=== PATIENT | male | born 1950 | race Two or more races ===

== ENCOUNTER 2023-08-26 11:03 | Day surgery (SDC) | payer SELFPAY ==
[2023-08-26] VITALS (10 sets, daily range): BP systolic 121–147; BP diastolic 47–67; BMI 24.7
[2023-08-26 11:44] LABS: Glucose - Point of Care 139 mg/dl (70-99)
--- NOTE | 2023-08-26 12:10 | W.PN.CARDCBS ---
Addendum entered and electronically signed by Felipe Starks MD 08/26/23 17:54:
patient seen and examined
agree with ASSISTANT PROFESSOR OF BUSINESS note and assessment
Seen and examined with family
Reviewed records
Acute on chronic renal failure, oliguric and possibly approaching temporary HD
underying [facility] s.p. temp wire since friday.
received 10cc of intravenous dye for venogram and CS venography see separate report of device implant
reviewed post implant CXR no pneumothorax and stable leads. ecg reviewed with biv pacing
weaned dobutamine and removed temp with improved hemodynamics post implant
retained right IJ in case temporary HD needed and used active fix LV lead to mitigate possible dislodgement risk
exam:
heent ncat
jvp 7
cor regular no m
lungs w rhales
abd soft nt nd
no ext edema
aao x 3
HPI: This is a 71 y/o [place] male, PMH sig for CAD w/prior CABG with bioprosthetic AVR (2007), DM, HLD, GERD, anemia, BPH.
Sudden onset headache, LH with worsening LE edema. He also developed chest heaviness and extreme weakness. EMS was called and pt was found to be in CHB w/rates 30s. BP was normal but was trending down to 80s/40s. He was brought to [facility] ER where he
was started on epinephrine and a temporary transvenous pacer wire was placed via RIJ, external pacer set with rate 70 and MA 1.5.
Found to have significant hyperkalemia w/K at 6.5, acute renal failure w/creat 2.67. Creat has continued to climb, peaking at 5.1 today. Renal was consulted and it was unclear why he is in acute renal failure. Pro BNP 4047 and initial HS troponin 56
with eventual peak 758.
He has remained hemodynamically unstable and has been on dobutamine gtt for MAP>70.
He is transferred today for permanent pacemaker implant with temp wire removal. Likely transfer back to [facility] today post procedure or in AM for continued care management.
Echo 08/24- nml LV size, abnormal diastolic function with increased LVEDP, EF 60-65%, CLVH but no obvious regional abn.
normally functioning bioprosthetic AV, PG/MG 32.5/18, ABEL 1.34cm2,
IMPRESSION:
Complete heart block
Temporary pacer via RIJ sheath
Hemodynamically unstable on dobutamine gtt
Elevated troponin, possible Type II NSTEMI v. acute non-ischemic myocardial injury
Hyperkalemia
Acute on likely Chronic renal failure
Acute decompensated diastolic HFpEF, 60-65%
CAD, w/prior CABG x3 w/bioprosthetic AVR (2007)
(GAFFNEY-LAD, VG-dLAD, VG-PLB)
HLD
HTN
DM
Language barrier
PLAN:
CHB-s/p AUTOMATED WEAVER-P and transfer back to [facility] for ongoing renal evaluation. Discussed care with Dr. Barnes who will arrange for 2 doses of antibiotics tonight and in am
follow daily renal function
outpt wound check
standard post PPM abx and cxr reviewed
incision check in 1 week
Elevated troponins- poss type II NSTEMI
prior CABG x3 with AVR (2017)
should consider ischemic evaluation when pt is stable
dobutamine weaned
continue aspirin, atorvastatin
no heparin at this time
Acute on chronic diastolic HFpEF- had been on lasix 40 IV/daily
will continue and monitor creat, lytes
Acute on chronic renal failure- pt had been hospitalized a couple months ago for acute renal failure
creat continues to rise, up to 5.1 today (2.6 on admission)
no recent med changes, antibiotics
possibly related to hypoperfusion with bradycardia/CHB, as well as dehydration
wolf in at transfer- low urine output, around 10-20cc/hr
renal consult at [facility]- will follow with them
DM- stop metformin
ok to continue insulins as ordered
Original Note:
Today's Communication / Plan
-
PPM implant
post CXR
anticipate return to [facility] today/tomorrow for continued care
Impression / Plan
-
This is the H&P summary.
Full H&P scanned into chart.
PCP: Israel Clifton MD
CDY: Orlando Langley MD
HPI: This is a 71 y/o [place] male, PMH sig for CAD w/prior CABG with bioprosthetic AVR (2007), DM, HLD, GERD, anemia, BPH.
Sudden onset headache, LH with worsening LE edema. He also developed chest heaviness and extreme weakness. EMS was called and pt was found to be in CHB w/rates 30s. BP was normal but was trending down to 80s/40s. He was brought to [facility] ER where he
was started on epinephrine and a temporary transvenous pacer wire was placed via RIJ, external pacer set with rate 70 and MA 1.5.
Found to have significant hyperkalemia w/K at 6.5, acute renal failure w/creat 2.67. Creat has continued to climb, peaking at 5.1 today. Renal was consulted and it was unclear why he is in acute renal failure. Pro BNP 4047 and initial HS troponin 56
with eventual peak 758.
He has remained hemodynamically unstable and has been on dobutamine gtt for MAP>70.
He is transferred today for permanent pacemaker implant with temp wire removal. Likely transfer back to [facility] today post procedure or in AM for continued care management.
Echo 08/24- nml LV size, abnormal diastolic function with increased LVEDP, EF 60-65%, CLVH but no obvious regional abn.
normally functioning bioprosthetic AV, PG/MG 32.5/18, ABEL 1.34cm2,
IMPRESSION:
Complete heart block
Temporary pacer via RIJ sheath
Hemodynamically unstable on dobutamine gtt
Elevated troponin, possible Type II NSTEMI v. acute non-ischemic myocardial injury
Hyperkalemia
Acute on likely Chronic renal failure
Acute decompensated diastolic HFpEF, 60-65%
CAD, w/prior CABG x3 w/bioprosthetic AVR (2007)
(GAFFNEY-LAD, VG-dLAD, VG-PLB)
HLD
HTN
DM
Language barrier
PLAN:
CHB- transfer for PPM implant today
standard post PPM abx and cxr
remove temp wire
incision check in 1 week
possible transfer back to [facility] today post implant if stable
Elevated troponins- poss type II NSTEMI
prior CABG x3 with AVR (2017)
should consider ischemic evaluation when pt is stable
continue dobutamine for hemodynamic instability as needed for MAP>70- likely not in cardiogenic shock
continue aspirin, atorvastatin
no heparin at this time
Acute on chronic diastolic HFpEF- had been on lasix 40 IV/daily
will continue and monitor creat, lytes
Acute on chronic renal failure- pt had been hospitalized a couple months ago for acute renal failure
creat continues to rise, up to 5.1 today (2.6 on admission)
no recent med changes, antibiotics
possibly related to hypoperfusion with bradycardia/CHB, as well as dehydration
wolf in at transfer- low urine output, around 10-20cc/hr
renal consult at [facility]- will follow with them
DM- stop metformin
ok to continue insulins as ordered
Progress Note - Patternmaker Bench
Subjective
Date of Service: August 26, 2023
Objective
Vital Signs and I&O:
Vital Signs
Temp Pulse Resp BP Pulse Ox
98.2 F 70 16 132/47 98
08/26/23 11:05 08/26/23 11:05 08/26/23 11:05 08/26/23 11:05 08/26/23 11:05
Vital Signs
Temp Pulse Resp BP Pulse Ox
98.2 F 70 16 132/47 98
08/26/23 11:05 08/26/23 11:05 08/26/23 11:05 08/26/23 11:05 08/26/23 11:05
Physical Exam
Physical Exam
AAOx3, MAEE 5/5
RRR S1 S2 no murmurs
moderate bilateral rales, R>L, non labored
soft abd, +bs
bilat extremities w/+1-2 edema, palpable distal pulses
--- NOTE | 2023-08-26 16:05 | ITS.CL.PACE ---
Major Account Representative - Pacemaker Implant
Pacemaker Implant
Procedure Report:
Date of Procedure: August 26, 2023
Patient : 1950
Procedures: MACHINE ATTENDANT pacer implantation
Indication: 1) Class III CHF, LVEF 45%, 2) paced QRS with temporary wire and underlying complete heart block with symptoms. Patient requiring dobutamine and was transferred urgently from [facility] for device implantation
History: Prior AVR CABG in 2019 at [facility] who presents with acute renal failure and AV block who had a temporary pacemaker placed at [facility] on August 23.
Implants:�
Pulse Generator: Medtronic; Model# W-4 TR 01; Serial#�JUNIOR BRAND [id number]
Atrial Lead: Medtronic: Model# 4574; Serial# [id number]
Right Ventricular Lead: Medtronic; Model# 4074; Serial# [id number]
Left Ventricular Lead: Medtronic; Model# 4798 serial# [id number]
�
The temporary wire was removed at the end of the procedure
�
Technique: The patient was prepped and draped in the usual fashion. Local anesthetic was applied to the left prepectoral subcutaneous tissue. A 4 inch incision was made. The left axillary vein was accessed� without difficulty. A subcutaneous pocket
was CREATED. Hemostasis was excellent. A right heart catheterization was performed. The leads were introduced with hemostatic peel away introducer sheaths. The right ventricular lead was placed at the right ventricular apex. The atrial lead was
placed in the right atrial appendage. The coronary sinus was accessed with the aid of the Attain system. The left ventricular lead was placed in the mid posterolateral position from the base to mid ventricle. 10 volt pacing did not capture the
diaphragm. The leads were secured to the pectoralis muscle and fascia. The leads were appropriately attached to the device. The pocket was irrigated with antibiotic solution. The device and leads were placed in the pocket and the device was secured
to pectoralis muscle and facia. The incision was closed with absorbable sutures. The estimated blood loss was minimal. There were no complications. Device based testing was performed as described below. IV contrast total: 10 cc. Once the MACHINE ATTENDANT device
was placed the temporary wire was removed from the right internal jugular vein under fluoroscopy with a Cordis left in the right IJ. The patient was able to be weaned from his dobutamine immediately after cardiac resynchronization was placed.
Pulse fluoroscopy 11 minutes and dose 304 mGy
System Analysis:
RA lead: P: 1.4 mV; Threshold: 0.6 V @ 0.5 ms; Impedance: 684 ohms.
RV lead: R: 6.3 mV; Threshold: 0.6 V @ 0.5 ms; Impedance: 1140 ohms.
LV lead: R: 7.0 mV; Threshold: 1.0 V @ 0.5 ms at S1-S2 configuration; Impedance: 608 ohms.
�
Final Programming: DDDR 60-130 beats a minute
�
Conclusion: Uncomplicated Biventricular ICD implant and testing. Compensated filling pressures.
�
Recommendation: Routine post BiV ICD care. He will be sent back to [facility] this evening and I communicated with Dr. Barnes personally regarding antibiotic dosing and he has ongoing follow-up and evaluation for potential hemodialysis.
�
cc: Dr. Huma Barnes
�
== END 2023-08-26 16:25 | disposition home or self-care (01) ==
LOC: CATH 11:03
PROVIDERS: ATTENDING PHYSICIAN Internal Medicine Cardiovascular Disease; FAMILY PHYSICIAN Internal Medicine
DX: I44.2 Atrioventricular block, complete (principal); I50.9 Heart failure, unspecified; E87.5 Hyperkalemia; J81.1 Chronic pulmonary edema; I25.10 Atherosclerotic heart disease of native coronary artery without angina pectoris; Z95.1 Presence of aortocoronary bypass graft; Z79.82 Long term (current) use of aspirin; E11.9 Type 2 diabetes mellitus without complications
CPT/HCPCS: 33208; 33225; 71045; 82962; 93005; C1730; C1769; C1887; C1892; C1898; C1900; C2621

== ENCOUNTER 2024-12-20 06:12 | Inpatient (IN) | payer OTHER, SELFPAY ==
[2024-12-20] VITALS (24 sets, daily range): BP systolic 87–127; BP diastolic 56–74; BMI 23.5
--- NOTE | 2024-12-20 04:35 | EDRN ---
SL ntg administered
[2024-12-20] MEDS: NSS 1000 IV (04:37)
--- NOTE | 2024-12-20 04:38 | EDRN ---
Granddaughter speaking with pt - pt says he feels good, no sob cp 1-04/12. Pain was 12/10 at 0330
[2024-12-20 04:44] LABS: Glucose - Point of Care 187 mg/dl (70-99)
[2024-12-20] MEDS: NITRO-BID 0.5 INCH TOPICAL (04:47)
--- NOTE | 2024-12-20 04:48 | EDRN ---
NSS bolus hung per Dr Hoffman's verbal order then stopped shortly after per his vo, remains attached to #20g IV in case pt needs fluid per Dr Hoffman
[2024-12-20 04:57] LABS: ALT (SGPT) 48 U/L (0-50); AST (SGOT) 74 U/L (17-59); Albumin 3.9 g/dl (3.5-5.0); Alkaline Phosphatase 106 U/L (38-126); Blood Urea Nitrogen 29 mg/dl (9-20); Calcium 9.6 mg/dl (8.4-10.2); Carbon Dioxide 19 mmol/L (22-30); Chloride 112 mmol/L (98-107); Estimated Creatinine Clearance 40 ml/min; Glucose 185 mg/dl (70-99); Potassium 5.2 mmol/L (3.5-5.1); Sodium 140 mmol/L (135-145); Total Protein 6.5 g/dl (6.3-8.2); eGFR 48.55
[2024-12-20 04:58] LABS: INR 1.15; PT 15.0 Sec (11.4-14.6)
[2024-12-20 04:59] LABS: APTT 41.8 Sec (23.4-35.0)
[2024-12-20 05:01] LABS: Hematocrit 30.2 % (39.0-52.0); Hemoglobin 9.2 g/dL (13.0-18.0); Mean Corp Hgb Conc. 30.5 g/dL (33.0-37.0); Mean Corpuscular Volume 103.4 fL (80.0-94.0); Nucleated Red Blood Cells % 0 % (-); Red Cell Dist. Width 16.4 % (11.5-14.5)
--- NOTE | 2024-12-20 05:07 | EDRN ---
Family contact info: Primary contact [place] of [place].
Granddaughter- Geno
Grandson- Juan Ramon .
[2024-12-20 05:17] LABS: Troponin I 2.220 ng/ml
[2024-12-20 05:36] LABS: Platelet Count 40 10^3/uL (130-400)
[2024-12-20 05:37] LABS: Anisocytosis 1+; Normal RBC Morphology No
[2024-12-20 05:40] LABS: Acanthocytes 1+; Ovalocytes Occasional
[2024-12-20 05:42] LABS: Schistocytes Occasional; Target Cells Occasional; Tear Drop Red Blood Cells Occasional
--- NOTE | 2024-12-20 06:10 | HPS.HSE ---
Family Physician
-
Family Physician: Israel Clifton
Chief Complaint
-
Chest Pain / SOB
History of Present Illness
Patient is a 74y M with PMH significant for ASCVD, DM-II and CHF who presents to ED complaining of chest pain and SOB. History obtained from patient and family at the bedside with family serving as vacuum tank tender. Patient has had some mild /
intermittent chest discomfort and SOB since Friday. This evening, he had severe symptoms with 10/10 chest pain and marked SOB prompting them to call 911. He was brought to the ED for further evaluation. Patient was treated with NTG (SL and paste)
and is currently pain-free. His SOB is much improved.
Patient was hospitalized several weeks ago at [facility] for chest discomfort / abnormal troponin. No intervention was performed by history.
He was last seen here in August 2023 when he was transferred from [facility] for placement of permanent pacemaker due to heart block / bradycardia.
Patient went on a cruise last month (11/10-11/15) and afterwards family noted that he had some swelling in the feet and seemed more SOB than usual.
He had some cough last week including some blood-streaked sputum. No fevers / chills. No GI or complaints.
No new medications.
He is followed normally by [facility] (Dr. Langley).
Medical History
Past Medical History
Past Medical History: Reports Other
Additional Past Medical History:
ASCVD
Prior CVA
CHF - Unknown Type
Aortic Stenosis
DM-II
CKD - Unclear Stage (Temporary HD at [facility] July of this year)
BPH
Past Surgical History: Reports Other
Additional Past Surgical History:
CABG x 3
Bioprosthetic Aortic Valve Replacement
PTCA with Stent
In-Stent Restenosis with PTCA / Balloon Angioplasty
PPM Placement
Social History
Tobacco: Former Smoker (Significant history of smoking. Quit 5 years ago. > 50 pack years total use.)
Alcohol: Occasional
Drug: None
Personal:
Living: With Family
Family History
Family History: Not pertinent
Allergies / Home Medications
Allergies reflects when Allergies were last updated in [employer].
Home Medications with original date entered in [employer]
Allergy/Medication List:
Allergies
Allergy/AdvReac Type Severity Reaction Status Date / Time
No Known Allergies Allergy Verified 12/20/24 04:33
Home Medications
finasteride 5 mg tablet 5 mg PO DAILY 08/26/23
tamsulosin 0.4 mg capsule 0.4 mg PO DAILY 08/26/23
Insulin Sq 30 units SC DAILY 12/20/24
acetaminophen 650 mg tablet,extended release 650 mg PO .Q4-6H PRN pain 12/20/24
aspirin 81 mg tablet,delayed release 81 mg PO DAILY 12/20/24
atorvastatin 80 mg tablet (Lipitor) 80 mg PO HS 12/20/24
calcium 600 mg (as carbonate)-vitamin D3 10 mcg (400 unit) tablet (Calcium 600 + D(3)) 1 tab PO DAILY 12/20/24
cetirizine 10 mg tablet 10 mg PO DAILY PRN allergies 12/20/24
cholecalciferol (vitamin D3) 125 mcg (5,000 unit) tablet (Vitamin D3) 125 mcg PO DAILY 12/20/24
clopidogrel 75 mg tablet 75 mg PO DAILY 12/20/24
dapagliflozin propanediol 10 mg tablet (Farxiga) 10 mg PO DAILY 12/20/24
famotidine 40 mg tablet 40 mg PO HS 12/20/24
ferrous sulfate 325 mg (65 mg iron) tablet 325 mg PO DAILY 12/20/24
furosemide 40 mg tablet 40 mg PO DAILY 12/20/24
ipratropium bromide 21 mcg (0.03 %) nasal spray 2 spray intranasal .BID-TID 12/20/24
metformin 500 mg tablet 500 mg PO BID 12/20/24
metoprolol tartrate 25 mg tablet 25 mg PO BID 12/20/24
multivitamin 1 tab PO DAILY 12/20/24
nitroglycerin 0.4 mg sublingual tablet 0.4 mg sublingual Q5-15M PRN cp 12/20/24
omeprazole 40 mg capsule,delayed release 40 mg PO DAILY 12/20/24
Review of Systems
-
History Source: Patient and Family
A 12 point ROS was completed and negative except as noted: Yes
Constitutional: Reports Fatigue; Denies Fever or Chills
Respiratory: Reports Cough and Trouble Breathing
Cardiac: Reports Chest Pain and Diaphoresis; Denies Syncope
Abdomen/GI: Denies Abdominal Pain, Nausea, Vomiting or Diarrhea
: Denies Dysuria or Frequency
Musculoskeletal: Reports Edema; Denies Joint Pain
Neurological: Denies Dizzy or Headache
Psych: Denies Depression or Anxiety
Physical Exam
Vital Signs
Vital Signs
Temp Pulse Resp BP Pulse Ox
97.8 F 95 18 103/67 99
12/20/24 04:36 12/20/24 06:00 12/20/24 06:00 12/20/24 06:00 12/20/24 06:00
Physical Exam
General: Other (74y M in no acute distress at present.)
HEENT: Moist mucous membranes and PERRLA
Respiratory: Other (Scattered bilateral rales. No wheezing.)
Cardiac: S1/S2 and Tachycardia; No Murmur
GI: Soft, Non Tender, Non Distended and Normal Bowel Sounds
Musculoskeletal: No Clubbing, No Cyanosis and Other (1+ pitting fariba b/l LEs.)
Neuro: AO x 3
Laboratory Results
-
12/20/24 04:33
12/20/24 04:33
Laboratory Results
PT 15.0 Sec (11.4-14.6) H 12/20/24 04:35
INR 1.15 12/20/24 04:35
APTT 41.8 Sec (23.4-35.0) H 12/20/24 04:35
Total Bilirubin 1.9 mg/dl (0.2-1.3) H 12/20/24 04:33
AST 74 U/L (17-59) H 12/20/24 04:33
ALT 48 U/L (0-50) 12/20/24 04:33
Alkaline Phosphatase 106 U/L (38-126) 12/20/24 04:33
Troponin I 2.220 ng/ml H* 12/20/24 04:33
Impression/Plan
-
A/P: Patient is a 74y M with PMH significant for ASCVD, CHF and DM-II who presents to ED complaining of SOB and chest pain.
NSTEMI / ACS
ASCVD
- Admit to IVU for further evaluation and treatment.
- Patient presented with 12/10 chest pain. EKG is 100% V-paced. Pain relieved with NTG.
- IV heparin infusion. Continue DAPT.
- NTG paste at present - IV infusion if recurrent chest pain.
- Follow troponin to peak (initial troponin = 2..22).
- Cardiology evaluation for additional recommendations and possible ischemic evaluation.
- Follow for any new / recurrent chest pain.
Acute on Chronic HF- Unknown Type
History of Bioprosthetic AVR
- Peripheral edema, orthopnea and SOB. Symptoms present x weeks, but much worse this evening.
- IV Lasix as BP tolerates.
- Follow I/Os, daily weights, etc.
- Echo.
- Cardiology evaluation as noted above.
- GDMT as BP will tolerate.
- May required ionotrope / pressor for adequate perfusion.
CKD - Unclear Stage
Non-Gapped Metabolic Acidosis
Mild Hyperkalemia
- SCr today is 1.5, but prior history of advanced CKD and reportedly required temporary HD earlier this year.
- SCr August 2023 when here for PPM was 5.
- Follow for changes in renal function.
- Monitor labs / lytes. May benefit from bicarbonate supplementation.
- Obtain prior records as noted above.
- Hold metformin.
DM-II
- Continue basal insulin. Start with 12 units daily while NPO.
- Follow glucose and cover with SSI as needed.
- Update A1C.
- Adjust regimen as needed for adequate control.
Anemia of Chronic Disease
Macrocytosis
- No prior values to compare, but I suspect this is chronic.
- Check B12, folate, iron studies, etc.
- Follow H&H for changes.
Complete Heart Block s/p PPM
- 100% paced.
BPH
- Bladder scan protocol.
DVT prophylaxis: On IV Heparin
Code Status: Full
[2024-12-20] MEDS: HEPARIN 4000 UNITS IV (06:32)
[2024-12-20] MEDS: HEPARIN 25000 UNITS/250 ML IV (06:33)
--- NOTE | 2024-12-20 06:36 | ED.GENMED ---
History of Present Illness
General
Chief Complaint: Chest Pain
Source: patient and family
Time Seen by Provider: 12/20/24 04:34
Nursing documentation reviewed up to this point in time: agreed with
History of Present Illness
History of Present Illness:
Note:
CHIEF COMPLAINT(S)
Substernal chest pain and diaphoresis.
HISTORY OF PRESENT ILLNESS
The patient is a 74-year-old male who presented with substernal chest pain and diaphoresis. The onset of his chest pain was at 3:30 AM, described as sharp and rated as 10 out of 10, which awakened him from sleep. Emergency Medical Services (EMS)
were contacted by the family, who noted that the patient has an extensive cardiac history. The patient was administered aspirin and nitroglycerin pre-hospital, resulting in a reduction of his chest pain to 2 out of 10 immediately, and by the time of
hospital arrival, the pain was 0 out of 10. Upon arrival, the patient was still experiencing labored breathing and was diaphoretic. Portable chest X-ray at the bedside showed pulmonary vascular congestion with a possible infiltrate in the right
lower lobe. Subsequent nitroglycerin administration improved his breathing.
PAST MEDICAL AND SURIGICAL HISTORY
The patient has an extensive cardiac history, including coronary artery bypass grafting (CABG) performed at [facility] in 2007. He also has a bioprosthetic aortic valve replacement (AVR), diabetes mellitus, hyperlipidemia, gastroesophageal
reflux disease (GERD), anemia, benign prostatic hyperplasia (BPH), and chronic renal failure.
ADDITIONAL HISTORY OBTAINED FROM SOURCES OTHER THAN THE PATIENT
The patients history and translation were provided by family members accompanying him, as our official language line translation service was not operable.
CHRONIC MEDICAL CONDITIONS SIGNIFICANTLY AFFECTING CARE
Diabetes mellitus, chronic renal failure, hyperlipidemia, GERD, anemia, BPH, cardiac history including prior CABG and bioprosthetic AVR.
REVIEW OF SYSTEMS
- Cardiovascular: Substernal chest pain initially 10 out of 10, now resolved.
- Respiratory: Labored breathing, improved after nitroglycerin administration.
- General: Diaphoretic on presentation.
PHYSICAL EXAM
General: Alert, in no acute distress on arrival at the hospital.
Skin: Warm, dry. Diaphoretic upon initial pre-hospital assessment.
Head: Normocephalic, atraumatic.
Neck: Supple, trachea midline.
Eyes, Ears, Nose, Mouth and Throat: Oral mucosa moist.
Cardiovascular: Normal peripheral perfusion, no edema observed.
Respiratory: Non-labored respirations post-nitroglycerin administration.
Gastrointestinal: Abdomen nondistended.
Back: Normal range of motion and alignment.
Musculoskeletal: Normal range of motion, normal strength.
Neurological: Alert and oriented to person, place, time, and situation, no focal neurological deficits observed.
Psychiatric: Cooperative, appropriate mood and affect.
PROBLEM LIST
Acute:
- Chest pain
- Pulmonary vascular congestion
- Diaphoresis
- Elevated troponin and proBNP levels
- Labored breathing
Chronic:
- Diabetes mellitus
- Chronic renal insufficiency
- GERD
- Benign prostatic hyperplasia
- Anemia
PLAN
The patient will be admitted to the hospitalist service for further management and monitoring of his cardiac status and respiratory function.
DIFFERENTIAL DIAGNOSIS
The Differential Diagnosis includes, in no particular order, and is not limited to:
- Acute coronary syndrome
- Aortic dissection
- Pulmonary embolism
- Congestive heart failure
- Pneumonia
- Pericarditis
- Costochondritis
- Gastroesophageal reflux disease exacerbation
- Anxiety-related chest pain
- Myocarditis
Disposition:
SUMMARY OF ENCOUNTER
A 74-year-old male presented to the emergency department with chest pain and shortness of breath. Initial evaluation suggested the possibility of congestive heart failure, with chest X-ray indicating pulmonary vascular congestion. Pre-hospital
administration of aspirin and nitroglycerin alleviated his chest pain completely, and further nitroglycerin administration improved his breathing. Consultation with Dr. White, an short goods drier, confirmed that the pre-hospital EKG did
not show ST elevation indicative of acute ischemia.
DISPOSITION
The patient was admitted to the hospitalist service for further management and monitoring.
ASSESSMENT
The patient is likely experiencing congestive heart failure.
MANAGEMENT OF THE PATIENTS CARE WAS DISCUSSED WITH
Discussion with Dr. White, the short goods drier, regarding the absence of ST elevation on the pre-hospital EKG.
INDEPENDENT REVIEW OF LABS AND INTERPRETATION OF TESTS
My independent interpretation of the chest X-ray indicates pulmonary vascular congestion, suggestive of congestive heart failure.
MEDICATION RECONCILIATION
Pre-hospital administration of aspirin and nitroglycerin.
MEDICAL DECISION MAKING
- Number and Complexity of Problems Addressed: Chronic conditions affecting care include extensive cardiac history, diabetes mellitus, chronic renal failure, and hyperlipidemia. Differential diagnoses considered included acute coronary syndrome,
aortic dissection, pulmonary embolism, congestive heart failure, pneumonia, pericarditis, costochondritis, gastroesophageal reflux disease exacerbation, anxiety-related chest pain, and myocarditis.
- Data:
Category 2: Clinical information was obtained from independent historians, specifically from Dr. White regarding the EKG interpretation.
Category 3: Discussion of management with Dr. White, short goods drier.
DIAGNOSIS
Congestive heart failure (ICD-10: I50.9).
Phy Exam
Physical Exam
Physical Exam:
.
Scores
Heart Failure Risk
Heart Failure Risk Score: Yes
History of Stroke or TIA: No
History of intubation for respiratory distress: No
Heart rate on ED arrival >/= 110: No
SaO2 <90% on arrival on room air: No
HR >/=110 during 3min walk test (or too ill to perform test): Yes
ECG has acute ischemic changes: No
Urea >/=12mmol/L (BUN 33.6mg/dL): No
Serum CO2>/=35mmol/L: No
Troponin I or T elevated to PR Level (0.4mg/dL): Yes
NT-proBNP >/=5,000ng/L (5,000pg/ml): Yes
HF Risk Score: 5
Admission Status: VERY HIGH RISK 39.8% Consider admission to hospital
Heart Score for Chest Pain Patients
STEMI patient?: No
History: Highly Suspicious
ECG: Nonspecific Repolarization
Age: >/= 65 years
Risk Factors: >/= 3 Risk Factors or History of CAD
Troponin: >/= 3 x Normal Limit
Heart Score for Chest Pain Patients: 9
Heart Score Risk: 72.7 % MACE over next 6 weeks
Course
Orders/Labs/Results
Orders:
Orders
12/20/24
Electrocardiogram (*1) Stat
Reason for Study: Chest Pain
12/20/24 04:26
Electrocardiogram (*1) Urgent
Reason for Study: Chest Pain
Cardiac Monitoring- Treatment ONCE
EKG- Treatment ONCE
IV Insert/Care/Rem.- Treatment PRN
O2 Therapy [RESP] Urgent
Titrate/Wean O2 to maintain O2 sat greater than (%): 90
Special Instructions: Maintain sats >/=90%
Pulse Ox/spot Check [RESP] Urgent
Quantity: 1
Special Instructions: ON ROOM AIR
12/20/24 04:33
Complete Blood Count/With Diff Urgent
Comprehensive Metabolic Panel Urgent
NT-proBNP Urgent
Comment: ADD ON
Troponin I Urgent
12/20/24 04:35
PTT Urgent
Prothrombin Time Urgent
12/20/24 04:36
0.9% Sodium Chloride 1000 ml [Nss] 1,000 ml IV BOLUS
12/20/24 04:39
Chest X-ray Portable [CR Chest Portable - 1 View] Stat
Comment:
Reason For Exam: cp
Reason Study Needs to be Portable: Unable to Transport
12/20/24 04:45
Nitroglycerin Ointment [Nitro-Bid] 1 inch .ROUTE .STK-MED ONE
Nitroglycerin Ointment [Nitro-Bid] 1 inch TOPICAL NOW STA
12/20/24 04:46
Nitroglycerin Ointment [Nitro-Bid] 0.5 inch TOPICAL NOW STA
12/20/24 04:49
Add On- LAB Stat
Tests Added?: [id number]
12/20/24 05:59
Admit/Transfer Patient As Directed
Co-Sign Provider:
Level of Care: Inpatient admission
Assign to:: IVU
Physician / Group: Joby
Diagnosis: NSTEMI / ACS, CHF
Reason for Hospitalization: NSTEMI / ACS, CHF
Expected length of stay greater than two midnights?: Yes
ELOS- Estimated Length of Stay in days: 3
I certify the patient meets the requirements for IP care: Yes
PRN Pain Medication Management As Directed
May give lesser potent ordered pain med per pt: Yes
preference::
Protocol:: Medication orders for pain may be administered in a
manner that supports deferring to patient preference
when the pt is:
- Requesting an ordered lesser potent pain medication.
Least to most potent pain medications are defined
as: acetaminophen < NSAID < tramadol < opioids
(morphine, oxycodone, hydromorphone).
- Requesting a lesser dose of the same medication IF
ORDERED.
- Requesting a less intrusive route of administration
if both routes are prescribed by the provider (PO <
IV).
12/20/24 Breakfast
NPO
Allow oral meds: Yes
Allow clear liquids: Sips of Clears
12/20/24 06:03
Code Status As Directed
Resuscitation Status: Full Code
12/20/24 06:07
Heparin 4,000 units IV NOW STA
12/20/24 06:15
Heparin 81645 Units/250 ml 25,000 units in 250 ml IV PER PROTOCOL
Weight to be used for heparin protocol in kilograms (kg):: 69.5
Protocol:: Cardiac Tx/Acute Coronary
PTT Goal Range to be used:: PTT 73 to 111 seconds
Order type:: Initial
INITIAL Infusion Dose (UNITS/KG/hr) & then follow protocol:: 12 units/kg/hr
Infusion Dose in UNITS/hr & then follow protocol (UNITS/hr):: 850
INFUSION RATE in mL/hr & then follow protocol (mL/hr):: 8.5
PTT less than or equal to 64 seconds:: Increase rate by 200 units/hr (+ 2 mL/hr)
PTT 64.1 to 72.9 seconds:: Increase rate by 100 units/hr (+ 1 mL/hr)
PTT 73 to 111 seconds:: Target Range. No change in rate.
PTT 111.1 to 130.9 seconds:: Decrease rate by 100 units/hr (- 1 mL/hr)
PTT 131 to 199.9 seconds:: HOLD for 1 hr. Then decrease rate by 200 units/hr (- 2 mL/hr)
PTT greater than or equal to 200 seconds:: HOLD for 2 hrs & Notify Provider. Then decrease by 200 units/hr (-
2 mL/hr)
Lab follow-up:: Each change, PTT q6h until 2 consecutive are therapeutic. Then PTT
daily.
12/20/24 06:48
Echo 2D MMode Doppler [Echo 2D MMode Color/Doppler] Routine
Reason for Study: NSTEMI / ACS, CHF
CARDIOLOGY CONSULT Routine
Consulting Provider: Anjel Gonzalez
Was physician already notified: No
Reason for consult: NSTEMI / ACS, CHF
Consult Notification Routine
Specialty to Notify: Cardiology
Date consulting provider notified: 12/20/24
Time consulting provider notified: 07:01
Notified:: Provider
12/20/24 07:20
Nitroglycerin Sublingual [Nitrostat (Sublingual)] 0.4 mg SL [id number] PRN cp
12/20/24 07:20
EKG with chest pain [ECG as needed] As Directed
ECG as needed for:: Chest Pain
12/20/24 07:35
Troponin I Q6H
12/20/24 08:24
Acetaminophen [Tylenol] 650 mg PO Q4HPRN PRN
Aspirin Low Dose EC [Aspir Low (Enteric Coated)] 81 mg PO DAILY
Clopidogrel Bisulfate [Plavix] 75 mg PO DAILY
Dextrose 50%-Water [Dextrose 50% Syringe] 12.5 grams IV [id number] PRN
Furosemide [Lasix] 40 mg IV BID AT 0800,1600
Glucagon [GlucaGen] 1 mg IM PRN PRN
Insulin Aspart Corrective Mod [Novolog Flexpen-Moderate Resistance] See Protocol SC AC
Insulin Glargine Lantus [Lantus] 12 units Subcutaneous Insulin Syringe [Syringe-Insulin] 0 unit SC DAILY
Metoprolol [Lopressor] 25 mg PO BID
Morphine Sulfate 2 mg IV Q4HPRN PRN
Pantoprazole [Protonix IV] 40 mg IV DAILY
omeprazole 40 mg PO DAILY
12/20/24 08:24
Heparin Protocol- PTT Orders As Directed
PTT per Heparin protocol: -Obtain CBC and baseline PTT - if not already collected.
-Obtain PTT 6 hours from start of infusion. Then, every 6 hours until 2 consecutive
PTT's are therapeutic. Then, PTT Daily.
-With each rate change, obtain PTT every 6 hours until 2 consecutive PTT's are
therapeutic. Then, PTT Daily.
Activity As Directed
Activity Level: Bedrest
Bedside Glucose Monitoring As Directed
Frequency: AC&HS
Additional Instructions:: Change to q6h if pt on TPN, tube feeding or not eating
Bladder Scan As Directed
Follow Bladder Retention/Intermittent Cath Algorithm?: Yes
PRN if no void in __ hours: 6
Frequency: Per Retention Algorithm
If Bladder Scan Result >: 400
then:: Straight cath
I/O [Intake/ Output] As Directed
Frequency: Per unit guidelines
Notify MD As Directed
Notify physician if: PTT is greater than or equal to 200.
Pneumatic Compression Sleeves As Directed
Type: Knee high
Records Request [Obtain Records] As Directed
Dates of Information to be Released: Most Recent
Type of Information Requested: Entire Record
Obtain Records from: [facility]
Straight Cath As Directed
Frequency: Per Retention Algorithm
Additional Instructions: straight cath as needed per acute urinary retention algorithm for 24 hrs
Additional Instructions: for bladder scan greater than 400 mL
Vital Signs As Directed
Frequency: Per unit guidelines
Weight As Directed
Frequency: Daily
Oxygen Therapy [O2 Therapy] [RESP] Routine
Titrate/Wean O2 to maintain O2 sat greater than (%): 94
DX Deep Vein Thrombosis Video Routine
12/20/24 12:49
Troponin I Q6H
12/20/24 20:52
Troponin I Q6H
12/20/24 22:00
Atorvastatin [Lipitor] 80 mg PO HS
12/21/24 03:47
Basic Metabolic Panel IN AM
Cardiovascular Evaluation IN AM
Glycohemoglobin (HgbA1c) IN AM
12/21/24 06:00
EKG [Electrocardiogram (*1)] IN AM
Reason for Study: Chest Pain
12/22/24 06:00
Complete Blood Count/No Diff Q2D
Comment: notify provider: Platelet count < 130,000 or decrease by 50% from baseline
12/24/24 06:00
Complete Blood Count/No Diff Q2D
Comment: notify provider: Platelet count < 130,000 or decrease by 50% from baseline
12/26/24 06:00
Complete Blood Count/No Diff Q2D
Comment: notify provider: Platelet count < 130,000 or decrease by 50% from baseline
12/28/24 06:00
Complete Blood Count/No Diff Q2D
Comment: notify provider: Platelet count < 130,000 or decrease by 50% from baseline
12/30/24 06:00
Complete Blood Count/No Diff Q2D
Comment: notify provider: Platelet count < 130,000 or decrease by 50% from baseline
01/01/25 06:00
Complete Blood Count/No Diff Q2D
Comment: notify provider: Platelet count < 130,000 or decrease by 50% from baseline
01/03/25 06:00
Complete Blood Count/No Diff Q2D
Comment: notify provider: Platelet count < 130,000 or decrease by 50% from baseline
01/05/25 06:00
Complete Blood Count/No Diff Q2D
Comment: notify provider: Platelet count < 130,000 or decrease by 50% from baseline
Abnormal Lab Results
12/20/24 12/20/24 12/20/24
04:33 04:35 04:41
WBC 11.3 H 10^3/uL
(4.8-10.8)
RBC 2.92 L 10^6/uL
(4.70-6.10)
Hgb 9.2 L g/dL
(13.0-18.0)
Hct 30.2 L %
(39.0-52.0)
MCV 103.4 H fL
(80.0-94.0)
MCH 31.5 H pg
(27.0-31.0)
MCHC 30.5 L g/dL
(33.0-37.0)
RDW 16.4 H %
(11.5-14.5)
Plt Count 40 L 10^3/uL
(130-400)
MPV 12.7 H fL
(7.4-10.4)
Abs Immat Gran (auto) 0.2 H 10^3/uL
(0-0.05)
Absolute Neuts (auto) 8.8 H 10^3/uL
(1.4-6.5)
Absolute Lymphs (auto) 0.8 L 10^3/uL
(1.2-3.4)
Absolute Monos (auto) 1.2 H 10^3/uL
(0.1-0.6)
Immature Gran % 1.8 H %
(0-0.5)
Neutrophils % 78.1 H %
(42.2-75.2)
Lymphocytes % 7.1 L %
(20.5-51.1)
Monocytes % 10.5 H %
(1.7-9.3)
PT 15.0 H Sec
(11.4-14.6)
APTT 41.8 H Sec
(23.4-35.0)
Potassium 5.2 H mmol/L
(3.5-5.1)
Chloride 112 H mmol/L
(98-107)
Carbon Dioxide 19 L mmol/L
(22-30)
BUN 29 H mg/dl
(9-20)
Creatinine 1.5 H mg/dL
(0.7-1.3)
Glucose 185 H mg/dl
(70-99)
Total Bilirubin 1.9 H mg/dl
(0.2-1.3)
AST 74 H U/L
(17-59)
Troponin I 2.220 H* ng/ml
POC Glucose 187 H mg/dl
(70-99)
12/20/24 04:33
12/20/24 04:33
Vital Signs
Initial and Last Documented VS:
Initial Vital Signs
Pulse Resp Pulse Ox
102 22 98
12/20/24 04:33 12/20/24 04:33 12/20/24 04:33
Last Documented Vital Signs
Temp Pulse Resp BP Pulse Ox
98.1 F 81 18 109/59 95
12/21/24 22:12 12/22/24 02:00 12/21/24 22:12 12/21/24 22:14 12/21/24 22:12
*Radiology
Radiology exam reviewed: preliminary read by ED provider (Pulmonary vascular congestion possible right lower lobe)
*Pulse Oximetry
SaO2: 99
Nasal Cannula flow liters per minute: 2
Patient hypoxic: no
*Critical Care Note
Total Time (30-74mins, 75-104mins- exclusive of procedures): 50. (Critical care statement: A total of 50 minutes of critical care time was provided for this patient. This time is separate from time utilized to perform the aforementioned documented
procedures. Aggregate critical care time includes only time during which I was engaged in work directl)
Update Note
Update Note:
EKG shows atrial sensed ventricular paced rhythm rate 106 with normal intervals with exception of the corrected QT. When compared to previous EKG earlier in the evening, no significant change found.
ED Attending Note
-
Portions of this chart may have been created with voice recognition software.� Occasional wrong word or��sound alike� substitutions may have occurred due to the inherent limitations of voice recognition software.
Discharge Plan
Departure
Patient Disposition: Admit
Date of Disposition: 12/20/24
Time of Disposition: 06:39
Admit to: IMU
Presentation/result/management discussed w/ accepting MD/DO: Hospitalist
Patient with high blood pressure during this ER visit?: Yes
Discharge Problem:
Acute non-ST elevation myocardial infarction (NSTEMI), Acute dyspnea, Anemia, Acute renal insufficiency
Interventions
Interventions:
*Risk Screen - Suicide Last Done: 12/20/24 04:43
*General Assessment Last Done: 12/20/24 04:44
*Neglect/Abuse Screening Last Done: 12/20/24 04:43
*ED- Fall Risk Assessment Last Done: 12/20/24 04:51
*ED COVID-19 Vaccine History Last Done: 12/20/24 04:51
*ED Influenza Vaccine History Last Done: 12/20/24 04:51
*Nursing Disposition Last Done: 12/20/24 08:05
ED- Cardiac Assessment Last Done: 12/20/24 06:53
Discharge Date and Time
Discharge Date/Time: 12/20/24 08:05
[2024-12-20] MEDS: LASIX 60 MG IV (07:54)
[2024-12-20 08:13] LABS: Troponin I 2.080 ng/ml
--- NOTE | 2024-12-20 08:24 | CON.CAR ---
Addendum entered and electronically signed by Nolan Lagos MD 12/20/24 09:54:
I saw and examined the patient.
The METAL MINE INSPECTOR or PA's note was reviewed and I agree with the note.
Comment: General: Well developed, well nourished in NAD.
Neck: Supple, no JVD, HJR, carotids +2 B/L, no bruits bilaterally.
Heart: Non displaced PMI, RRR, no murmurs, No S3, S4, no rubs.
Lungs: Scattered rhonchi
Extremities: No clubbing, cyanosis or edema bilaterally.
Neuro: Grossly nonfocal, awake, alert and oriented x3.
Patient has a history of tissue AVR and three-vessel CABG in 2007, chronic diastolic CHF, hypertension, diabetes, renal insufficiency, status post JOB PLACEMENT OFFICER pacer in 2023. He is followed by Dr. Langley at [facility]. He was seen in December 2024 for
an office visit and referred to the ER for chest pain. Of note he was treated for unstable angina but his elevated proBNP was not treated. He presents with shortness of breath and chest discomfort with new symptom of orthopnea. He continues with
chest discomfort but it has not been improving. Initial troponin was 2.2 and repeat was 2.08
Will continue to treat for CHF with IV Lasix. Will check echocardiogram. Continue to follow troponins but will treat medically for now given high risk for ATN and dialysis based on prior records. This could be reconsidered based on echocardiogram
results. Discussed with numerous family members at bedside.
Original Note:
Consultation
Consultation Request
Date/Time Consultation Requested: 12/20/24 at 0648
Date/Time Consultation Performed: 12/20/24 at 0728
Requesting Provider: Dr. Franks
Performing Provider: Dr. Lagos
Reason for Consultation: Chest pain
Medical History
-
History of Present Illness:
Patient came to the ER today with SOB and chest pain prompting admission for acute HF and elevated troponin, cardiology is now consulted. Patient was seen by his primary engineering manager in the office on 12/09/2024 and he complained of chest pain and
was referred to the ER. I obtain records from the primary engineering manager and from that ER visit, when the patient arrived to the ER it looks like his primary complaint was SMALL and he denied any chest pain at that time. In the ER his BNP was 3216 and
between the ER physician and the cardiology office they increase his Lopressor to 25 mg BID and they added Imdur ER 60 mg daily plus NTG SL as needed. Patient presented to [facility] ER this morning with complaints of recurrent SOB and chest pain, but
also new symptoms of orthopnea. Patient has a history of CKD and according to family he was on transient dialysis during an admission to [facility] 07/2024. Patient is not undergoing any outpatient dialysis, but they were told he may need it again at some
point in the future. Patient takes Lasix 40 mg PO daily. Most of his symptoms started after he went on a cruise from 11/10/2024 until 11/15/2024 after which he started with SMALL, LE edema and chest pain. The symptoms have been on and off overall
getting worse. Patient has a previous tissue AVR and CABG in 2007. He is known to our office following a [employer] JOB PLACEMENT OFFICER�P placement 08/2023 in the setting of CHB.
PMH:
Chronic HFpEF
EF 60-65% by echo 08/2023
s/p [employer] JOB PLACEMENT OFFICER-P 08/2023
Unknown level of CKD
CAD
s/p CABG with GAFFNEY-LAD, VG-dLAD, VG-PLB 2007
s/p LAD PCI at [facility] 04/2024
s/p tissue AVR 2007
s/p tissue AVR 2007
HLD
HTN
DM
Language barrier
Past Medical History
Past Medical History: Other (in HPI)
Past Surgical History: Appendectomy and Cardiac (CABG tissue AVR 2007, and [employer] JOB PLACEMENT OFFICER-P 08/26/23)
Social History
Tobacco: Non-Smoker
Alcohol: None
Drug: None
Personal:
Living: With Family
Family History
Family History: CAD
Allergies / Home Medications
Allergy/AdvReac Type Severity Reaction Status Date / Time
No Known Allergies Allergy Verified 12/20/24 04:33
�Medication �Instructions �Recorded �Confirmed �Type
finasteride 5 mg tablet 5 mg PO DAILY 08/26/23 12/20/24 History
tamsulosin 0.4 mg capsule 0.4 mg PO DAILY 08/26/23 12/20/24 History
Insulin Sq 30 units SC DAILY 12/20/24 12/20/24 History
acetaminophen 650 mg 650 mg PO .Q4-6H PRN pain 12/20/24 12/20/24 History
tablet,extended release
aspirin 81 mg tablet,delayed 81 mg PO DAILY 12/20/24 12/20/24 History
release
atorvastatin 80 mg tablet (Lipitor) 80 mg PO HS 12/20/24 12/20/24 History
calcium 600 mg (as 1 tab PO DAILY 12/20/24 12/20/24 History
carbonate)-vitamin D3 10 mcg (400
unit) tablet (Calcium 600 + D(3))
cetirizine 10 mg tablet 10 mg PO DAILY PRN allergies 12/20/24 12/20/24 History
cholecalciferol (vitamin D3) 125 125 mcg PO DAILY 12/20/24 12/20/24 History
mcg (5,000 unit) tablet (Vitamin
D3)
clopidogrel 75 mg tablet 75 mg PO DAILY 12/20/24 12/20/24 History
dapagliflozin propanediol 10 mg 10 mg PO DAILY 12/20/24 12/20/24 History
tablet (Farxiga)
famotidine 40 mg tablet 40 mg PO HS 12/20/24 12/20/24 History
ferrous sulfate 325 mg (65 mg 325 mg PO DAILY 12/20/24 12/20/24 History
iron) tablet
furosemide 40 mg tablet 40 mg PO DAILY 12/20/24 12/20/24 History
ipratropium bromide 21 mcg (0.03 2 spray intranasal .BID-TID 12/20/24 12/20/24 History
%) nasal spray
metformin 500 mg tablet 500 mg PO BID 12/20/24 12/20/24 History
metoprolol tartrate 25 mg tablet 25 mg PO BID 12/20/24 12/20/24 History
multivitamin 1 tab PO DAILY 12/20/24 12/20/24 History
nitroglycerin 0.4 mg sublingual 0.4 mg sublingual Q5-15M PRN cp 12/20/24 12/20/24 History
tablet
omeprazole 40 mg capsule,delayed 40 mg PO DAILY 12/20/24 12/20/24 History
release
Review of Systems
-
History Source: Patient and Family
All other systems: Negative unless noted
Physical Exam
Vital Signs
Temp Pulse Resp BP Pulse Ox
97.8 F 97 16 103/67 100
12/20/24 08:24 12/20/24 07:54 12/20/24 08:18 12/20/24 07:54 12/20/24 08:18
GEN: NAD. AAOx3
HEENT: EOMI, MMM
LUNGS: 2 L NC. CTA B/L, no wheeze
CV: V paced on tele. Reg, S1/S2, 1/6 syst LSB
ABD: soft, BS+, NT, ND
EXT: +1 bimalleolar edema, no lesions B/L
NEURO: Gross non-focal
SKIN: No rash
Lab Results
12/20/24 04:33
12/20/24 04:33
Troponin I 2.080 ng/ml H* 12/20/24 07:35
[id number] Pept 8730 pg/ml 12/20/24 04:33
Impression / Plan
-
PCP: Israel Clifton MD
CDY: Orlando Langley MD
Impression:
Admitted with acute HF and chest pain 12/20/24
Recent ER visit at [facility] for chest pain and SOB 12/09/2024
Acute HFpEF
EF 60-65% by echo 08/2023
Chest pain
Elevated Troponin
s/p [employer] JOB PLACEMENT OFFICER-P 08/2023
Hyperkalemia
NOE on an unknown level of CKD
CAD
s/p CABG with GAFFNEY-LAD, VG-dLAD, VG-PLB 2007
s/p LAD PCI at [facility] 04/2024
s/p tissue AVR 2007
HLD
HTN
DM
Language barrier
Echo 08/2023: nml LV size, abnormal diastolic function with increased LVEDP, EF 60-65%, CLVH but no obvious regional abn. normally functioning bioprosthetic AV, PG/MG 32.5/18, ABEL 1.34cm2
Echo 12/20/2024: Study pending
Plan:
-Patient came to the ER today with SOB and chest pain prompting admission for acute HF and elevated troponin, cardiology is now consulted. Patient was seen by his primary engineering manager in the office on 12/09/2024 and he complained of chest pain and
was referred to the ER. I obtain records from the primary engineering manager and from that ER visit, when the patient arrived to the ER it looks like his primary complaint was SMALL and he denied any chest pain at that time. In the ER his BNP was 3216 and
between the ER physician and the cardiology office they increase his Lopressor to 25 mg BID and they added Imdur ER 60 mg daily plus NTG SL as needed. Patient presented to [facility] ER this morning with complaints of recurrent SOB and chest pain, but
also new symptoms of orthopnea. Patient has a history of CKD and according to family he was on transient dialysis during an admission to [facility] 07/2024. Patient is not undergoing any outpatient dialysis, but they were told he may need it again at some
point in the future. Patient takes Lasix 40 mg PO daily. Most of his symptoms started after he went on a cruise from 11/10/2024 until 11/15/2024 after which he started with SMALL, LE edema and chest pain. The symptoms have been on and off overall
getting worse. Patient has a previous tissue AVR and CABG in 2007. He is known to our office following a [employer] JOB PLACEMENT OFFICER�P placement 08/2023 in the setting of CHB.
-ECG reviewed by me as a sensed V paced
-[employer] JOB PLACEMENT OFFICER�P interrogated by me on 12/20/2024, OptiVol was increased, no evidence of arrhythmia
-Initial troponin 2.22 and then downtrended to 2.08. Chest pain initially helped following application of Nitropaste 1/2' in the ER, but then recurrent pain in the setting of ongoing SMALL. ACS is a concern, but the patient appears to be in acute HF
with marked orthopnea. No additional troponin levels, but check urgent echo to evaluate EF and for any new WMA
-Consider transitioning from Nitropaste to a Nitro gtt pending response to diuresis
-Outpatient dose of aspirin 81 mg daily has been continued
-Heparin gtt started in the ER
-Will give morphine 1 mg IV x 1 now, patient and family deny any previous allergy
-Check CVE, outpatient dose of atorvastatin 80 mg daily has been continue
-Suspect the bulk of his symptoms are due to acute HFpEF. Review of his Medtronic JOB PLACEMENT OFFICER�P device indicates OptiVol trending up since the end of November which coincides with the vacation cruise that he took at that time. We will focus on IV
diuresis, Lasix 60 mg IV x 1 ordered by me and given in the ER.
-Agree with Lasix 40 mg IV BID scheduled to start tonight, patient was taking Lasix 40 mg PO daily prior to admission
-Cre is 1.5 on admission, patient's granddaughter states that during a recent admission 07/2024 to [facility] the patient had NOE and required transient hemodialysis. Will follow Cre and consult nephrology as needed.
-Diuresis should help with hyperkalemia as well
-I called and talked with the patient's primary engineering manager's office, outlined his current admission to [facility] for acute HF, chest pain and elevated troponin and that he would not be as his office visit as scheduled today. They
sent us records which I reviewed, summarized and added to this note as above.
[2024-12-20 08:39] LABS: Glucose - Point of Care 143 mg/dl (70-99)
[2024-12-20] MEDS: DUONEB 3 ML INH (08:54)
[2024-12-20] MEDS: LOPRESSOR 25 MG PO ×2 (09:15→20:28)
[2024-12-20] MEDS: ASPIR LOW (ENTERIC COATED) 81 MG PO (09:15)
[2024-12-20] MEDS: PLAVIX 75 MG PO (09:16)
[2024-12-20] MEDS: MORPHINE SULFATE 1 MG IV (09:16)
[2024-12-20] MEDS: PROTONIX IV 40 MG IV (09:16)
--- NOTE | 2024-12-20 09:17 | W.CARD.DEVCH ---
Cardiac Device Check
-
Device: Pacemaker
Maintenance Supervisor Mechanical: Medtronic
The patient's device was interrogated with assistance of the device operations representative followed by a complete physician review. The device had normal function. No abnormalities seen.
Patient's Medtronic PROFESSIONAL BASS FISHERMAN�P device was interrogated by me on 12/20/2024 and battery longevity is over 9.5 years, no arrhythmia, OptiVol trending up since mid November, otherwise normal device and lead function.
[2024-12-20] MEDS: LASIX IV (10:07)
[2024-12-20] MEDS: NOVOLOG FLEXPEN-MODERATE RESISTANCE SC ×3 (10:22→16:46)
--- NOTE | 2024-12-20 10:38 | CM ---
Reviewed chart. Met with and Mrs. Cordova and his grandson to review discharge plans. Grandson was the screen printing supervisor. He states prior to admission he resides with his spouse son and grandson in a two story home. Grandson states his son is
visiting in [place]. He states prior to admission he ambulates with a rolling walker. He states he has a rolling walker and single point cane at home. He states he goes to [facility] in [place] Friday thru Friday from 7:30 a.m to 2:30p.m. He
states he does not have any help coming in to the home. Will need to see his current functional level to see if he will have any skilled are needs. Medical work-up in progress. The discharge plan is to return home with his family and resume his
[facility] when medically stable.
--- NOTE | 2024-12-20 10:53 | PTCARENOTE ---
Received patient from the ED this morning, granddaughter translating for the patient due to language barrier. Heparin gtt infusing at 850 units/hr. Patient on 2L NC, coarse breath sounds with scattered rales/rhonci posteriorly, orthopneic. 99% on 2L
NC. Telephoned Dr. Tila Galan for a nebulizer treatment, patient also given lasix 20mg IV. Breathing appears much more comfortable now. Notified hospitalist of platelet count of 40, ok to continue IV heparin as ordered. Patient seen by cardiology,
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
[2024-12-20 12:13] LABS: Glucose - Point of Care 112 mg/dl (70-99)
[2024-12-20] MEDS: LANTUS 0.12 UNITS SC (12:20)
--- NOTE | 2024-12-20 12:25 | W.PN.HOSP.TC ---
Today's Communication/Plan
-
Assessment / Plan
Assessment / Plan
General: No Apparent Distress, Comfortable and Conversant
HEENT: NormoCephalic, Moist mucous membranes, nasal cannula in place
Respiratory: Significant rales bilaterally, Non Labored Respirations
Cardiac: S1/S2 and Regular Rhythm; No Rub or Gallop
GI: Soft, Non Tender, Non Distended and Normal Bowel Sounds
Musculoskeletal: Bilateral pedal edema, no deformity
Skin: Warm and dry
: NO Anders
Neuro: Awake, Alert, Nonfocal/grossly intact
Psych: Calm and cooperative
Mr. Cordova is a 74-year-old male with a medical history of CAD (CABG x 3 2007), HFpEF, heart block ([facility] 08/2023), aortic stenosis (s/p tissue AVR), hypertension, CKD (unclear stage, previously requiring temporary HD at [facility] July 2024), and DDM who
presented with chest pain and shortness of breath. Pain improved with Nitropaste. Initial troponin elevated at 2.2 and so patient was started on IV heparin drip. Chest imaging for significant pulmonary edema. Patient started on IV diuresis.
Echocardiogram pending.
Acute on chronic HFpEF:
- Continuing diuresis with IV Lasix 40 mg twice daily
- Monitor I's and O's and daily weights
- Echocardiogram pending
- Beta-blockade with Toprol tartrate 25 mg p.o. twice daily
- Anticoagulated with IV heparin considering possible ischemic etiology of acute exacerbation of chronic HFpEF
- Appreciate cardiology guidance, will follow-up recommendations after echocardiogram
Acute hypoxic respiratory failure:
- Suspect due to pulmonary edema in the setting of acute on chronic heart failure exacerbation
- Continue supplemental oxygen, titrate as needed with ongoing diuresis
CKD:
- Unclear baseline renal function
- Monitor renal function and electrolytes with aggressive diuresis
- Of note patient briefly required dialysis briefly
- Holding metformin
Anemia of chronic disease:
- Secondary to kidney disease
- Monitor hemoglobin
Insulin-dependent diabetes mellitus:
- Continue long-acting insulin with Lantus 12 units daily
- Additional sliding scale as needed
- Continue Accu-Cheks, follow-up A1c
DVT prophylaxis: IV heparin
CODE STATUS: Full code
Anticipated Discharge: > 48 hours
Subjective/Interval History
-
Date of Service: December 20, 2024
Patient was seen and examined at bedside this morning. Diuresing appropriately. Chest pain is currently minimal. He is breathing comfortably and saturating appropriately on 2 L via nasal cannula. Awaiting echocardiogram.
Objective Data
-
Labs:
Laboratory Results
12/20/24 12/20/24 12/20/24
04:33 04:35 12:30
WBC 11.3 H
Hgb 9.2 L
Hct 30.2 L
Plt Count 40 L
PT 15.0 H
INR 1.15
APTT 41.8 H Pending
Sodium 140
Potassium 5.2 H
Chloride 112 H
Carbon Dioxide 19 L
BUN 29 H
Creatinine 1.5 H
Glucose 185 H
Calcium 9.6
Total Bilirubin 1.9 H
AST 74 H
ALT 48
Alkaline Phosphatase 106
Vital Signs:
Vital Signs
Temp Pulse Resp BP Pulse Ox
98.2 F 83 20 122/69 100
12/20/24 10:53 12/20/24 10:15 12/20/24 10:53 12/20/24 09:15 12/20/24 10:53
I&O
12/19/24 12/20/24 12/21/24
06:59 06:59 06:59
Output Total 800 / 800
Balance -800 / -800
Review of Systems
-
History Source: Patient
All other systems: Reviewed and negative
Physical Exam
-
General: No Apparent Distress
[2024-12-20 13:23] LABS: APTT 156.6 Sec (23.4-35.0)
[2024-12-20 13:32] LABS: Troponin I 16.200 ng/ml
[2024-12-20 13:34] LABS: Iron 38 ug/dl (49-181)
[2024-12-20 13:44] LABS: Total Iron Binding Capacity 352 ug/dl (261-462)
--- NOTE | 2024-12-20 13:52 | W.PN.UPDATE ---
Update Note
Progress Note Update
Back in to see patient, he is laying back in bed with improved orthopnea following Lasix 60 mg IV this morning. Using daughter and granddaughter for interpreters, patient denies chest pain or SOB currently, but says it seems to come and go over the
last several hours. Initial troponin was 2.2 then trended down to 2.08 but a third troponin is elevated at 16.2. Heparin gtt running. Currently pain-free. I called the echo department for urgent bedside echo. Reviewed with patient, daughter and
granddaughter that pending results of echo patient may need repeat cardiac cath and we discussed the risks and benefits involved with that. Cre was 1.5 in the ER this morning, he had been 1.7 at [facility] on 12/09/2024. Patient required transient
hemodialysis at [facility] 07/2024, so there is a risk of ATN and worsening CKD possibly the point of HD. Will review with family more once we have echo report.
[2024-12-20 14:49] LABS: Folate > 20.0 ng/ml (2.76-20); Vitamin B12 783 pg/ml (239-931)
--- NOTE | 2024-12-20 14:53 | PTCARENOTE ---
Cardiology and Dr. Tila Galan aware of bump in troponin, echo done at the bedside and results are pending. Spoke with Dr. Tila Galan re: platelet count of 40 with IV heparin infusion and to continue infusion as per protocol.
[2024-12-20] MEDS: LASIX 40 MG IV (16:39)
[2024-12-20 16:47] LABS: Glucose - Point of Care 115 mg/dl (70-99)
--- NOTE | 2024-12-20 17:27 | PTCARENOTE ---
Patient resting in bed, breathing is much improved and patient denies any chest pain. Aware of need for bedrest and to use urinal for i & O, call abdul in reach.
[2024-12-20] MEDS: TYLENOL 650 MG PO (21:18)
[2024-12-20 21:28] LABS: Troponin I 27.900 ng/ml
[2024-12-20 21:54] LABS: APTT 70.7 Sec (23.4-35.0)
[2024-12-20 22:17] LABS: Glucose - Point of Care 168 mg/dl (70-99)
[2024-12-20] MEDS: LIPITOR 80 MG PO (22:20)
[2024-12-21] VITALS (14 sets, daily range): BP systolic 91–126; BP diastolic 53–70; BMI 22.1
--- NOTE | 2024-12-21 00:42 | PTCARENOTE ---
Addendum entered by Crystal Hall RN 12/21/24 01:45:
@ approx 2200, pt ptt resulted and followed protocol to increase heparin gtt. Maris Duran SENIOR PLANNING MANAGER made aware of previous plt count of 40. Heparin gtt currently infusing at 750 units/hr.
Original Note:
Received pt at change of shift resting in bed. [employer] ipad used to communicate w/ pt. V-paced on tele, HR 70's-90's. pt denies any CP or SOB at this time. pt reports 5/10 leg cramps/pain, PRN Tylenol administered-see MAY. pt verbalizes
relief. Bedrest orders maintained. pt aware and verbalizes understanding, urinal at bedside and call abdul within reach.
[2024-12-21] MEDS: TYLENOL 650 MG PO (02:25)
[2024-12-21 04:16] LABS: Hematocrit 30.9 % (39.0-52.0); Hemoglobin 9.6 g/dL (13.0-18.0); Mean Corp Hgb Conc. 31.1 g/dL (33.0-37.0); Mean Corpuscular Volume 99.0 fL (80.0-94.0); Platelet Count 48 10^3/uL (130-400); Red Cell Dist. Width 15.9 % (11.5-14.5)
[2024-12-21 04:17] LABS: APTT 90.0 Sec (23.4-35.0)
[2024-12-21 04:41] LABS: Troponin I 16.500 ng/ml
[2024-12-21 05:12] LABS: Nucleated Red Blood Cells % 0 % (-)
[2024-12-21 05:35] LABS: Blood Urea Nitrogen 34 mg/dl (9-20); Calcium 9.6 mg/dl (8.4-10.2); Carbon Dioxide 27 mmol/L (22-30); Chloride 105 mmol/L (98-107); Estimated Creatinine Clearance 35 ml/min; Glucose 130 mg/dl (70-99); HDL Cholesterol 41 mg/dl; LDL Cholesterol, Calculated 37 mg/dl; Potassium 3.8 mmol/L (3.5-5.1); Sodium 135 mmol/L (135-145); Very Low Density Lipoprotein 14 mg/dl (0-30); eGFR 41.78
[2024-12-21 07:42] LABS: Glucose - Point of Care 142 mg/dl (70-99)
[2024-12-21 08:11] LABS: Glycohemoglobin (HgbA1c) 5.6 % (4.0-5.6)
[2024-12-21] MEDS: LANTUS 0.12 UNITS SC (08:23)
[2024-12-21] MEDS: PLAVIX 75 MG PO (08:24)
[2024-12-21] MEDS: PROTONIX IV 40 MG IV (08:24)
[2024-12-21] MEDS: ASPIR LOW (ENTERIC COATED) 81 MG PO (08:24)
[2024-12-21] MEDS: LASIX 40 MG IV ×2 (08:24→16:12)
[2024-12-21] MEDS: LOPRESSOR 25 MG PO ×2 (08:24→20:31)
[2024-12-21] MEDS: NOVOLOG FLEXPEN-MODERATE RESISTANCE SC ×2 (08:24→12:40)
[2024-12-21 10:10] LABS: APTT 88.0 Sec (23.4-35.0)
--- NOTE | 2024-12-21 11:10 | W.CON.NEPH ---
Consultation
-
Date/Time Consultation Requested: 12/21/2024 11:00 AM
Date/Time Consultation Performed: 12/22/2019 11:00 AM
Requesting Provider: Dr. White
Performing Provider: Dr. Garcia
Reason for Consultation: Chronic kidney disease stage III
Medical History
-
Chief Complaint: CKD stage III
History of Present Illness:
Patient is a 74y M with PMH significant for ASCVD, CKD (?baseline with previous : 1.7 12/06/24) after cardiac cath in 04/27) DM-II (metformin and insulin) and CHF ( on lasix) who presents to ED complaining of chest pain and SOB. History obtained
from patient and family at the bedside with family serving as buckshot swage operator. Patient has had some mild / intermittent chest discomfort and SOB since Friday. This evening, he had severe symptoms with 10/10 chest pain and marked SOB prompting them to
call 911. He was brought to the ED for further evaluation. Patient was treated with NTG (SL and paste) and is currently pain-free. His SOB is much improved.
Patient was hospitalized several weeks ago at [facility] for chest discomfort / abnormal troponin. No intervention was performed by history.
He was last seen here in August 2023 when he was transferred from [facility] for placement of permanent pacemaker due to heart block / bradycardia.
Patient went on a cruise last month (11/10-11/15) and afterwards family noted that he had some swelling in the feet and seemed more SOB than usual. Patient was admitted with acute on chronic heart failure with associated non-ST elevation NV.
Past Medical History
ASCVD
Prior CVA
CHF - Unknown Type
Aortic Stenosis
DM-II
CKD - Unclear Stage (Temporary HD at [facility] July of this year) 1.7
BPH
CABG x 3
Bioprosthetic Aortic Valve Replacement
PTCA with Stent
In-Stent Restenosis with PTCA / Balloon Angioplasty
PPM Placement
Social History
Tobacco: Former Smoker
Alcohol: Occasional
Living: With Family
Family History
Family History: Not Pertinent
Allergies / Home Medications
Allergy/AdvReac Type Severity Reaction Status Date / Time
No Known Allergies Allergy Verified 12/20/24 04:33
�Medication �Instructions �Recorded �Confirmed �Type
finasteride 5 mg tablet 5 mg PO DAILY Urinary Issue 08/26/23 12/20/24 History
tamsulosin 0.4 mg capsule 0.4 mg PO DAILY Urinary Issue 08/26/23 12/20/24 History
Insulin Sq 30 units SC DAILY Diabetes 12/20/24 12/20/24 History
acetaminophen 650 mg 650 mg PO .Q4-6H PRN pain 12/20/24 12/20/24 History
tablet,extended release
aspirin 81 mg tablet,delayed 81 mg PO DAILY Blood Clot 12/20/24 12/20/24 History
release Prevention/Tx
atorvastatin 80 mg tablet (Lipitor) 80 mg PO HS High Cholesterol 12/20/24 12/20/24 History
calcium 600 mg (as 1 tab PO DAILY Supplement 12/20/24 12/20/24 History
carbonate)-vitamin D3 10 mcg (400
unit) tablet (Calcium 600 + D(3))
cetirizine 10 mg tablet 10 mg PO DAILY PRN allergies 12/20/24 12/20/24 History
cholecalciferol (vitamin D3) 125 125 mcg PO DAILY Supplement 12/20/24 12/20/24 History
mcg (5,000 unit) tablet (Vitamin
D3)
clopidogrel 75 mg tablet 75 mg PO DAILY Blood Clot 12/20/24 12/20/24 History
Prevention/Tx
dapagliflozin propanediol 10 mg 10 mg PO DAILY Diabetes 12/20/24 12/20/24 History
tablet (Farxiga)
famotidine 40 mg tablet 40 mg PO HS 12/20/24 12/20/24 History
ferrous sulfate 325 mg (65 mg 325 mg PO DAILY Anemia 12/20/24 12/20/24 History
iron) tablet
furosemide 40 mg tablet 40 mg PO DAILY Heart Failure 12/20/24 12/20/24 History
ipratropium bromide 21 mcg (0.03 2 spray intranasal .BID-TID 12/20/24 12/20/24 History
%) nasal spray
metformin 500 mg tablet 500 mg PO BID Diabetes 12/20/24 12/20/24 History
metoprolol tartrate 25 mg tablet 25 mg PO BID Heart Failure 12/20/24 12/20/24 History
multivitamin 1 tab PO DAILY Supplement 12/20/24 12/20/24 History
nitroglycerin 0.4 mg sublingual 0.4 mg sublingual Q5-15M PRN chest 12/20/24 12/20/24 History
tablet pain
omeprazole 40 mg capsule,delayed 40 mg PO DAILY 12/20/24 12/20/24 History
release
Review of Systems
-
Unable to obtain full review of systems at this time due to: Language Barrier
History Source: Family
All other systems: Negative unless noted
Respiratory: Cough and Trouble Breathing
Physical Exam
Vital Signs
Vital Signs
Temp Pulse Resp BP Pulse Ox
98.1 F 73 18 112/68 99
12/21/24 07:46 12/21/24 06:00 12/21/24 07:46 12/21/24 02:35 12/21/24 07:46
Lab Results
12/21/24 03:47
12/21/24 03:47
WBC 8.4 10^3/uL (4.8-10.8) 12/21/24 03:47
RBC 3.12 10^6/uL (4.70-6.10) L 12/21/24 03:47
Hgb 9.6 g/dL (13.0-18.0) L 12/21/24 03:47
Hct 30.9 % (39.0-52.0) L 12/21/24 03:47
Plt Count 48 10^3/uL (130-400) L 12/21/24 03:47
Sodium 135 mmol/L (135-145) 12/21/24 03:47
Potassium 3.8 mmol/L (3.5-5.1) D 12/21/24 03:47
Chloride 105 mmol/L (98-107) 12/21/24 03:47
Carbon Dioxide 27 mmol/L (22-30) 12/21/24 03:47
BUN 34 mg/dl (9-20) H 12/21/24 03:47
Creatinine 1.7 mg/dL (0.7-1.3) H 12/21/24 03:47
eGFR 41.78 12/21/24 03:47
Glucose 130 mg/dl (70-99) H 12/21/24 03:47
Calcium 9.6 mg/dl (8.4-10.2) 12/21/24 03:47
Gvz-C-Jspunbwhnzj Pept 8730 pg/ml 12/20/24 04:33
Albumin 3.9 g/dl (3.5-5.0) 12/20/24 04:33
Physical Exam
General: AOx3 and Other (Moderate respiratory distress)
HEENT: PERRL, EOMI, Anicteric, Conjunctivae Clear, Ear/Nose Intact, Hearing Normal, Oropharynx Clear/Moist, Dentition Intact, Facial Symmetry, Neck Supple, Trachea Midline and No Thyromegaly
Respiratory: Wheezes, Crackels and Nonlabored Respirations (Labored respiration)
Cardiac: S1/S2 and Regular Rate/Rhythm
Breast: Deferred by me
Abdomen: Soft, Nontender, Nondistended, Normal Bowel Sounds and No Hepatosplenomegaly
Rectal: Other
Genito-urinary: No Costovertebral Tender
Musculoskeletal: No Clubbing, No Cyanosis and Edema
Skin: No Rash, Warm, Dry, No Clubbing, No Cyanosis, Normal Turgor and No Bruising
Neuro: Nonfocal/Grossly Intact
Hematologic/Lymphatic: No Cervical Lymphadenopathy, No Submandibular Lymphadenopathy and No Supraclavicular Lymphadenopathy
Psych: Other (Difficult to assess given language barrier)
Data Reviewed
-
Radiology: Image Personally Visualized and interpreted (Chest x-ray personally reviewed notable for congestive heart failure with pulmonary edema cardiac device no)
Labs: Labs Reviewed by me (BMP CBC)
Old Records: Reviewed (Reviewed previous records from [facility] visit from 12/09/2024 including cardiology note ER note and creatinine of 1.7)
Assessment/Plan
-
Impression:
Admitted with acute HF and chest pain 12/20/24 with NSTEMI ~16 troponin
Recent ER visit at [facility] for chest pain and SOB 12/09/2024
Ischemic cardiomyopathy with current EF of 35 to 40% with moderate to severe MR by echo
Chest pain
CKD around 1.7
s/p [employer] SUPERVISOR SOUND TECHNICIAN-P 08/2023
CAD
s/p CABG with GAFFNEY-LAD, VG-dLAD, VG-PLB 2007
s/p LAD PCI at [facility] 04/2024s/p tissue AVR 2007
HLD
HTN
DM
Language barrier
Plan:
CKD
Creatinine appears to be around baseline at 1.7
Discussed case with son and family at bedside
I do not think we need to delay cardiac catheterization as patient has acute NV with decompensated congestive heart failure
I explained the risks to the family of possible contrast-induced nephropathy following cardiac catheterization, but also explained the risk of not performing the cardiac cath more urgently
I would not provide contrast prophylaxis at this time as the patient is currently hypervolemic and hypoxic with current congestive heart failure process
Discussed case with patient access representative
[2024-12-21 11:54] LABS: Magnesium 1.6 mg/dl (1.6-2.3)
[2024-12-21 12:31] LABS: Glucose - Point of Care 195 mg/dl (70-99)
--- NOTE | 2024-12-21 12:31 | CM ---
Reviewed chart. Met with Mr. Cordova and his family to review discharge plans. Prior to admission he resides with his spouse son and grandson in a two story home. His son is visiting in [place]. Prior to admission he ambulates with a rolling walker. He
has a rolling walker and single point cane at home. He goes to Adult Day Care in [place] Friday thru Friday from 7:30 a.m to 2:30p.m. He does not have any help coming in to the home. Will need to see his current functional level to see if he
will have any skilled are needs. Medical work-up in progress. The discharge plan is to return home with his family and resume his Adult Day Care when medically stable.
--- NOTE | 2024-12-21 14:18 | ITS.CL.CATH ---
Cardiology Rn - Catheterization
Cardiac Catheterization
Procedure Report:
RIGHT AND LEFT HEART CATHETERIZATION
Date of Procedure: December 21, 2024
Referring: Dr. Orlando Langley
PROCEDURES:
1. Right heart catheterization
2. Coronary angiography
3. Selective saphenous vein graft and BRIGIDO angiography
INDICATION: Non-ST segment elevation myocardial infarction
ACCESS: Right common femoral artery, 6 Divehi sheath in right common femoral vein, 6 Divehi sheath
HEMODYNAMICS (mmHg) :
RA (m) : 12
RV (s/d) : 35/7, 12
PA (s/d,m) : 35/17, 25
PCWP (m) : 18
AO (s/d, m) : 107/54, 75
Estimated Marissa Cardiac Output: 4.1 L/min and Cardiac Index: 2.4 L/min/M-2
Systemic vascular resistance: 15.4 Wood units or 1230 jmqot-wce-wh(-5)
Pulmonary vascular resistance: 1.7 Wood units or 68 vwiin-ljv-oh(-5)
CORONARY ANGIOGRAPHY
Dominance: Right
LEFT MAIN: 60-70% proximal
LEFT ANTERIOR DESCENDING: The LAD is a heavily calcified rather small caliber vessel that arises from the left main and is a proximal 80% stenosis. There is competitive flow in the mid LAD from a widely patent GAFFNEY graft
CIRCUMFLEX: The circumflex is heavily calcified and is a very small caliber vessel with an 80% proximal stenosis. The circumflex supplies 2 very small obtuse marginal branches.
RIGHT CORONARY ARTERY: The right coronary artery is heavily calcified with an calcified 90% proximal and heavily calcified tandem 90-95% distal RCA stenosis with the vessel becoming 100% occluded at the crux of the RCA. The SVG-PLB is patent with
antegrade filling of both vessels beyond the graft anastomosis. The distal RCA is 100% occluded but there is retrograde filling from the posterolateral branch to a non-grafted PDA
GRAFT ANGIOGRAPHY:
1. SVG-PLB two limbs: The saphenous vein graft is anastomosed to two limbs of the posterolateral branch. The SVG is found to be widely patent. There is antegrade and retrograde filling of both daughter branches from the posterolateral branch.
The retrograde filling also occurs retrograde to the site of occlusion of the distal RCA. The PDA is noted to fill.
2. SVG-distal LAD: The previously stented (04/14/2024) SVG-Distal LAD is now 100% occluded
3. GAFFNEY-LAD: The GAFFNEY-mid LAD is widely patent. There is antegrade and retrograde filling of the LAD. The LAD beyond the GAFFNEY graft anastomosis is heavily calcified with moderate diffuse atherosclerosis. There is faint retrograde filling of the
occluded SVG-distal LAD. The distal LAD has mild irregularities
LEFT VENTRICULOGRAPHY: Not done
SEDATION: 42 minutes of procedural sedation was utilized. An independent medical esthetician was present to assist with and help manage the patient's level of consciousness and physiologic status.
RADIATION SUMMARY: Fluoro Time (min): 7.8, Dose (mGy): 428, DAP (Gy.cm2) : 31.9
Closure Device: 6 Divehi Angio-Seal RFA
CONCLUSION
1. Acute coronary syndrome secondary to occlusion of SVG-distal LAD while the GAFFNEY graft to the mid LAD is widely patent. The [place] LAD is very heavily calcified and a rather small caliber vessel.
2. Patent GAFFNEY-LAD and patent SVG-PLB with PDA filling via retrograde flow from the posterolateral branch
3. Mildly elevated left ventricular filling pressures
RECOMMENDATIONS
1. Medical therapy. Continue aspirin and clopidogrel.
2. Relatively euvolemic
3. Gentle hydration post catheterization given history of renal insufficiency associated with IV contrast in the past
Copy to: Dr. Orlando Langley
--- NOTE | 2024-12-21 14:56 | W.PN.HOSP.TC ---
Today's Communication/Plan
-
Assessment / Plan
Assessment / Plan
General: No Apparent Distress, Comfortable and Conversant
HEENT: NormoCephalic, Moist mucous membranes, nasal cannula in place
Respiratory: Significant rales bilaterally, Non Labored Respirations
Cardiac: S1/S2 and Regular Rhythm; No Rub or Gallop
GI: Soft, Non Tender, Non Distended and Normal Bowel Sounds
Musculoskeletal: Bilateral pedal edema, no deformity
Skin: Warm and dry
: NO Anders
Neuro: Awake, Alert, Nonfocal/grossly intact
Psych: Calm and cooperative
Mr. Cordova is a 74-year-old male with a medical history of CAD (CABG x 3 2007), HFpEF, heart block (ASSISTED LIVING ASSISTANT-P 08/2023), aortic stenosis (s/p tissue AVR), hypertension, CKD (unclear stage, previously requiring temporary HD at [facility] July 2024), and DDM who
presented with chest pain and shortness of breath. Pain improved with Nitropaste. Initial troponin elevated at 2.2 and so patient was started on IV heparin drip. Chest imaging for significant pulmonary edema. Patient started on IV diuresis.
Echocardiogram pending.
Acute on chronic HFpEF:
- Continuing diuresis with IV Lasix 40 mg twice daily
- Monitor I's and O's and daily weights
- Echocardiogram 12/20/2024 shows reduced ejection fraction of 35 to 40% with moderate to severe MR
- Blood for cardiac cath today 12/21 with no evidence of acute obstructive disease
- Continue beta-blockade with Toprol tartrate 25 mg p.o. twice daily
- Discontinued IV heparin
- Appreciate cardiology guidance, will follow-up recommendations after echocardiogram
NSTEMI:
- Cardiac cath today 12/21/2024 with no evidence of acute obstructive disease
- Discontinued IV heparin
- Continue aspirin and Plavix, high intensity statin
Acute hypoxic respiratory failure:
- Suspect due to pulmonary edema in the setting of acute on chronic heart failure exacerbation
- Continue supplemental oxygen, titrate as needed with ongoing diuresis, able to be titrated down to 2 L via nasal cannula
CKD:
- Appears to be close to baseline renal function with creatinine 1.7
- Of note, patient previously required dialysis briefly following cardiac catheterization
- Nephrology now involved as patient went for cardiac cath today 12/21/2024
- Monitor renal function and electrolytes with ongoing diuresis
- Holding metformin
Anemia of chronic disease:
- Secondary to kidney disease
- Monitor hemoglobin
Insulin-dependent diabetes mellitus:
- Continue long-acting insulin with Lantus 12 units daily
- Additional sliding scale as needed
- Continue Accu-Cheks, hemoglobin A1c 5.6%
DVT prophylaxis: SCDs
CODE STATUS: Full code
Anticipated Discharge: 24 - 48 hours
Subjective/Interval History
-
Date of Service: December 21, 2024
Patient was seen and examined at bedside this morning. Feeling well, breathing comfortably.
Objective Data
-
Labs:
Laboratory Results
12/21/24 12/21/24
03:47 09:45
WBC 8.4
Hgb 9.6 L
Hct 30.9 L
Plt Count 48 L
APTT 90.0 H 88.0 H
Sodium 135
Potassium 3.8 D
Chloride 105
Carbon Dioxide 27
BUN 34 H
Creatinine 1.7 H
Glucose 130 H
Calcium 9.6
Vital Signs:
Vital Signs
Temp Pulse Resp BP Pulse Ox
98.3 F 77 18 100/59 98
12/21/24 12:14 12/21/24 14:45 12/21/24 12:14 12/21/24 14:45 12/21/24 12:14
I&O
12/20/24 12/21/24 12/22/24
06:59 06:59 06:59
Intake Total 840 / 840
Output Total 2099 / 2099 400 / 400
Balance -1260 / -1260 -400 / -400
Review of Systems
-
History Source: Patient
All other systems: Reviewed and negative
Physical Exam
-
General: No Apparent Distress
--- NOTE | 2024-12-21 15:00 | PTCARENOTE ---
Received pt from garage laborer, VSS, monitor showing Vpaced/SR. Right groin dressing with scant bloody drainage noted and marked, no active bleeding, no hematoma noted. +CMS to right foot. Bedrest maintained, family at bedside, call abdul in reach.
[2024-12-21 17:02] LABS: Glucose - Point of Care 169 mg/dl (70-99)
[2024-12-21] MEDS: NOVOLOG FLEXPEN-MODERATE RESISTANCE 1 UNITS SC (18:45)
[2024-12-21] MEDS: LIPITOR 80 MG PO (22:17)
[2024-12-21 22:18] LABS: Glucose - Point of Care 251 mg/dl (70-99)
--- NOTE | 2024-12-21 23:26 | PTCARENOTE ---
Received pt at change of shift resting in bed. V-paced w/ BBBC on tele, HR 70's-90's. pt denies any CP or SOB at this time. Family and [place] diplomatic interpreter to translate plan of care to pt. pt verbalizes understanding. Educated pt on bedrest status,
call abdul within reach.
[2024-12-22] VITALS (8 sets, daily range): BP systolic 99–128; BP diastolic 56–73; BMI 21.5
--- NOTE | 2024-12-22 02:28 | DOWNTIME ---
There was a [employer] Client Retail Warehouse Supervisor Downtime on 12/22/2024 from 0100 to 12/22/2024 at 0215. Downtime documentation of patient's care, including medication administrations, has been reconciled in the electronic record per guidelines. Refer to the
patient's paper chart under the miscellaneous tab to see printed paper medication records and downtime forms.
[2024-12-22 04:57] LABS: Hematocrit 33.5 % (39.0-52.0); Hemoglobin 10.7 g/dL (13.0-18.0); Mean Corp Hgb Conc. 31.9 g/dL (33.0-37.0); Mean Corpuscular Volume 96.5 fL (80.0-94.0); Platelet Count 53 10^3/uL (130-400); Red Cell Dist. Width 15.1 % (11.5-14.5)
[2024-12-22 05:19] LABS: Blood Urea Nitrogen 35 mg/dl (9-20); Calcium 9.8 mg/dl (8.4-10.2); Carbon Dioxide 30 mmol/L (22-30); Chloride 100 mmol/L (98-107); Estimated Creatinine Clearance 33 ml/min; Glucose 151 mg/dl (70-99); Potassium 3.9 mmol/L (3.5-5.1); Sodium 136 mmol/L (135-145); eGFR 39.01
[2024-12-22 09:13] LABS: Glucose - Point of Care 157 mg/dl (70-99)
[2024-12-22] MEDS: PROTONIX IV 40 MG IV (09:32)
[2024-12-22] MEDS: NOVOLOG FLEXPEN-MODERATE RESISTANCE 1 UNITS SC (09:33)
[2024-12-22] MEDS: LOPRESSOR 25 MG PO ×2 (09:33→21:06)
[2024-12-22] MEDS: PLAVIX 75 MG PO (09:33)
[2024-12-22] MEDS: ASPIR LOW (ENTERIC COATED) 81 MG PO (09:33)
[2024-12-22] MEDS: LANTUS 0.12 UNITS SC (09:34)
--- NOTE | 2024-12-22 11:01 | W.PN.NEPH.PH ---
Today's Communication / Plan
-
Continue Lasix
Assessment/Plan
-
Impression:
Admitted with acute HF and chest pain 12/20/24 with NSTEMI ~16 troponin
Recent ER visit at [facility] for chest pain and SOB 12/09/2024
Ischemic cardiomyopathy with current EF of 35 to 40% with moderate to severe MR by echo
Chest pain
CKD around 1.7
s/p Medtronic PULPWOOD CUTTER-P 08/2023
CAD
s/p CABG with GAFFNEY-LAD, VG-dLAD, VG-PLB 2007
s/p LAD PCI at [facility] 04/2024s/p tissue AVR 2007
HLD
HTN
DM
Language barrier
Plan:
CKD
Creatinine appears to be around baseline at 1.7�1.8
Discussed case with carolina at bedside
Status post cardiac cath 12/21
Lasix twice daily IV continue with improvement in weights and clinically
-
-
Date of Service: December 22, 2024
CC / HPI / ROS
-
Chief Complaint:
Shortness of breath
History of Present Illness:
Acute on chronic kidney disease NSTEMI status post cath
Review of Systems:
No chest pain or shortness of breath
Diuresing with significant improvement in weight
Labs
-
Labs:
WBC 9.8 10^3/uL (4.8-10.8) 12/22/24 04:41
RBC 3.47 10^6/uL (4.70-6.10) L 12/22/24 04:41
Hgb 10.7 g/dL (13.0-18.0) L 12/22/24 04:41
Hct 33.5 % (39.0-52.0) L 12/22/24 04:41
Plt Count 53 10^3/uL (130-400) L 12/22/24 04:41
Sodium 136 mmol/L (135-145) 12/22/24 04:41
Potassium 3.9 mmol/L (3.5-5.1) 12/22/24 04:41
Chloride 100 mmol/L (98-107) 12/22/24 04:41
Carbon Dioxide 30 mmol/L (22-30) 12/22/24 04:41
BUN 35 mg/dl (9-20) H 12/22/24 04:41
Creatinine 1.8 mg/dL (0.7-1.3) H 12/22/24 04:41
eGFR 39.01 12/22/24 04:41
Glucose 151 mg/dl (70-99) H 12/22/24 04:41
Calcium 9.8 mg/dl (8.4-10.2) 12/22/24 04:41
Ogt-P-Nswmtsnpfct Pept 8730 pg/ml 12/20/24 04:33
Albumin 3.9 g/dl (3.5-5.0) 12/20/24 04:33
Physical Exam
-
Vital Signs:
Vital Signs
Temp Pulse Resp BP Pulse Ox
98.5 F 94 18 109/63 99
12/22/24 07:36 12/22/24 10:00 12/22/24 07:36 12/22/24 07:38 12/22/24 07:36
Respiratory:: Bilateral: CTA
Lung Excursion:: Normal
Abdomen:: Soft
Bowel Sounds:: Normal
Extremity Edema:: None: Bilateral:
[2024-12-22 12:47] LABS: Glucose - Point of Care 262 mg/dl (70-99)
[2024-12-22] MEDS: NOVOLOG FLEXPEN-MODERATE RESISTANCE 5 UNITS SC (12:48)
--- NOTE | 2024-12-22 13:35 | CM ---
Reviewed chart. Prior to admission he resides with his spouse son and grandson in a two story home. His son is visiting in [place]. Prior to admission he ambulates with a rolling walker. He has a rolling walker and single point cane at home. He
goes to Adult Day Care in [place] Friday thru Friday from 7:30 a.m to 2:30p.m. He does not have any help coming in to the home. Will need to see his current functional level to see if he will have any skilled are needs. Medical work-up in
progress. The discharge plan is to return home with his family and resume his Adult Day Care when medically stable.
--- NOTE | 2024-12-22 13:38 | W.PN.HOSP.TC ---
Addendum entered and electronically signed by Apolinar Franks DO 12/23/24 11:48:
Additional diagnoses:
- Unable to determine if bifascicular block is a valid diagnosis, will need to follow-up outpatient with cardiology
- Clarification of heart failure diagnosis-history of HFpEF and presented with acute on chronic HFpEF and new diagnosis of HFrEF (acute), so now has diagnosis of combined systolic and diastolic heart failure going forward
Original Note:
Today's Communication/Plan
-
Assessment / Plan
Assessment / Plan
General: No Apparent Distress, Comfortable and Conversant
HEENT: NormoCephalic, Moist mucous membranes
Respiratory: Mild basilar rales bilaterally, Non Labored Respirations
Cardiac: S1/S2 and Regular Rhythm; No Rub or Gallop
GI: Soft, Non Tender, Non Distended and Normal Bowel Sounds
Musculoskeletal: Trace pedal edema, no deformity
Skin: Warm and dry
: NO Anders
Neuro: Awake, Alert, Nonfocal/grossly intact
Psych: Calm and cooperative
Mr. Cordova is a 74-year-old male with a medical history of CAD (CABG x 3 2007), HFpEF, heart block (SHIPPING CHECKER-P 08/2023), aortic stenosis (s/p tissue AVR), hypertension, CKD (unclear stage, previously requiring temporary HD at [facility] July 2024), and DDM who
presented with chest pain and shortness of breath. Pain improved with Nitropaste. Initial troponin elevated at 2.2 and so patient was started on IV heparin drip. Chest imaging for significant pulmonary edema. Patient started on IV diuresis.
Echocardiogram pending.
Acute on chronic HFpEF:
- Continuing diuresis with IV Lasix 40 mg twice daily
- Monitor I's and O's and daily weights, down approximately 7 kg this admission, morning weight 62.2 kg today
- Echocardiogram 12/20/2024 shows reduced ejection fraction of 35 to 40% with moderate to severe MR
- Cardiac cath 12/21 with no evidence of acute obstructive disease
- Continue beta-blockade with Toprol tartrate 25 mg p.o. twice daily
- Discontinued IV heparin
- Appreciate cardiology guidance
NSTEMI:
- Cardiac cath 12/21/2024 with no evidence of acute obstructive disease
- Discontinued IV heparin
- Continue aspirin and Plavix, high intensity statin
Acute hypoxic respiratory failure:
- Suspect due to pulmonary edema in the setting of acute on chronic heart failure exacerbation
- Now resolved, titrated off of supplemental oxygen, saturating appropriately breathing comfortably on room air
CKD:
- Appears to be close to baseline renal function with creatinine 1.7
- Of note, patient previously required dialysis briefly following cardiac catheterization
- Nephrology now involved as patient went for cardiac cath 12/21/2024, renal function currently stable
- Monitor renal function and electrolytes with ongoing diuresis
- Holding metformin
Anemia of chronic disease:
- Secondary to kidney disease
- Monitor hemoglobin
Insulin-dependent diabetes mellitus:
- Continue long-acting insulin with Lantus 12 units daily
- Additional sliding scale as needed
- Continue Accu-Cheks, hemoglobin A1c 5.6%
DVT prophylaxis: SCDs
CODE STATUS: Full code
Anticipated Discharge: 24 - 48 hours
Subjective/Interval History
-
Date of Service: December 22, 2024
Patient was seen and examined at bedside this morning. Breathing comfortably on room air. Continues to diurese well.
Objective Data
-
Labs:
Laboratory Results
12/22/24
04:41
WBC 9.8
Hgb 10.7 L
Hct 33.5 L
Plt Count 53 L
Sodium 136
Potassium 3.9
Chloride 100
Carbon Dioxide 30
BUN 35 H
Creatinine 1.8 H
Glucose 151 H
Calcium 9.8
Vital Signs:
Vital Signs
Temp Pulse Resp BP Pulse Ox
98.3 F 78 16 99/56 97
12/22/24 11:50 12/22/24 11:50 12/22/24 11:50 12/22/24 11:48 12/22/24 11:50
I&O
12/21/24 12/22/24 12/23/24
06:59 06:59 06:59
Intake Total 840 / 840 480 / 480
Output Total 2100 / 2100 1175 / 1175
Balance -1260 / -1260 -695 / -695
Review of Systems
-
History Source: Patient
All other systems: Reviewed and negative
Physical Exam
-
General: No Apparent Distress
--- NOTE | 2024-12-22 14:12 | W.PN.CARDCBS ---
Addendum entered and electronically signed by Nolan Lagos MD 12/22/24 15:04:
I saw and examined the patient.
The TONG HOOKER or PA's note was reviewed and I agree with the note.
Comment: General: Well developed, well nourished in NAD.
Neck: Supple, no JVD, HJR, carotids +2 B/L, no bruits bilaterally.
Heart: Non displaced PMI, RRR, no murmurs, No S3, S4, no rubs.
Lungs: Clear to auscultation bilaterally, no wheeze, rhonchi, rubs bilaterally,
normal expiratory phase.
Extremities: No clubbing, cyanosis or edema bilaterally.
Neuro: Grossly nonfocal, awake, alert and oriented x3.
He appears comfortable at present. Continue to hold Lasix with mildly worsening creatinine. Continue to follow renal function closely status post catheterization. Discussed with patient's daughter who also acted as an vascular technologist sonographer.
Original Note:
Today's Communication / Plan
-
follow Cr. holding lasix, possibly restart po in AM
continue asa, plavix, lopressor, lipitor
ambulate
Impression / Plan
-
PCP: Israel Clifton MD
CDY: Orlando Langley MD
Impression:
Admitted with acute HFrEF and chest pain 12/20/24
NSTEMI
Cardiac catheterization 12/21/24 with occluded SVG to distal LAD, plan for medical management, other bypass grafts patent
Recent ER visit at [facility] for chest pain and SOB 12/09/2024
Acute HFpEF
EF 60-65% by echo 08/2023
Chest pain
Elevated Troponin
s/p Medtronic MINE ENGINEER-P 08/2023
Hyperkalemia
NOE on an unknown level of CKD
CAD
s/p CABG with GAFFNEY-LAD, VG-dLAD, VG-PLB 2007
s/p LAD PCI at [facility] 04/2024
s/p tissue AVR 2007
HLD
HTN
DM
Language barrier
Echo 08/2023: nml LV size, abnormal diastolic function with increased LVEDP, EF 60-65%, CLVH but no obvious regional abn. normally functioning bioprosthetic AV, PG/MG 32.5/18, ABEL 1.34cm2
Echo 12/20/2024: EF 35 to 40%, mild concentric LVH, mid to distal inferior, inferolateral, mid anteroseptal, mid anterior, apical hypokinesis, dense MAC, at least moderate to severe MR with anterior eccentric jet, mild to moderate TR, PAP 38 mmHg
Plan:
- Patient presented with acute CHF and chest discomfort
- Ruled in for NSTEMI with peak troponin of 27.9
- Cardiac catheterization 12/21/2024 with occluded SVG to distal LAD with plan for medical management. Other bypass grafts noted to be patent
- Reports no chest pain overnight
- Continue aspirin, Plavix, Lipitor, Lopressor
- LDL 37
- And a sensed V paced rhythm on review of telemetry overnight
- Was diuresed, however Lasix now on hold given wedge of 18 at time of cath and creatinine uptrending, 1.8 on 12/22. He had NOE in the past postcardiac catheterization by patient/family report. Appreciate nephrology input. Was on p.o. Lasix 40 mg
daily prior to admission, would consider resuming in next 24 to 48 hours pending creatinine trends
- Ambulate
- for possible DC in AM
- Discussed with hospitalist via [place] text
PREADMIT DATA:
-Patient came to the ER today with SOB and chest pain prompting admission for acute HF and elevated troponin, cardiology is now consulted. Patient was seen by his primary marketing services rep in the office on 12/09/2024 and he complained of chest pain and
was referred to the ER. I obtain records from the primary marketing services rep and from that ER visit, when the patient arrived to the ER it looks like his primary complaint was SMALL and he denied any chest pain at that time. In the ER his BNP was 3216 and
between the ER physician and the cardiology office they increase his Lopressor to 25 mg BID and they added Imdur ER 60 mg daily plus NTG SL as needed. Patient presented to [facility] ER this morning with complaints of recurrent SOB and chest pain, but
also new symptoms of orthopnea. Patient has a history of CKD and according to family he was on transient dialysis during an admission to [facility] 07/2024. Patient is not undergoing any outpatient dialysis, but they were told he may need it again at some
point in the future. Patient takes Lasix 40 mg PO daily. Most of his symptoms started after he went on a cruise from 11/10/2024 until 11/15/2024 after which he started with SMALL, LE edema and chest pain. The symptoms have been on and off overall
getting worse. Patient has a previous tissue AVR and CABG in 2007. He is known to our office following a Medtronic MINE ENGINEER�P placement 08/2023 in the setting of [facility].
Progress Note - Waxed Bag Machine Operator
Subjective
Date of Service: December 22, 2024
No complaints of chest pain
Objective
Labs:
12/22/24 04:41
12/22/24 04:41
Labs
Hgb 10.7 g/dL (13.0-18.0) L 12/22/24 04:41
Hct 33.5 % (39.0-52.0) L 12/22/24 04:41
Plt Count 53 10^3/uL (130-400) L 12/22/24 04:41
PT 15.0 Sec (11.4-14.6) H 12/20/24 04:35
INR 1.15 12/20/24 04:35
APTT 88.0 Sec (23.4-35.0) H 12/21/24 09:45
Sodium 136 mmol/L (135-145) 12/22/24 04:41
Potassium 3.9 mmol/L (3.5-5.1) 12/22/24 04:41
BUN 35 mg/dl (9-20) H 12/22/24 04:41
Creatinine 1.8 mg/dL (0.7-1.3) H 12/22/24 04:41
Glucose 151 mg/dl (70-99) H 12/22/24 04:41
Troponins
12/20/24 12/20/24 12/20/24
04:33 07:35 12:49
Troponin I 2.220 H* 2.080 H* 16.200 H* D
12/20/24 12/21/24
20:52 03:47
Troponin I 27.900 H* 16.500 H* D
Vital Signs and I&O:
Vital Signs
Temp Pulse Resp BP Pulse Ox
98.3 F 78 16 99/56 97
12/22/24 11:50 12/22/24 11:50 12/22/24 11:50 12/22/24 11:48 12/22/24 11:50
Vital Signs
Temp Pulse Resp BP Pulse Ox
98.3 F 78 16 99/56 97
12/22/24 11:50 12/22/24 11:50 12/22/24 11:50 12/22/24 11:48 12/22/24 11:50
Intake & Output
12/20/24 12/21/24 12/22/24 12/23/24
07:59 07:59 07:59 07:59
Intake Total 840 / 840 480 / 480
Output Total 2100 / 2100 1175 / 1175
Balance -1260 / -1260 -695 / -695
Physical Exam
Physical Exam
GEN: No distress, awake, alert
HEENT: supple, anicteric, mmm
LUNGS: CTA B/L, no wheezes
CV: Reg, S1/S2, no murmur
ABD: soft, BS+, NT/ND
EXT: No cyanosis, clubbing, edema
NEURO: Gross non-focal
SKIN: Warm, pink, dry. No rash
[2024-12-22 18:08] LABS: Glucose - Point of Care 116 mg/dl (70-99)
[2024-12-22] MEDS: NOVOLOG FLEXPEN-MODERATE RESISTANCE SC (18:21)
[2024-12-22] MEDS: LIPITOR 80 MG PO (21:07)
[2024-12-22 22:15] LABS: Glucose - Point of Care 300 mg/dl (70-99)
--- NOTE | 2024-12-22 23:39 | PTCARENOTE ---
Received pt @ change of shift. AAOx3, VSS-- 100% V-paced on monitor-- family bedside. Right femoral site dry and intact with little old drainage spot-- unchanged from previous nurse per bedside shift report. Discussed plan of care-- pt verbalizes
understanding. Language line in room. Call abdul within reach.
[2024-12-23 04:01] VITALS: BP 105/66
[2024-12-23 04:04] VITALS: BMI 21.7
--- NOTE | 2024-12-23 06:31 | PTCARENOTE ---
Pt rested quietly all night with eyes closed and rhythmic breathing. Stable, no c/o chest pain or SOB. HR increased with ambulation to bathroom.
[2024-12-23 07:36] VITALS: BP 120/68
[2024-12-23 08:12] LABS: Blood Urea Nitrogen 35 mg/dl (9-20); Calcium 9.4 mg/dl (8.4-10.2); Carbon Dioxide 28 mmol/L (22-30); Chloride 102 mmol/L (98-107); Estimated Creatinine Clearance 32 ml/min; Glucose 162 mg/dl (70-99); Potassium 4.3 mmol/L (3.5-5.1); Sodium 134 mmol/L (135-145); eGFR 39.01
[2024-12-23 08:37] LABS: Glucose - Point of Care 188 mg/dl (70-99)
[2024-12-23] MEDS: ASPIR LOW (ENTERIC COATED) 81 MG PO (08:44)
[2024-12-23] MEDS: PLAVIX 75 MG PO (08:45)
[2024-12-23] MEDS: LOPRESSOR 25 MG PO (08:45)
[2024-12-23] MEDS: PROTONIX IV 40 MG IV (08:45)
[2024-12-23] MEDS: LANTUS 0.12 UNITS SC (09:58)
[2024-12-23] MEDS: NOVOLOG FLEXPEN-MODERATE RESISTANCE 1 UNITS SC (09:58)
[2024-12-23 09:59] LABS: Glucose - Point of Care 189 mg/dl (70-99)
--- NOTE | 2024-12-23 10:02 | W.PN.CARDCBS ---
Addendum entered and electronically signed by Yoandy Loredo DO 12/23/24 11:37:
I saw and examined the patient.
The Architectural Inspector's note was reviewed and I agree with the note.
Comment:
Plan:
Resuming oral diuretic in the form of torsemide 20 mg daily.
Appreciate nephrology input
Continue dual antiplatelet therapy, medical therapy for occluded SVG to LAD
Remains stable from a cardiac standpoint for discharge.
Reviewed cardiac catheterization and follow-up recommendations with patient and family at bedside.
Outpatient follow-up with Dr. Orlando Langley, outside hydraulic engineer.
Original Note:
Today's Communication / Plan
-
consider resuming po lasix
continue asa, plavix, lipitor, lopressor
OP cardiac follow up with Dr. Langley
Impression / Plan
-
PCP: Israel Clifton MD
CDY: Orlando Langley MD
Impression:
Admitted with acute HFrEF and chest pain 12/20/24
NSTEMI
Cardiac catheterization 12/21/24 with occluded SVG to distal LAD, plan for medical management, other bypass grafts patent
Recent ER visit at [facility] for chest pain and SOB 12/09/2024
Acute HFpEF
EF 60-65% by echo 08/2023
Chest pain
Elevated Troponin
s/p Medtronic DANDY TENDER-P 08/2023
Hyperkalemia
NOE on an unknown level of CKD
CAD
s/p CABG with GAFFNEY-LAD, VG-dLAD, VG-PLB 2007
s/p LAD PCI at [facility] 04/2024
s/p tissue AVR 2007
HLD
HTN
DM
Language barrier
Echo 08/2023: nml LV size, abnormal diastolic function with increased LVEDP, EF 60-65%, CLVH but no obvious regional abn. normally functioning bioprosthetic AV, PG/MG 32.5/18, ABEL 1.34cm2
Echo 12/20/2024: EF 35 to 40%, mild concentric LVH, mid to distal inferior, inferolateral, mid anteroseptal, mid anterior, apical hypokinesis, dense MAC, at least moderate to severe MR with anterior eccentric jet, mild to moderate TR, PAP 38 mmHg
Plan:
- Patient presented with acute CHF and chest discomfort
- Ruled in for NSTEMI with peak troponin of 27.9
- Cardiac catheterization 12/21/2024 with occluded SVG to distal LAD with plan for medical management. Other bypass grafts noted to be patent
- no chest pain overnight
- Continue aspirin, Plavix, Lipitor, Lopressor
- In a sensed V paced rhythm on review of telemetry overnight
- Was diuresed, however Lasix now on hold given wedge of 18 at time of cath. creatinine stable at, 1.8 on 12/23. He had NOE in the past postcardiac catheterization by patient/family report. Appreciate nephrology input. Was on p.o. Lasix 40 mg
daily prior to admission, would consider resuming in next 24 to 48 hours
- Ambulate
- ok for DC today from cardiac standpoint
- will arrange OP cardiac follow up with MINGO Mcfadden
- Discussed with nephrology. Discussed with carolina Delatorre via telephone and updated
PREADMIT DATA:
-Patient came to the ER today with SOB and chest pain prompting admission for acute HF and elevated troponin, cardiology is now consulted. Patient was seen by his primary hydraulic engineer in the office on 12/09/2024 and he complained of chest pain and
was referred to the ER. I obtain records from the primary hydraulic engineer and from that ER visit, when the patient arrived to the ER it looks like his primary complaint was SMALL and he denied any chest pain at that time. In the ER his BNP was 3216 and
between the ER physician and the cardiology office they increase his Lopressor to 25 mg BID and they added Imdur ER 60 mg daily plus NTG SL as needed. Patient presented to [facility] ER this morning with complaints of recurrent SOB and chest pain, but
also new symptoms of orthopnea. Patient has a history of CKD and according to family he was on transient dialysis during an admission to [facility] 07/2024. Patient is not undergoing any outpatient dialysis, but they were told he may need it again at some
point in the future. Patient takes Lasix 40 mg PO daily. Most of his symptoms started after he went on a cruise from 11/10/2024 until 11/15/2024 after which he started with SMALL, LE edema and chest pain. The symptoms have been on and off overall
getting worse. Patient has a previous tissue AVR and CABG in 2007. He is known to our office following a Medtronic DANDY TENDER�P placement 08/2023 in the setting of CHB.
Progress Note - [place]
Subjective
Date of Service: December 23, 2024
no complaints
Objective
Labs:
12/22/24 04:41
12/23/24 07:42
Labs
Hgb 10.7 g/dL (13.0-18.0) L 12/22/24 04:41
Hct 33.5 % (39.0-52.0) L 12/22/24 04:41
Plt Count 53 10^3/uL (130-400) L 12/22/24 04:41
PT 15.0 Sec (11.4-14.6) H 12/20/24 04:35
INR 1.15 12/20/24 04:35
APTT 88.0 Sec (23.4-35.0) H 12/21/24 09:45
Sodium 134 mmol/L (135-145) L 12/23/24 07:42
Potassium 4.3 mmol/L (3.5-5.1) 12/23/24 07:42
BUN 35 mg/dl (9-20) H 12/23/24 07:42
Creatinine 1.8 mg/dL (0.7-1.3) H 12/23/24 07:42
Glucose 162 mg/dl (70-99) H 12/23/24 07:42
Troponins
12/20/24 12/20/24 12/21/24
12:49 20:52 03:47
Troponin I 16.200 H* D 27.900 H* 16.500 H* D
Vital Signs and I&O:
Vital Signs
Temp Pulse Resp BP Pulse Ox
97.9 F 88 20 120/68 97
12/23/24 07:36 12/23/24 09:00 12/23/24 07:36 12/23/24 08:45 12/23/24 07:36
Vital Signs
Temp Pulse Resp BP Pulse Ox
97.9 F 88 20 120/68 97
12/23/24 07:36 12/23/24 09:00 12/23/24 07:36 12/23/24 08:45 12/23/24 07:36
Intake & Output
12/21/24 12/22/24 12/23/24 12/24/24
07:59 07:59 07:59 07:59
Intake Total 840 / 840 480 / 480
Output Total 2100 / 2100 1175 / 1175
Balance -1260 / -1260 -695 / -695
Physical Exam
Physical Exam
GEN: No distress, awake, alert. sitting in chair
HEENT: supple, anicteric, mmm
LUNGS: CTA B/L, no wheezes
CV: Reg, S1/S2, no murmur
ABD: soft, BS+, NT/ND
EXT: No cyanosis, clubbing, edema
NEURO: Gross non-focal
SKIN: Warm, pink, dry. No rash
--- NOTE | 2024-12-23 10:53 | PN.CDI ---
CDI
- -
CDI:
Physician Documentation Request
Admit Date: 12/20/24 06:12
Dear Doctor Golden
Patient presented to ED with substernal chest pain and diaphoresis.
Patient found to have NSTEMI and heart failure
Echo 12/20 reports an EF 35-40%
Hospitalist refers to the heart failure in progress notes as acute on chronic HFpEF
Cardiology as acute HFrEF.
In an attempt to clarify potentially conflicting documentation, please clarify the type of heart failure:
Type
Systolic
Diastolic
Combined Systolic/Diastolic
Other
Use of terms such as suspected, likely, concern for, or probable (associated with a specific diagnosis that is being evaluated, monitored, or treated as if it exists) are acceptable and can be coded in the inpatient setting, when documented at the
time of discharge.
Thank you,
Avelina Connor RN, BSN
CDI Specialist
tiger text
Please use your independent medical judgment in providing your response.
--- NOTE | 2024-12-23 10:57 | W.DCSUMMARY ---
Discharge Summary
Discharge Data
Date of Admission: 12/20/24
Date of Discharge: 12/23/24
Total time spent discharging patient (in min): 48
-
Pending Results: No
Hospital Course
Mr. Cordova is a 74-year-old male with a medical history of CAD (CABG x 3 2007), HFpEF, heart block (COMPUTER NUMERICAL CONTROL GRINDER-P 08/2023), aortic stenosis (s/p tissue AVR), hypertension, CKD (unclear stage, previously requiring temporary HD at [facility] July 2024), and IDDM who
presented with chest pain and shortness of breath. Pain improved with Nitropaste. Initial troponin elevated at 2.2 and so patient was started on IV heparin drip. Chest imaging showed significant pulmonary edema. Patient started on IV diuresis
and admitted for further evaluation and management of acute on chronic HFpEF and NSTEMI.
Echocardiogram showed newly reduced ejection fraction of 35 to 40% with moderate to severe mitral regurgitation. His respiratory symptoms improved with aggressive IV diuresis. He was brought for cardiac catheterization on 12/21/2024 with no
evidence of acute coronary obstructive disease. IV heparin was discontinued. He has been continued on DAPT and high intensity statin therapy. He was able to be weaned off of supplemental oxygen and was breathing comfortably and saturating
appropriately on room air. His renal function remained close to baseline. He has been transitioned back to oral diuretic.
His home metformin was held during this admission and will continue to be held at discharge considering his chronic kidney disease. He will be continued on his home insulin regimen and should follow-up with his primary care physician about further
changes as needed to his diabetic regimen. He will also need close follow-up with cardiology and nephrology in the outpatient setting. 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
admission, diastolic dysfunction known previously).
General: No Apparent Distress, Comfortable and Conversant
HEENT: NormoCephalic, Moist mucous membranes
Respiratory: Mild basilar rales bilaterally, Non Labored Respirations
Cardiac: S1/S2 and Regular Rhythm; No Rub or Gallop
GI: Soft, Non Tender, Non Distended and Normal Bowel Sounds
Musculoskeletal: Trace pedal edema, no deformity
Skin: Warm and dry
: NO Anders
Neuro: Awake, Alert, Nonfocal/grossly intact
Psych: Calm and cooperative
Discharge Plan
-
Patient Disposition: Home (Routine Discharge)
Discharge Diagnosis/Procedures: Cardiac catheterization, acute on chronic HFpEF
Diet: Low Cholesterol and 2 Gram Sodium
Activity: No strenuous activity
Additional Activity: no heavy lifting for 1 week
Driving Restrictions: No driving for 24 hours
Blood Work: BMP in 1-2 weeks
Specialty Instructions: Weigh Daily- Call MD for wt gain/loss 3 lbs overnight/5 lbs in 1 week
Activity Restrictions/Additional Instructions:
You were admitted for an exacerbation of heart failure. You were treated with aggressive diuresis which helped improved her symptoms. You were taken for cardiac catheterization on 12/21/2024 which showed no evidence of blockages in your heart
arteries. You required supplemental oxygen through nasal cannula at first due to the extra fluid in your body that is making it hard to breathe. However with diuresis you were able to be titrated off of the supplemental oxygen. He will be
discharged to home with outpatient follow-up with your drum stock clerk, nanotechnologist, and primary care physician. You should also continue monitoring your blood sugar levels. One of your diabetes medications called metformin is being held because of
your chronic kidney disease. You should follow-up with your primary care physician about potentially starting an alternative diabetic medication.
Instructions: *PCP/Other Primary Special Education Teacher Heart Failure Instructions
Stand Alone Forms: DC Instructions- Cath/EP Lab
Referrals:
Israel Clifton MD [Family Provider, Internal Medicine]
Orlando Langley DO [Non-Admitting Privileges, Cardiology] - 01/19/25 2:30 pm
Referral Note: Appointment with Dr. Langley's VETERANS' COUNSELOR, Elizabeth. Please call with questions
Prescriptions:
New
torsemide 20 mg Tablet
20 mg PO DAILY 30 Days Qty: 30 0RF
pantoprazole 40 mg Tablet,Delayed Release (Dr/Ec)
40 mg PO DAILY 30 Days Qty: 30 0RF
Continued
tamsulosin 0.4 mg Capsule
0.4 mg PO DAILY
finasteride 5 mg Tablet
5 mg PO DAILY
multivitamin Tablet
1 tab PO DAILY
atorvastatin [Lipitor] 80 mg Tablet
80 mg PO HS
cetirizine 10 mg Tablet
10 mg PO DAILY PRN (Reason: allergies)
famotidine 40 mg Tablet
40 mg PO HS
clopidogrel 75 mg Tablet
75 mg PO DAILY
omeprazole 40 mg Capsule,Delayed Release(Dr/Ec)
40 mg PO DAILY
aspirin 81 mg Tablet,Delayed Release (Dr/Ec)
81 mg PO DAILY
acetaminophen 650 mg Tablet Extended Release
650 mg PO .Q4-6H PRN (Reason: pain)
ferrous sulfate 325 mg (65 mg iron) Tablet
325 mg PO DAILY
nitroglycerin 0.4 mg Tablet, Sublingual
0.4 mg SUBLINGUAL Q5-15M PRN (Reason: chest pain)
ipratropium bromide 21 mcg (0.03 %) [place],Non-Aerosol
2 spray INTRANASAL .BID-TID
metoprolol tartrate 25 mg Tablet
25 mg PO BID
calcium carbonate-vitamin D3 [Calcium 600 + D(3)] 600 mg-10 mcg (400 unit) Tablet
1 tab PO DAILY
cholecalciferol (vitamin D3) [Vitamin D3] 125 mcg (5,000 unit) Tablet
125 mcg PO DAILY
Insulin Sq
30 units SC DAILY
Patient Comments:
pt takes 30 units of insulin every morning and does not know which one he takes
Held
metformin 500 mg Tablet
500 mg PO BID
Hold Instructions: This medication should be held due to his chronic kidney disease, will need close follow-up with his primary care physician for alternative diabetic medications as needed
Discontinued
furosemide 40 mg Tablet
40 mg PO DAILY
dapagliflozin propanediol [Farxiga] 10 mg Tablet
10 mg PO DAILY
Discharge Orders:
Discharge Patient (As Directed); Ordered 12/23/24
Ordered By: Apolinar Franks
Care Plan Goals
Care Plan Goals:
Problem: Readiness for enhanced knowledge related to diagnosis and treatment plan
Goal: Understand your diagnosis and treatment plan needs, including medications if applicable.
Instructions: Know your diagnosis, underlying causes and treatment plan options, including medications if applicable. Consult with your health care team to learn about your diagnosis and treatment plan, including medications if applicable.
Discharge Date and Time
Print Language: WELSH
--- NOTE | 2024-12-23 11:00 | PN.CDI ---
CDI
- -
CDI:
Physician Documentation Request
Admit Date: 12/20/24 06:12
Dear Doctor Golden,
Please review the following and provide your response in the progress notes.
Clinical Indicators:
The diagnosis of bifascicular block was included in the signed EKG 12/21/24
Please indicate in your progress notes if you are in agreement that the above diagnosis is valid for this patient:
____ - Bifascicular block is a valid diagnosis (Please include it in your progress notes)
____ - Bifascicular block is not a valid diagnosis for this patient
____ - Other
Use of terms such as suspected, likely, concern for, or probable are acceptable for a diagnosis that is being evaluated, monitored or treated as if it exists and can be coded in the inpatient setting, when documented at the time of discharge.
Thank you,
Avelina Connor RN, BSN
CDI Specialist
tiger text
Please use your independent medical judgment in providing your response.
[2024-12-23 11:24] VITALS: BP 118/59
[2024-12-23 11:25] VITALS: BP 118/59
[2024-12-23] MEDS: DEMADEX 20 MG PO (11:25)
--- NOTE | 2024-12-23 12:05 | W.PN.NEPH.PH ---
Today's Communication / Plan
-
Torsemide 20 p.o. okay for discharge from renal standpoint follow-up with outpatient motor scooter mechanic
Assessment/Plan
-
Impression:
Admitted with acute HF and chest pain 12/20/24 with NSTEMI ~16 troponin
Recent ER visit at [facility] for chest pain and SOB 12/09/2024
Ischemic cardiomyopathy with current EF of 35 to 40% with moderate to severe MR by echo
Chest pain
CKD around 1.7
s/p Medtronic MANAGER CENTER-P 08/2023
CAD
s/p CABG with GAFFNEY-LAD, VG-dLAD, VG-PLB 2007
s/p LAD PCI at [facility] 04/2024s/p tissue AVR 2007
HLD
HTN
DM
Language barrier
Plan:
CKD
Creatinine appears to be around baseline at 1.7�1.8
Discussed case with cardiology
Status post cardiac cath 12/21
Okay for discharge from renal standpoint to suggest 20 mg torsemide instead of Lasix.
Follow-up with his regular motor scooter mechanic
-
-
Date of Service: December 23, 2024
CC / HPI / ROS
-
Chief Complaint:
Shortness of breath
History of Present Illness:
Acute on chronic kidney disease NSTEMI status post cath
Review of Systems:
No chest pain or shortness of breath
Diuresing with significant improvement in weight
Labs
-
Labs:
WBC 9.8 10^3/uL (4.8-10.8) 12/22/24 04:41
RBC 3.47 10^6/uL (4.70-6.10) L 12/22/24 04:41
Hgb 10.7 g/dL (13.0-18.0) L 12/22/24 04:41
Hct 33.5 % (39.0-52.0) L 12/22/24 04:41
Plt Count 53 10^3/uL (130-400) L 12/22/24 04:41
Sodium 134 mmol/L (135-145) L 12/23/24 07:42
Potassium 4.3 mmol/L (3.5-5.1) 12/23/24 07:42
Chloride 102 mmol/L (98-107) 12/23/24 07:42
Carbon Dioxide 28 mmol/L (22-30) 12/23/24 07:42
BUN 35 mg/dl (9-20) H 12/23/24 07:42
Creatinine 1.8 mg/dL (0.7-1.3) H 12/23/24 07:42
eGFR 39.01 12/23/24 07:42
Glucose 162 mg/dl (70-99) H 12/23/24 07:42
Calcium 9.4 mg/dl (8.4-10.2) 12/23/24 07:42
Ijg-F-Emymyglrybg Pept 8730 pg/ml 12/20/24 04:33
Albumin 3.9 g/dl (3.5-5.0) 12/20/24 04:33
Physical Exam
-
Vital Signs:
Vital Signs
Temp Pulse Resp BP Pulse Ox
97.7 F 86 12 118/59 97
12/23/24 11:24 12/23/24 11:25 12/23/24 11:24 12/23/24 11:25 12/23/24 07:36
Respiratory:: Bilateral: CTA
Lung Excursion:: Normal
Abdomen:: Soft
Bowel Sounds:: Normal
Extremity Edema:: None: Bilateral:
[2024-12-23 12:16] LABS: Glucose - Point of Care 243 mg/dl (70-99)
[2024-12-23] MEDS: NOVOLOG FLEXPEN-MODERATE RESISTANCE 3 UNITS SC (12:44)
--- NOTE | 2024-12-23 13:15 | PTCARENOTE ---
~7416-7980: Handoff report received from nightshift RN. Pt AOx4, V paced on tele 70-90s, then up to 120s while ambulating, SBP 120s, RA satting high 90s. Pt denies pain at this time. OOB, independent in room. R groin site CDI and soft. Bloodwork
obtained and sent to lab for processing. All needs met at this time, call abdul within reach.
~[id number]: Cr lab returned as 1.8. Diuretic restarted by cardiology as torsemide PO, given per order. Patient independent in room, son at bedside. All needs met at this time, call abdul within reach.
~[id number]: Per nephrology and cardiology, patient cleared for dc, informed hospitalist.
~[id number]: DC orders in. Paperwork reviewed with patient and son, all questions answered. VSS. Patient dc'd with all belongings in stable condition and taken to [facility] in [place] by PCT.
--- NOTE | 2024-12-23 13:40 | CM ---
Reviewed chart. Mr. Cordova has been ambulating in the room. He maybe able to go home soon. Prior to admission he resides with his spouse son and grandson in a two story home. His son is visiting in [place]. Prior to admission he ambulates with a
rolling walker. He has a rolling walker and single point cane at home. He goes to [facility] in [place] Friday thru Friday from 7:30 a.m to 2:30p.m. He does not have any help coming in to the home. Will need to see his current functional
level to see if he will have any skilled are needs. Medical work-up in progress. The discharge plan is to return home with his family and resume his [facility] when medically stable.
--- NOTE | 2024-12-24 10:33 | W.HF.CON ---
Heart Failure
- LV Function
Left ventricular function study result: LV Ejection fraction 36-40%
Ejection Fraction Percentage: 35-40
- ARNI
Patient already on ARNI: No
Heart Failure ARNI Contraindication: Acute Renal Failure, Hypotension
- ACEI/ARB
Patient already on ACEI/ARB: No
Heart Failure ACEI/ARB Contraindication: Acute Renal Failure, Hypotension
- Beta Rimma
Patient already on Evidence Based Beta Rimma: No
Heart Failure Evidence Based Beta Rimma: Hypotension, Mod/Severe Heart Failure
- Mineralocorticord Receptor Antagonist
Patient already on MRA: No
Heart Failure MRA Contraindication: Acute Renal Insufficiency, Hypotension
- SGLT-2 Inhibitor
Patient already on SGLT-2 Inhibitor: No
- NYHA CHF Classification
NYHA CHF Classification Level: Class III - Symptoms w/ min exertion, interferes w/ nml daily activity (MR)
- ACC/AHA Stage
ACC/AHA Stage: Stage C: Symptomatic Heart Failure
== END 2024-12-23 13:15 | disposition home or self-care (01) | DRG 280 ==
LOC: IVU 06:12
PROVIDERS: Internal Medicine Interventional Cardiology; Physician Assistant; ADMITTING PHYSICIAN Hospitalist; ATTENDING PHYSICIAN Internal Medicine; CONSULT PHYSICIAN Specialist; EMERGENCY PHYSICIAN Student in an Organized Health Care Education/Training Program; FAMILY PHYSICIAN Internal Medicine; OTHER PHYSICIAN Internal Medicine Cardiovascular Disease
PROC: 4B02XSZ Measurement of Cardiac Pacemaker, External Approach (ICD-10-PCS; 2024-12-20)
PROC: 4A023N8 Measurement of Cardiac Sampling and Pressure, Bilateral, Percutaneous Approach (ICD-10-PCS; 2024-12-21)
PROC: B2111ZZ Fluoroscopy of Multiple Coronary Arteries using Low Osmolar Contrast (ICD-10-PCS; 2024-12-21)
DX: I21.4 Non-ST elevation (NSTEMI) myocardial infarction (principal); I50.43 Acute on chronic combined systolic (congestive) and diastolic (congestive) heart failure; J96.01 Acute respiratory failure with hypoxia; E87.20 Acidosis, unspecified; I13.0 Hypertensive heart and chronic kidney disease with heart failure and stage 1 through stage 4 chronic kidney disease, or unspecified chronic kidney disease; N17.9 Acute kidney failure, unspecified; I44.2 Atrioventricular block, complete; Z87.891 Personal history of nicotine dependence; N18.30 Chronic kidney disease, stage 3 unspecified; E87.5 Hyperkalemia; E11.22 Type 2 diabetes mellitus with diabetic chronic kidney disease; D63.1 Anemia in chronic kidney disease; D75.89 Other specified diseases of blood and blood-forming organs; I07.1 Rheumatic tricuspid insufficiency; I25.10 Atherosclerotic heart disease of native coronary artery without angina pectoris; Z79.02 Long term (current) use of antithrombotics/antiplatelets; Z79.4 Long term (current) use of insulin; Z79.82 Long term (current) use of aspirin; Z79.899 Other long term (current) drug therapy; Z86.73 Personal history of transient ischemic attack (TIA), and cerebral infarction without residual deficits; Z95.0 Presence of cardiac pacemaker
CPT/HCPCS: 71045; 80048; 80053; 80061; 82607; 82746; 82962; 83036; 83540; 83550; 83735; 83880; 84484; 85025; 85027; 85610; 85730; 87070; 87205; 93005; 93306; 93457; 94640; 99152; 99153; 99291; C1760; C1769; C1894; Q9967

== ENCOUNTER 2024-12-28 15:55 | Inpatient (IN) | payer OTHER, SELFPAY ==
[2024-12-28] VITALS (46 sets, daily range): BP systolic 77–121; BP diastolic 52–75; BMI 22.6
--- NOTE | 2024-12-28 12:33 | ED.GENMED ---
History of Present Illness
<KALIE Flood - Last Filed: 12/28/24 16:54>
General
Chief Complaint: Breathing Problem
Source: patient and family
Time Seen by Provider: 12/28/24 12:12
Nursing documentation reviewed up to this point in time: agreed with
History of Present Illness
History of Present Illness:
Patient is a 74-year-old male non-Maltese speaking presents to the ER for evaluation language line used. Patient has past medical history of bypass x 3 in 2007 heart failure heart block aortic stenosis, AVR hypertension chronic kidney disease
patient was recently discharged here on for exacerbation of heart failure. He also had a cardiac ablation on December 21 which was negative. Patient was discharged home on 5 days ago but did not get his medicine until yesterday
and therefore did not take his diuretic, torsemide until this morning. In addition the other medicines he did not start until today were pantoprazole and Flomax which were the new medicines he was discharged on. He complains of shortness of breath
since being discharged has not been able to walk to the bathroom without being short of breath intermittent chest pain feels very weak.
Family at bedside. He currently denies chest pain he feels weak.
Phy Exam
<KALIE Flood - Last Filed: 12/28/24 16:54>
General Physical Exam
General Presentation: no apparent distress
General age: appears stated age
General Skin: warm and dry
General Habitus: normal
General Mental: alert
General Hydration: appears well hydrated
Cardiovascular Exam
Cardiovascular Exam: regular rate/rhythm, no murmur and normal peripheral pulses
Pulmonary Exam
Pulmonary Exam: lungs clear and no respiratory distress
Neurological Exam
Neurological Exam: alert and oriented x3
Musculoskeletal Exam
Musculoskeletal Exam: full ROM and other (no l/e swelling)
Skin Exam
Skin Exam: normal color and warm/dry
Psychiatric Exam
Psychiatric Exam: normal mood/affect
Scores
<KALIE Flood - Last Filed: 12/28/24 16:54>
Heart Failure Risk
Heart Failure Risk Score: Not Applicable
Course
<KALIE Flood - Last Filed: 12/28/24 16:54>
Orders/Labs/Results
Orders:
Orders
12/28/24 12:12
EKG [Electrocardiogram (*1)] Urgent
Reason for Study: Chest Pain
EKG- Treatment ONCE
12/28/24 12:58
Complete Blood Count/With Diff Urgent
Comprehensive Metabolic Panel Urgent
NT-proBNP Urgent
PTT Urgent
Prothrombin Time Urgent
Troponin I Urgent
12/28/24 13:03
Chest X-ray Portable [CR Chest Portable - 1 View] Urgent
Comment:
Reason For Exam: SOb
Reason Study Needs to be Portable: Patient Unstable
12/28/24 13:15
NORepinephrine 4 MG/250 ML [Levophed] 4 mg in 250 ml IV NOW
Initial dose in mcg/min, then titrate:: 2
Titrate to keep:: MAP > 65 mmHg
Titrate by mcg/min:: 1-2 mcg/min
Frequency of titrations (minutes):: 5
Maximum dose in ICU in mcg/min:: 30
Maximum dose in IMU in mcg/min:: 8
Maximum dose in IVU in mcg/min:: 4
Begin to taper infusion when:: Remained at goal for 4hrs
Taper by mcg/min:: 1-2 mcg/min
Frequency of taper (minutes) if patient maintains goal:: 30
Taper to off?: Yes
If infusion off & no longer maintaining goal:: Contact Provider
12/28/24 13:40
Lactate Level [Lactic Acid] Urgent
Blood Culture [id number]
[place] Source: Blood/Venous
Specimen Description:
12/28/24 13:45
Lactic Acid Q4H
Comment: CANCEL 2nd LACTIC ACID IF 1st LACTIC ACID IS LESS THAN 2
Blood Culture Q30M
[place] Source: Blood/Venous
Specimen Description:
12/28/24 13:47
Dextrose 50%-Water [Dextrose 50% Syringe] 12.5 grams IV [id number] PRN
Dextrose 50%-Water [Dextrose 50% Syringe] 25 grams IV NOW STA
Insulin Human Regular [Novolin R] 5 units IV NOW STA
Bedside Glucose PRE IV Insulin- HyperK+ NOW
12/28/24 13:52
0.9% Sodium Chloride 1000 ml [Nss] 1,000 ml IV BOLUS
12/28/24 13:55
Cardiac Monitoring- Treatment ONCE
Piperacillin/Tazo 3.375 Gram [Zosyn] 3.375 gram in 50 ml IV NOW
12/28/24 13:57
Vancomycin [Vancocin] 1,500 mg 0.9% Sodium Chloride 500 ml [Nss] 500 ml IV NOW
12/28/24 14:01
Dextrose 50%-Water [Dextrose 50% Syringe] 12.5 grams IV NOW STA
12/28/24 14:15
Blood Culture Q30M
[place] Source: Blood/Venous
Specimen Description:
12/28/24 14:28
PICC Line As Directed
12/28/24 14:55
Admit/Transfer Patient As Directed
Co-Sign Provider:
Level of Care: Inpatient admission
Assign to:: ICU
Physician / Group: Dr. Yordan Cordova
Diagnosis: sepsis
Reason for Hospitalization: sepsis
Expected length of stay greater than two midnights?: Yes
ELOS- Estimated Length of Stay in days: 2
I certify the patient meets the requirements for IP care: Yes
12/28/24 14:56
PRN Pain Medication Management As Directed
May give lesser potent ordered pain med per pt: Yes
preference::
Protocol:: Medication orders for pain may be administered in a
manner that supports deferring to patient preference
when the pt is:
- Requesting an ordered lesser potent pain medication.
Least to most potent pain medications are defined
as: acetaminophen < NSAID < tramadol < opioids
(morphine, oxycodone, hydromorphone).
- Requesting a lesser dose of the same medication IF
ORDERED.
- Requesting a less intrusive route of administration
if both routes are prescribed by the provider (PO <
IV).
12/28/24 Dinner
1800 calorie (15 carb) Diabetic
Diabetic Diet: Sodium, 2 Gram
Potassium, 2 Gram
12/28/24 15:05
Code Status As Directed
Resuscitation Status: Full Code
12/28/24 15:17
Bedside Glucose POST IV Insulin- HyperK+ Q1HX2,Q2HX2
12/28/24 16:17
Potassium Urgent
Comment: draw 2 hours after regular insulin IV administration
12/28/24 16:33
Lactic Acid Q4H
Comment: repeat q4 hours x 4 or until less than 2 mmol/L
Dextrose 50%-Water [Dextrose 50% Syringe] 12.5 grams IV [id number] PRN
Glucagon [GlucaGen] 1 mg IM PRN PRN
Heparin 5,000 units SC Q8
Insulin Aspart Corrective Low [Novolog Flexpen-Low Resistance] See Protocol SC AC
Nitroglycerin Sublingual [Nitrostat (Sublingual)] 0.4 mg SL Q5-15M PRN chest pain
Sodium Bicarbonate 650 mg PO TID
Sodium Zirconium Cyclosilicate [Lokelma] 10 gram PO NOW STA
VANCOMYCIN Pharmacy to Dose [VANCOCIN Pharmacy to Dose] 1 each Pharmacy To Prepare [Call Pharmacy To Prepare] 0 ml IV PER PROTOCOL
acetaminophen 650 mg PO Q6HPRN PRN
12/28/24 16:33
CARDIOLOGY CONSULT Routine
Consulting Provider: Michael Pickett
Was physician already notified: Yes
Food Concession Manager Consult Routine
Consulting Provider: Emanuel Melgar
Was physician already notified: Yes
NEPHROLOGY CONSULT Routine
Consulting Provider: Apolinar Pereira
Was physician already notified: Yes
NEPHROLOGY CONSULT Routine
Consulting Provider: Apolinar Pereira
Was physician already notified: Yes
Reason for consult: NOE on CKD
Urinalysis Reflex To Culture Urgent
Activity As Directed
Activity Level: As Tolerated
Bedside Glucose Monitoring As Directed
Frequency: AC&HS
Additional Instructions:: Change to q6h if pt on TPN, tube feeding or not eating
Intake/ Output As Directed
Frequency: Per unit guidelines
Vital Signs As Directed
Frequency: Per unit guidelines
DX Deep Vein Thrombosis Video Routine
12/28/24 17:45
Lactic Acid Q4H
Comment: CANCEL 2nd LACTIC ACID IF 1st LACTIC ACID IS LESS THAN 2
12/28/24 20:33
Lactic Acid Q4H
Comment: repeat q4 hours x 4 or until less than 2 mmol/L
12/29/24 00:33
Lactic Acid Q4H
Comment: repeat q4 hours x 4 or until less than 2 mmol/L
12/29/24 04:33
Lactic Acid Q4H
Comment: repeat q4 hours x 4 or until less than 2 mmol/L
12/29/24 08:00
Aspirin Low Dose EC [Aspir Low (Enteric Coated)] 81 mg PO DAILY
Calcium Carbonate/Vitamin D3 [Oscal 500 + D] 500 mg PO DAILY
Cholecalciferol (Vitamin D3) [VITAMIN D3 (cholecalciferol)] 125 mcg PO DAILY
Clopidogrel Bisulfate [Plavix] 75 mg PO DAILY
Ferrous Sulfate [Feosol] 325 mg PO DAILY
Finasteride [Proscar] 5 mg PO DAILY
Multivitamin [Theragran] 1 tablet PO DAILY
Pantoprazole [Protonix] 40 mg PO DAILY
Tamsulosin [Flomax] 0.4 mg PO DAILY
12/29/24 22:00
Famotidine [Pepcid] 20 mg PO Q48H
Abnormal Lab Results
12/28/24 12/28/24
12:58 15:38
WBC 35.3 H 10^3/uL
(4.8-10.8)
RBC 2.99 L 10^6/uL
(4.70-6.10)
Hgb 9.2 L g/dL
(13.0-18.0)
Hct 29.8 L %
(39.0-52.0)
MCV 99.7 H fL
(80.0-94.0)
MCHC 30.9 L g/dL
(33.0-37.0)
RDW 15.8 H %
(11.5-14.5)
Plt Count 54 L 10^3/uL
(130-400)
MPV 13.0 H fL
(7.4-10.4)
Abs Immat Gran (auto) 1.0 H 10^3/uL
(0-0.05)
Absolute Neuts (auto) 29.8 H 10^3/uL
(1.4-6.5)
Absolute Lymphs (auto) 0.6 L 10^3/uL
(1.2-3.4)
Absolute Monos (auto) 3.9 H 10^3/uL
(0.1-0.6)
Immature Gran % 2.8 H %
(0-0.5)
Neutrophils % 84.3 H %
(42.2-75.2)
Lymphocytes % 1.6 L %
(20.5-51.1)
Monocytes % 11.1 H %
(1.7-9.3)
PT 17.1 H Sec
(11.4-14.6)
APTT 42.4 H Sec
(23.4-35.0)
Sodium 129 L mmol/L
(135-145)
Potassium 6.0 H mmol/L
(3.5-5.1)
Carbon Dioxide 13 L* mmol/L
(22-30)
BUN 60 H mg/dl
(9-20)
Creatinine 3.2 H mg/dL
(0.7-1.3)
Glucose 233 H mg/dl
(70-99)
Total Bilirubin 3.8 H mg/dl
(0.2-1.3)
AST 114 H U/L
(17-59)
ALT 55 H U/L
(0-50)
Troponin I 12.100 H* ng/ml
POC Glucose 232 H mg/dl
(70-99)
12/28/24 12:58
12/28/24 12:58
Vital Signs
Initial and Last Documented VS:
Initial Vital Signs
Temp Pulse Resp BP Pulse Ox
97.8 F 91 18 90/57 95
12/28/24 12:12 12/28/24 12:12 12/28/24 12:12 12/28/24 12:12 12/28/24 12:12
Last Documented Vital Signs
Temp Pulse Resp BP Pulse Ox
97.8 F 98 22 100/63 97
12/28/24 12:12 12/28/24 16:25 12/28/24 16:25 12/28/24 16:25 12/28/24 15:00
Color Checker consulted with Physician
Color Checker consulted with physician?: Yes
Name of Physician Consulted: Baylee
<Donny D. Goodroad, DO - Last Filed: 12/28/24 16:26>
Orders/Labs/Results
Orders:
Orders
12/28/24 12:12
EKG [Electrocardiogram (*1)] Urgent
Reason for Study: Chest Pain
EKG- Treatment ONCE
12/28/24 12:58
Complete Blood Count/With Diff Urgent
Comprehensive Metabolic Panel Urgent
NT-proBNP Urgent
PTT Urgent
Prothrombin Time Urgent
Troponin I Urgent
12/28/24 13:03
Chest X-ray Portable [CR Chest Portable - 1 View] Urgent
Comment:
Reason For Exam: SOb
Reason Study Needs to be Portable: Patient Unstable
12/28/24 13:15
NORepinephrine 4 MG/250 ML [Levophed] 4 mg in 250 ml IV NOW
Initial dose in mcg/min, then titrate:: 2
Titrate to keep:: MAP > 65 mmHg
Titrate by mcg/min:: 1-2 mcg/min
Frequency of titrations (minutes):: 5
Maximum dose in ICU in mcg/min:: 30
Maximum dose in IMU in mcg/min:: 8
Maximum dose in IVU in mcg/min:: 4
Begin to taper infusion when:: Remained at goal for 4hrs
Taper by mcg/min:: 1-2 mcg/min
Frequency of taper (minutes) if patient maintains goal:: 30
Taper to off?: Yes
If infusion off & no longer maintaining goal:: Contact Provider
12/28/24 13:40
Lactate Level [Lactic Acid] Urgent
Blood Culture [id number]
[place] Source: Blood/Venous
Specimen Description:
12/28/24 13:45
Lactic Acid Q4H
Comment: CANCEL 2nd LACTIC ACID IF 1st LACTIC ACID IS LESS THAN 2
Blood Culture Q30M
[place] Source: Blood/Venous
Specimen Description:
12/28/24 13:47
Dextrose 50%-Water [Dextrose 50% Syringe] 12.5 grams IV [id number] PRN
Dextrose 50%-Water [Dextrose 50% Syringe] 25 grams IV NOW STA
Insulin Human Regular [Novolin R] 5 units IV NOW STA
Bedside Glucose PRE IV Insulin- HyperK+ NOW
12/28/24 13:52
0.9% Sodium Chloride 1000 ml [Nss] 1,000 ml IV BOLUS
12/28/24 13:55
Cardiac Monitoring- Treatment ONCE
Piperacillin/Tazo 3.375 Gram [Zosyn] 3.375 gram in 50 ml IV NOW
12/28/24 13:57
Vancomycin [Vancocin] 1,500 mg 0.9% Sodium Chloride 500 ml [Nss] 500 ml IV NOW
12/28/24 14:01
Dextrose 50%-Water [Dextrose 50% Syringe] 12.5 grams IV NOW STA
12/28/24 14:15
Blood Culture Q30M
[place] Source: Blood/Venous
Specimen Description:
12/28/24 14:28
PICC Line As Directed
12/28/24 14:55
Admit/Transfer Patient As Directed
Co-Sign Provider:
Level of Care: Inpatient admission
Assign to:: ICU
Physician / Group: Dr. Yordan Cordova
Diagnosis: sepsis
Reason for Hospitalization: sepsis
Expected length of stay greater than two midnights?: Yes
ELOS- Estimated Length of Stay in days: 2
I certify the patient meets the requirements for IP care: Yes
12/28/24 14:56
PRN Pain Medication Management As Directed
May give lesser potent ordered pain med per pt: Yes
preference::
Protocol:: Medication orders for pain may be administered in a
manner that supports deferring to patient preference
when the pt is:
- Requesting an ordered lesser potent pain medication.
Least to most potent pain medications are defined
as: acetaminophen < NSAID < tramadol < opioids
(morphine, oxycodone, hydromorphone).
- Requesting a lesser dose of the same medication IF
ORDERED.
- Requesting a less intrusive route of administration
if both routes are prescribed by the provider (PO <
IV).
12/28/24 Dinner
1800 calorie (15 carb) Diabetic
Diabetic Diet: Sodium, 2 Gram
Potassium, 2 Gram
12/28/24 15:05
Code Status As Directed
Resuscitation Status: Full Code
12/28/24 15:17
Bedside Glucose POST IV Insulin- HyperK+ Q1HX2,Q2HX2
12/28/24 16:17
Potassium Urgent
Comment: draw 2 hours after regular insulin IV administration
12/28/24 16:33
Lactic Acid Q4H
Comment: repeat q4 hours x 4 or until less than 2 mmol/L
Dextrose 50%-Water [Dextrose 50% Syringe] 12.5 grams IV [id number] PRN
Glucagon [GlucaGen] 1 mg IM PRN PRN
Heparin 5,000 units SC Q8
Insulin Aspart Corrective Low [Novolog Flexpen-Low Resistance] See Protocol SC AC
Nitroglycerin Sublingual [Nitrostat (Sublingual)] 0.4 mg SL Q5-15M PRN chest pain
Sodium Bicarbonate 650 mg PO TID
Sodium Zirconium Cyclosilicate [Lokelma] 10 gram PO NOW STA
VANCOMYCIN Pharmacy to Dose [VANCOCIN Pharmacy to Dose] 1 each Pharmacy To Prepare [Call Pharmacy To Prepare] 0 ml IV PER PROTOCOL
acetaminophen 650 mg PO Q6HPRN PRN
12/28/24 16:33
CARDIOLOGY CONSULT Routine
Consulting Provider: Michael Pickett
Was physician already notified: Yes
Food Concession Manager Consult Routine
Consulting Provider: Emanuel Melgar
Was physician already notified: Yes
NEPHROLOGY CONSULT Routine
Consulting Provider: Apolinar Pereira
Was physician already notified: Yes
NEPHROLOGY CONSULT Routine
Consulting Provider: Apolinar Pereira
Was physician already notified: Yes
Reason for consult: NOE on CKD
Urinalysis Reflex To Culture Urgent
Activity As Directed
Activity Level: As Tolerated
Bedside Glucose Monitoring As Directed
Frequency: AC&HS
Additional Instructions:: Change to q6h if pt on TPN, tube feeding or not eating
Intake/ Output As Directed
Frequency: Per unit guidelines
Vital Signs As Directed
Frequency: Per unit guidelines
DX Deep Vein Thrombosis Video Routine
12/28/24 17:45
Lactic Acid Q4H
Comment: CANCEL 2nd LACTIC ACID IF 1st LACTIC ACID IS LESS THAN 2
12/28/24 20:33
Lactic Acid Q4H
Comment: repeat q4 hours x 4 or until less than 2 mmol/L
12/29/24 00:33
Lactic Acid Q4H
Comment: repeat q4 hours x 4 or until less than 2 mmol/L
12/29/24 04:33
Lactic Acid Q4H
Comment: repeat q4 hours x 4 or until less than 2 mmol/L
12/29/24 08:00
Aspirin Low Dose EC [Aspir Low (Enteric Coated)] 81 mg PO DAILY
Calcium Carbonate/Vitamin D3 [Oscal 500 + D] 500 mg PO DAILY
Cholecalciferol (Vitamin D3) [VITAMIN D3 (cholecalciferol)] 125 mcg PO DAILY
Clopidogrel Bisulfate [Plavix] 75 mg PO DAILY
Ferrous Sulfate [Feosol] 325 mg PO DAILY
Finasteride [Proscar] 5 mg PO DAILY
Multivitamin [Theragran] 1 tablet PO DAILY
Pantoprazole [Protonix] 40 mg PO DAILY
Tamsulosin [Flomax] 0.4 mg PO DAILY
12/29/24 22:00
Famotidine [Pepcid] 20 mg PO Q48H
Abnormal Lab Results
12/28/24 12/28/24
12:58 15:38
WBC 35.3 H 10^3/uL
(4.8-10.8)
RBC 2.99 L 10^6/uL
(4.70-6.10)
Hgb 9.2 L g/dL
(13.0-18.0)
Hct 29.8 L %
(39.0-52.0)
MCV 99.7 H fL
(80.0-94.0)
MCHC 30.9 L g/dL
(33.0-37.0)
RDW 15.8 H %
(11.5-14.5)
Plt Count 54 L 10^3/uL
(130-400)
MPV 13.0 H fL
(7.4-10.4)
Abs Immat Gran (auto) 1.0 H 10^3/uL
(0-0.05)
Absolute Neuts (auto) 29.8 H 10^3/uL
(1.4-6.5)
Absolute Lymphs (auto) 0.6 L 10^3/uL
(1.2-3.4)
Absolute Monos (auto) 3.9 H 10^3/uL
(0.1-0.6)
Immature Gran % 2.8 H %
(0-0.5)
Neutrophils % 84.3 H %
(42.2-75.2)
Lymphocytes % 1.6 L %
(20.5-51.1)
Monocytes % 11.1 H %
(1.7-9.3)
PT 17.1 H Sec
(11.4-14.6)
APTT 42.4 H Sec
(23.4-35.0)
Sodium 129 L mmol/L
(135-145)
Potassium 6.0 H mmol/L
(3.5-5.1)
Carbon Dioxide 13 L* mmol/L
(22-30)
BUN 60 H mg/dl
(9-20)
Creatinine 3.2 H mg/dL
(0.7-1.3)
Glucose 233 H mg/dl
(70-99)
Total Bilirubin 3.8 H mg/dl
(0.2-1.3)
AST 114 H U/L
(17-59)
ALT 55 H U/L
(0-50)
Troponin I 12.100 H* ng/ml
POC Glucose 232 H mg/dl
(70-99)
12/28/24 12:58
12/28/24 12:58
Vital Signs
Initial and Last Documented VS:
Initial Vital Signs
Temp Pulse Resp BP Pulse Ox
97.8 F 91 18 90/57 95
12/28/24 12:12 12/28/24 12:12 12/28/24 12:12 12/28/24 12:12 12/28/24 12:12
Last Documented Vital Signs
Temp Pulse Resp BP Pulse Ox
97.8 F 98 22 100/63 97
12/28/24 12:12 12/28/24 16:25 12/28/24 16:25 12/28/24 16:25 12/28/24 15:00
<KALIE Flood - Last Filed: 12/28/24 16:54>
MDM/Problems Addressed
Differential Diagnosis Includes:
not limited to : acute chf, anemia, dehydration infection
MDM/Problems Addressed:
As documented patient is a 74-year-old male
Presents from home for shortness of breath weakness. Patient was discharged 5 days ago for CHF and his medications from discharge did not come in until ED at yesterday therefore he did not start his torsemide until today. In addition he
started his Flomax today. He complains of weakness and shortness of breath intermittent chest pain. He presents hypotensive his blood pressure is presently 81/57. he is paced. He is not hypoxic stat portable chest x-ray done reviewed by myself
and ED physician does show failure as discussed with ED physician who eval pt. Levophed ordered.
Troponin elevated however elevated in the past no chest pain. EKG paced
X-ray read by radiology actually showing multifocal pneumonia. Case reviewed with Dr. Beach. Labs coming back reveal concerning white count of 35,000 low sodium of 129 high potassium of 6.0 and a BUN of 60/creatinine 3.2. This is new. His
last creatinine on discharge December 23 was 1.8. Insulin and D5 was ordered by Dr. Amin. Case reviewed with hospitalist and nephrology recommended normal saline to treat for sepsis. Will start with 1 L as he has Levophed infusing and he has a
history of CHF. Will order pneumonia antibiotics. pt will require ICU admission.
Chronic conditions affecting care:
CHF
<KALIE Flood - Last Filed: 12/28/24 16:54>
*Radiology
Radiology exam reviewed: radiology read reviewed
*Pulse Oximetry
SaO2: 98
Oxygen Mode of Delivery: Room air
Patient hypoxic: no
*EKG
Heart Rate: 95
Rate: normal
Rhythm: sinus and other (v paced )
Data Reviewed
Review of Other/Old Records Reveals: Labs and Discharge Summary
<Donny Beach DO - Last Filed: 12/28/24 16:26>
*Critical Care Note
Total Time (30-74mins, 75-104mins- exclusive of procedures): 35
comment:
Critical care statement: A total of 35 minutes of critical care time was provided for this patient. This includes management of unstable vital signs, evaluation of the patient at bedside, reviewing the patient's pertinent medical records, discussion
with consultants, review of old EKGs and review of pertinent medical records. This time with separate from time utilized to perform the aforementioned documented procedures
<KALIE Flood - Last Filed: 12/28/24 16:54>
Patient Management
Discussion with other providers: Home Manager (Dr Pereira, nephrology)
ED Attending Note
<KALIE Flood - Last Filed: 12/28/24 16:54>
-
Portions of this chart may have been created with voice recognition software.� Occasional wrong word or��sound alike� substitutions may have occurred due to the inherent limitations of voice recognition software.
<Donny Beach DO - Last Filed: 12/28/24 16:26>
ED Attending Note
Patient seen and examined by attending physician: Yes
ED Attending Note:
I have reviewed and agree with history treatment plan by Deidra Gutierrez. My exam revealed a 74-year-old male with bilateral rhonchi, hypotensive but improving with IV fluids and Levophed. Admit to hospitalist, ICU.
Discharge Plan
Departure
Patient Disposition: Admit
Date of Disposition: 12/28/24
Time of Disposition: 13:58
Admit to: ICU
Admit to doctor: hospitalist
Presentation/result/management discussed w/ accepting MD/DO: Hospitalist
Patient with high blood pressure during this ER visit?: No
Condition: Fair
Covid-19: Not Applicable
Discharge Problem:
Multifocal pneumonia, Acute renal failure (ARF), Acute hyponatremia, Acute hyperkalemia
Interventions
Interventions:
*Risk Screen - Suicide Last Done: 12/28/24 13:55
*General Assessment Last Done: 12/28/24 13:55
*Neglect/Abuse Screening Last Done: 12/28/24 13:55
*ED- Fall Risk Assessment Last Done: 12/28/24 13:55
ED- Cardiac Assessment Last Done: 12/28/24 13:55
ED- Pulmonary Assessment Last Done: 12/28/24 13:55
--- NOTE | 2024-12-28 12:38 | EDRN ---
VAT contacted to establish IV site after multiple attempts from 2 nurses. Patient has a lot of bruising from recent hospital stay and scar tissue stopping catheters from advancing. Awaiting VAT
--- NOTE | 2024-12-28 13:02 | PHANOTE ---
med rec note- patient and spouse do not his medication, patient was just recently admitted to count includes the [facility] this month but no mention of Tradjenta 5mg daily and Imdur 30mg daily. also the patient and spouse does not know
[2024-12-28 13:21] LABS: INR 1.36; PT 17.1 Sec (11.4-14.6)
[2024-12-28 13:22] LABS: APTT 42.4 Sec (23.4-35.0)
[2024-12-28] MEDS: LEVOPHED 250 IV ×2 (13:29→23:30)
[2024-12-28 13:30] LABS: Hematocrit 29.8 % (39.0-52.0); Hemoglobin 9.2 g/dL (13.0-18.0); Mean Corp Hgb Conc. 30.9 g/dL (33.0-37.0); Mean Corpuscular Volume 99.7 fL (80.0-94.0); Platelet Count 54 10^3/uL (130-400); Red Cell Dist. Width 15.8 % (11.5-14.5)
[2024-12-28 13:40] LABS: AST (SGOT) 114 U/L (17-59); Albumin 4.4 g/dl (3.5-5.0); Alkaline Phosphatase 84 U/L (38-126); Blood Urea Nitrogen 60 mg/dl (9-20); Calcium 9.3 mg/dl (8.4-10.2); Carbon Dioxide 13 mmol/L (22-30); Chloride 98 mmol/L (98-107); Glucose 233 mg/dl (70-99); Potassium 6.0 mmol/L (3.5-5.1); Sodium 129 mmol/L (135-145); Total Protein 7.1 g/dl (6.3-8.2); eGFR 19.56
[2024-12-28 13:46] LABS: Nucleated Red Blood Cells % 0 % (-)
[2024-12-28 13:52] LABS: ALT (SGPT) 55 U/L (0-50)
[2024-12-28 13:57] LABS: Troponin I 12.100 ng/ml
[2024-12-28] MEDS: ZOSYN 50 IV ×2 (14:36→20:33)
[2024-12-28] MEDS: NSS 1000 IV (14:37)
[2024-12-28] MEDS: DEXTROSE 50% SYRINGE 12.5 GRAMS IV (14:38)
[2024-12-28] MEDS: NOVOLIN R 5 UNITS IV (14:39)
--- NOTE | 2024-12-28 14:51 | EDRN ---
Dr. Christy Cordova at bedside assessing the patient for admission. This RN notified Dr that blood cultures were not yet collected as patient has been difficult to get labs from. Agreed with starting the antibiotics currently.
--- NOTE | 2024-12-28 15:20 | HPS.HSE ---
Family Physician
-
Family Physician: Israel Clifton
Chief Complaint
-
Shortness of breath
History of Present Illness
74-year-old male presented to the ER reporting shortness of breath since the past 5 days that has worsened last night. Patient has a past medical history of CAD s/p CABG X3, heart failure with reduced ejection fraction, heart block s/p post THERAPY COORDINATOR
pacer in 2023, s/p TAVR, hypertension, CKD, IDDM. Patient speaks Elsa, at bedside, patient's son on phone who speaks French, elsa. Communicated with the patient in Elsa during the encounter.
Patient reports that he has not taken his torsemide dose until morning today. He reports having shortness of breath which has worsened in the past couple of days, was not able to even walk to the restroom. He also reports having some cough, and
noticed some streaks of blood 2�3 times in the past week. Patient denies chest pain, palpitations, fever/chills, lightheadedness/dizziness, abdominal pain, bladder/bowel issues. He reports having generalized weakness, does not have any swelling of
the feet but reports pain in the lower extremities. Patient reports that his appetite was decreased, has not been eating well in the past 2 days, he is only on liquid diet (mashed liquidy rice and green leafy vegetables)
ED course�hypotensive on arrival, 90/57, saturating on room air at 95%, afebrile. Elevated white count at 35,000, Hb�9.2, platelet�54, sodium�129, potassium�6, pCO2�13, BUN�60, creatinine�3.2, glucose 233, total bili�3.8, AST/ALT�114/55,
troponin�12. Chest x-ray with evidence of multifocal pneumonia. Patient was started on vancomycin, given insulin/D5. For his hypotension was started on Levophed.
Medical History
Past Medical History
Past Medical History: Reports Other ( CAD s/p CABG X3, heart failure with reduced ejection fraction, heart block s/p post THERAPY COORDINATOR pacer in 2023, s/p TAVR, hypertension, CKD, IDDM.)
Past Surgical History: Reports Other (CABG X3, aortic valve replacement, PTCA with stent, in-stent restenosis with PTCA/balloon angioplasty, PPM placement)
Social History
Tobacco: Former Smoker
Alcohol: Occasional
Drug: None
Personal:
Living: With Family
Family History
Family History: Not pertinent
Allergies / Home Medications
Allergies reflects when Allergies were last updated in [employer].
Home Medications with original date entered in [employer]
Allergy/Medication List:
Allergies
Allergy/AdvReac Type Severity Reaction Status Date / Time
No Known Allergies Allergy Verified 12/20/24 04:33
Home Medications
finasteride 5 mg tablet 5 mg PO DAILY Urinary Issue 08/26/23
tamsulosin 0.4 mg capsule 0.4 mg PO DAILY Urinary Issue 08/26/23
acetaminophen 650 mg tablet,extended release 650 mg PO Q6HPRN PRN mild pain 12/20/24
aspirin 81 mg tablet,delayed release 81 mg PO DAILY Blood Clot Prevention/Tx 12/20/24
atorvastatin 80 mg tablet (Lipitor) 80 mg PO HS High Cholesterol 12/20/24
calcium 600 mg (as carbonate)-vitamin D3 10 mcg (400 unit) tablet (Calcium 600 + D(3)) 1 tab PO DAILY Supplement 12/20/24
cetirizine 10 mg tablet 10 mg PO DAILY PRN allergies 12/20/24
cholecalciferol (vitamin D3) 125 mcg (5,000 unit) tablet (Vitamin D3) 125 mcg PO DAILY Supplement 12/20/24
clopidogrel 75 mg tablet 75 mg PO DAILY Blood Clot Prevention/Tx 12/20/24
famotidine 40 mg tablet 40 mg PO HS 12/20/24
ferrous sulfate 325 mg (65 mg iron) tablet 325 mg PO DAILY Anemia 12/20/24
insulin glargine 100 unit/mL (3 mL) subcutaneous pen (Michael Barth U-100 Insulin) 30 unit SC DAILY Diabetes ##0 12/20/24
ipratropium bromide 21 mcg (0.03 %) nasal spray 2 spray intranasal BID 12/20/24
metformin 500 mg tablet 500 mg PO BID Diabetes 12/20/24
Held on 12/23/24. Instructions: This medication should be held due to his chronic kidney disease, will need close follow-up with his primary care physician for alternative diabetic medications as needed
metoprolol tartrate 25 mg tablet 25 mg PO BID Heart Failure 12/20/24
multivitamin 1 tab PO DAILY Supplement 12/20/24
nitroglycerin 0.4 mg sublingual tablet 0.4 mg sublingual Q5-15M PRN chest pain 12/20/24
pantoprazole 40 mg tablet,delayed release 40 mg PO DAILY 30 days #30 tabs 12/23/24
torsemide 20 mg tablet 20 mg PO DAILY 30 days #30 tabs 12/23/24
Review of Systems
-
A 12 point ROS was completed and negative except as noted: Yes
Physical Exam
Vital Signs
Vital Signs
Temp Pulse Resp BP Pulse Ox
97.8 F 92 23 82/59 98
12/28/24 12:12 12/28/24 13:30 12/28/24 13:30 12/28/24 13:30 12/28/24 14:00
Physical Exam
General: Other (Appears frail and weak.)
HEENT: NormoCephalic and Atraumatic
Respiratory: Clear; No Crackles
Cardiac: S1/S2 and Regular Rhythm; No JVD
GI: Soft, Non Tender, Non Distended and Normal Bowel Sounds
Skin: Warm and Dry
Neuro: Awake, Alert, Oriented and AO x 3
Psych: Calm
Laboratory Results
-
12/28/24 12:58
Laboratory Results
PT 17.1 Sec (11.4-14.6) H 12/28/24 12:58
INR 1.36 12/28/24 12:58
APTT 42.4 Sec (23.4-35.0) H 12/28/24 12:58
Total Bilirubin 3.8 mg/dl (0.2-1.3) H 12/28/24 12:58
AST 114 U/L (17-59) H 12/28/24 12:58
ALT 55 U/L (0-50) H 12/28/24 12:58
Alkaline Phosphatase 84 U/L (38-126) 12/28/24 12:58
Troponin I 12.100 ng/ml H* 12/28/24 12:58
Impression/Plan
-
IMPRESSION:
74-year-old male with past medical history of CAD s/p CABG X3, heart failure with reduced ejection fraction, heart block s/p post THERAPY COORDINATOR pacer in 2023, s/p TAVR, hypertension, CKD, IDDM presenting to the ER reporting shortness of breath.
PLAN:
#Sepsis secondary to multifocal pneumonia
Patient is in septic shock, hypotensive at presentation requiring pressors.
Elevated WBC count�35,000, patient afebrile
Chest x-ray with evidence of multifocal pneumonia
Started on Levophed, titrate to maintain MAP >65
Patient has history of heart failure with reduced ejection fraction, recent hospital discharge 5 days ago.
Started on fluids�given 1 L NS (as recommended by nephro)
Started on vancomycin, continue
Blood cultures X2�pending
Lactate pending
Monitor CBC, trend fever curve
Will admit to ICU
Folder Tier consulted
#NOE on CKD
Baseline creatinine at 1.7
Creatinine today at 3.2
Likely prerenal
IV fluids
Will hold torsemide
Monitor BMP
Nephrology consulted, appreciate recs
#Anion gap metabolic acidosis
AG�18
Likely from sepsis/lactic acidosis
Will do oral bicarb 650 3 times daily
#Hyponatremia
#Hyperkalemia
Patient already given insulin/dextrose
Will start Lokelma 10 mg
Will do oral bicarb 650 3 times daily
Monitor BMP
#Heart failure with reduced ejection fraction
proBNP elevated to 27,000, which is new from before
Previous hospitalization proBNP at 8730
Cannot diurese, patient septic and hypotensive and on pressors
Monitor I/os for now
Will hold metoprolol
Will hold torsemide
Cardiology consulted, appreciate recommendations
#CAD s/p CABG
Continue aspirin, clopidogrel
Will hold off on atorvastatin
#Elevated LFTs
Might be due to shock liver
Will trend LFTs
Will hold off atorvastatin
#IDDM
On home insulin�insulin glargine 30 units daily
Will do glargine 20 units
SSI
Will hold metformin
#Anemia of chronic disease
Hemoglobin at baseline
Monitor CBC
#Heart block s/p pacemaker
#BPH
Continue finasteride, tamsulosin
#GERD
Continue omeprazole
Continue famotidine
Diet�clear liquids
DVT prophylaxis�heparin subcu
Full code
[2024-12-28 15:40] LABS: Glucose - Point of Care 232 mg/dl (70-99)
--- NOTE | 2024-12-28 15:57 | CON.INTV ---
Consultation
Consultation Request
Date/Time Consultation Requested: 12/28
Date/Time Consultation Performed: 12/28
Reason for Consultation: Critical care
Medical History
-
History of Present Illness:
History obtained primarily from family members. 74-year-old male with complex medical history, coronary disease with bypass surgery 2007, history of heart failure, aortic stenosis with tissue AVR in 2007, hypertension, chronic kidney disease
requiring temporary HD at [facility] in July 2024, diabetes who was recently discharged 12/23/2024, at which time she was found to have a EF of 35% (new), treated for heart failure, elevated troponin. Cardiac catheterization which showed previously stented
SVG now 100% occluded in the distal LAD, otherwise patent grafts. Distal to GAFFNEY graft anastomosis however is heavily calcified with faint retrograde filling. Metformin was held at that time of discharge due to renal insufficiency. Patient did
not receive his torsemide for a few days. also states that patient does add salt to his meals (pink salt). He then developed increased shortness of breath few days ago, worsening orthopnea. Day prior to admission he developed chest pain with
ambulation, subjective fevers and shaking chills/sweats. He also describes a mild cough at that time with mild bloody sputum. According to , this is similar to how he presented in the past. Upon arrival to [facility], afebrile, pulse
91, breathing at 18, pressure 90/57, 95%. Chest x-ray suggested heart failure but pneumonia could not be ruled out. Patient given 1 L IV normal saline, Zosyn, vancomycin. Cultures were ordered. Patient admitted to ICU for further management.
Presently patient is still complaining of chest discomfort. EKG with bundle branch block, chronic changes.
Family also states that patient has not been urinating frequently like he was before
.
PMH: Hypertension, hyperlipidemia, coronary disease with history of bypass surgery 2007, angioplasty involving LAD in April 2024, history of tissue AVR 2007, diabetes, chronic kidney disease baseline creatinine 1.7, required transient
hemodialysis in November 2024 at [facility]. History of pacemaker for complete heart block, ischemic cardiomyopathy EF 35%, severe MR. History of appendectomy
Past Medical History
Past Medical History: None (See above)
Past Surgical History: None (See above)
Social History
Tobacco: Non-smoker
Alcohol: None
Personal:
Living: With Family
Employment: Retired
Family History
Family History: Other (Family history of coronary disease)
Allergies / Home Medications
Allergies
Allergy/AdvReac Type Severity Reaction Status Date / Time
No Known Allergies Allergy Verified 12/20/24 04:33
Home Medications
�Medication �Instructions �Recorded �Confirmed �Last Taken �Type
finasteride 5 mg tablet 5 mg PO DAILY Urinary Issue 08/26/23 12/28/24 08/26/23 08:00 History
tamsulosin 0.4 mg capsule 0.4 mg PO DAILY Urinary Issue 08/26/23 12/28/24 08/26/23 08:00 History
acetaminophen 650 mg 650 mg PO Q6HPRN PRN mild pain 12/20/24 12/28/24 Unknown History
tablet,extended release
aspirin 81 mg tablet,delayed 81 mg PO DAILY Blood Clot 12/20/24 12/28/24 Unknown History
release Prevention/Tx
atorvastatin 80 mg tablet (Lipitor) 80 mg PO HS High Cholesterol 12/20/24 12/28/24 Unknown History
calcium 600 mg (as 1 tab PO DAILY Supplement 12/20/24 12/28/24 Unknown History
carbonate)-vitamin D3 10 mcg (400
unit) tablet (Calcium 600 + D(3))
cetirizine 10 mg tablet 10 mg PO DAILY PRN allergies 12/20/24 12/28/24 Unknown History
cholecalciferol (vitamin D3) 125 125 mcg PO DAILY Supplement 12/20/24 12/28/24 Unknown History
mcg (5,000 unit) tablet (Vitamin
D3)
clopidogrel 75 mg tablet 75 mg PO DAILY Blood Clot 12/20/24 12/28/24 Unknown History
Prevention/Tx
famotidine 40 mg tablet 40 mg PO HS 12/20/24 12/28/24 Unknown History
ferrous sulfate 325 mg (65 mg 325 mg PO DAILY Anemia 12/20/24 12/28/24 Unknown History
iron) tablet
insulin glargine 100 unit/mL (3 30 unit SC DAILY Diabetes ##0 12/20/24 12/28/24 Unknown History
mL) subcutaneous pen (Basaglar
KwikPen U-100 Insulin)
ipratropium bromide 21 mcg (0.03 2 spray intranasal BID 12/20/24 12/28/24 Unknown History
%) nasal spray
metformin 500 mg tablet 500 mg PO BID Diabetes 12/20/24 12/28/24 Unknown History
Held on 12/23/24.
Instructions: This medication
should be held due to his
chronic kidney disease, will
need close follow-up with his
primary care physician for
alternative diabetic
medications as needed
metoprolol tartrate 25 mg tablet 25 mg PO BID Heart Failure 12/20/24 12/28/24 Unknown History
multivitamin 1 tab PO DAILY Supplement 12/20/24 12/28/24 Unknown History
nitroglycerin 0.4 mg sublingual 0.4 mg sublingual Q5-15M PRN chest 12/20/24 12/28/24 Unknown History
tablet pain
pantoprazole 40 mg tablet,delayed 40 mg PO DAILY 30 days #30 tabs 12/23/24 12/28/24 Unknown Rx
release
torsemide 20 mg tablet 20 mg PO DAILY 30 days #30 tabs 12/23/24 12/28/24 Unknown Rx
Review of Systems
-
All other systems: Negative unless noted (Per HPI)
Vitals / Labs / Diagnostic Testing
Vital Signs
Temp Pulse Resp BP Pulse Ox
97.8 F 92 23 82/59 98
12/28/24 12:12 12/28/24 13:30 12/28/24 13:30 12/28/24 13:30 12/28/24 14:00
Lab Data
12/28/24 12:58
Laboratory Results
12/28/24
12:58
PT 17.1 H
INR 1.36
APTT 42.4 H
Diagnostic Testing:
Physical Exam
-
HEENT: Normocephalic and Anicteric
Cardiovascular: S1/S2, Regular Rhythm, Murmur (1-2/6 SM), Rub (n), Peripheral Edema (n) and Calf Tenderness (n)
Respiratory: Wheeze (mild), Rales (few at base), Rhonchi (n) and Accessory Resp Muscle Use (Mild use of accessory muscles with movement)
GI: Soft, Non Distended and Non Tender
Neurology: Awake, Alert and No Motor Deficits (Moving all extremities)
Skin: Other (No rash)
General: Comfortable (When not moving he is comfortable with head of bed elevated)
Assessment
-
74-year-old male with complex medical history including coronary disease with multiple hospital stays for shortness of breath, heart failure, renal insufficiency, most recently discharged 12/23/2024, now returns with progressive shortness of breath,
found to have progressive renal insufficiency, hyperkalemia, hypotension and chest x-ray with bilateral infiltrates. Patient given IV fluids, started on pressors, admitted to ICU for further management 12/28/2024. Patient also given IV antibiotics
Acute respiratory insufficiency
Intermittent chest pain
Orthopnea
Mild hemoptysis
Bilateral infiltrates
Heart failure versus pneumonitis (likely combination)
Subjective fever/chills x 24 hours
Ischemic cardiomyopathy, EF 35% (new c/t Echo August 2023)
Moderate to severe MR per echo 12/20/2024
s/p tissue AVR 2007
Acute renal insufficiency
History of CKD, baseline creatinine 1.8
Required transient HD July 2024 at [facility]
Leukocytosis
Anemia
Conditions present prior to admission
History of coronary disease with CABG 2007
LAD Stent April 2024
Now occluded per catheterization December 2024
History of recurrent heart failure
Multiple hospital stays at [facility]
Hypertension, hyperlipidemia
Diabetes
History of complete heart block
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
History of stroke
Plan/recommendations
At this time, patient remains critically ill.
Chest x-ray initially appears consistent with heart failure
However family gives history of 24 hours of fevers, chills and sweats with increased cough
Patient also describes mild hemoptysis similar to prior presentation with heart failure
Patient is clearly short of breath when lying supine, lying upright which is new for him over the past few days, likely consistent with component of heart failure
Family also describes less urination of the last 48 hours
Moving forward
Suspect cardiorenal process with likely underlying infectious process
Significant leukocytosis noted
For now we will continue with IV antibiotics
Check COVID, check flu
There is also likely a component of heart failure
Worsening orthopnea over the last few days noted
Patient received 1 L of fluids, will hold off for now
Remains on norepinephrine
Await nephrology input
Suspect patient is at risk for progressive renal insufficiency, may require dialysis. Apparently required dialysis briefly at [facility] in July 2024
Treat hyperkalemia
Lasix will be attempted
Anders catheter to be placed
Reviewed plan with primary service, critical care nursing
Reviewed plan with multiple family members
TCCT 35 min
--- NOTE | 2024-12-28 16:03 | CON.CAR ---
Addendum entered and electronically signed by Michael Pickett MD 12/28/24 18:49:
74-year-old man admitted with clinical sepsis, NOE and acute on chronic HFrEF following recent non-ST segment elevation UT. Following recent discharge on December 23, patient was unable to obtain medications for unclear reasons.
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
diabetes, thrombocytopenia
Current medications: Aspirin 81 mg a day, clopidogrel 75 mg a day, Pepcid 20 mg every 48 hours, iron, Proscar, pantoprazole 40 mg a day, Flomax, subcu heparin, vancomycin, bicarbonate, Lantus insulin, Zosyn, norepinephrine
107/63, pulse 101, respiratory rate 22, afebrile complaining of chest discomfort that is worse with positional change, better sitting up and pleuritic. Faint crackles in lungs, tachycardic with soft systolic murmur, JVD not dramatically elevated
abdomen benign, extremities are relatively cool distal pulses still palpable, no significant edema
Chest x-ray, diffuse bilateral infiltrates, pacer with LV lead
ECG sinus tachycardia left atrial enlargement, ventricular pacing, consider anterolateral myocardial injury
White count 35.3, platelets 54, 48 at discharge, sodium 129, potassium 6, bicarb 13, anion gap 18, creatinine 3.2, troponin 12.1, peak on December 20 was 27.9, proBNP greater than 27,000, was 8730 on December 20
Impression:
Acute on chronic HFrEF
Clinical sepsis
Possible multifocal pneumonia
CAD/non-ST segment elevation UT
History of CABG 2007
Bioprosthetic aortic valve 2007
PCI of vein graft to distal LAD April 2024, occluded at cardiac catheterization with non-ST segment elevation UT December 20, 2024
Acute on chronic kidney disease, history of transient hemodialysis
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
Hyperlipidemia
Diabetes
Hypertension
Chronic thrombocytopenia
NOE on CKD
Language barrier
Other diagnoses as below. Findings, assessments, recommendations reviewed in detail and agree unless otherwise specified.
Cardiac catheterization 12/21/2024: Pulmonary capillary wedge 18, right atrial pressure 12, cardiac index 2.4, 60 to 70% proximal left main, 80% proximal LAD stenosis with patent GAFFNEY to mid LAD, 80% proximal circumflex stenosis with 2 small obtuse
marginal, heavily calcified dominant RCA with 90% proximal stenosis and tandem 90-95% distal RCA stenosis, occluded at the crux of the RCA, saphenous vein graft to posterior lateral is patent with retrograde flow to the nongrafted PDA, saphenous
vein graft to distal LAD occluded
Echo 12/20/2024: EF 35-40%, mid to distal inferior, inferolateral, anteroseptal, mid anterior and apical hypokinesis, pacing wire seen, dilated left atrium, right heart normal, trace aortic regurgitation, dense MAC, moderate to severe mitral
regurgitation, eccentric, pulmonary artery systolic pressure 38 mmHg
Plan:
He presents with evidence of sepsis and shock, cardiogenic and/or septic, with anion gap of 18 and hypotension requiring pressor support.
He has NOE on CKD, creatinine was 1.8 at discharge on December 23, now 3.2
It is difficult to know how much of his presentation is cardiogenic and how much could be related to septic shock.
Furthermore, he has ongoing chest pain with a troponin of 12.[address] segment depression anterolaterally that shows through his paced rhythm. His last EF was 35 to 40%.
It is conceivable that some of his chest pain symptoms are pericardial in nature.
Based on renal function I do not think he is a candidate for cardiac catheterization at this time, likelihood of coronary anatomy appropriate for intervention is low.
Furthermore he is on DAPT with a platelet count in the 50s. Given that he has lost the vein graft to the distal LAD, which was the indication for DAPT, if necessary we could de-escalate to a single agents.
Defer diuretic management to nephrology.
Antibiotic management per hospitalist and principal solutions architect. Await cultures
Follow EKG and repeat troponin, await echo.
Levophed as needed to support hemodynamics.
Prognosis is guarded, we will continue to follow.
Original Note:
Consultation
Consultation Request
Date/Time Consultation Requested: 12/28/2024
Date/Time Consultation Performed: 12/28/2024
Requesting Provider: Dr. Yordan Cordova
Performing Provider: Dr. KETURAH Pickett
Reason for Consultation: Acute HF, elevated troponin
Medical History
-
History of Present Illness:
Patient presented to the ER today with SMALL and is being admitted with possible sepsis and NOE and cardiology is being consulted for possible CHF and recent admission for NSTEMI. Patient has a history of remote CABG and AVR in 2007 at an outside
hospital. He had an admission to [facility] 04/2024 and he had PCI of the SVG to the distal LAD. Patient was then admitted to [facility] with NOE and was transiently on hemodialysis 07/2024. Most recently he has been following with Dr. Langley
at [facility] and their office referred the patient to the [facility] ER on 12/09/2024 after he complained of chest pain during a visit in their office that day. The patient was discharged from the ER with a higher dose of Lopressor and
they added Imdur ER. There was apparently no consideration for acute HF at that time. Patient then came to the [facility] ER on 12/20/2024 with chest pain and the initial troponin was 2.22 and subsequent troponin was as high as 27.9. Patient was
admitted and eventually had cardiac cath 12/21/2024 that showed that the stent in the SVG to the LAD from April was 100% occluded and the GAFFNEY to LAD and SVG to PLV grafts were patent. There was also evidence of acute HFrEF during that admission
and EF was newly reduced at 35 to 40%, it had been 60 to 65% by an echo from his primary belt worker 08/2023. PCWP was down to 18 which correlated with a weight of 141 lbs at time of cath on 12/21/2024. Cre was stable at 1.8 on the day of discharge
12/23/2024. At the recommendation of nephrology the patient was discharged home on torsemide 20 mg daily. Patient's family reports that medications were not delivered in a timely fashion and so he was not taking any of his medications since
admission until they arrived yesterday. Patient has had increasing SMALL over the last 24 hours and came to the ER today. There is leukocytosis with a WBC count of 35 with a left shift. Lactic acid levels pending. There is concern for sepsis
possibly due to PNA and patient is being admitted to the ICU due to his need for pressor support with Levophed.
PMH:
Recent admission acute HFrEF and NSTEMI 12/20/2024 until 12/23/2024
Recent ER visit at [facility] for chest pain and SOB 12/09/2024
CKD
Previously required transient HD 07/2024
CAD
s/p CABG with GAFFNEY-LAD, VG-dLAD, VG-PLB 2007
s/p SVG to the distal LAD PCI at [facility] by Dr. Gavin 04/2024
Patent GAFFNEY to LAD, patent SVG to PLB with PDA filling via retrograde from the PLB, occlusion of the SVG to the distal LAD with 100% occlusion of previously placed stent 12/21/2024
s/p tissue AVR 2007
HLD
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
HTN
DM
Language barrier
Thrombocytopenia
Past Medical History
Past Medical History: Other (In HPI)
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
Social History
Tobacco: Non-Smoker
Alcohol: None
Drug: None
Personal:
Living: With Family
Family History
Family History: CAD
Allergies / Home Medications
Allergy/AdvReac Type Severity Reaction Status Date / Time
No Known Allergies Allergy Verified 12/20/24 04:33
�Medication �Instructions �Recorded �Confirmed �Type
finasteride 5 mg tablet 5 mg PO DAILY Urinary Issue 08/26/23 12/28/24 History
tamsulosin 0.4 mg capsule 0.4 mg PO DAILY Urinary Issue 08/26/23 12/28/24 History
acetaminophen 650 mg 650 mg PO Q6HPRN PRN mild pain 12/20/24 12/28/24 History
tablet,extended release
aspirin 81 mg tablet,delayed 81 mg PO DAILY Blood Clot 12/20/24 12/28/24 History
release Prevention/Tx
atorvastatin 80 mg tablet (Lipitor) 80 mg PO HS High Cholesterol 12/20/24 12/28/24 History
calcium 600 mg (as 1 tab PO DAILY Supplement 12/20/24 12/28/24 History
carbonate)-vitamin D3 10 mcg (400
unit) tablet (Calcium 600 + D(3))
cetirizine 10 mg tablet 10 mg PO DAILY PRN allergies 12/20/24 12/28/24 History
cholecalciferol (vitamin D3) 125 125 mcg PO DAILY Supplement 12/20/24 12/28/24 History
mcg (5,000 unit) tablet (Vitamin
D3)
clopidogrel 75 mg tablet 75 mg PO DAILY Blood Clot 12/20/24 12/28/24 History
Prevention/Tx
famotidine 40 mg tablet 40 mg PO HS 12/20/24 12/28/24 History
ferrous sulfate 325 mg (65 mg 325 mg PO DAILY Anemia 12/20/24 12/28/24 History
iron) tablet
insulin glargine 100 unit/mL (3 30 unit SC DAILY Diabetes ##0 12/20/24 12/28/24 History
mL) subcutaneous pen (Basaglar
KwikPen U-100 Insulin)
ipratropium bromide 21 mcg (0.03 2 spray intranasal BID 12/20/24 12/28/24 History
%) nasal spray
metformin 500 mg tablet 500 mg PO BID Diabetes 12/20/24 12/28/24 History
Held on 12/23/24.
Instructions: This medication
should be held due to his
chronic kidney disease, will
need close follow-up with his
primary care physician for
alternative diabetic
medications as needed
metoprolol tartrate 25 mg tablet 25 mg PO BID Heart Failure 12/20/24 12/28/24 History
multivitamin 1 tab PO DAILY Supplement 12/20/24 12/28/24 History
nitroglycerin 0.4 mg sublingual 0.4 mg sublingual Q5-15M PRN chest 12/20/24 12/28/24 History
tablet pain
pantoprazole 40 mg tablet,delayed 40 mg PO DAILY 30 days #30 tabs 12/23/24 12/28/24 Rx
release
torsemide 20 mg tablet 20 mg PO DAILY 30 days #30 tabs 12/23/24 12/28/24 Rx
Review of Systems
-
History Source: Patient and Family (, daughter and grandson at the bedside helping with HPI and imaging aide services)
All other systems: Negative unless noted
Physical Exam
Vital Signs
Temp Pulse Resp BP Pulse Ox
97.8 F 92 23 82/59 98
12/28/24 12:12 12/28/24 13:30 12/28/24 13:30 12/28/24 13:30 12/28/24 14:00
GEN: NAD. AAOx3
HEENT: EOMI, MMM
LUNGS: RA. Tachypneic. No audible wheeze or rales
CV: A sensed V paced on tele. Reg, S1/S2, 03/08 syst LSB
ABD: ND
EXT: No edema B/L LE
NEURO: Gross non-focal
SKIN: No rash
Lab Results
12/28/24 12:58
Troponin I 12.100 ng/ml H* 12/28/24 12:58
Rxi-N-Ktxmuohskmc Pept > 29270 pg/ml 12/28/24 12:58
Impression / Plan
-
PCP: Israel Clifton MD
CDY: Orlando Langley MD
Impression:
Admitted with sepsis and NOE 12/20/2024
Recent admission acute HFrEF and NSTEMI 12/20/2024 until 12/23/2024
Recent ER visit at [facility] for chest pain and SOB 12/09/2024
Sepsis
Possible HCAP
NOE on CKD
Previously required transient HD 07/2024
Hyperkalemia
Elevated troponin, overall trending down from last admission
CAD
s/p CABG with GAFFNEY-LAD, VG-dLAD, VG-PLB 2007
s/p SVG to the distal LAD PCI at [facility] [place] [facility] by Dr. Gavin 04/2024
Patent GAFFNEY to LAD, patent SVG to PLB with PDA filling via retrograde from the PLB, occlusion of the SVG to the distal LAD with 100% occlusion of previously placed stent 12/21/2024
s/p tissue AVR 2007
HLD
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
HTN
DM
Language barrier
Thrombocytopenia
Echo 08/2023: nml LV size, abnormal diastolic function with increased LVEDP, EF 60-65%, CLVH but no obvious regional abn. normally functioning bioprosthetic AV, PG/MG 32.5/18, ABEL 1.34cm2
Echo 12/20/2024: EF 35 to 40%, mild concentric LVH, mid to distal inferior, inferolateral, mid anteroseptal, mid anterior, apical hypokinesis, dense MAC, at least moderate to severe MR with anterior eccentric jet, mild to moderate TR, PAP 38 mmHg
Plan:
-Patient presented to the ER today with SMALL and is being admitted with possible sepsis and NOE and cardiology is being consulted for possible CHF and recent admission for NSTEMI. Patient has a history of remote CABG and AVR in 2007 at an outside
hospital. He had an admission to [facility] 04/2024 and he had PCI of the SVG to the distal LAD. Patient was then admitted to [facility] with NOE and was transiently on hemodialysis 07/2024. Most recently he has been following with Dr. Langley
at [facility] and their office referred the patient to the [facility] ER on 12/09/2024 after he complained of chest pain during a visit in their office that day. The patient was discharged from the ER with a higher dose of Lopressor and
they added Imdur ER. There was apparently no consideration for acute HF at that time. Patient then came to the [facility] ER on 12/20/2024 with chest pain and the initial troponin was 2.22 and subsequent troponin was as high as 27.9. Patient was
admitted and eventually had cardiac cath 12/21/2024 that showed that the stent in the SVG to the LAD from April was 100% occluded and the GAFFNEY to LAD and SVG to PLV grafts were patent. There was also evidence of acute HFrEF during that admission
and EF was newly reduced at 35 to 40%, it had been 60 to 65% by an echo from his primary belt worker 08/2023. PCWP was down to 18 which correlated with a weight of 141 lbs at time of cath on 12/21/2024. Cre was stable at 1.8 on the day of discharge
12/23/2024. At the recommendation of nephrology the patient was discharged home on torsemide 20 mg daily. Patient's family reports that medications were not delivered in a timely fashion and so he was not taking any of his medications since
admission until they arrived yesterday. Patient has had increasing SMALL over the last 24 hours and came to the ER today. There is leukocytosis with a WBC count of 35 with a left shift. Lactic acid levels pending. There is concern for sepsis
possibly due to PNA and patient is being admitted to the ICU due to his need for pressor support with Levophed.
-ECG reviewed by me is A sensed V paced
-proBNP is greater than 27,000 and CXR shows patchy opacities throughout the right lung which radiology thinks suggests multifocal PNA. Weight is up compared to discharge last week and patient has been noncompliant with torsemide. Acute HFrEF is a
possibility as well, but he is not hypoxic and he has NOE with Cre up to 3.2 following cardiac cath 12/21/2024.
-Levophed running at 8
-Agree with plans for nephrology consultation and to hold diuretic at this time
-Patient required transient hemodialysis treatments during an admission to [facility] 07/2024, his last cardiac cath before that was at [facility] 04/2024
-Patient was treated for NSTEMI last admission with peak troponin of 27.9 and suspect the troponin level of 12 seen on labs today is likely trending down still from that admission. Patient denies any chest pain. Trend troponin and consider echo if
troponin begins to trend up.
-Patient with history of remote CABG and there was an attempt at PCI of the SVG to the distal LAD at [facility] 04/2024, but this stent was 100% occluded at the last cath 12/21/2024. GAFFNEY to LAD and SVG to PLB were both patent.
-Device checked by me last admission showed OptiVol trending up since mid November, but no arrhythmia. It is a GLASS DECORATOR�P device
-Outpatient doses of aspirin and Plavix should be continued. Thrombocytopenia is chronic on my review of the labs today.
--- NOTE | 2024-12-28 16:08 | W.PN.UPDATE ---
Update Note
Progress Note Update
I personally performed a history and physical exam of the patient and discussed management with the resident. I reviewed the resident's note and agree with the documented findings and plan of care HPI/CC.
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
with new onset of shortness of breath and generalized weakness. Patient is Gujarati speaking was able to get history personally. Patient postdischarge was doing fairly well although did not have much of energy. Was requiring home to use the
bathroom and walking few steps will make patient short of breath. Patient was prescribed torsemide at discharge last although not able to fill as pharmacy did not have any supply. Patient finally was able to get the torsemide yesterday
and was able to take a dose today in the morning. Patient denied of having any chest discomfort/palpitation/dizziness. Patient having some diarrhea starting today, denied of having any blood or black stools. No nausea or vomiting. Denies of
having any pleuritic cough/fever/dysuria.
GEN: alert and oriented x3
HEENT: moist mucus membrane, no thyromegaly or LNpathy
Chest: rhonchi,
Heart: N s1/s2, RRR, no murmur
Abd: N BS, soft, nontender, nondistended
Neuro: No motor or sensory deficits,
Ext: No cyanosis, Clubbing, edema
Septic shock from multifocal pneumonia
- Patient not voicing any cough/fever. Has shortness of breath
- Chest x-ray showing possible multifocal pneumonia
- Total WBC count of 35K.
- Unable to get blood culture in ER as patient is hard stick
- Patient started on vancomycin and Zosyn, continue
- Sputum culture if patient able to provide sample
- Patient got 1 L of NS, did not provide full 30 mL/kg bolus as patient have systolic heart failure.
- Started on Levophed with non-improvement of hypotension
NOE on CKD stage IIIb
- creatinine down to 3.2, baseline cr 1.7-1.8 at discharge
- Hold any diuretic dosing pending neurology evaluation
- Bladder scan and straight cath protocol ordered
- Avoid nephrotoxic medication
- Nephrology evaluation pending
Coronary disease status post with
Chronic systolic congestive heart failure
- proBNP greater than 27,000
- [facility] last admission showed blocked SVG graft to distal LAD, was planned to be manage medical
- Continue on Plavix statin
- Troponin 12 and has been trending down from elevated troponin max of 28 on 12/20
Anion gap metabolic acidosis
- Combination of lactic acidosis and renal dysfunction related
- Provide sodium bicarb few doses
- Being treated for underlying infection
Hyperkalemia
- Secondary to renal failure/acidosis related
- Low potassium diet
- Provided insulin/glucose ER. Provide calcium gluconate and Lokelma
Type II DM
- maintain on Lower dose lantus and ISS
- diabetic diet
- Hold metformin with renal dysfunction
Essential hypertension
- Hold blood pressure medication with ongoing shock
Hyponatremia
- Combination from hypovolemia and ADH excess with heart failure
- check urine Na/osm
- Monitor and will consider 3%NS if trends further down. Difficult to fluid restrict as patient requiring IV abx/pressor.
Acute transaminitis
- Possible due to hypotension related
DVT prophylaxis -heparin subcu
Full code
Total time spent : 82 mins
I personally saw and examined the patient.
I have reviewed all diagnostic interpretations and treatment plans as written.
Time includes patient management by me, time spent at the patients bedside, time to review lab and imaging results, discussing patient care, documentation in the medical record, and time spent with the family or caregiver and discussing care plan
with RN/Consultants.
--- NOTE | 2024-12-28 16:16 | W.CON.NEPH ---
Consultation
-
Date/Time Consultation Requested: 12/28/2024 3 PM
Date/Time Consultation Performed: 12/28/2024 3 PM
Requesting Provider: Dr. Lugo
Performing Provider: Dr. Pereira
Reason for Consultation: NOE
Medical History
-
Chief Complaint: CKD stage III
History of Present Illness:
Patient is a 74y M with ASCVD, CKD3b (?baseline with previous : 1.7 12/06/24 after cardiac cath in 04/2024), diabetes mellitus type 2 controlled on insulin and metformin, and HFrEF on loop diuretic therapy with been in the hospital little over a week
ago. He was admitted at that time for non-ST elevation VA as well as decompensated heart failure. He underwent cardiac catheterization on 12/21/2024 and was noted to have an occluded SVG-LAD but with patent remaining bypass grafts. The decision
was made for medical management at that time. His creatinine had remained stable at 1.7 at the time of discharge and he was switched from Lasix to torsemide. Unfortunately he was unable to get his medicines until 5 days after discharge. By then
he had started developing shortness of breath. In the ER he was noted to have a creatinine of 3.2 representing acute kidney injury. He also had a metabolic acidosis with hyponatremia and hyperkalemia at 6.0.
Past Medical History
ASCVD
Prior CVA
Heart failure reduced ejection fraction 30%
Aortic Stenosis
DM-II
CKD 3B, baseline 1.7
BPH
CABG x 3, occluded SVG to LAD
Bioprosthetic Aortic Valve Replacement
PTCA with Stent
In-Stent Restenosis with PTCA / Balloon Angioplasty
PPM Placement
Social History
Tobacco: Former Smoker
Alcohol: Occasional
Living: With Family
Family History
Family History: Not Pertinent
Allergies / Home Medications
Allergy/AdvReac Type Severity Reaction Status Date / Time
No Known Allergies Allergy Verified 12/20/24 04:33
�Medication �Instructions �Recorded �Confirmed �Type
finasteride 5 mg tablet 5 mg PO DAILY Urinary Issue 08/26/23 12/28/24 History
tamsulosin 0.4 mg capsule 0.4 mg PO DAILY Urinary Issue 08/26/23 12/28/24 History
acetaminophen 650 mg 650 mg PO Q6HPRN PRN mild pain 12/20/24 12/28/24 History
tablet,extended release
aspirin 81 mg tablet,delayed 81 mg PO DAILY Blood Clot 12/20/24 12/28/24 History
release Prevention/Tx
atorvastatin 80 mg tablet (Lipitor) 80 mg PO HS High Cholesterol 12/20/24 12/28/24 History
calcium 600 mg (as 1 tab PO DAILY Supplement 12/20/24 12/28/24 History
carbonate)-vitamin D3 10 mcg (400
unit) tablet (Calcium 600 + D(3))
cetirizine 10 mg tablet 10 mg PO DAILY PRN allergies 12/20/24 12/28/24 History
cholecalciferol (vitamin D3) 125 125 mcg PO DAILY Supplement 12/20/24 12/28/24 History
mcg (5,000 unit) tablet (Vitamin
D3)
clopidogrel 75 mg tablet 75 mg PO DAILY Blood Clot 12/20/24 12/28/24 History
Prevention/Tx
famotidine 40 mg tablet 40 mg PO HS 12/20/24 12/28/24 History
ferrous sulfate 325 mg (65 mg 325 mg PO DAILY Anemia 12/20/24 12/28/24 History
iron) tablet
insulin glargine 100 unit/mL (3 30 unit SC DAILY Diabetes ##0 12/20/24 12/28/24 History
mL) subcutaneous pen (Basaglar
KwikPen U-100 Insulin)
ipratropium bromide 21 mcg (0.03 2 spray intranasal BID 12/20/24 12/28/24 History
%) nasal spray
metformin 500 mg tablet 500 mg PO BID Diabetes 12/20/24 12/28/24 History
Held on 12/23/24.
Instructions: This medication
should be held due to his
chronic kidney disease, will
need close follow-up with his
primary care physician for
alternative diabetic
medications as needed
metoprolol tartrate 25 mg tablet 25 mg PO BID Heart Failure 12/20/24 12/28/24 History
multivitamin 1 tab PO DAILY Supplement 12/20/24 12/28/24 History
nitroglycerin 0.4 mg sublingual 0.4 mg sublingual Q5-15M PRN chest 12/20/24 12/28/24 History
tablet pain
pantoprazole 40 mg tablet,delayed 40 mg PO DAILY 30 days #30 tabs 12/23/24 12/28/24 Rx
release
torsemide 20 mg tablet 20 mg PO DAILY 30 days #30 tabs 12/23/24 12/28/24 Rx
Review of Systems
-
Shortness of breath and dyspnea
All other systems: Negative unless noted
Physical Exam
Vital Signs
Vital Signs
Temp Pulse Resp BP Pulse Ox
97.8 F 92 23 82/59 98
12/28/24 12:12 12/28/24 13:30 12/28/24 13:30 12/28/24 13:30 12/28/24 14:00
Lab Results
WBC 35.3 10^3/uL (4.8-10.8) H 12/28/24 12:58
RBC 2.99 10^6/uL (4.70-6.10) L 12/28/24 12:58
Hgb 9.2 g/dL (13.0-18.0) L 12/28/24 12:58
Hct 29.8 % (39.0-52.0) L 12/28/24 12:58
Plt Count 54 10^3/uL (130-400) L 12/28/24 12:58
Sodium 129 mmol/L (135-145) L 12/28/24 12:58
Chloride 98 mmol/L (98-107) 12/28/24 12:58
Carbon Dioxide 13 mmol/L (22-30) L* 12/28/24 12:58
BUN 60 mg/dl (9-20) H 12/28/24 12:58
Creatinine 3.2 mg/dL (0.7-1.3) H 12/28/24 12:58
eGFR 19.56 12/28/24 12:58
Glucose 233 mg/dl (70-99) H 12/28/24 12:58
Calcium 9.3 mg/dl (8.4-10.2) 12/28/24 12:58
Fhx-N-Wwqjxvrxamv Pept > 61846 pg/ml 12/28/24 12:58
Albumin 4.4 g/dl (3.5-5.0) 12/28/24 12:58
Laboratory Tests
12/21/24 12/22/24 12/23/24
03:47 04:41 07:42
Hgb 10.7 L
Sodium 134 L
Potassium 4.3
Creatinine 1.8 H
Troponin I 16.500 H* D
Qzz-X-Lzyvsnpupuz Pept
12/28/24
12:58
Hgb
Sodium
Potassium
Creatinine
Troponin I
Tml-D-Aokzbqqszay Pept > 63170
Physical Exam
Patient is awake alert oriented and in no distress. Pupils are equal round and reactive to light, extraocular movements are intact, sclera were anicteric. Hearing was normal, ears and nose are intact. Oropharynx was clear. Neck was supple with
trachea midline and no thyromegaly. Heart was regular rate and rhythm without rubs. Lower extremities without edema. Lungs were coarse to auscultation bilaterally and with normal excursion. Abdomen was soft, nontender, with normal active bowel
sounds, and no hepatosplenomegaly. Skin was without rash and with normal turgor.
Data Reviewed
-
Radiology: Image Personally Visualized and interpreted (Chest x-ray 12/20/2024 by my reading shows bilateral pulm edema, unchanged from 12/20/2024)
Medical Tests (Nuc Med, Echo etc): Image Personally Visualized and interpreted (EKG on 12/20/2024 by my reading shows atrial sensing V paced rhythm)
Labs: Labs Reviewed by me
Old Records: Reviewed
Assessment/Plan
-
Impression:
Decompensated HFrEF 30%
CKD 3B, baseline around 1.7
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
CAD/CABG
HTN
DM2
Hyponatremia, hyperkalemia
Hypotension
Plan:
Diuresis with IV Lasix
To potassium medically
Levophed to maintain mean arterial pressure greater than 65
May consider midodrine later to wean off pressors if needed
Follow BMP
Critical care time spent 31 minutes
--- NOTE | 2024-12-28 16:45 | PTCARENOTE ---
arrived to ICU via ED bed, c/o CP, 12 lead obtained immediately. Pt notes it is not new. placed on 2l, settled in bed. CHG bath performed. c/o need to urinate 'but nothing is coming'. bladder scanned as noted. Drs. Melgar and Art in room,
wolf order obtained.
[2024-12-28 16:47] LABS: Glucose - Point of Care 215 mg/dl (70-99)
[2024-12-28] MEDS: VANCOCIN 530 MG IV (16:49)
[2024-12-28] MEDS: LASIX 80 MG IV (17:06)
[2024-12-28] MEDS: HEPARIN 5000 UNITS SC ×2 (17:06→23:18)
[2024-12-28] MEDS: NOVOLOG FLEXPEN-LOW RESISTANCE 2 UNITS SC (17:12)
[2024-12-28 17:51] LABS: Urine Character Clear (Clear)
--- NOTE | 2024-12-28 17:52 | PHA.VAN.IN ---
Assessment
- Assessment
Renal Function: SCR Appears Elevated from baseline (~1.7)
Concomitant Antimicrobials: piperacillin/tazobactam
Plan
- Plan
Initial / Loading Dose: vanc 1500mg administered @ 164
Maintenance Regimen: dosing by level
Monitoring: random level 12/29 599
MRSA Screen: Ordered per protocol
Pharmacokinetics Vancomycin I
- -
Patient Age: 74
Patient Sex: Male
Vancomycin Day #: 1
Indication: Bacteremia (Pulmonary)
Requesting Provider: Dr. Mike
Pertinent Antimicrobial Allergies:
no pertinent antimicrobial allergies
Height / Weight:
Height 5 ft 7 in
Actual Weight 67.3 kg
- Vital Signs / Lab Results
Temp Pulse Resp BP Pulse Ox
98.2 F 101 22 107/63 97
12/28/24 17:03 12/28/24 17:06 12/28/24 16:25 12/28/24 17:06 12/28/24 15:00
Lab Results - Hematology
12/28/24
12:58
WBC 35.3 H
Lab Results - Chemistry
12/28/24
12:58
BUN 60 H
Creatinine 3.2 H
Albumin 4.4
12/28/24 12/28/24
13:40 13:45
Lactic Acid Cancelled Cancelled
[2024-12-28 18:12] LABS: COVID-19 Antigen Negative (Negative)
[2024-12-28 18:24] LABS: Urine Red Blood Cell 0-2 /HPF (0-2); Urine White Cell 0-2 /HPF (0-5)
[2024-12-28 18:29] LABS: Glucose - Point of Care 214 mg/dl (70-99)
--- NOTE | 2024-12-28 18:30 | PTCARENOTE ---
Glucose noted. Seen by Dr Pickett and family practice resident. family bedside. using language line when needed. Anders placed, tolerated well. See admission assessment. C/O SOB at times, prefers HOB elevated. Levophed infusing. Vanco large
volume as ordered.
[2024-12-28] MEDS: MUCINEX 600 MG PO (20:33)
[2024-12-28 21:31] LABS: Glucose - Point of Care 269 mg/dl (70-99)
[2024-12-28] MEDS: LANTUS 0.3 UNITS SC (22:50)
[2024-12-28] MEDS: SODIUM BICARBONATE 650 MG PO (22:54)
[2024-12-28] MEDS: TYLENOL 650 MG PO (22:54)
[2024-12-28 23:19] LABS: Blood Urea Nitrogen 65 mg/dl (9-20); Calcium 9.1 mg/dl (8.4-10.2); Carbon Dioxide 18 mmol/L (22-30); Chloride 98 mmol/L (98-107); Estimated Creatinine Clearance 21 ml/min; Glucose 249 mg/dl (70-99); Magnesium 1.7 mg/dl (1.6-2.3); Potassium 4.3 mmol/L (3.5-5.1); Sodium 127 mmol/L (135-145); eGFR 22.01
[2024-12-29] VITALS (38 sets, daily range): BP systolic 80–113; BP diastolic 53–73; BMI 22.1
--- NOTE | 2024-12-29 00:20 | VATNOTE ---
5FR DL RUE PICC RETRACTED 5CM PER RADIOLOGIST REPORT FOR SVC TIP PLACEMENT. PCN AWARE OF INTERVETNION AND TO REMOVE PERIPHERAL IV SITES IN RUE.
[2024-12-29] MEDS: ZOSYN 50 IV ×4 (02:53→20:26)
[2024-12-29 04:21] LABS: Blood Urea Nitrogen 64 mg/dl (9-20); Calcium 8.7 mg/dl (8.4-10.2); Carbon Dioxide 20 mmol/L (22-30); Chloride 99 mmol/L (98-107); Estimated Creatinine Clearance 20 ml/min; Glucose 258 mg/dl (70-99); Magnesium 1.7 mg/dl (1.6-2.3); Potassium 4.1 mmol/L (3.5-5.1); Sodium 131 mmol/L (135-145); eGFR 22.01
[2024-12-29 04:24] LABS: Hematocrit 26.2 % (39.0-52.0); Hemoglobin 8.3 g/dL (13.0-18.0); Mean Corp Hgb Conc. 31.7 g/dL (33.0-37.0); Mean Corpuscular Volume 98.5 fL (80.0-94.0); Platelet Count 58 10^3/uL (130-400); Red Cell Dist. Width 15.6 % (11.5-14.5)
[2024-12-29 04:39] LABS: Troponin I 11.400 ng/ml
[2024-12-29] MEDS: MAGNESIUM SULFATE 50 IV (06:49)
[2024-12-29] MEDS: LEVOPHED 250 IV (06:49)
[2024-12-29 07:58] LABS: Glucose - Point of Care 204 mg/dl (70-99)
--- NOTE | 2024-12-29 07:58 | W.PN.INTV ---
Addendum entered and electronically signed by Emanuel Melgar MD 12/29/24 18:33:
Patient has been off pressors since this morning per nursing
Continues to diurese with good response
Patient clinically improved
Reviewed with the primary service
Okay for transfer to U
Pulmonary will follow briefly
Original Note:
Today's Communication / Plan
Recommendations
Continue with Lasix per cardiology, nephrology
Continue with blood sugar monitoring
Wean pressors
Replete magnesium
Discontinue vancomycin
Low threshold to stop Zosyn in the next 24 to 48 hours depending on clinical course
Assessment
-
74-year-old male with complex medical history including coronary disease with multiple hospital stays for shortness of breath, heart failure, renal insufficiency, most recently discharged 12/23/2024, now returns with progressive shortness of breath,
found to have progressive renal insufficiency, hyperkalemia, hypotension and chest x-ray with bilateral infiltrates. Patient given IV fluids, started on pressors, admitted to ICU for further management 12/28/2024. Patient also given IV antibiotics
Acute respiratory insufficiency
Intermittent chest pain
Orthopnea
Mild hemoptysis
Bilateral infiltrates
Heart failure versus pneumonitis (likely combination)
Subjective fever/chills x 24 hours
Ischemic cardiomyopathy, EF 35% (new c/t Echo August 2023)
Moderate to severe MR per echo 12/20/2024
s/p tissue AVR 2007
Acute renal insufficiency
History of CKD, baseline creatinine 1.8
Required transient HD July 2024 at [facility]
Leukocytosis
Anemia
Conditions present prior to admission
History of coronary disease with CABG 2007
LAD Stent April 2024
Now occluded per catheterization December 2024
History of recurrent heart failure
Multiple hospital stays at [facility]
Hypertension, hyperlipidemia
Diabetes
History of complete heart block
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
History of stroke
Plan/recommendations
At this time, patient remains critically ill, but improved overall.
Remains on pressors, norepinephrine
Chest x-ray initially appears consistent with heart failure
Negative fluid status noted
Marginal blood pressure noted
Orthopnea seems to be improved
Moving forward
Suspect cardiorenal process with less likely underlying infectious process
Significant leukocytosis noted
For now we will continue with IV antibiotics, with low threshold to discontinue in the next 24 hours
Negative COVID, negative flu
Discontinue vancomycin
Consider chest x-ray in the next 24 to 48 hours
There is also likely a component of heart failure
Worsening orthopnea over the last few days noted, now improved
Remains on norepinephrine, being weaned
Cardiology following
Nephrology following
Suspect patient is at risk for progressive renal insufficiency, may require dialysis. Apparently required dialysis briefly at [facility] in July 2024
Follow electrolytes, replete magnesium
Lasix per cardiology, nephrology
Anders catheter remains in place
Follow liver function
Blood sugars noted
Prior hemoglobin A1c less than 6
Continue with monitoring, coverage
DVT prophylaxis: Remains on subcutaneous heparin every 8 hours
Reviewed plan with critical care nursing, pharmacy, respiratory care
Reviewed plan cardiology
TCCT 31 min
Subjective Dataa
Subjective Data
Date of Service:
Date of Service: December 29, 2024
Subjective:
Patient continues to feel short of breath with simple movement. He is less orthopneic today. Able to understand his description. Also describes some mild nausea, difficulty swallowing at times
Objective Data
Data Reviewed
Vital Signs / I&O / Oxygen:
Vital Signs
Temp Pulse Resp BP Pulse Ox
99.9 F 109 25 110/65 95
12/29/24 07:26 12/29/24 07:30 12/29/24 07:30 12/29/24 07:30 12/29/24 07:30
Intake and Output
12/28/24 12/29/24 12/30/24
06:59 06:59 06:59
Intake Total 1065.6 / 1065.6
Output Total 3212 / 3212
Balance -2146.4 / -2146.4
SaO2 95
Nasal Cannula flow liters per 2
minute
Physical Exam
General: Comfortable
HEENT: Normocephalic and Anicteric
Cardiovascular: S1-S2, Regular Rhythm, Murmur (n), Rub (n) and Peripheral Edema (n)
Respiratory: Wheeze (n), Crackles (Mild bibasilar), Rhonchi (n), Non-Labored Respirations and Stridor (n)
GI: Soft, Non Distended and Non Tender
Neurology: Awake, Alert and No Motor Deficits
Skin: Good Color, Jaundice (n) and Rash (n)
Labs/Micro/Reports
Lab Data
12/29/24 03:45
12/29/24 03:45
Laboratory Results
12/28/24
12:58
PT 17.1 H
INR 1.36
APTT 42.4 H
Microbiology
12/28/24 17:46 Nasal Swab Influenza Types A & B (FLACO) - Final
Negative for Influenza A & B, NAAT
Negative results must be combined with clinical observations
and patient history.
Nucleic Acid Amplification test (NAAT)performed on the
[employer] platform.
[2024-12-29] MEDS: NOVOLOG FLEXPEN-LOW RESISTANCE 2 UNITS SC ×2 (08:43→17:12)
[2024-12-29] MEDS: HEPARIN 5000 UNITS SC ×2 (08:51→17:09)
--- NOTE | 2024-12-29 08:52 | PHA.VAN.FU ---
Vancomycin Assessment / Plan
- Assessment
Renal Function: SCR Decreasing
WBC's are: Trending Down
Concomitant Antimicrobials: piperacillin/tazobactam
- Assessment - Therapeutic Drug Monitoring
Random Level: 18.7 - drawn ~10H after 1500mg loading dose
- Dosing Plan
Dosing by Level: Hold off on dosing today
- Monitoring Plan
Random Level: 12/30 0600
- Follow Up
Pharmacy will continue to follow.
Vancomycin Follow UP
- -
Patient Age: 74
Patient Sex: Male
Vancomycin Day #: 2
Indication: Bacteremia
Requesting Provider: Dr. Mike (resident)
Pertinent Antimicrobial Allergies:
NKDA
Height / Weight:
Height 5 ft 7 in
Actual Weight 63.9 kg
Pertinent Past Medical History: CKD 3 (~1.7), DM 2
- Vital Signs / Lab Results
Temp Pulse Resp BP Pulse Ox
99.9 F 109 25 110/65 95
12/29/24 07:26 12/29/24 07:30 12/29/24 07:30 12/29/24 07:30 12/29/24 07:30
Lab Results - Hematology
12/28/24 12/29/24
12:58 03:45
WBC 35.3 H 25.4 H
Lab Results - Chemistry
12/28/24 12/28/24 12/29/24
12:58 22:17 03:45
BUN 60 H 65 H 64 H
Creatinine 3.2 H 2.9 H 2.9 H
Estimated Creat Clear 21 20
Albumin 4.4
12/28/24 12/28/24 12/28/24
13:40 13:45 16:33
Lactic Acid Cancelled Cancelled Cancelled
12/28/24 12/28/24 12/29/24
17:45 22:17 02:17
Lactic Acid Cancelled 2.3 H Cancelled
12/29/24
03:45
Lactic Acid 1.4
Lab Results - Urine
12/28/24
17:18
Urine Nitrite (Reflex) Negative
Leukocyte Esterase Rfl Negative
Ur Squamous Epith Cells 6-10
Microbiology Results
12/28/24 17:46 Influenza Types A & B (FLACO) - Final
Nasal Swab Negative for Influenza A & B, NAAT
Negative results must be combined with clinical observations
and patient history.
Nucleic Acid Amplification test (NAAT)performed on the
deltamethod platform.
Therapeutic Drug Monitoring
Random Vancomycin 18.7 ug/ml 12/29/24 03:45
--- NOTE | 2024-12-29 08:56 | W.PN.CARDCBS ---
Addendum entered and electronically signed by Yoandy Loredo DO 12/29/24 10:15:
I saw and examined the patient.
The Direct Support Staff Member's note was reviewed and I agree with the note.
Comment:
Plan:
Would continue IV lasix, reviewed with nephrology, as he may have element of cardiorenal syndrome.
Cr is slowly improving, would continue to trend
If diuresis slows, may need to consider Milrinone to help with diuresis.
Cont to wean Levophed, bp improving.
Cont DAPT, monitor platelets, remains with thrombocytopenia
GDMT currently limited by hypotension. Resume beta aline once bp improved.
ACEI/ARB/ARNI not given with renal failure.
Troponin lower than last admit
Cont eval and tx of clinical sepsis with possible PNA
Interrogate device
Reviewed with pt and family need to be compliant with meds.
CCT: 32 min
Original Note:
Today's Communication / Plan
-
Lasix 80 mg IV x 1 now
Levophed weaned to 5
Impression / Plan
-
PCP: Israel Clifton MD
CDY: Orlando Langley MD
Impression:
Admitted with sepsis and NOE 12/20/2024
Recent admission acute HFrEF and NSTEMI 12/20/2024 until 12/23/2024
Recent ER visit at [facility] for chest pain and SOB 12/09/2024
Clinical sepsis
Possible multifocal PNA
Possible cardiogenic shock
NOE on CKD
Previously required transient HD 07/2024
Hyperkalemia
Elevated troponin, overall trending down from last admission
CAD
s/p CABG with GAFFNEY-LAD, VG-dLAD, VG-PLB 2007
s/p SVG to the distal LAD PCI at [facility] by Dr. Gavin 04/2024
Patent GAFFNEY to LAD, patent SVG to PLB with PDA filling via retrograde from the PLB, occlusion of the SVG to the distal LAD with 100% occlusion of previously placed stent 12/21/2024
s/p tissue AVR 2007
HLD
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
HTN
DM
Language barrier
Thrombocytopenia
Echo 08/2023: nml LV size, abnormal diastolic function with increased LVEDP, EF 60-65%, CLVH but no obvious regional abn. normally functioning bioprosthetic AV, PG/MG 32.5/18, ABEL 1.34cm2
Echo 12/20/2024: EF 35 to 40%, mild concentric LVH, mid to distal inferior, inferolateral, mid anteroseptal, mid anterior, apical hypokinesis, dense MAC, at least moderate to severe MR with anterior eccentric jet, mild to moderate TR, PAP 38 mmHg
Plan:
-Levophed weaned to 5 on 12/29/2024. Pulmonology note reviewed by me and agree that he is in acute HF and less likely PNA. WBC improved overnight with Zosyn and vancomycin, blood cultures pending. COVID and influenza swabs were negative. UA was
negative for nitrites
-Labs reviewed by me 12/29/2024 and Cre from 3.2 down to 2.9. Nephrology following and patient received Lasix 80 mg IV x 1 on 12/20/2024 PM. Reviewed with nephrology 12/29/2024 and additional Lasix 80 mg IV x 1 now ordered by me.
-Remains hypoxic on 2 L NC. Weight is down at least 4 lbs.
-Patient required transient hemodialysis treatments during an admission to [facility] 07/2024, his last cardiac cath before that was at [facility] 04/2024
-Patient was noncompliant with torsemide prior to admission, it sounds as though he did not understand it was the medicine he had to take every day and waited for it to be delivered from his pharmacy and ended up in recurrent acute HF because of
that.
-EF previously 60 to 65% in 2023 and now down to 35 to 40% by echo 12/20/2024. This is presumed to be ICM with evidence of occlusion of a previously placed stent in the vein graft to the distal LAD by cardiac cath 12/21/2024.
-Outpatient dose of Lopressor is on hold due to hypotension, once BP improves we should start cardioselective beta-aline with either Coreg or Toprol-XL
-Patient was not taking ALETHA/ARB/ARNI/aldosterone antagonist prior to admission due to NOE.
-We should attempt to add SGLT2 inhibitor prior to discharge, but currently being treated for sepsis so we will hold off.
-Initial troponin 12.1 and then trending down to 11.4 overnight. Troponin is trending down from NSTEMI and peak troponin of 27.9 when he was admitted last week.
-Patient with history of remote CABG and there was an attempt at PCI of the SVG to the distal LAD at [facility] 04/2024, but this stent was 100% occluded at the last cath 12/21/2024. GAFFNEY to LAD and SVG to PLB were both patent.
-Outpatient doses of aspirin and Plavix should be continued. Thrombocytopenia is chronic on my review of the labs today.
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 Telemetry is A sensed V paced. Device checked by me last admission showed OptiVol trending up since mid November, but no arrhythmia.
-Patient called his granddaughter, Geno, on the phone while I was in the room on 12/29/2024 and I was able to update her and she also helped with postmaster relief services. Patient reports ongoing SMALL and sore throat, Chloraseptic spray ordered by me.
HPI: Patient presented to the ER today with SMALL and is being admitted with possible sepsis and NOE and cardiology is being consulted for possible CHF and recent admission for NSTEMI. Patient has a history of remote CABG and AVR in 2007 at an
outside hospital. He had an admission to [facility] 04/2024 and he had PCI of the SVG to the distal LAD. Patient was then admitted to [facility] with NOE and was transiently on hemodialysis 07/2024. Most recently he has been following with
Korin at [facility] and their office referred the patient to the [facility] ER on 12/09/2024 after he complained of chest pain during a visit in their office that day. The patient was discharged from the ER with a higher dose of
Lopressor and they added Imdur ER. There was apparently no consideration for acute HF at that time. Patient then came to the [facility] ER on 12/20/2024 with chest pain and the initial troponin was 2.22 and subsequent troponin was as high as 27.9.
Patient was admitted and eventually had cardiac cath 12/21/2024 that showed that the stent in the SVG to the LAD from April was 100% occluded and the GAFFNEY to LAD and SVG to PLV grafts were patent. There was also evidence of acute HFrEF during
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 PCWP was down to 18 which correlated with a weight of 141 lbs at time of cath on 12/21/2024. Cre was stable at 1.8 on the
day of discharge 12/23/2024. At the recommendation of nephrology the patient was discharged home on torsemide 20 mg daily. Patient's family reports that medications were not delivered in a timely fashion and so he was not taking any of his
medications since admission until they arrived yesterday. Patient has had increasing SMALL over the last 24 hours and came to the ER today. There is leukocytosis with a WBC count of 35 with a left shift. Lactic acid levels pending. There is
concern for sepsis possibly due to PNA and patient is being admitted to the ICU due to his need for pressor support with Levophed.
Progress Note - Public Affairs Specialist
Subjective
Date of Service: December 29, 2024
He has SMALL moving from [id number]-lc-ddox in bed, his throat hurts and he does not want to swallow
Objective
Labs:
12/29/24 03:45
12/29/24 03:45
Labs
Hgb 8.3 g/dL (13.0-18.0) L 12/29/24 03:45
Hct 26.2 % (39.0-52.0) L 12/29/24 03:45
Plt Count 58 10^3/uL (130-400) L 12/29/24 03:45
PT 17.1 Sec (11.4-14.6) H 12/28/24 12:58
INR 1.36 12/28/24 12:58
APTT 42.4 Sec (23.4-35.0) H 12/28/24 12:58
Sodium 131 mmol/L (135-145) L 12/29/24 03:45
Potassium 4.1 mmol/L (3.5-5.1) 12/29/24 03:45
BUN 64 mg/dl (9-20) H 12/29/24 03:45
Creatinine 2.9 mg/dL (0.7-1.3) H 12/29/24 03:45
Glucose 258 mg/dl (70-99) H 12/29/24 03:45
Troponins
12/28/24 12/29/24
12:58 03:45
Troponin I 12.100 H* 11.400 H*
Vital Signs and I&O:
Vital Signs
Temp Pulse Resp BP Pulse Ox
99.9 F 109 25 110/65 95
12/29/24 07:26 12/29/24 07:30 12/29/24 07:30 12/29/24 07:30 12/29/24 07:30
Vital Signs
Temp Pulse Resp BP Pulse Ox
99.9 F 109 25 110/65 95
12/29/24 07:26 12/29/24 07:30 12/29/24 07:30 12/29/24 07:30 12/29/24 07:30
Intake & Output
12/27/24 12/28/24 12/29/24 12/30/24
06:59 06:59 06:59 06:59
Intake Total 1065.6 / 1091.9 77.6 / 77.6
Output Total 3212 / 3212 585 / 585
Balance -2146.4 / -2120.1 -507.4 / -507.4
Physical Exam
Physical Exam
GEN: NAD. AAOx3
LUNGS: 2 L NC. No audible wheeze
CV: A sensed V paced on tele. Reg, S1/S2, 03/08 syst LSB
EXT: No edema B/L LE
NEURO: Gross non-focal
SKIN: No rash
[2024-12-29] MEDS: PLAVIX 75 MG PO (09:23)
[2024-12-29] MEDS: SODIUM BICARBONATE 650 MG PO (09:23)
[2024-12-29] MEDS: ASPIR LOW (ENTERIC COATED) 81 MG PO (09:23)
[2024-12-29] MEDS: OSCAL 500 + D PO (09:24)
[2024-12-29] MEDS: PROTONIX 40 MG PO (09:24)
[2024-12-29] MEDS: VITAMIN D3 (cholecalciferol) PO (09:24)
[2024-12-29] MEDS: THERAGRAN PO (09:24)
[2024-12-29] MEDS: PROSCAR 5 MG PO (10:34)
[2024-12-29] MEDS: LASIX 80 MG IV (10:34)
[2024-12-29] MEDS: FLOMAX 0.4 MG PO (10:34)
[2024-12-29] MEDS: FEOSOL 325 MG PO (10:34)
--- NOTE | 2024-12-29 11:47 | W.PN.NEPH.PH ---
Today's Communication / Plan
-
cont lasix
Assessment/Plan
-
Impression:
Decompensated HFrEF 30%
CKD 3B, baseline around 1.7
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
CAD/CABG
HTN
DM2
Hyponatremia, hyperkalemia
Hypotension
Plan:
NOE-CRS, cr stable at 2.9
wt decreasing with IV Lasix-cont same per cards
k normaized
BP stable off pressors this am
May consider midodrine later if needed
improving hyponatremia and met acidosis on po bicarb
Follow BMP
no emergent need of HD
d/w pt in detail
d/w nursing
-
-
Date of Service: December 29, 2024
CC / HPI / ROS
-
Chief Complaint:
NOE
History of Present Illness:
cr stable at 2.9, k normal
sodium better at 131
wt is down, 4lit UOP with lasix wolf -mild retention
off levo just now
Review of Systems:
no cp
sob improving
feels weak and mild sorethroat
no n/v
Labs
-
Labs:
WBC 25.4 10^3/uL (4.8-10.8) H 12/29/24 03:45
RBC 2.66 10^6/uL (4.70-6.10) L 12/29/24 03:45
Hgb 8.3 g/dL (13.0-18.0) L 12/29/24 03:45
Hct 26.2 % (39.0-52.0) L 12/29/24 03:45
Plt Count 58 10^3/uL (130-400) L 12/29/24 03:45
Sodium 131 mmol/L (135-145) L 12/29/24 03:45
Potassium 4.1 mmol/L (3.5-5.1) 12/29/24 03:45
Chloride 99 mmol/L (98-107) 12/29/24 03:45
Carbon Dioxide 20 mmol/L (22-30) L 12/29/24 03:45
BUN 64 mg/dl (9-20) H 12/29/24 03:45
Creatinine 2.9 mg/dL (0.7-1.3) H 12/29/24 03:45
eGFR 22.01 12/29/24 03:45
Glucose 258 mg/dl (70-99) H 12/29/24 03:45
Calcium 8.7 mg/dl (8.4-10.2) 12/29/24 03:45
Phosphorus 3.1 mg/dl (2.5-4.5) 12/28/24 22:17
Lvf-F-Paeggfbuzmq Pept > 53689 pg/ml 12/28/24 12:58
Albumin 4.4 g/dl (3.5-5.0) 12/28/24 12:58
Physical Exam
-
Vital Signs:
Vital Signs
Temp Pulse Resp BP Pulse Ox
99.7 F 106 24 103/70 98
12/29/24 11:17 12/29/24 09:15 12/29/24 09:15 12/29/24 09:00 12/29/24 09:15
Cardiovascular:: Regular rate and rhythm
Respiratory:: Bilateral: Coarse
Lung Excursion:: Normal
Abdomen:: Nontender and Soft
Bowel Sounds:: Normal
Extremity Edema:: None: Bilateral: (trace)
Wolf Catheter: Yes
--- NOTE | 2024-12-29 12:00 | PTCARENOTE ---
Levophed weaned off. All other assessments unchanged.
[2024-12-29 12:07] LABS: Glucose - Point of Care 258 mg/dl (70-99)
--- NOTE | 2024-12-29 12:11 | CM ---
Recent admission 12/20/24 to 12/23/24 for cardiac cath. Initial assessment completed face time with son who is currently in [place]. Patient lives with his and son in a 1 story home with no basement, no steps to enter. [employer] patient ambulated
with a SPC and occasionally with a RW. Has a Medtronic pacer. No other DME in the home. No in-home services. Patient attends Adult Day Care in [place] on Friday through Friday from 7:30am to 2:30pm. Does have a HC-POA. No VA benefits. No
psychiatric hospitalizations. PCP is Dr. Israel Clifton. Pharmacy is [facility]. Discharge POC: Anticipate home with no needs.
[2024-12-29] MEDS: NOVOLOG FLEXPEN 3 UNITS SC ×2 (12:48→17:13)
[2024-12-29] MEDS: NOVOLOG FLEXPEN-LOW RESISTANCE 3 UNITS SC (12:48)
--- NOTE | 2024-12-29 12:56 | W.PN.HOSP.TC ---
Today's Communication/Plan
-
see note
Assessment / Plan
Assessment / Plan
Septic shock from multifocal pneumonia
associated with NOE/lactic acidosis
- Reported subjective fever at home. no productive cough.
- Chest x-ray showing possible multifocal pneumonia
- Total WBC count of 35K. Trending down
- Unable to get blood culture in ER as patient is hard stick. Delayed blood culture collected post PICC placement and abx.
- Patient started on vancomycin and Zosyn, continue
- Sputum culture if patient able to provide sample
- Patient got 1 L of NS, did not provide full 30 mL/kg bolus as patient have systolic heart failure.
- Able to be weaned off of Levophed.
- Lactic acid has been trednding down
NOE on CKD stage IIIb
Acute urinary retention
- creatinine up to 3.2, baseline cr 1.7-1.8 at discharge week back,
- Renal dysfunction likely combination from hypotension/cardiorenal syndrome and urinary retention
- Anders catheter was placed for urinary retention at admisison
- Avoid nephrotoxic medication
- Diuretic therapy has been started and patient have appropriate response. Creatinine be down. Continue monitor
- Nephrology help appreciated.
Coronary disease status post with
Acute on Chronic systolic congestive heart failure
- proBNP greater than 27,000
- [facility] last admission showed blocked SVG graft to distal LAD, was planned to be manage medical
- Continue on Plavix statin
- Troponin 12 and has been trending down from elevated troponin max of 28 on 12/20
- Although no overt signs of volume overload patient likely have component of congestive heart failure exacerbation. Has been started on IV diuretics by nephrology.
Anion gap metabolic acidosis - Improving
- Combination of lactic acidosis and renal dysfunction related
- Provide sodium bicarb few doses
- Being treated for underlying infection
Hyperkalemia - Improved
- Secondary to renal failure/acidosis related
- Low potassium diet
- Provided insulin/glucose ER. Provide calcium gluconate and Lokelma
Type II DM
- maintain on Lower dose lantus and ISS
- Added Premeal NovoLog
- diabetic diet
- Hold metformin with renal dysfunction
Essential hypertension
- Hold blood pressure medication with ongoing shock
Hyponatremia - improving
- Combination from hypervolemia and ADH excess with heart failure
- Urine Na 34 Uosm 257
- Further therapy if have worsening of hyponatremia
Acute transaminitis
- Possible due to hypotension related
DVT prophylaxis -heparin subq
Full code
Total critical care time 40 mins. Total critical care time documented does not include time spent on separately billed procedures or the services of residents, students, nurses or physician assistants. I personally saw and examined the patient. I
have reviewed all diagnostic interpretations and treatment plans as written. I was present for the stein portions of any procedures performed and the inclusive time noted in any critical care statement. Critical care time includes patient management
by me, time spent at the patients bedside, time to review lab and imaging results, discussing patient care, documentation in the medical record, and time spent with the family or caregiver.
Anticipated Discharge: > 48 hours
Subjective/Interval History
-
Date of Service: December 29, 2024
Continues to feel lethargic
Continues to have dyspnea on movement
Denies chest pain/abdominal pain/nausea/vomiting
No other acute events reported overnight
Was on small dose of vasopressors in the morning which was able to be weaned off
Objective Data
-
Labs:
Laboratory Results
12/29/24
03:45
WBC 25.4 H
Hgb 8.3 L
Hct 26.2 L
Plt Count 58 L
Sodium 131 L
Potassium 4.1
Chloride 99
Carbon Dioxide 20 L
BUN 64 H
Creatinine 2.9 H
Glucose 258 H
Calcium 8.7
Vital Signs:
Vital Signs
Temp Pulse Resp BP Pulse Ox
99.7 F 106 24 103/70 98
12/29/24 11:17 12/29/24 09:15 12/29/24 09:15 12/29/24 09:00 12/29/24 09:15
I&O
12/28/24 12/29/24 12/30/24
06:59 06:59 06:59
Intake Total 1065.6 / 1091.9 418.9 / 418.9
Output Total 3212 / 3212 1195 / 1195
Balance -2146.4 / -2120.1 -776.1 / -776.1
Review of Systems
-
Respiratory: Reports Trouble Breathing
Cardiac: Reports No Symptoms
Abdomen/GI: Reports No Symptoms
Physical Exam
-
General: Comfortable
HEENT: Negative Oxygen
Respiratory: Clear to Auscultation
Cardiac: Regular Rhythm and S1/S2; Negative Murmur or Rub
GI: Soft, Nontender and Nondistended
Musculoskeletal: No Edema
Neuro: Awake, Alert, Oriented, No Motor Deficits and Nonfocal/Grossly Intact
Psych: Calm
--- NOTE | 2024-12-29 15:28 | PTOTSP ---
Speech Therapy Evaluation:
Pt with chronic risk factors of dysphagia (cardiac hx). Pt reported he typically tolerates regular solids and thin liquids, however has been only able to consume liquids ~7 days due to sore throat. At bedside, pt without s/sx of aspiration, however
cannot r/o pharyngeal component given concern for multifocal pneumonia and pt report of intermittently coughing with liquids. Pt on room air, however WBC elevated at 25.4
Recommend:
1. Continue regular solids and thin liquids with softer selections per pt preference
2. Medications as tolerated
3. General aspiration precautions
4. LEGAL COUNSEL to follow to monitor tolerance of diet and determine if pt would benefit from instrumental assessment
--- NOTE | 2024-12-29 16:00 | PTCARENOTE ---
O2 weaned off. Poor appetite. C/o sore throat. Good urine output. All other assessments unchanged.
[2024-12-29 17:23] LABS: Glucose - Point of Care 215 mg/dl (70-99)
[2024-12-29] MEDS: LANTUS 0.3 UNITS SC (22:09)
[2024-12-29] MEDS: PEPCID 20 MG PO (22:09)
[2024-12-29 22:23] LABS: Glucose - Point of Care 172 mg/dl (70-99)
[2024-12-30] VITALS (94 sets, daily range): BP systolic 74–117; BP diastolic 45–75; BMI 21.6
[2024-12-30] MEDS: HEPARIN 5000 UNITS SC ×4 (01:03→23:43)
[2024-12-30] MEDS: ZOSYN 50 IV ×3 (01:04→13:04)
--- NOTE | 2024-12-30 01:26 | PTCARENOTE ---
Addendum entered by Alba Bird RN 12/30/24 06:05:
0600: MECHANICAL PROJECT MANAGER clarified that the midodrine should be given. Midodrine administered (see mar).
Addendum entered by Alba Bird RN 12/30/24 04:37:
0330 Map dropped below 65. BP recheck after pt was woken up and adjust to be supine. Map still below 65. Provider informed via TT @ 0342. Order to start levo and collect lab work. Levo started at 0415. monitor [address]. AAAA. call abdul and personal
belongings within reach.
Levo gtt noted to be held at 0430. Pharmacy called to clarify order. Pharmacy stated that it was help by GUN[facility] Bustamante. Rn checked in with the MECHANICAL PROJECT MANAGER. She had sent TT's while RN was completing this pt's care tasks (see EMR). There was consideration for oral
midodrine if the pt was able to tolerate PO rather than start the Levo. RN informed MECHANICAL PROJECT MANAGER that the gtt has already by initiated and the the MAP was above 65. RN and MECHANICAL PROJECT MANAGER clarifies @ 0434 that the levo would continue and the midodrine would not be
administered.
Addendum entered by Alba Bird RN 12/30/24 01:45:
follow vs relayed to provider. RN instructed to contact if MAP goes below 65.
Original Note:
Late note due to patient care.
Pts hypotension reported to provider. @ 0100 RN repeated Bp measurement when pt was awake and completed a manual measurement. Results reported to provider. instructed to assess Bp in 15 mins. see EMR for details
--- NOTE | 2024-12-30 04:07 | W.PN.UPDATE ---
Update Note
Progress Note Update
BP soft overnight. 82/63, 74/49, 81/45, 82/48 MAP 59. Plan to give Midodrine, if no improvement will start Levophed drip. Will start Levophed. Midodrine 10mg PO x 1, labs now.
[2024-12-30] MEDS: LEVOPHED 250 IV (04:09)
[2024-12-30 04:56] LABS: Hematocrit 22.8 % (39.0-52.0); Hemoglobin 7.8 g/dL (13.0-18.0); Mean Corp Hgb Conc. 34.2 g/dL (33.0-37.0); Mean Corpuscular Volume 92.7 fL (80.0-94.0); Platelet Count 49 10^3/uL (130-400); Red Cell Dist. Width 14.8 % (11.5-14.5)
[2024-12-30 05:05] LABS: ALT (SGPT) 70 U/L (0-50); AST (SGOT) 87 U/L (17-59); Albumin 3.5 g/dl (3.5-5.0); Alkaline Phosphatase 72 U/L (38-126); Blood Urea Nitrogen 64 mg/dl (9-20); Calcium 8.9 mg/dl (8.4-10.2); Carbon Dioxide 25 mmol/L (22-30); Chloride 99 mmol/L (98-107); Estimated Creatinine Clearance 22 ml/min; Glucose 117 mg/dl (70-99); Potassium 3.4 mmol/L (3.5-5.1); Sodium 135 mmol/L (135-145); Total Protein 6.1 g/dl (6.3-8.2); eGFR 25.09
[2024-12-30 08:01] LABS: Glucose - Point of Care 164 mg/dl (70-99)
[2024-12-30] MEDS: ASPIR LOW (ENTERIC COATED) 81 MG PO (08:36)
[2024-12-30] MEDS: PROTONIX 40 MG PO (08:36)
[2024-12-30] MEDS: VITAMIN D3 (cholecalciferol) 125 MCG PO (08:36)
[2024-12-30] MEDS: PROSCAR 5 MG PO (08:36)
[2024-12-30] MEDS: FLOMAX 0.4 MG PO (08:36)
[2024-12-30] MEDS: OSCAL 500 + D 500 MG PO (08:36)
[2024-12-30] MEDS: FEOSOL 325 MG PO (08:36)
[2024-12-30] MEDS: PLAVIX 75 MG PO (08:36)
[2024-12-30] MEDS: THERAGRAN 1 TABLET PO (08:36)
--- NOTE | 2024-12-30 09:14 | W.PN.HOSP.TC ---
Today's Communication/Plan
-
see note
Assessment / Plan
Assessment / Plan
Septic shock from multifocal pneumonia
associated with NOE/lactic acidosis
- Reported subjective fever at home. no productive cough.
- Chest x-ray showing possible multifocal pneumonia
- Total WBC count of 35K. Trending down
- Unable to get blood culture in ER as patient is hard stick. Delayed blood culture collected post PICC placement and abx.
- Sputum culture if patient able to provide sample
- Patient got 1 L of NS, did not provide full 30 mL/kg bolus as patient have systolic heart failure.
- Currently on Zosyn for treatment of multifocal pneumonia
- Patient was weaned off Levophed yesterday, had to be restarted today
- Added midodrine to regimen to help weaning of Levophed
Enterococcus faecalis bacteremia
- Vancomycin was initially discontinued, resumed
- Await further susceptibility
- ID consulted for further help
- Echocardiogram 12/29 did not show any valvular vegetation. May require RENAN if bacteremia persist.
NOE on CKD stage IIIb
Acute urinary retention
- creatinine up to 3.2 in ER, baseline cr 1.7-1.8 at discharge week back,
- Renal dysfunction likely combination from hypotension/cardiorenal syndrome and urinary retention
- Anders catheter was placed for urinary retention at admission
- Avoid nephrotoxic medication
- Creatinine trending down
Coronary disease status post with
Acute on Chronic systolic congestive heart failure
- proBNP greater than 27,000
- [facility] last admission showed blocked SVG graft to distal LAD, was planned to be manage medical
- Continue on Plavix statin
- Troponin 12 and has been trending down from elevated troponin max of 28 on 12/20
- Although no overt signs of volume overload patient likely have component of congestive heart failure exacerbation. Has been started on IV diuretics by nephrology.
Anion gap metabolic acidosis - Improved
- Combination of lactic acidosis and renal dysfunction related
- Provide sodium bicarb few doses
- Being treated for underlying infection
Hyperkalemia - Improved
Hypokalemia
- Hyperkalemia secondary to renal failure/acidosis related at admission
- Post diuresis patient is developing hypokalemia now, replace as needed
Type II DM
- maintain on Lower dose lantus and ISS
- Added Premeal NovoLog
- diabetic diet
- Hold metformin with renal dysfunction
Essential hypertension
- Hold blood pressure medication with ongoing shock
Hyponatremia - resolved
- Combination from hypervolemia and ADH excess with heart failure
- Urine Na 34 Uosm 257
- Further therapy if have worsening of hyponatremia
Acute transaminitis
- Possible due to hypotension related
DVT prophylaxis -heparin subq
Full code
Patient's son updated over the phone
Total critical care time 38 mins. Total critical care time documented does not include time spent on separately billed procedures or the services of residents, students, nurses or physician assistants. I personally saw and examined the patient. I
have reviewed all diagnostic interpretations and treatment plans as written. I was present for the stein portions of any procedures performed and the inclusive time noted in any critical care statement. Critical care time includes patient management
by me, time spent at the patients bedside, time to review lab and imaging results, discussing patient care, documentation in the medical record, and time spent with the family or caregiver.
Anticipated Discharge: > 48 hours
Subjective/Interval History
-
Date of Service: December 30, 2024
Subjective feeling better
No acute event reported overnight
Afebrile
Objective Data
-
Labs:
Laboratory Results
12/30/24
04:17
WBC 12.0 H
Hgb 7.8 L
Hct 22.8 L
Plt Count 49 L
Sodium 135
Potassium 3.4 L
Chloride 99
Carbon Dioxide 25
BUN 64 H
Creatinine 2.6 H
Glucose 117 H
Calcium 8.9
Total Bilirubin 4.9 H
AST 87 H
ALT 70 H
Alkaline Phosphatase 72
Vital Signs:
Vital Signs
Temp Pulse Resp BP Pulse Ox
98.4 F 91 17 95/61 96
12/30/24 07:43 12/30/24 08:30 12/30/24 08:30 12/30/24 08:30 12/30/24 09:00
I&O
12/29/24 12/30/24 12/31/24
06:59 06:59 06:59
Intake Total 1065.6 / 1091.9 1191.4 / 1191.4
Output Total 3212 / 3212 3515 / 3515 50 / 50
Balance -2146.4 / -2120.1 -2323.6 / -2323.6
Review of Systems
-
Respiratory: Reports No Symptoms
Cardiac: Reports No Symptoms
Abdomen/GI: Reports No Symptoms
Physical Exam
-
General: Comfortable
HEENT: Negative Oxygen
Respiratory: Clear to Auscultation
Cardiac: Regular Rhythm and S1/S2; Negative Murmur or Rub
GI: Soft, Nontender and Nondistended
Musculoskeletal: No Edema
Neuro: Awake, Alert, Oriented, No Motor Deficits and Nonfocal/Grossly Intact
Psych: Calm
--- NOTE | 2024-12-30 10:04 | W.PN.NEPH.PH ---
Today's Communication / Plan
-
titrate levo for MAP>65
Torsemide
Assessment/Plan
-
Impression:
Decompensated HFrEF 30%
CKD 3B, baseline around 1.7
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
CAD/CABG
HTN
DM2
Hyponatremia, hyperkalemia
Hypotension
Plan:
NOE-CRS, cr better at 2.6
wt decreasing with IV Lasix, reached DW
transition to po Torsemide tomorrow
replace k
hypotension, on low dose levo, titrate for MAP goal >65
midodrine added per primary
improved hyponatremia
met acidosis better with po bicarb, monitor off med
c/o dysphagia but passed swallow
d/w pt in detail
d/w nursing
-
-
Date of Service: December 30, 2024
CC / HPI / ROS
-
Chief Complaint:
NOE
History of Present Illness:
cr better at 2.6 k low 3.4
sodium better at 135
wt is down, wolf -mild retention, non oliguric
back on levo last night
Review of Systems:
no cp
sob improving
improving mild sorethroat
no n/v
Labs
-
Labs:
WBC 12.0 10^3/uL (4.8-10.8) H 12/30/24 04:17
RBC 2.46 10^6/uL (4.70-6.10) L 12/30/24 04:17
Hgb 7.8 g/dL (13.0-18.0) L 12/30/24 04:17
Hct 22.8 % (39.0-52.0) L 12/30/24 04:17
Plt Count 49 10^3/uL (130-400) L 12/30/24 04:17
Sodium 135 mmol/L (135-145) 12/30/24 04:17
Potassium 3.4 mmol/L (3.5-5.1) L 12/30/24 04:17
Chloride 99 mmol/L (98-107) 12/30/24 04:17
Carbon Dioxide 25 mmol/L (22-30) 12/30/24 04:17
BUN 64 mg/dl (9-20) H 12/30/24 04:17
Creatinine 2.6 mg/dL (0.7-1.3) H 12/30/24 04:17
eGFR 25.09 12/30/24 04:17
Glucose 117 mg/dl (70-99) H 12/30/24 04:17
Calcium 8.9 mg/dl (8.4-10.2) 12/30/24 04:17
Phosphorus 3.1 mg/dl (2.5-4.5) 12/28/24 22:17
Hpg-S-Vtxahztehjq Pept > 35026 pg/ml 12/28/24 12:58
Albumin 3.5 g/dl (3.5-5.0) 12/30/24 04:17
Physical Exam
-
Vital Signs:
Vital Signs
Temp Pulse Resp BP Pulse Ox
98.4 F 85 17 103/61 96
12/30/24 07:43 12/30/24 09:39 12/30/24 08:30 12/30/24 09:39 12/30/24 09:00
Cardiovascular:: Regular rate and rhythm
Respiratory:: Bilateral: Coarse
Lung Excursion:: Normal
Abdomen:: Nontender and Soft
Bowel Sounds:: Normal
Extremity Edema:: None: Bilateral: (trace)
Wolf Catheter: Yes
--- NOTE | 2024-12-30 10:22 | W.PN.INTV ---
Today's Communication / Plan
Recommendations
Chest x-ray 12/31
Continue antibiotics per primary service, ID evaluation pending
Suspect cardiorenal process
Wean off pressors
Midodrine has been started
Assessment
-
74-year-old male with complex medical history including coronary disease with multiple hospital stays for shortness of breath, heart failure, renal insufficiency, most recently discharged 12/23/2024, now returns with progressive shortness of breath,
found to have progressive renal insufficiency, hyperkalemia, hypotension and chest x-ray with bilateral infiltrates. Patient given IV fluids, started on pressors, admitted to ICU for further management 12/28/2024. Patient also given IV antibiotics
Acute respiratory insufficiency
Intermittent chest pain
Orthopnea
Mild hemoptysis
Bilateral infiltrates
Heart failure versus pneumonitis (likely combination)
Subjective fever/chills x 24 hours
Ischemic cardiomyopathy, EF 35% (new c/t Echo August 2023)
Moderate to severe MR per echo 12/20/2024
s/p tissue AVR 2007
Acute renal insufficiency, admission creatinine 3.2
Improved to 2.6 with diuresis
History of CKD, baseline creatinine 1.8
Required transient HD July 2024 at [facility]
Leukocytosis
Anemia
Conditions present prior to admission
History of coronary disease with CABG 2007
LAD Stent April 2024
Now occluded per catheterization December 2024
History of recurrent heart failure
Multiple hospital stays at [facility]
Hypertension, hyperlipidemia
Diabetes
History of complete heart block
[employer]tronic VESSEL SPECIALIST pacemaker August 2023
History of stroke
Plan/recommendations
At this time, patient improved objectively and subjectively
Pressors were weaned off 12/29, resumed at low-dose along with midodrine through the night
Chest x-ray initially appears consistent with heart failure, per my review
Negative fluid status noted, with improved creatinine
Marginal blood pressure noted
Orthopnea seems to be improved
Positive blood cultures noted
Moving forward
Suspect cardiorenal process with less likely underlying infectious process
Significant leukocytosis noted. Blood culture positive for Enterococcus faecalis
Antibiotics will continue. ID consulted
Doubt pulmonary process
Negative COVID, negative flu
Discontinue vancomycin
Consider chest x-ray in the next 24 to 48 hours
There is also likely a component of heart failure
Worsening orthopnea over the last few days noted, now improved
Remains on norepinephrine, being weaned
Cardiology following
Nephrology following
Suspect patient is at risk for progressive renal insufficiency, may require dialysis. Apparently required dialysis briefly at [facility] in July 2024
Follow electrolytes, replete magnesium
Lasix per cardiology, nephrology
Anders catheter remains in place
Follow liver function
Blood sugars noted
Prior hemoglobin A1c less than 6
Continue with monitoring, coverage
DVT prophylaxis: Remains on subcutaneous heparin every 8 hours
Reviewed plan with critical care nursing
Reviewed with primary service
Will follow
Subjective Dataa
Subjective Data
Date of Service:
Date of Service: December 30, 2024
Subjective:
Overall, patient much improved, visibly less short of breath. Negative fluid status noted. Currently on room air. Marginal blood pressure overnight, midodrine given and low-dose norepinephrine noted.
Objective Data
Data Reviewed
Vital Signs / I&O / Oxygen:
Vital Signs
Temp Pulse Resp BP Pulse Ox
98.4 F 85 17 103/61 96
12/30/24 07:43 12/30/24 09:39 12/30/24 08:30 12/30/24 09:39 12/30/24 09:00
Intake and Output
12/29/24 12/30/24 12/31/24
06:59 06:59 06:59
Intake Total 1065.6 / 1091.9 1191.4 / 1191.4 65 / 65
Output Total 3212 / 3212 3515 / 3515 50 / 50
Balance -2146.4 / -2120.1 -2323.6 / -2323.6
SaO2 96
Nasal Cannula flow liters per 2
minute
Physical Exam
General: Comfortable
HEENT: Normocephalic and Anicteric
Cardiovascular: S1-S2, Regular Rhythm, Murmur (n), Rub (n) and Peripheral Edema (n)
Respiratory: Wheeze (n), Crackles (Mild bibasilar), Rhonchi (n), Non-Labored Respirations and Stridor (n)
GI: Soft, Non Distended and Non Tender
Neurology: Awake, Alert and No Motor Deficits
Skin: Good Color, Jaundice (n) and Rash (n)
Labs/Micro/Reports
Lab Data
12/30/24 04:17
12/30/24 04:17
Microbiology
12/28/24 23:16 Blood/Venous Blood Culture - Preliminary
Positive culture in progress
12/28/24 23:16 Blood/Venous Gram Stain - Preliminary
12/28/24 22:17 Blood/Venous Blood Culture - Preliminary
Enterococcus faecalis
12/28/24 22:17 Blood/Venous Gram Stain - Preliminary
12/28/24 22:17 Nose Nasal Screen MRSA (PCR) - Final
MRSA not detected - performed by PCR methodology.
12/28/24 17:46 Nasal Swab Influenza Types A & B (FLACO) - Final
Negative for Influenza A & B, NAAT
Negative results must be combined with clinical observations
and patient history.
Nucleic Acid Amplification test (NAAT)performed on the
[employer] platform.
[2024-12-30] MEDS: NOVOLOG FLEXPEN-LOW RESISTANCE 1 UNITS SC (10:35)
[2024-12-30] MEDS: NOVOLOG FLEXPEN 3 UNITS SC (10:36)
--- NOTE | 2024-12-30 11:00 | CON.ID ---
Addendum entered and electronically signed by Padmaja Catherine MD 12/30/24 15:48:
I personally performed a history and physical exam of the patient and discussed management with the resident. I reviewed the resident's note and agree with the documented findings and plan of care HPI/CC with the following additions/corrections:
HPI: Mr Cordova is a 74 year old male with history of CHF, heart block s/p pacemaker, s/p TAVR , he was recently discharged 12/23. During that admission he was found to have heart failure (EF 35%, new), underwent cardiac catheterization showing
SVG 100% occluded in the distal LAD but other hatch patent grafts. Medical management was pursued; he had an NSTEMI and CKD as well. He was treated with torsemide, however on discharge his pharmacy did not have the medication and he was off of it
for 5 days after discharge. endorses that he does add salt to his food. Then he developed increasing shortness of breath and orthopnea. No chest pain, palpitations or chest tightness. No swelling of the feet but did notice pain in the lower
extremities. The day prior to admission he developed subjective fevers and shaking chills/sweats, also chest pain with ambulation and general weakness. He noted a cough with mild bloody sputum. He additionally reports no: dizziness, abdominal
pain. Does report poor appetite and has been taking a diet of rice and green leafy vegetables.
Since arrival here his tmax was 100.4 no other fevers recorded, he has been hypotensive with a levophed required up to a max of 7 mcg/min, currently at 2 mcg/min, HR initially 100s now running in the 80s, RR initially in the 20s now in the teens,
wbc on arrival 35 now 12, hgb 9.2 now 7.8, plt 50s (chronically low), L shift was present on arrival, Cr on arrival 3.2 - baseline 1.5 and currently 2.6, CO2 on arrival 13 now 25, lactic acid initially 2.3 then 1.4, troponin initially 12 then 11.4,
t bili 3.8 then 4.9, ast 114 then 87, alt 55 then 70, alk phos 84 and 72, bnp >[id number], covid ag negative, CXR with patchy opacities throughout the right lung, blood a PICC line was inserted on 12/28, he is undergoing diuresis. He was transiently off
of pressors on 12/29 however they have now been restarted. He had one dose of vancomycin on admission along with zosyn which was continued, vancomycin has now been restarted.
histories, labs reviewed
Physical Exam
General: thin, no acute distress
Respiratory: Clear; No Crackles
Cardiac: S1/S2 and Regular Rhythm; No splinter hemorrhages, osler nodes or janeway lesions
GI: Soft, Non Tender, Non Distended and Normal Bowel Sounds
Skin: Warm and Dry
Neuro: Awake, Alert, Oriented and AO x 3
Psych: Calm
DLOA: Pacemaker no erythema, warmth or tenderness
A&P
Shock - septic
E faecalis bacteremia
Leukocytosis
NOE
Pacemaker
- repeat blood cultures x2
- limited echo to assess the aortic and pulmonic valves, otherwise 12/29 TTE did not show a vegetation
- plan CT a/p with oral contrast to assess for lesions when feasible
- UA without pyuria - unlikely to be the source
- PICC was placed while patient was bacteremic and is likely seeded, it will need to be removed when feasible
- hypoxemia likely due to CHF
- restart vancomycin - close clinical monitoring
- stop zosyn
- follow clinically
Also
CHF
Original Note:
Consultation
-
Date/Time Consultation Requested: 12/30 at 9 AM
Date/Time Consultation Performed: 12/30 at 10 AM
Requesting Provider: Yordan Cordova
Performing Provider: Renetta Marquez
Chief Complaint / Past History
Chief Complaint
Shortness of breath/breathing problem
History of Present Illness
Patient is a 74-year-old male who presented to the emergency department after being discharged 5 days prior to his presentation for acute on chronic HFpEF and NSTEMI.� He has a past medical history of coronary artery disease with CABG x 3 in 2007,
HFpEF, heart block with cardiac resynchronization therapy pacemaker placed on 08/24, aortic stenosis status post TAVR, CKD with unknown stage, he required transient hemodialysis in November 2024 at [facility], and insulin-dependent diabetes
mellitus. �Echocardiogram conducted during a prior admission showed a newly reduced ejection fraction of 35 to 40% with moderate to severe mitral regurgitation.� He was aggressively diuresed and discharged at his dry weight.� Patient was discharged
on torsemide but unfortunately did not receive his medication after discharge and was only able to fill it the morning of his presentation to the emergency department.� He reported having shortness of breath which worsened over the past couple days
prior to his presentation and he was unable to walk to the restroom.� He denied any chest pain, palpitations, or chest tightness.� He had subjective fevers and chills a day prior to his presentation with chest pain on ambulation. He denied
lightheadedness, dizziness, or abdominal pain.� His urinary and bowel habits remained unchanged.� He reported having generalized weakness and did not feel like he had any abnormal swelling of his feet but reported pain in his lower extremities
bilaterally.� His appetite was decreased and he had not been eating well for the past 2 days prior to his presentation.� Vitals on arrival were 81/58 blood pressure, pulse of 91, respiratory rate of 26, temperature of 97.7 (but later 100.4 in the
evening), and 95% oxygen saturation on room air.� Patient had leukocytosis with a white blood cell count of 35.3, sodium 129, potassium 6, bicarb 13, BUN 60, creatinine 3.2, glucose 233, total bilirubin of 3.8, AST of 114, ALT of 55, a troponin of
12.1 ng/mL, and a proBNP of 27,000.� Lactic acid was elevated at 2.3.� Picture showed anion gap metabolic acidosis.� CXR done in the emergency department that showed patchy opacities throughout the right lung suggestive of multifocal pneumonia or
subsegmental atelectasis.� The patient was started on 4 mcg/min of Levophed and was rapidly titrated up to 8 in order to maintain hemodynamics.� Patient was also given normal saline IV fluid bolus.� 2 blood cultures were ordered but unable to be
drawn because the patient was difficult to gain IV access and the patient was started on Zosyn 3.375 IV and vancomycin 1500 mg IV.� Patient was given sublingual nitroglycerin for chest pain. Cardiology, nephrology, and the author agent were consulted
and the patient was admitted to the ICU for sepsis secondary to multifocal pneumonia. �Blood cultures were later on collected post PICC placement and after antibiotics were administered late in the evening on 12/28.
Past History
Additional Past Medical History:
Coronary artery disease
HFpEF
Hypercholesterolemia
Seasonal allergies
Urinary retention
Insulin-dependent diabetes mellitus
GERD
Angina
CKD unknown stage
Additional Past Surgical History:
CABG x 3 in 2007
Heart block with cardiac resynchronization therapy pacemaker
Aortic stenosis status post TAVR
Required transient hemodialysis on November 2024 at [facility]
Allergy History:
No Known Allergies Allergy (Verified 12/20/24 04:33)
Medications Reviewed: Yes
Current Antibiotics:
Allergies
Allergy/AdvReac Type Severity Reaction Status Date / Time
No Known Allergies Allergy Verified 12/20/24 04:33
Home Medications
finasteride 5 mg tablet 5 mg PO DAILY Urinary Issue 08/26/23
tamsulosin 0.4 mg capsule 0.4 mg PO DAILY Urinary Issue 08/26/23
acetaminophen 650 mg tablet,extended release 650 mg PO Q6HPRN PRN mild pain 12/20/24
aspirin 81 mg tablet,delayed release 81 mg PO DAILY Blood Clot Prevention/Tx 12/20/24
atorvastatin 80 mg tablet (Lipitor) 80 mg PO HS High Cholesterol 12/20/24
calcium 600 mg (as carbonate)-vitamin D3 10 mcg (400 unit) tablet (Calcium 600 + D(3)) 1 tab PO DAILY Supplement 12/20/24
cetirizine 10 mg tablet 10 mg PO DAILY PRN allergies 12/20/24
cholecalciferol (vitamin D3) 125 mcg (5,000 unit) tablet (Vitamin D3) 125 mcg PO DAILY Supplement 12/20/24
clopidogrel 75 mg tablet 75 mg PO DAILY Blood Clot Prevention/Tx 12/20/24
famotidine 40 mg tablet 40 mg PO HS Gastrointestinal Issue 12/20/24
ferrous sulfate 325 mg (65 mg iron) tablet 325 mg PO DAILY Anemia 12/20/24
insulin glargine 100 unit/mL (3 mL) subcutaneous pen (Basaglar KwikPen U-100 Insulin) 30 unit SC DAILY Diabetes ##0 12/20/24
ipratropium bromide 21 mcg (0.03 %) nasal spray 2 spray intranasal BID Allergies 12/20/24
metformin 500 mg tablet 500 mg PO BID Diabetes 12/20/24
Held on 12/23/24. Instructions: This medication should be held due to his chronic kidney disease, will need close follow-up with his primary care physician for alternative diabetic medications as needed
metoprolol tartrate 25 mg tablet 25 mg PO BID Heart Failure 12/20/24
multivitamin 1 tab PO DAILY Supplement 12/20/24
nitroglycerin 0.4 mg sublingual tablet 0.4 mg sublingual Q5-15M PRN chest pain 12/20/24
pantoprazole 40 mg tablet,delayed release 40 mg PO DAILY 30 days #30 tabs 12/23/24
torsemide 20 mg tablet 20 mg PO DAILY 30 days #30 tabs 12/23/24
Social History
Tobacco: Former Smoker
Alcohol: Occasional
Drug: None
Personal:
Living: With Family
Employment: Retired
Family History
Family History: Not Pertinent
Review of Systems
Review of Systems
General: Other (Fatigue)
Musculoskeletal: Myalgias (Burning myalgia of the ankles bilaterally and plantar portion of the feet bilaterally.)
Vital Signs
Temp Pulse Resp BP Pulse Ox
98.4 F 85 17 103/61 96
12/30/24 07:43 12/30/24 09:39 12/30/24 08:30 12/30/24 09:39 12/30/24 09:00
Physical Exam
Physical Exam
Constitutional: No Acute Distress, Comfortable and Non-toxic
Head: Normocephalic
Cardiovascular: Regular Rate and S1/S2; Negative Murmur, Rub, Peripheral Edema or Gallop
Pulmonary: Symmetric, Wheezes, Coarse and Non Labored; Negative Clear (Bilateral crackles)
Gastrointestinal: Soft, Non Tender, Non Distended and Normal Bowel Sounds
Genito-Urinary: Anders
Extremities: Negative Edema
Skin: Warm and Dry; Negative Rash, Jaundice or Ulcers
Wound: Negative None
Neurological: Awake, Alert, Oriented and AO x 3
Psychological: Calm
Lab / Diagnostic Study Results
12/30/24 04:17
12/30/24 04:17
Abs Immat Gran (auto) 1.0 10^3/uL (0-0.05) H 12/28/24 12:58
Absolute Neuts (auto) 29.8 10^3/uL (1.4-6.5) H 12/28/24 12:58
Absolute Lymphs (auto) 0.6 10^3/uL (1.2-3.4) L 12/28/24 12:58
Absolute Monos (auto) 3.9 10^3/uL (0.1-0.6) H 12/28/24 12:58
Absolute Basos (auto) 0.1 10^3/uL (0-0.2) 12/28/24 12:58
Immature Gran % 2.8 % (0-0.5) H 12/28/24 12:58
Neutrophils % 84.3 % (42.2-75.2) H 12/28/24 12:58
Lymphocytes % 1.6 % (20.5-51.1) L 12/28/24 12:58
Monocytes % 11.1 % (1.7-9.3) H 12/28/24 12:58
Eosinophils % 0.0 % (0-6) 12/28/24 12:58
Basophils % 0.2 % (0-2) 12/28/24 12:58
PT 17.1 Sec (11.4-14.6) H 12/28/24 12:58
INR 1.36 12/28/24 12:58
Lactic Acid Cancelled 12/29/24 06:17
Ur Squamous Epith Cells 6-10 /LPF (Few) 12/28/24 17:18
Microbiology Results
Micro:
12/30/24 10:34 Blood Culture - Pending
Blood/Venous
12/28/24 23:16 Blood Culture - Preliminary
Blood/Venous Enterococcus species
Gram Stain - Preliminary
12/28/24 22:17 Blood Culture - Preliminary
Blood/Venous Enterococcus faecalis
Gram Stain - Preliminary
12/30/24 10:21 Blood Culture - Pending
Blood/Venous
12/28/24 22:17 Nasal Screen MRSA (PCR) - Final
Nose MRSA not detected - performed by PCR methodology.
12/28/24 17:46 Influenza Types A & B (FLACO) - Final
Nasal Swab Negative for Influenza A & B, NAAT
Negative results must be combined with clinical observations
and patient history.
Nucleic Acid Amplification test (NAAT)performed on the
[employer] platform.
Assessment / Plan
Assessment/plan:
Enterococcus faecalis bacteremia: Unresolved
Septic shock secondary to Enterococcus faecalis bacteremia: Unresolved
NOE: Unresolved/improving
Leukocytosis: Unresolved/improving
Blood cultures were not drawn in the emergency department and were collected post PICC placement and after antibiotics were administered -repeat blood cultures x 2 ordered
TTE on 12/29 did not show vegetation and was unchanged from prior echo on 12/20. Echo was limited and did not assess aortic and pulmonic valves -recommend repeat echo with those valves assessed
Consideration for CT of the abdomen and pelvis with oral contrast if abdominal source is suspected and once renal function near/at baseline
Unlikely a UTI considering the urine analysis was without pyuria
Respiratory symptoms with hypoxia likely secondary to CHF exacerbation -Zosyn discontinued
Vancomycin has been restarted, vancomycin was given on 12/28 and resumed on 12/30
PICC line should be discontinued as soon as possible as it is likely that it has been seeded while the patient was bacteremic
--- NOTE | 2024-12-30 11:01 | PHA.VAN.FU ---
Vancomycin Assessment / Plan
- Assessment
Renal Function: SCR Decreasing
WBC's are: Trending Down
In the past 24 hrs, patient has been: Afebrile
Concomitant Antimicrobials: piperacillin/tazobactam
- Assessment - Therapeutic Drug Monitoring
Random Level: 10 - drawn ~30.5H after previous level of 18.7
Calculated ke: 0.0204
Calculated half life (H): 34
drawn ~42H after 1500mg loading dose, no other doses received
- Dosing Plan
Dosing by Level: Re-dose today (Vanc 750mg)
- Monitoring Plan
Random Level: 12/31 06
- Follow Up
Pharmacy will continue to follow.
Vancomycin Follow UP
- -
Patient Age: 74
Patient Sex: Male
Vancomycin Day #: 3
Indication: Bacteremia
Requesting Provider: Dr. Cordova / Dorene
Pertinent Antimicrobial Allergies:
NKDA
Height / Weight:
Height 5 ft 7 in
Actual Weight 62.5 kg
Pertinent Past Medical History: CKD 3 (~1.7), DM 2
- Vital Signs / Lab Results
Temp Pulse Resp BP Pulse Ox
98.4 F 85 17 103/61 96
12/30/24 07:43 12/30/24 09:39 12/30/24 08:30 12/30/24 09:39 12/30/24 09:00
Lab Results - Hematology
12/28/24 12/29/24 12/30/24
12:58 03:45 04:17
WBC 35.3 H 25.4 H 12.0 H
Lab Results - Chemistry
12/28/24 12/28/24 12/29/24
12:58 22:17 03:45
BUN 60 H 65 H 64 H
Creatinine 3.2 H 2.9 H 2.9 H
Estimated Creat Clear 21 20
Albumin 4.4
12/30/24
04:17
BUN 64 H
Creatinine 2.6 H
Estimated Creat Clear 22
Albumin 3.5
12/28/24 12/28/24 12/28/24
13:40 13:45 16:33
Lactic Acid Cancelled Cancelled Cancelled
12/28/24 12/28/24 12/29/24
17:45 22:17 02:17
Lactic Acid Cancelled 2.3 H Cancelled
12/29/24 12/29/24
03:45 06:17
Lactic Acid 1.4 Cancelled
Microbiology Results
12/28/24 23:16 Blood Culture - Preliminary
Blood/Venous Enterococcus species
Gram Stain - Preliminary
12/28/24 22:17 Blood Culture - Preliminary
Blood/Venous Enterococcus faecalis
Gram Stain - Preliminary
12/28/24 22:17 Nasal Screen MRSA (PCR) - Final
Nose MRSA not detected - performed by PCR methodology.
12/28/24 17:46 Influenza Types A & B (FLACO) - Final
Nasal Swab Negative for Influenza A & B, NAAT
Negative results must be combined with clinical observations
and patient history.
Nucleic Acid Amplification test (NAAT)performed on the
[employer] platform.
Therapeutic Drug Monitoring
Random Vancomycin 10.0 ug/ml 12/30/24 10:23
[2024-12-30] MEDS: KCL ELIXIR 40 MEQ PO (11:08)
[2024-12-30] MEDS: VANCOCIN 150 IV (11:42)
--- NOTE | 2024-12-30 11:43 | W.PN.CARDCBS ---
Today's Communication / Plan
-
Continue supportive care. Wean IV and oral pressors as tolerates
Diuresis per nephrology
Continues to make slow cardiac headway. If considering IV inotropes would prefer a right heart catheterization prior.
We will check implantable device today.
Continue treatment of sepsis.
Continue treatment of coronary disease with recent Non-Q wave myocardial infarction
Impression / Plan
-
PCP: Israel Clifton MD
CDY: Orlando Langley MD
Impression:
Admitted with sepsis and NOE 12/20/2024
Hypotension requiring pressor support consistent with shock (septic/cardiogenic)
Recent admission acute HFrEF and NSTEMI 12/20/2024 until 12/23/2024
Recent ER visit at [facility] for chest pain and SOB 12/09/2024
Mitral regurgitation previously mild to moderate now moderate to severe in the setting of volume overload
Clinical sepsis
Possible multifocal PNA
Possible cardiogenic shock
NOE on CKD
Previously required transient HD 07/2024
Hyperkalemia
Elevated troponin, overall trending down from last admission
CAD
s/p CABG with GAFFNEY-LAD, VG-dLAD, VG-PLB 2007
s/p SVG to the distal LAD PCI at [facility] by Dr. Gavin 04/2024
Patent GAFFNEY to LAD, patent SVG to PLB with PDA filling via retrograde from the PLB, occlusion of the SVG to the distal LAD with 100% occlusion of previously placed stent 12/21/2024
s/p tissue AVR 2007
HLD
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
HTN
DM
Language barrier
Thrombocytopenia
Echo 08/2023: nml LV size, abnormal diastolic function with increased LVEDP, EF 60-65%, CLVH but no obvious regional abn. normally functioning bioprosthetic AV, PG/MG 32.5/18, ABEL 1.34cm2
Echo 12/20/2024: EF 35 to 40%, mild concentric LVH, mid to distal inferior, inferolateral, mid anteroseptal, mid anterior, apical hypokinesis, dense MAC, at least moderate to severe MR with anterior eccentric jet, mild to moderate TR, PAP 38 mmHg
Echocardiogram 12/29/2024: Ejection fraction 30 to 35%. Mid to distal inferior, inferolateral, mid anteroseptal and mid anterior hypokinesis with apical akinesis. Moderate to severe mitral regurgitation. Mild to moderate TR.
Plan:
-Hypotension requiring pressors (Levophed). Wean as tolerates. Treat septic shock. Support cardiogenic shock. Currently on midodrine and eventually will wean if tolerates.
-With better blood pressure and treatment of sepsis his renal function (acute on chronic abnormality) continues to improve
-Patient required transient hemodialysis treatments during an admission to [facility] 07/2024, his last cardiac cath before that was at [facility] 04/2024
-Supportive care of acute on chronic renal failure. Followed by nephrology.
-He continues with heart failure with reduced ejection fraction. Support of blood pressure care. Diuresis per nephrology. His weight is down 3 more pounds.
-Cannot start guideline directed medical therapy for heart failure with reduced ejection fraction given hypotension/renal insufficiency. Continue to reassess.
-Patient was not taking ALETHA/ARB/ARNI/aldosterone antagonist prior to admission due to NOE.
-Hold on SGLT2 inhibitor given fluctuating renal status and ongoing treatment of sepsis.
-Echo reviewed with severely depressed left ventricular ejection fraction 30 to 35% ( to 65%). Now moderate to severe mitral regurgitation (previously mild to moderate). Continue to maximize cardiac status and continue to follow.
- Anemia noted which has been worsening despite diuresis. Defer to primary service for evaluation. Higher hemoglobin would help more with cardiac output.
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 WBC improved. Prior Enterococcus in blood. New or blood cultures pending. COVID and influenza swabs were negative.
-Labs reviewed by al 12/29/2024 and Cre from 3.2 down to 2.9. Nephrology following and patient received Lasix 80 mg IV x 1 on 12/20/2024 PM. Reviewed with nephrology 12/29/2024 and additional Lasix 80 mg IV x 1 now ordered by me.
-Remains hypoxic on 2 L NC. Weight is down at least 4 lbs.
-He has known coronary disease with recent acute evens. EF previously 60 to 65% in 2023 and now down to 35 to 40% by echo 12/20/2024. This is presumed to be ICM with evidence of occlusion of a previously placed stent in the vein graft to the
distal LAD by cardiac cath 12/21/2024. Of note patient did not take medications postdischarge.
-Initial troponin 12.1 and then trending down to 11.4 overnight. Troponin is trending down from NSTEMI and peak troponin of 27.9 when he was admitted last week.
-Continue risk factor modification as able.
-Patient with history of remote CABG and there was an attempt at PCI of the SVG to the distal LAD at [facility] 04/2024, but this stent was 100% occluded at the last cath 12/21/2024. GAFFNEY to LAD and SVG to PLB were both patent.
-Outpatient doses of aspirin and Plavix should be continued. Thrombocytopenia is chronic on prior review of the labs today.
-Will check [employer] EDUCATION TRAINER�P . Telemetry is A sensed V paced. Device checked last admission showed OptiVol trending up since mid November, but no arrhythmia.
HPI: Patient presented to the ER today with SMALL and is being admitted with possible sepsis and NOE and cardiology is being consulted for possible CHF and recent admission for NSTEMI. Patient has a history of remote CABG and AVR in 2007 at an
outside hospital. He had an admission to [facility] 04/2024 and he had PCI of the SVG to the distal LAD. Patient was then admitted to [facility] with NOE and was transiently on hemodialysis 07/2024. Most recently he has been following with "Alexus"Korin at [facility] and their office referred the patient to the [facility] ER on 12/09/2024 after he complained of chest pain during a visit in their office that day. The patient was discharged from the ER with a higher dose of
Lopressor and they added Imdur ER. There was apparently no consideration for acute HF at that time. Patient then came to the [facility] ER on 12/20/2024 with chest pain and the initial troponin was 2.22 and subsequent troponin was as high as 27.9.
Patient was admitted and eventually had cardiac cath 12/21/2024 that showed that the stent in the SVG to the LAD from April was 100% occluded and the GAFFNEY to LAD and SVG to PLV grafts were patent. There was also evidence of acute HFrEF during
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 PCWP was down to 18 which correlated with a weight of 141 lbs at time of cath on 12/21/2024. Cre was stable at 1.8 on the
day of discharge 12/23/2024. At the recommendation of nephrology the patient was discharged home on torsemide 20 mg daily. Patient's family reports that medications were not delivered in a timely fashion and so he was not taking any of his
medications since admission until they arrived yesterday. Patient has had increasing SMALL over the last 24 hours and came to the ER today. There is leukocytosis with a WBC count of 35 with a left shift. Lactic acid levels pending. There is
concern for sepsis possibly due to PNA and patient is being admitted to the ICU due to his need for pressor support with Levophed.
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
Subjective
Date of Service: December 30, 2024
He feels poorly. He feels short of breath.
Objective
Labs:
12/30/24 04:17
12/30/24 04:17
Labs
Hgb 7.8 g/dL (13.0-18.0) L 12/30/24 04:17
Hct 22.8 % (39.0-52.0) L 12/30/24 04:17
Plt Count 49 10^3/uL (130-400) L 12/30/24 04:17
PT 17.1 Sec (11.4-14.6) H 12/28/24 12:58
INR 1.36 12/28/24 12:58
APTT 42.4 Sec (23.4-35.0) H 12/28/24 12:58
Sodium 135 mmol/L (135-145) 12/30/24 04:17
Potassium 3.4 mmol/L (3.5-5.1) L 12/30/24 04:17
BUN 64 mg/dl (9-20) H 12/30/24 04:17
Creatinine 2.6 mg/dL (0.7-1.3) H 12/30/24 04:17
Glucose 117 mg/dl (70-99) H 12/30/24 04:17
Troponins
12/28/24 12/29/24
12:58 03:45
Troponin I 12.100 H* 11.400 H*
Vital Signs and I&O:
Vital Signs
Temp Pulse Resp BP Pulse Ox
98.4 F 85 17 103/61 96
12/30/24 07:43 12/30/24 09:39 12/30/24 08:30 12/30/24 09:39 12/30/24 09:00
Vital Signs
Temp Pulse Resp BP Pulse Ox
98.4 F 85 17 103/61 96
12/30/24 07:43 12/30/24 09:39 12/30/24 08:30 12/30/24 09:39 12/30/24 09:00
Intake & Output
12/28/24 12/29/24 12/30/24 12/31/24
06:59 06:59 06:59 06:59
Intake Total 1065.6 / 1091.9 1191.4 / 1191.4 65 / 65
Output Total 3212 / 3212 3515 / 3515 50 / 50
Balance -2146.4 / -2120.1 -2323.6 / -2323.6
Physical Exam
Physical Exam
General: Thin man short of breath at rest
Heart: Distant heart sounds, regular, 2/6 basal systolic murmur non displaced PMI, RRR, no murmurs, No S3, S4, no rubs.
Lungs: Coarse breath sounds with crackles
Extremities: No clubbing, cyanosis or edema bilaterally.
Neuro: Grossly nonfocal, awake, alert and oriented x3.
--- NOTE | 2024-12-30 11:45 | PTCARENOTE ---
Patient had eaten a late lunch, is only drinking juice and broth with pudding. PCT accidently obtained accu check about 30min after patient had consumed 3 juices. Sugar in 300s. Notified Dr. Cordova as patient has received 4units novolog at 1030.
Will check sugar at 1400 per physician.
[2024-12-30 12:02] LABS: Glucose - Point of Care 358 mg/dl (70-99)
--- NOTE | 2024-12-30 12:15 | PTCARENOTE ---
doing rounds again with patient and patient complained of chest and penile pain. Had performed wolf care prior, but patient was sitting on wolf, un-kinked wolf, yellow urine is draining. Obtained EKG and tiger texted Dr. Cordova and
Luis E.
--- NOTE | 2024-12-30 13:20 | PTCARENOTE ---
Dr. Cordova at bedside. patient denies chest pain at this time, said it seems to happen when he eats. Gave midodrin but had to restart levo gtt per parameters. Have PRN nitro for chest pain if needed
[2024-12-30 14:13] LABS: Glucose - Point of Care 280 mg/dl (70-99)
[2024-12-30 14:15] LABS: Troponin I 8.540 ng/ml
[2024-12-30] MEDS: NOVOLOG FLEXPEN 5 UNITS SC (14:20)
[2024-12-30] MEDS: NOVOLOG FLEXPEN-LOW RESISTANCE 3 UNITS SC (14:20)
[2024-12-30] MEDS: NOVOLOG FLEXPEN SC (14:22)
--- NOTE | 2024-12-30 16:13 | PTCARENOTE ---
no change in pt condition
--- NOTE | 2024-12-30 16:21 | CM ---
Hypotension, septic shock, PNA, Wean pressors, Midodrine po, Vanco/IV. Discharge POC: TBD. Await therapy evaluation.
[2024-12-30 16:22] LABS: Glucose - Point of Care 205 mg/dl (70-99)
--- NOTE | 2024-12-30 16:31 | W.CARD.DEVCH ---
Cardiac Device Check
-
Device: Pacemaker
Inspector Of Dredging: Medtronic
The patient's device was interrogated with assistance of the device contact center representative followed by a complete physician review. The device had normal function. No abnormalities seen.
Patient's Medtronic ADMINISTRATOR OF HOME HEALTH�P was interrogated by me, normal device and lead function, OptiVol trending up just prior to admission, no atrial or ventricular arrhythmia, 10 years battery longevity.
[2024-12-30] MEDS: NOVOLOG FLEXPEN-LOW RESISTANCE 2 UNITS SC (16:57)
[2024-12-30] MEDS: LANTUS 0.3 UNITS SC (21:10)
[2024-12-30 21:18] LABS: Glucose - Point of Care 286 mg/dl (70-99)
[2024-12-31] VITALS (27 sets, daily range): BP systolic 80–123; BP diastolic 44–83; PULSE 98; O2SAT 98; BMI 22.4
--- NOTE | 2024-12-31 05:30 | PTCARENOTE ---
AM labs sent. levo titrated off overnight. V paced on monitor, on 2L NC. OOB x2 to bedside commode for BM. wolf intact, wolf care provided. call abdul in reach, pt makes needs known.
[2024-12-31 05:40] LABS: Hematocrit 24.2 % (39.0-52.0); Hemoglobin 7.8 g/dL (13.0-18.0); Mean Corp Hgb Conc. 32.2 g/dL (33.0-37.0); Mean Corpuscular Volume 98.4 fL (80.0-94.0); Platelet Count 49 10^3/uL (130-400); Red Cell Dist. Width 14.6 % (11.5-14.5)
[2024-12-31 05:57] LABS: ALT (SGPT) 135 U/L (0-50); AST (SGOT) 154 U/L (17-59); Albumin 3.5 g/dl (3.5-5.0); Alkaline Phosphatase 77 U/L (38-126); Blood Urea Nitrogen 55 mg/dl (9-20); Calcium 9.2 mg/dl (8.4-10.2); Carbon Dioxide 25 mmol/L (22-30); Chloride 99 mmol/L (98-107); Estimated Creatinine Clearance 25 ml/min; Glucose 141 mg/dl (70-99); Potassium 3.8 mmol/L (3.5-5.1); Sodium 134 mmol/L (135-145); Total Protein 6.1 g/dl (6.3-8.2); eGFR 27.62
--- NOTE | 2024-12-31 07:46 | W.PN.INTV ---
Today's Communication / Plan
Recommendations
Continue with diuresis per nephrology
Off pressors
Antibiotics per ID, follow cultures
PICC line in place, per infectious disease recommendations
Consideration for right heart catheterization noted. Cardiology following
Patient on room air
We will sign off. Please call with questions
Assessment
-
74-year-old male with complex medical history including coronary disease with multiple hospital stays for shortness of breath, heart failure, renal insufficiency, most recently discharged 12/23/2024, now returns with progressive shortness of breath,
found to have progressive renal insufficiency, hyperkalemia, hypotension and chest x-ray with bilateral infiltrates. Patient given IV fluids, started on pressors, admitted to ICU for further management 12/28/2024. Patient also given IV antibiotics
Acute respiratory insufficiency
Intermittent chest pain
Orthopnea
Mild hemoptysis
Bilateral infiltrates
Heart failure versus pneumonitis (likely combination)
Subjective fever/chills x 24 hours
Ischemic cardiomyopathy, EF 35% (new c/t Echo August 2023)
Moderate to severe MR per echo 12/20/2024
s/p tissue AVR 2007
Acute renal insufficiency, admission creatinine 3.2
Improved to 2.6 with diuresis
History of CKD, baseline creatinine 1.8
Required transient HD July 2024 at [facility]
Leukocytosis
Anemia
Conditions present prior to admission
History of coronary disease with CABG 2007
LAD Stent April 2024
Now occluded per catheterization December 2024
History of recurrent heart failure
Multiple hospital stays at [facility]
Hypertension, hyperlipidemia
Diabetes
History of complete heart block
Medtronic STEAM FLATTENER pacemaker August 2023
History of stroke
Plan/recommendations
At this time, patient improved objectively and subjectively
Pressors were weaned off
Midodrine started
Chest x-ray initially appears consistent with heart failure, per my review
Negative fluid status noted, with improved creatinine
Orthopnea seems to be improved
Positive blood cultures noted
Infectious disease following
Moving forward
Suspect cardiorenal process with less likely underlying infectious process
Significant leukocytosis noted. Blood culture positive for Enterococcus faecalis
Antibiotics will continue. ID consulted
Doubt pulmonary process
Negative COVID, negative flu
Discontinue vancomycin
Abdominal imaging pending
Follow-up cultures, PICC line noted. Defer to ID
There is also likely a component of heart failure
Worsening orthopnea over the last few days noted, now improved
Remains on norepinephrine, being weaned
Cardiology following
Nephrology following
Suspect patient is at risk for progressive renal insufficiency, may require dialysis. Apparently required dialysis briefly at [facility] in July 2024
Follow electrolytes, replete magnesium
Lasix per cardiology, nephrology
Anders catheter remains in place
Follow liver function
Blood sugars noted
Prior hemoglobin A1c less than 6
Continue with monitoring, coverage
DVT prophylaxis: Remains on subcutaneous heparin every 8 hours
Reviewed plan with critical care nursing
Reviewed with primary service
We will sign off. Please call with questions
Subjective Dataa
Subjective Data
Date of Service:
Date of Service: December 31, 2024
Subjective:
Patient feels much improved. Able to understand him speaking. Shortness of breath improved, chest pain resolved. Gets occasional indigestion
Objective Data
Data Reviewed
Vital Signs / I&O / Oxygen:
Vital Signs
Temp Pulse Resp BP Pulse Ox
97.7 F 93 16 81/49 97
12/31/24 07:28 12/31/24 06:09 12/31/24 06:09 12/31/24 06:09 12/31/24 06:09
Intake and Output
12/30/24 12/31/24 01/01/25
06:59 06:59 06:59
Intake Total 1191.4 / 1191.4 612.5 / 612.5
Output Total 3515 / 3515 1050 / 1050
Balance -2323.6 / -2323.6 -437.5 / -437.5
SaO2 97
Nasal Cannula flow liters per 2
minute
Physical Exam
General: Comfortable
HEENT: Normocephalic and Anicteric
Cardiovascular: S1-S2, Regular Rhythm, Murmur (n), Rub (n) and Peripheral Edema (n)
Respiratory: Wheeze (n), Crackles (Mild bibasilar), Rhonchi (n), Non-Labored Respirations and Stridor (n)
GI: Soft, Non Distended and Non Tender
Neurology: Awake, Alert and No Motor Deficits
Skin: Good Color, Jaundice (n) and Rash (n)
Labs/Micro/Reports
Lab Data
12/31/24 05:03
12/31/24 05:03
Microbiology
12/28/24 23:16 Blood/Venous Blood Culture - Preliminary
Enterococcus species
12/28/24 23:16 Blood/Venous Gram Stain - Preliminary
12/28/24 22:17 Blood/Venous Blood Culture - Preliminary
Enterococcus faecalis
12/28/24 22:17 Blood/Venous Gram Stain - Preliminary
12/28/24 22:17 Nose Nasal Screen MRSA (PCR) - Final
MRSA not detected - performed by PCR methodology.
12/28/24 17:46 Nasal Swab Influenza Types A & B (FLACO) - Final
Negative for Influenza A & B, NAAT
Negative results must be combined with clinical observations
and patient history.
Nucleic Acid Amplification test (NAAT)performed on the
[employer] platform.
[2024-12-31 08:09] LABS: Glucose - Point of Care 182 mg/dl (70-99)
[2024-12-31] MEDS: NOVOLOG FLEXPEN-LOW RESISTANCE 1 UNITS SC (08:36)
[2024-12-31] MEDS: NOVOLOG FLEXPEN 5 UNITS SC ×3 (08:36→17:12)
[2024-12-31] MEDS: PROSCAR 5 MG PO (08:37)
[2024-12-31] MEDS: ASPIR LOW (ENTERIC COATED) 81 MG PO (08:37)
[2024-12-31] MEDS: FLOMAX 0.4 MG PO (08:37)
[2024-12-31] MEDS: PLAVIX 75 MG PO (08:37)
[2024-12-31] MEDS: PROTONIX 40 MG PO (08:37)
[2024-12-31] MEDS: DEMADEX 20 MG PO (08:37)
[2024-12-31] MEDS: OSCAL 500 + D 500 MG PO (08:37)
[2024-12-31] MEDS: FEOSOL 325 MG PO (08:37)
[2024-12-31] MEDS: VITAMIN D3 (cholecalciferol) 125 MCG PO (08:37)
[2024-12-31] MEDS: THERAGRAN 1 TABLET PO (08:37)
[2024-12-31] MEDS: HEPARIN 5000 UNITS SC ×3 (08:38→23:50)
--- NOTE | 2024-12-31 09:47 | PTCARENOTE ---
Updated assessment, vital signs ongoing and as documented. Follow up with pulmonary team review o2 assessment at present. Update thru am with language line and demonstration with teaching. Update with hospitalist team at bedside. Follow as IMU will
evaluate bp trends for possible further down grade later today. Patient very interactive with staff. VSS no c/c to offer at rest.
--- NOTE | 2024-12-31 10:27 | W.PN.ID1 ---
Addendum entered and electronically signed by Davian Bang DO 12/31/24 12:05:
I saw and evaluated the patient. I reviewed the resident�s note and agree with findings and plan as documented in the resident�s note.
Continue vancomycin pending further susceptibility data.
Repeat blood cultures are pending; will continue to follow.
Consider CT scan of abdomen +/- abdominal ultrasound given elevated bilirubin and LFTs.
Monitor white count and temperature curve.
Original Note:
Date of Service
Date of Service: December 31, 2024
Today's Communication
Continue vancomycin
PICC line should be discontinued as soon as possible as it is likely that it has been seeded while the patient was bacteremic
CRP and ESR in the AM tomorrow.
Assessment / Plan
Assessment/plan:
Enterococcus faecalis bacteremia: Unresolved
Septic shock secondary to Enterococcus faecalis bacteremia: Unresolved
NOE: Unresolved/improving
Leukocytosis: Unresolved/improving
Blood cultures were not drawn in the emergency department and were collected post PICC placement and after antibiotics were administered -repeat blood cultures x 2 ordered
TTE on 12/29 did not show vegetation and was unchanged from prior echo on 12/20. Echo was limited and did not assess aortic and pulmonic valves -recommend repeat echo with those valves assessed
Consideration for CT of the abdomen and pelvis with oral contrast if abdominal source is suspected and once renal function near/at baseline
Unlikely a UTI considering the urine analysis was without pyuria
Respiratory symptoms with hypoxia likely secondary to CHF exacerbation -Zosyn discontinued
Continue vancomycin, vancomycin was given on 12/28 and resumed on 12/30
PICC line should be discontinued as soon as possible as it is likely that it has been seeded while the patient was bacteremic
CRP and ESR in the AM tomorrow.
Subjective / Review of Systems
Met with patient at the bedside. Overall he states that he is doing the same as he did yesterday. He is not having any chest pain, shortness of breath or chest tightness. He has a normal appetite and was eating his breakfast normally while
listening to the news from [place]. He has occasional cough that is not productive with any sputum.
Review of Systems: No Fever, Cough, No Sputum Production, No Chest Pain, No Palpitations, No Abdominal Pain, No Nausea, No Vomiting and No Diarrhea
Vital Signs / Physical Exam
Vital Signs
Vital Signs
Temp Pulse Resp BP Pulse Ox
97.7 F 83 28 105/67 98
12/31/24 07:28 12/31/24 08:55 12/31/24 08:55 12/31/24 08:55 12/31/24 08:55
Physical Exam
Constitutional: Well Developed, Comfortable and Other (thin)
Head: Normocephalic
Eyes: Pupils Equal
Oropharyngeal: Benign
Cardiovascular: Regular Rate and S1/S2; Negative Murmur, Rub, Peripheral Edema or Gallop
Pulmonary: Clear and Non Labored; Negative Wheezes, Rales, Rhonchi or Coarse
Gastrointestinal: Soft, Non Tender, Non Distended and Normal Bowel Sounds
Extremities: Negative Edema, Clubbing or Cyanosis
Skin: Warm and Dry; Negative Rash, Jaundice or Ulcers
Neurological: Awake, Alert, Oriented and AO x 3
Psychological: Calm
Objective Data
Lab Data
Lab Results
12/31/24 05:03
12/31/24 05:03
PT 17.1 Sec (11.4-14.6) H 12/28/24 12:58
INR 1.36 12/28/24 12:58
APTT 42.4 Sec (23.4-35.0) H 12/28/24 12:58
Estimated Creat Clear 25 ml/min 12/31/24 05:03
Lactic Acid Cancelled 12/29/24 06:17
Total Bilirubin 3.1 mg/dl (0.2-1.3) H 12/31/24 05:03
AST 154 U/L (17-59) H 12/31/24 05:03
ALT 135 U/L (0-50) H 12/31/24 05:03
Alkaline Phosphatase 77 U/L (38-126) 12/31/24 05:03
Most recent labs reviewed.
Micro Results:
12/30/24 10:34 Blood Culture - Pending
Blood/Venous
12/28/24 23:16 Blood Culture - Preliminary
Blood/Venous Enterococcus species
Gram Stain - Preliminary
12/28/24 22:17 Blood Culture - Preliminary
Blood/Venous Enterococcus faecalis
Gram Stain - Preliminary
12/30/24 10:21 Blood Culture - Pending
Blood/Venous
12/28/24 22:17 Nasal Screen MRSA (PCR) - Final
Nose MRSA not detected - performed by PCR methodology.
12/28/24 17:46 Influenza Types A & B (FLACO) - Final
Nasal Swab Negative for Influenza A & B, NAAT
Negative results must be combined with clinical observations
and patient history.
Nucleic Acid Amplification test (NAAT)performed on the
[employer] platform.
[2024-12-31 12:23] LABS: Glucose - Point of Care 139 mg/dl (70-99)
[2024-12-31] MEDS: NOVOLOG FLEXPEN-LOW RESISTANCE SC (12:32)
--- NOTE | 2024-12-31 12:55 | W.PN.CARDCBS ---
Today's Communication / Plan
-
Continue supportive care
Diuresis per nephrology
He continues to slowly improve
If any decline could consider right heart catheterization but volume status and oxygenation continue to go in the right direction. Chest x-ray with improvement in interstitial edema.
Continue treatment of bacteremia.
Continue current medications
Impression / Plan
-
PCP: Israel Clifton MD
CDY: Orlando Langley MD
Impression:
Admitted with sepsis and NOE 12/20/2024
Hypotension requiring pressor support consistent with shock (septic/cardiogenic)
Recent admission acute HFrEF and NSTEMI 12/20/2024 until 12/23/2024
Recent ER visit at [facility] for chest pain and SOB 12/09/2024
Aortic valve stenosis moderate
Mitral regurgitation previously mild to moderate now moderate to severe in the setting of volume overload
Clinical sepsis
Possible multifocal PNA
Possible cardiogenic shock
NOE on CKD
Previously required transient HD 07/2024
Hyperkalemia
Elevated troponin, overall trending down from last admission
CAD
s/p CABG with GAFFNEY-LAD, VG-dLAD, VG-PLB 2007
s/p SVG to the distal LAD PCI at [facility] by Dr. Gavin 04/2024
Patent GAFFNEY to LAD, patent SVG to PLB with PDA filling via retrograde from the PLB, occlusion of the SVG to the distal LAD with 100% occlusion of previously placed stent 12/21/2024
s/p tissue AVR 2007
HLD
Medtronic MANUFACTURING SCHEDULER�P
HTN
DM
Language barrier
Thrombocytopenia
Echo 08/2023: nml LV size, abnormal diastolic function with increased LVEDP, EF 60-65%, CLVH but no obvious regional abn. normally functioning bioprosthetic AV, PG/MG 32.5/18, ABEL 1.34cm2
Echo 12/20/2024: EF 35 to 40%, mild concentric LVH, mid to distal inferior, inferolateral, mid anteroseptal, mid anterior, apical hypokinesis, dense MAC, at least moderate to severe MR with anterior eccentric jet, mild to moderate TR, PAP 38 mmHg
Echocardiogram 12/29/2024: Ejection fraction 30 to 35%. Mid to distal inferior, inferolateral, mid anteroseptal and mid anterior hypokinesis with apical akinesis. Moderate to severe mitral regurgitation. Mild to moderate TR.
Echo 12/30/2024: Ejection fraction 30% by visual estimation. Segmental wall motion abnormalities noted. Moderate to severe mitral regurgitation similar to prior. Previously aortic valve was not assessed. Likely moderate aortic valve stenosis
Peak/mean gradients are 32/20mmHg. ABEL 0.8cm sq, using a LVOT of 1.6cm.Mild to moderate tricuspid regurgitation. Estimated pulmonary artery pressure of 33 mmHg
Plan:
-Hypotension requiring pressors (Levophed). He has continued to be weaned and is on midodrine with stable blood pressure sitting in the chair. He continues to undergo treatment for septic shock. Support cardiogenic shock.
-With better blood pressure and treatment of sepsis his renal function (acute on chronic abnormality) continues to improve. Nephrology following.
-Patient required transient hemodialysis treatments during an admission to [facility] 07/2024, his last cardiac cath before that was at [facility] 04/2024
-Supportive care of acute on chronic renal failure. Followed by nephrology.
-He continues with heart failure with reduced ejection fraction. Support of blood pressure care. Diuresis per nephrology.
-Cannot start guideline directed medical therapy for heart failure with reduced ejection fraction given hypotension/renal insufficiency. Continue to reassess.
-Patient was not taking ALETHA/ARB/ARNI/aldosterone antagonist prior to admission due to NOE.
-Hold on SGLT2 inhibitor given fluctuating renal status and ongoing treatment of sepsis.
- Prior echo reviewed with severely depressed left ventricular ejection fraction 30 to 35% ( to 65%). With repeat echo 12/30/2024 ejection fraction 30% similar. He also still has moderate to severe mitral regurgitation (previously mild to
moderate). Also moderate aortic valve stenosis. Continue to maximize cardiac status and continue to follow.
Given he is slowly improving would not proceed with right heart catheterization at this time but to continue to reassess.
Chest x-ray 12/31/2024 with improvement of interstitial pulmonary edema.
- Anemia noted which has been worsening despite diuresis. No obvious bleeding. Defer to primary service for evaluation. Higher hemoglobin would help more with cardiac output. Would favor 1 unit of packed red blood cells which may be helpful.
- Antibiotic treatment per primary service, ID and butter liquefier.Prior Enterococcus in blood. COVID and influenza swabs were negative.
-Labs reviewed by me 12/30/2024 and Cre from 3.2 down to 2.4. Nephrology following.
-Remains 98% on 2 L NC. s.
-He has known coronary disease with recent acute events. EF previously 60 to 65% in 2023 and now down to 35 to 40% by echo 12/20/2024. This is presumed to be ICM with evidence of occlusion of a previously placed stent in the vein graft to the
distal LAD by cardiac cath 12/21/2024. Of note patient did not take medications postdischarge.
-Initial troponin 12.1 and then trending down to 11.4 overnight. Troponin is trending down from NSTEMI and peak troponin of 27.9 when he was admitted last week.
-Continue risk factor modification as able.
-Patient with history of remote CABG and there was an attempt at PCI of the SVG to the distal LAD at [facility] 04/2024, but this stent was 100% occluded at the last cath 12/21/2024. GAFFNEY to LAD and SVG to PLB were both patent.
-Outpatient doses of aspirin and Plavix should be continued. Thrombocytopenia is chronic on prior review of the labs today.
- Stable device check of Medtronic MANUFACTURING SCHEDULER�P . Telemetry also stable.
Discussed with nursing. Discussed with butter liquefier service.
HPI: Patient presented to the ER today with SMALL and is being admitted with possible sepsis and NOE and cardiology is being consulted for possible CHF and recent admission for NSTEMI. Patient has a history of remote CABG and AVR in 2007 at an
outside hospital. He had an admission to [facility] 04/2024 and he had PCI of the SVG to the distal LAD. Patient was then admitted to [facility] with NOE and was transiently on hemodialysis 07/2024. Most recently he has been following with "Alexus"Korin at [facility] and their office referred the patient to the [facility] ER on 12/09/2024 after he complained of chest pain during a visit in their office that day. The patient was discharged from the ER with a higher dose of
Lopressor and they added Imdur ER. There was apparently no consideration for acute HF at that time. Patient then came to the [facility] ER on 12/20/2024 with chest pain and the initial troponin was 2.22 and subsequent troponin was as high as 27.9.
Patient was admitted and eventually had cardiac cath 12/21/2024 that showed that the stent in the SVG to the LAD from April was 100% occluded and the GAFFNEY to LAD and SVG to PLV grafts were patent. There was also evidence of acute HFrEF during
that admission and EF was newly reduced at 35 to 40%, it had been 60 to 65% by an echo from his primary concrete conveyor operator 08/2023. PCWP was down to 18 which correlated with a weight of 141 lbs at time of cath on 12/21/2024. Cre was stable at 1.8 on the
day of discharge 12/23/2024. At the recommendation of nephrology the patient was discharged home on torsemide 20 mg daily. Patient's family reports that medications were not delivered in a timely fashion and so he was not taking any of his
medications since admission until they arrived yesterday. Patient has had increasing SMALL over the last 24 hours and came to the ER today. There is leukocytosis with a WBC count of 35 with a left shift. Lactic acid levels pending. There is
concern for sepsis possibly due to PNA and patient is being admitted to the ICU due to his need for pressor support with Levophed.
Progress Note - Panel Saw Operator
Subjective
Date of Service: December 31, 2024
No complaints just fatigue
Objective
Labs:
10/31/25 05:03
12/31/24 05:03
Labs
Hgb 7.8 g/dL (13.0-18.0) L 12/31/24 05:03
Hct 24.2 % (39.0-52.0) L 12/31/24 05:03
Plt Count 49 10^3/uL (130-400) L 12/31/24 05:03
PT 17.1 Sec (11.4-14.6) H 12/28/24 12:58
INR 1.36 12/28/24 12:58
APTT 42.4 Sec (23.4-35.0) H 12/28/24 12:58
Sodium 134 mmol/L (135-145) L 12/31/24 05:03
Potassium 3.8 mmol/L (3.5-5.1) 12/31/24 05:03
BUN 55 mg/dl (9-20) H 12/31/24 05:03
Creatinine 2.4 mg/dL (0.7-1.3) H 12/31/24 05:03
Glucose 141 mg/dl (70-99) H 12/31/24 05:03
Troponins
12/28/24 12/29/24 12/30/24
12:58 03:45 13:29
Troponin I 12.100 H* 11.400 H* 8.540 H*
Vital Signs and I&O:
Vital Signs
Temp Pulse Resp BP Pulse Ox
98.1 F 90 17 103/61 98
12/31/24 11:11 12/31/24 12:40 12/31/24 12:40 12/31/24 12:40 12/31/24 12:40
Vital Signs
Temp Pulse Resp BP Pulse Ox
98.1 F 90 17 103/61 98
12/31/24 11:11 12/31/24 12:40 12/31/24 12:40 12/31/24 12:40 12/31/24 12:40
Intake & Output
12/29/24 12/30/24 12/31/24 01/01/25
06:59 06:59 06:59 06:59
Intake Total 1065.6 / 1091.9 1191.4 / 1191.4 612.5 / 612.5 180 / 180
Output Total 3212 / 3212 3515 / 3515 1050 / 1050
Balance -2146.4 / -2120.1 -2323.6 / -2323.6 -437.5 / -437.5 180 / 180
Physical Exam
Physical Exam
General: Ill-appearing
Heart: Distant heart sounds, RRR, no murmurs, No S3, S4, no rubs.
Lungs: Coarse breath sounds at base
Extremities: No clubbing, cyanosis or edema bilaterally.
Neuro: Grossly nonfocal, awake, alert. I attempted translation line but it froze and video was not available
--- NOTE | 2024-12-31 13:03 | PHA.VAN.FU ---
Vancomycin Assessment / Plan
- Assessment
Renal Function: SCR Decreasing
WBC's are: WNL
In the past 24 hrs, patient has been: Afebrile
- Assessment - Therapeutic Drug Monitoring
Random Level: 14.8 - drawn ~17H after previous dose of 750mg
- Dosing Plan
Dosing by Level: Re-dose today (Vanc 750mg)
- Monitoring Plan
Random Level: 01/01 0600
- Follow Up
Pharmacy will continue to follow.
Vancomycin Follow UP
- -
Patient Age: 74
Patient Sex: Male
Vancomycin Day #: 4
Indication: Bacteremia
Requesting Provider: Dr. Cordova / Dorene
Pertinent Antimicrobial Allergies:
NKDA
Height / Weight:
Height 5 ft 7 in
Actual Weight 64.9 kg
Pertinent Past Medical History: CKD 3 (~1.7), DM 2
- Vital Signs / Lab Results
Temp Pulse Resp BP Pulse Ox
98.1 F 90 17 103/61 98
12/31/24 11:11 12/31/24 12:40 12/31/24 12:40 12/31/24 12:40 12/31/24 12:40
Lab Results - Hematology
12/28/24 12/29/24 12/30/24
12:58 03:45 04:17
WBC 35.3 H 25.4 H 12.0 H
12/31/24
05:03
WBC 12.1 H
Lab Results - Chemistry
12/28/24 12/28/24 12/29/24
12:58 22:17 03:45
BUN 60 H 65 H 64 H
Creatinine 3.2 H 2.9 H 2.9 H
Estimated Creat Clear 21 20
Albumin 4.4
12/30/24 12/31/24
04:17 05:03
BUN 64 H 55 H
Creatinine 2.6 H 2.4 H
Estimated Creat Clear
Albumin 3.5 3.5
12/28/24 12/28/24 12/28/24
13:40 13:45 16:33
Lactic Acid Cancelled Cancelled Cancelled
12/28/24 12/28/24 12/29/24
17:45 22:17 02:17
Lactic Acid Cancelled 2.3 H Cancelled
12/29/24 12/29/24
03:45 06:17
Lactic Acid 1.4 Cancelled
Microbiology Results
12/28/24 22:17 Blood Culture - Preliminary
Blood/Venous Enterococcus faecalis
Gram Stain - Preliminary
12/30/24 10:34 Blood Culture - Preliminary
Blood/Venous No Growth in 24 hours- Final report to follow
12/30/24 10:21 Blood Culture - Preliminary
Blood/Venous No Growth in 24 hours- Final report to follow
12/28/24 23:16 Blood Culture - Preliminary
Blood/Venous Enterococcus species
Gram Stain - Preliminary
12/28/24 22:17 Nasal Screen MRSA (PCR) - Final
Nose MRSA not detected - performed by PCR methodology.
Therapeutic Drug Monitoring
Random Vancomycin 14.8 ug/ml 12/31/24 05:03
--- NOTE | 2024-12-31 13:16 | W.PN.HOSP.TC ---
Today's Communication/Plan
-
PT as tolerated
continue midodrine
monitor Hbg
diuretics per nephro
f/u blood culture report
Assessment / Plan
Assessment / Plan
Septic shock from multifocal pneumonia
associated with NOE/lactic acidosis
- Reported subjective fever at home. no productive cough.
- Chest x-ray showing possible multifocal pneumonia
- Total WBC count of 35K. Trending down
- Sputum culture if patient able to provide sample
- Patient got 1 L of NS, did not provide full 30 mL/kg bolus as patient have systolic heart failure.
- ID help appreciated. Patient has been taken off of Zosyn
- Added midodrine to regimen to help weaning of Levophed. Blood pressure remains soft although denies of having any dizziness.
Enterococcus faecalis bacteremia
- Unable to get blood culture in ER as patient is hard stick. Delayed blood culture collected post PICC placement and abx.
- Vancomycin was initially discontinued, resumed
- Await further susceptibility
- Echocardiogram 12/29 did not show any valvular vegetation. May require RENAN if bacteremia persist.
- Repeat blood culture report pending, follow-up result
- ID input noted. CT abdomen pelvis with oral contrast ordered. Will do abdominal ultrasound later based on the finding and need.
NOE on CKD stage IIIb
Acute urinary retention
- creatinine up to 3.2 in ER, baseline cr 1.7-1.8 at discharge week back,
- Renal dysfunction likely combination from hypotension/cardiorenal syndrome and urinary retention
- Anders catheter to be removed and voiding trial of needed,
- Avoid nephrotoxic medication
- Creatinine continues trending down
Acute normocytic anemia
- hbg down to 7.8. not on anti-coagulation
- We will monitor and if trends further down provide 1 unit PRBC.
- Patient improving from cardio-renal and will try to avoid volume overload
Coronary disease status post with
Acute on Chronic systolic congestive heart failure
- proBNP greater than 27,000
- [facility] last admission showed blocked SVG graft to distal LAD, was planned to be manage medical
- Continue on Plavix statin
- Troponin 12 and has been trending down from elevated troponin max of 28 on 12/20
- Although no overt signs of volume overload patient likely have component of congestive heart failure exacerbation. Has been started on IV diuretics by nephrology.
Anion gap metabolic acidosis - Improved
- Combination of lactic acidosis and renal dysfunction related
- Provide sodium bicarb few doses
- Being treated for underlying infection
Hyperkalemia - Improved
Hypokalemia
- Hyperkalemia secondary to renal failure/acidosis related at admission
- Post diuresis patient is developing hypokalemia now, replace as needed
Type II DM
- maintain on Lower dose lantus and ISS
- Added Premeal NovoLog
- diabetic diet
- Hold metformin with renal dysfunction
Essential hypertension
- Hold blood pressure medication with ongoing shock
Hyponatremia - resolved
- Combination from hypervolemia and ADH excess with heart failure
- Urine Na 34 Uosm 257
- Further therapy if have worsening of hyponatremia
Acute transaminitis
- Possible due to hypotension related
- LFT trending up. f/u on CT a/p, will do abd US
DVT prophylaxis -heparin subq
Full code
12/30 Patient's son updated over the phone
Anticipated Discharge: > 48 hours
Subjective/Interval History
-
Date of Service: December 31, 2024
Feeling subjective better
Still have episodes of chest pain on minimal activity
no shortness breath
on o2 through NC for low spo2 read while sleeping
Objective Data
-
Labs:
Laboratory Results
12/31/24
05:03
WBC 12.1 H
Hgb 7.8 L
Hct 24.2 L
Plt Count 49 L
Sodium 134 L
Potassium 3.8
Chloride 99
Carbon Dioxide 25
BUN 55 H
Creatinine 2.4 H
Glucose 141 H
Calcium 9.2
Total Bilirubin 3.1 H
AST 154 H
ALT 135 H
Alkaline Phosphatase 77
Vital Signs:
Vital Signs
Temp Pulse Resp BP Pulse Ox
98.1 F 90 17 103/61 98
12/31/24 11:11 12/31/24 12:40 12/31/24 12:40 12/31/24 12:40 12/31/24 12:40
I&O
12/30/24 12/31/24 01/01/25
06:59 06:59 06:59
Intake Total 1191.4 / 1191.4 612.5 / 612.5 180 / 180
Output Total 3515 / 3515 1050 / 1050
Balance -2323.6 / -2323.6 -437.5 / -437.5 180 / 180
Review of Systems
-
Respiratory: Reports No Symptoms
Cardiac: Reports Chest Pain
Abdomen/GI: Reports No Symptoms
Physical Exam
-
General: Comfortable
HEENT: Negative Oxygen
Respiratory: Clear to Auscultation
Cardiac: Regular Rhythm and S1/S2; Negative Murmur or Rub
GI: Soft, Nontender and Nondistended
Musculoskeletal: No Edema
Neuro: Awake, Alert, Oriented, No Motor Deficits and Nonfocal/Grossly Intact
Psych: Calm
[2024-12-31] MEDS: VANCOCIN 150 IV (14:25)
--- NOTE | 2024-12-31 14:58 | W.PN.NEPH.PH ---
Today's Communication / Plan
-
Continue diuresis
Assessment/Plan
-
Impression:
Decompensated HFrEF 30%
CKD 3B, baseline around 1.7
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
CAD/CABG
HTN
DM2
Hyponatremia, hyperkalemia
Hypotension
Plan:
Follow BMP
Now on oral torsemide
Replete potassium as needed
Continue high-dose midodrine
-
-
Date of Service: December 31, 2024
CC / HPI / ROS
-
Chief Complaint:
NOE
History of Present Illness:
NOE/creatinine lower at 2.4
sodium lower at 134
wt is down, wolf in place-mild retention, non oliguric
Hemoglobin low but stable 7.8
Remains on high-dose midodrine for hypotension
Review of Systems:
no cp
sob improving
no n/v
Labs
-
Labs:
WBC 12.1 10^3/uL (4.8-10.8) H 12/31/24 05:03
RBC 2.46 10^6/uL (4.70-6.10) L 12/31/24 05:03
Hgb 7.8 g/dL (13.0-18.0) L 12/31/24 05:03
Hct 24.2 % (39.0-52.0) L 12/31/24 05:03
Plt Count 49 10^3/uL (130-400) L 12/31/24 05:03
Sodium 134 mmol/L (135-145) L 12/31/24 05:03
Potassium 3.8 mmol/L (3.5-5.1) 12/31/24 05:03
Chloride 99 mmol/L (98-107) 12/31/24 05:03
Carbon Dioxide 25 mmol/L (22-30) 12/31/24 05:03
BUN 55 mg/dl (9-20) H 12/31/24 05:03
Creatinine 2.4 mg/dL (0.7-1.3) H 12/31/24 05:03
eGFR 27.62 12/31/24 05:03
Glucose 141 mg/dl (70-99) H 12/31/24 05:03
Calcium 9.2 mg/dl (8.4-10.2) 12/31/24 05:03
Phosphorus 3.1 mg/dl (2.5-4.5) 12/28/24 22:17
Hjn-R-Kgdftrtzrjm Pept > 04879 pg/ml 12/28/24 12:58
Albumin 3.5 g/dl (3.5-5.0) 12/31/24 05:03
Physical Exam
-
Vital Signs:
Vital Signs
Temp Pulse Resp BP Pulse Ox
98.1 F 92 22 103/61 98
12/31/24 11:11 12/31/24 13:16 12/31/24 13:00 12/31/24 13:16 12/31/24 12:40
Cardiovascular:: Regular rate and rhythm
Respiratory:: Bilateral: Coarse
Lung Excursion:: Normal
Abdomen:: Nontender and Soft
Bowel Sounds:: Normal
Extremity Edema:: None: Bilateral:
--- NOTE | 2024-12-31 15:50 | PTCARENOTE ---
Assessment unchanged thru shift. VSS as levophed remains off thru shift. Family in and out at bedside. Continue with teaching. Ambulation and mobility protocols as tolerated. Patient request to take nap. Continue follow up antibiotics, updates with
pharmacy await follow up plan of cares with testing.
--- NOTE | 2024-12-31 16:55 | CM ---
Discharge POC: Therapy recommended HH PT/OT. Spoke with family and called granddaughter Geno @ [phone]. In agreement with HH. referral forwarded.
[2024-12-31] MEDS: NOVOLOG FLEXPEN-LOW RESISTANCE 3 UNITS SC (17:13)
[2024-12-31 17:23] LABS: Glucose - Point of Care 274 mg/dl (70-99)
[2024-12-31] MEDS: LANTUS 0.3 UNITS SC (21:05)
[2024-12-31] MEDS: PEPCID 20 MG PO (21:05)
[2024-12-31 21:16] LABS: Glucose - Point of Care 165 mg/dl (70-99)
[2025-01-01] VITALS (17 sets, daily range): BP systolic 84–125; BP diastolic 51–74; BMI 21.8
[2025-01-01 05:56] LABS: Hematocrit 22.8 % (39.0-52.0); Hemoglobin 7.3 g/dL (13.0-18.0); Mean Corp Hgb Conc. 32.0 g/dL (33.0-37.0); Mean Corpuscular Volume 97.4 fL (80.0-94.0); Platelet Count 56 10^3/uL (130-400); Red Cell Dist. Width 14.6 % (11.5-14.5)
[2025-01-01 06:06] LABS: ALT (SGPT) 109 U/L (0-50); AST (SGOT) 85 U/L (17-59); Albumin 3.3 g/dl (3.5-5.0); Alkaline Phosphatase 85 U/L (38-126); Blood Urea Nitrogen 46 mg/dl (9-20); Calcium 8.8 mg/dl (8.4-10.2); Carbon Dioxide 27 mmol/L (22-30); Chloride 100 mmol/L (98-107); Estimated Creatinine Clearance 30 ml/min; Glucose 96 mg/dl (70-99); Potassium 3.4 mmol/L (3.5-5.1); Sodium 134 mmol/L (135-145); Total Protein 5.8 g/dl (6.3-8.2); eGFR 34.38
[2025-01-01 06:10] LABS: C-Reactive Protein 39.30 mg/L (0.0-10.00)
--- NOTE | 2025-01-01 06:35 | PTCARENOTE ---
no changes in assessment, AM labs sent. pt denies pain, remains on 2L NC. call abdul in reach.
[2025-01-01] MEDS: NOVOLOG FLEXPEN-LOW RESISTANCE 2 UNITS SC (07:55)
[2025-01-01] MEDS: PROSCAR 5 MG PO (07:55)
[2025-01-01] MEDS: PROTONIX 40 MG PO (07:55)
[2025-01-01] MEDS: OSCAL 500 + D 500 MG PO (07:55)
[2025-01-01] MEDS: PLAVIX 75 MG PO (07:55)
[2025-01-01] MEDS: ASPIR LOW (ENTERIC COATED) 81 MG PO (07:55)
[2025-01-01] MEDS: FEOSOL 325 MG PO (07:55)
[2025-01-01] MEDS: DEMADEX 20 MG PO (07:55)
[2025-01-01] MEDS: FLOMAX 0.4 MG PO (07:55)
[2025-01-01] MEDS: VITAMIN D3 (cholecalciferol) 125 MCG PO (07:55)
[2025-01-01] MEDS: KCL 40 MEQ PO (07:55)
[2025-01-01] MEDS: THERAGRAN 1 TABLET PO (07:55)
[2025-01-01] MEDS: NOVOLOG FLEXPEN SC ×2 (07:56→08:15)
[2025-01-01] MEDS: HEPARIN SC ×2 (07:56→08:42)
--- NOTE | 2025-01-01 08:04 | PHA.VAN.FU ---
Vancomycin Assessment / Plan
- Assessment
Renal Function: SCR Decreasing
WBC's are: Stable
In the past 24 hrs, patient has been: Afebrile
- Assessment - Therapeutic Drug Monitoring
Random Level: 18.1
- Dosing Plan
Dosing by Level: Hold off on dosing today
- Monitoring Plan
Random Level: 11/2 IN AM
- Follow Up
Pharmacy will continue to follow.
Vancomycin Follow UP
- -
Patient Age: 74
Patient Sex: Male
Vancomycin Day #: 5
Indication: Bacteremia
Requesting Provider: Dr. Cordova / Dorene
Pertinent Antimicrobial Allergies:
NKDA
Height / Weight:
Height 5 ft 7 in
Actual Weight 63.2 kg
Pertinent Past Medical History: CKD 3 (~1.7), DM 2
- Vital Signs / Lab Results
Temp Pulse Resp BP Pulse Ox
98.9 F 90 16 97/59 97
01/01/25 04:18 01/01/25 06:00 01/01/25 06:00 01/01/25 06:00 01/01/25 06:08
Lab Results - Hematology
12/30/24 12/31/24 01/01/25
04:17 05:03 05:29
WBC 12.0 H 12.1 H 11.5 H
Lab Results - Chemistry
12/30/24 12/31/24 01/01/25
04:17 05:03 05:29
BUN 64 H 55 H 46 H
Creatinine 2.6 H 2.4 H 2.0 H
Estimated Creat Clear
Albumin 3.5 3.5 3.3 L
12/29/24
06:17
Lactic Acid Cancelled
Microbiology Results
12/30/24 10:21 Blood Culture - Preliminary
Blood/Venous Positive culture in progress
Gram Stain - Preliminary
12/28/24 22:17 Blood Culture - Preliminary
Blood/Venous Enterococcus faecalis
Gram Stain - Preliminary
12/30/24 10:34 Blood Culture - Preliminary
Blood/Venous No Growth in 24 hours- Final report to follow
12/28/24 23:16 Blood Culture - Preliminary
Blood/Venous Enterococcus species
Gram Stain - Preliminary
Therapeutic Drug Monitoring
Random Vancomycin 18.1 ug/ml 01/01/25 05:29
[2025-01-01 08:05] LABS: Glucose - Point of Care 205 mg/dl (70-99)
--- NOTE | 2025-01-01 08:29 | W.PN.ID1 ---
Date of Service
Date of Service: January 01, 2025
Today's Communication
Continue antibiotics.
Assessment / Plan
E. faecalis bacteremia
Clinical sepsis
NOE; improving
Leukocytosis
SURGICAL PATHOLOGIST-P (2023) / bioprosthetic AVR (2007) in place
Elevated ESR and CRP
Coronary artery disease
HFpEF
Hypercholesterolemia
Seasonal allergies
Urinary retention
Insulin-dependent diabetes mellitus
GERD
Angina
CKD unknown stage
Recommendations:
Repeat blood cultures positive; will repeat today.
- TTE on 12/29 did not show vegetation and was unchanged from prior echo on 12/20.
Patient for CT of the abdomen today.
Continue vancomycin.
Enterococcal susceptibilities pending for later today.
����������������������������������������������������������
Chief Complaint
-: Bacteremia
Subjective / Review of Systems
Patient seen and examined. No significant changes overnight.
Review of Systems: No Fever
Vital Signs / Physical Exam
Vital Signs
Vital Signs
Temp Pulse Resp BP Pulse Ox
98.9 F 90 16 97/59 97
01/01/25 04:18 01/01/25 06:00 01/01/25 06:00 01/01/25 06:00 01/01/25 06:08
Physical Exam
Constitutional: No Acute Distress, Comfortable, Non-toxic and Other (thin)
Head: Normocephalic
Eyes: Pupils Equal, No Conjunctival Hemorrhage and Sclera Anicteric
Oropharyngeal: Benign
Cardiovascular: Regular Rate and S1/S2; Negative S3/S4 or Murmur
Pulmonary: Clear and Non Labored; Negative Wheezes, Rales, Rhonchi or Coarse
Gastrointestinal: Soft, Non Tender, Non Distended and Normal Bowel Sounds
Extremities: Negative Edema, Clubbing or Cyanosis
Skin: Warm and Dry; Negative Rash, Jaundice or Ulcers
Psychological: Calm
Objective Data
Lab Data
Lab Results
01/01/25 05:29
01/01/25 05:29
ESR 42 mm/hour (0-20) H 01/01/25 05:29
PT 17.1 Sec (11.4-14.6) H 12/28/24 12:58
INR 1.36 12/28/24 12:58
APTT 42.4 Sec (23.4-35.0) H 12/28/24 12:58
Estimated Creat Clear 30 ml/min 01/01/25 05:29
Lactic Acid Cancelled 12/29/24 06:17
Total Bilirubin 2.3 mg/dl (0.2-1.3) H 01/01/25 05:29
AST 85 U/L (17-59) H 01/01/25 05:29
ALT 109 U/L (0-50) H 01/01/25 05:29
Alkaline Phosphatase 85 U/L (38-126) 01/01/25 05:29
C-Reactive Protein 39.30 mg/L (0.0-10.00) H 01/01/25 05:29
Most recent labs reviewed.
Micro Results:
12/30/24 10:21 Blood Culture - Preliminary
Blood/Venous Positive culture in progress
Gram Stain - Preliminary
12/28/24 22:17 Blood Culture - Preliminary
Blood/Venous Enterococcus faecalis
Gram Stain - Preliminary
12/30/24 10:34 Blood Culture - Preliminary
Blood/Venous No Growth in 24 hours- Final report to follow
12/28/24 23:16 Blood Culture - Preliminary
Blood/Venous Enterococcus species
Gram Stain - Preliminary
12/28/24 22:17 Nasal Screen MRSA (PCR) - Final
Nose MRSA not detected - performed by PCR methodology.
12/28/24 17:46 Influenza Types A & B (FLACO) - Final
Nasal Swab Negative for Influenza A & B, NAAT
Negative results must be combined with clinical observations
and patient history.
Nucleic Acid Amplification test (NAAT)performed on the
[employer] platform.
Imaging:
12/31/2024 CXR (portable): overall improvement in bilateral interstitial markings, suggesting improvement in interstitial pulmonary edema pattern. A small focus of patchy parenchymal opacity within the left lower lung, new from recent exam,
possibly atelectasis versus pneumonia. Dual-lead PPM in place.
Chest X-Ray: Image Reviewed and Report Reviewed
Care Review
Plan reviewed with: Physician (Nephrology)
--- NOTE | 2025-01-01 08:54 | W.PN.CARDCBS ---
Today's Communication / Plan
-
Improving with supportive care
Planned for PRBC today
Impression / Plan
-
PCP: Israel Clifton MD
CDY: Orlando Langley MD
Impression:
Admitted with sepsis and NOE
Hypotension requiring pressor support consistent with shock (septic/cardiogenic)
Recent admission acute HFrEF and NSTEMI 12/20/2024 until 12/23/2024
(Trops trending down since peak of 17 on 12/20/24)
Recent ER visit at [facility] for chest pain and SOB 12/09/2024
Aortic valve stenosis moderate
Mitral regurgitation previously mild to moderate now moderate to severe in the setting of volume overload
Clinical sepsis
Possible multifocal PNA
Possible cardiogenic shock
NOE on CKD
Previously required transient HD 07/2024
Hyperkalemia
Elevated troponin, overall trending down from last admission
CAD
s/p CABG with GAFFNEY-LAD, VG-dLAD, VG-PLB 2007
s/p SVG to the distal LAD PCI at [facility] by Dr. Gavin 04/2024
Patent GAFFNEY to LAD, patent SVG to PLB with PDA filling via retrograde from the PLB, occlusion of the SVG to the distal LAD with 100% occlusion of previously placed stent 12/21/2024
s/p tissue AVR 2007
HLD
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
HTN
DM
Language barrier
Thrombocytopenia
Echo 08/2023: nml LV size, abnormal diastolic function with increased LVEDP, EF 60-65%, CLVH but no obvious regional abn. normally functioning bioprosthetic AV, PG/MG 32.5/18, ABEL 1.34cm2
Echo 12/20/2024: EF 35 to 40%, mild concentric LVH, mid to distal inferior, inferolateral, mid anteroseptal, mid anterior, apical hypokinesis, dense MAC, at least moderate to severe MR with anterior eccentric jet, mild to moderate TR, PAP 38 mmHg
Echocardiogram 12/29/2024: Ejection fraction 30 to 35%. Mid to distal inferior, inferolateral, mid anteroseptal and mid anterior hypokinesis with apical akinesis. Moderate to severe mitral regurgitation. Mild to moderate TR.
Echo 12/30/2024: Ejection fraction 30% by visual estimation. Segmental wall motion abnormalities noted. Moderate to severe mitral regurgitation similar to prior. Previously aortic valve was not assessed. Likely moderate aortic valve stenosis
Peak/mean gradients are 32/20mmHg. ABEL 0.8cm sq, using a LVOT of 1.6cm.Mild to moderate tricuspid regurgitation. Estimated pulmonary artery pressure of 33 mmHg
Plan:
Critically ill, but improving. Now off pressors.
He has continued to be weaned and is on midodrine with stable blood pressure sitting in the chair. He continues to undergo treatment for septic shock. Support cardiogenic shock.
-With better blood pressure and treatment of sepsis his renal function (acute on chronic abnormality) continues to improve. Creat down to 2 on 01/01. Nephrology following.
-Patient required transient hemodialysis treatments during an admission to [facility] 07/2024, his last cardiac cath before that was at [facility] 04/2024
-Supportive care of acute on chronic renal failure. Followed by nephrology.
-He continues with heart failure with reduced ejection fraction. Support of blood pressure care. Diuresis per nephrology.
-Cannot start guideline directed medical therapy for heart failure with reduced ejection fraction given hypotension/renal insufficiency. Continue to reassess.
-Patient was not taking ALETHA/ARB/ARNI/aldosterone antagonist prior to admission due to NOE.
-Hold on SGLT2 inhibitor given fluctuating renal status and ongoing treatment of sepsis.
- Prior echo reviewed with severely depressed left ventricular ejection fraction 30 to 35% ( to 65%). With repeat echo 12/30/2024 ejection fraction 30% similar. He also still has moderate to severe mitral regurgitation (previously mild to
moderate). Also moderate aortic valve stenosis. Continue to maximize cardiac status and continue to follow.
Given he is slowly improving would not proceed with right heart catheterization at this time but to continue to reassess.
Chest x-ray 12/31/2024 with improvement of interstitial pulmonary edema.
- Anemia noted which has been worsening despite diuresis. No obvious bleeding. Defer to primary service for evaluation. Higher hemoglobin would help more with cardiac output. Would favor 1 unit of packed red blood cells which may be helpful.
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 COVID and influenza swabs were negative.
-Labs reviewed by me 12/30/2024 and Cre from 3.2 down to 2.4. Nephrology following.
-Remains 98% on 2 L NC. s.
-He has known coronary disease with recent acute events. EF previously 60 to 65% in 2023 and now down to 35 to 40% by echo 12/20/2024. This is presumed to be ICM with evidence of occlusion of a previously placed stent in the vein graft to the
distal LAD by cardiac cath 12/21/2024. Of note patient did not take medications postdischarge.
-Initial troponin 12.1 and then trending down to 11.4 overnight. Troponin is trending down from NSTEMI and peak troponin of 27.9 when he was admitted last week.
-Continue risk factor modification as able.
-Patient with history of remote CABG and there was an attempt at PCI of the SVG to the distal LAD at [facility] 04/2024, but this stent was 100% occluded at the last cath 12/21/2024. GAFFNEY to LAD and SVG to PLB were both patent.
-Outpatient doses of aspirin and Plavix should be continued. Thrombocytopenia is chronic on prior review of the labs today.
- Stable device check of Med[employer]onic SHUT OFF WORKER�P . Telemetry also stable.
Discussed with nursing.
CCT 32 min
HPI: Patient presented to the ER today with SMALL and is being admitted with possible sepsis and NOE and cardiology is being consulted for possible CHF and recent admission for NSTEMI. Patient has a history of remote CABG and AVR in 2007 at an
outside hospital. He had an admission to [facility] 04/2024 and he had PCI of the SVG to the distal LAD. Patient was then admitted to [facility] with NOE and was transiently on hemodialysis 07/2024. Most recently he has been following with "Alexus"Korin at [facility] and their office referred the patient to the [facility] ER on 12/09/2024 after he complained of chest pain during a visit in their office that day. The patient was discharged from the ER with a higher dose of
Lopressor and they added Imdur ER. There was apparently no consideration for acute HF at that time. Patient then came to the [facility] ER on 12/20/2024 with chest pain and the initial troponin was 2.22 and subsequent troponin was as high as 27.9.
Patient was admitted and eventually had cardiac cath 12/21/2024 that showed that the stent in the SVG to the LAD from April was 100% occluded and the GAFFNEY to LAD and SVG to PLV grafts were patent. There was also evidence of acute HFrEF during
that admission and EF was newly reduced at 35 to 40%, it had been 60 to 65% by an echo from his primary family life educator 08/2023. PCWP was down to 18 which correlated with a weight of 141 lbs at time of cath on 12/21/2024. Cre was stable at 1.8 on the
day of discharge 12/23/2024. At the recommendation of nephrology the patient was discharged home on torsemide 20 mg daily. Patient's family reports that medications were not delivered in a timely fashion and so he was not taking any of his
medications since admission until they arrived yesterday. Patient has had increasing SMALL over the last 24 hours and came to the ER today. There is leukocytosis with a WBC count of 35 with a left shift. Lactic acid levels pending. There is
concern for sepsis possibly due to PNA and patient is being admitted to the ICU due to his need for pressor support with Levophed.
Progress Note - Waterproofing Mixer
Subjective
Date of Service: January 01, 2025
Awake and alert, no distress, communicates no chest discomfort
Objective
Labs:
01/01/25 05:29
01/01/25 05:29
Labs
Hgb 7.3 g/dL (13.0-18.0) L 01/01/25 05:29
Hct 22.8 % (39.0-52.0) L 01/01/25 05:29
Plt Count 56 10^3/uL (130-400) L 01/01/25 05:29
PT 17.1 Sec (11.4-14.6) H 12/28/24 12:58
INR 1.36 12/28/24 12:58
APTT 42.4 Sec (23.4-35.0) H 12/28/24 12:58
Sodium 134 mmol/L (135-145) L 01/01/25 05:29
Potassium 3.4 mmol/L (3.5-5.1) L 01/01/25 05:29
BUN 46 mg/dl (9-20) H 01/01/25 05:29
Creatinine 2.0 mg/dL (0.7-1.3) H 01/01/25 05:29
Glucose 96 mg/dl (70-99) 01/01/25 05:29
Troponins
12/30/24
13:29
Troponin I 8.540 H*
Vital Signs and I&O:
Vital Signs
Temp Pulse Resp BP Pulse Ox
98.3 F 90 16 97/59 97
01/01/25 08:30 01/01/25 06:00 01/01/25 06:00 01/01/25 06:00 01/01/25 06:08
Vital Signs
Temp Pulse Resp BP Pulse Ox
98.3 F 90 16 97/59 97
01/01/25 08:30 01/01/25 06:00 01/01/25 06:00 01/01/25 06:00 01/01/25 06:08
Intake & Output
12/30/24 12/31/24 01/01/25 01/02/25
06:59 06:59 06:59 05:59
Intake Total 1191.4 / 1191.4 612.5 / 612.5 780 / 780
Output Total 3515 / 3515 1050 / 1050 550 / 550
Balance -2323.6 / -2323.6 -437.5 / -437.5 230 / 230
Physical Exam
Physical Exam
General: Ill-appearing
Heart: Distant heart sounds, RRR, no murmurs, No S3, S4, no rubs.
Lungs: Coarse breath sounds at base
Extremities: No clubbing, cyanosis or edema bilaterally.
Neuro: Grossly nonfocal, awake, alert.
--- NOTE | 2025-01-01 09:09 | W.PN.NEPH.PH ---
Today's Communication / Plan
-
follow BMP
Assessment/Plan
-
Impression:
Decompensated HFrEF 30%
CKD 3B, baseline around 1.7
s/p Medtronic LAY OUT CARPENTER-P 08/2023
CAD/CABG
HTN
DM2
Hyponatremia, hyperkalemia
Hypotension
Plan:
Follow BMP
continue oral torsemide
Replete potassium
Continue high-dose midodrine
-
-
Date of Service: January 01, 2025
CC / HPI / ROS
-
Chief Complaint:
NOE
History of Present Illness:
NOE/creatinine lower at 2.0
sodium lower at 134
wt is down, wolf in place-mild retention, non oliguric
Hemoglobin low but stable 7.3
K low 3.4
Remains on high-dose midodrine for hypotension
Review of Systems:
no CP
no SOB
no n/v
Labs
-
Labs:
WBC 11.5 10^3/uL (4.8-10.8) H 01/01/25 05:29
RBC 2.34 10^6/uL (4.70-6.10) L 01/01/25 05:29
Hgb 7.3 g/dL (13.0-18.0) L 01/01/25 05:29
Hct 22.8 % (39.0-52.0) L 01/01/25 05:29
Plt Count 56 10^3/uL (130-400) L 01/01/25 05:29
Sodium 134 mmol/L (135-145) L 01/01/25 05:29
Potassium 3.4 mmol/L (3.5-5.1) L 01/01/25 05:29
Chloride 100 mmol/L (98-107) 01/01/25 05:29
Carbon Dioxide 27 mmol/L (22-30) 01/01/25 05:29
BUN 46 mg/dl (9-20) H 01/01/25 05:29
Creatinine 2.0 mg/dL (0.7-1.3) H 01/01/25 05:29
eGFR 34.38 01/01/25 05:29
Glucose 96 mg/dl (70-99) 01/01/25 05:29
Calcium 8.8 mg/dl (8.4-10.2) 01/01/25 05:29
Phosphorus 3.1 mg/dl (2.5-4.5) 12/28/24 22:17
Oie-S-Swmzinpplsu Pept > 13477 pg/ml 12/28/24 12:58
Albumin 3.3 g/dl (3.5-5.0) L 01/01/25 05:29
Physical Exam
-
Vital Signs:
Vital Signs
Temp Pulse Resp BP Pulse Ox
98.3 F 90 16 97/59 97
01/01/25 08:30 01/01/25 06:00 01/01/25 06:00 01/01/25 06:00 01/01/25 06:08
Cardiovascular:: Regular rate and rhythm
Respiratory:: Bilateral: CTA
Lung Excursion:: Normal
Abdomen:: Nontender and Soft
Bowel Sounds:: Normal
Extremity Edema:: None: Bilateral:
--- NOTE | 2025-01-01 10:13 | PTCARENOTE ---
Pt refusing oral contrast for CT scan. Dr. Cordova up to speak with pt, pt continues to refuse. ok with CT without contrast. Pt to CT scan at this time via stretcher. Downgraded to tele
[2025-01-01] MEDS: NOVOLOG FLEXPEN 5 UNITS SC ×2 (10:55→16:51)
[2025-01-01] MEDS: NOVOLOG FLEXPEN-LOW RESISTANCE SC (10:55)
[2025-01-01 11:04] LABS: Glucose - Point of Care 143 mg/dl (70-99)
--- NOTE | 2025-01-01 13:59 | W.PN.HOSP.TC ---
Today's Communication/Plan
-
Transfer telemetry
See note
Assessment / Plan
Assessment / Plan
Septic shock from multifocal pneumonia
associated with NOE/lactic acidosis
- Reported subjective fever at home. no productive cough.
- Chest x-ray showing possible multifocal pneumonia
- Total WBC count of 35K at admission has trended down
- Patient got 1 L of NS, did not provide full 30 mL/kg bolus as patient have systolic heart failure.
- ID help appreciated. Patient has been taken off of Zosyn
- Added midodrine to regimen. Blood pressure remains soft. Patient deny dizziness.
Enterococcus faecalis bacteremia
- Unable to get blood culture in ER as patient is hard stick. Delayed blood culture collected post PICC placement and abx.
- Vancomycin was initially discontinued, resumed
- Await further susceptibility
- Echocardiogram 12/29 did not show any valvular vegetation. May require RENAN if bacteremia persist.
- Repeat blood culture positive from 12/30. Follow-up blood culture report from today
- CT abdomen pelvis did not show any clear infectious source
- ID help appreciated.
NOE on CKD stage IIIb
Acute urinary retention
- creatinine up to 3.2 in ER, baseline cr 1.7-1.8 at discharge week back,
- Renal dysfunction likely combination from hypotension/cardiorenal syndrome and urinary retention
- Anders catheter to be removed and voiding trial to be done.
- Avoid nephrotoxic medication
- Creatinine continues trending down
Acute normocytic anemia
- Hemoglobin continue to drift down. Providing 1 unit of PRBC today. Blood consent obtained.
Coronary disease status post with
Acute on Chronic systolic congestive heart failure
- proBNP greater than 27,000
- [facility] last admission showed blocked SVG graft to distal LAD, was planned to be manage medical
- Continue on Plavix statin
- Troponin 12 and has been trending down from elevated troponin max of 28 on 12/20
- Patient has been taken off of IV diuretic. Currently on oral torsemide.
Anion gap metabolic acidosis - Improved
- Combination of lactic acidosis and renal dysfunction related
- Provide sodium bicarb few doses
- Being treated for underlying infection
Hyperkalemia - Improved
Hypokalemia
- Hyperkalemia secondary to renal failure/acidosis related at admission
- Post diuresis patient is developing hypokalemia now, replace as needed
Type II DM
- maintain on Lower dose lantus and ISS
- Added Premeal NovoLog
- diabetic diet
- Hold metformin with renal dysfunction
Essential hypertension
- Hold blood pressure medication with ongoing shock
Hyponatremia - resolved
- Combination from hypervolemia and ADH excess with heart failure
- Urine Na 34 Uosm 257
- Further therapy if have worsening of hyponatremia
Acute transaminitis
- Possible due to hypotension related
- LFT trending down.
DVT prophylaxis -heparin subq
Full code
12/30 Patient's son updated over the phone
Anticipated Discharge: > 48 hours
Subjective/Interval History
-
Date of Service: January 01, 2025
Chest pain is better
Shortness of breath is better
Not on oxygen
Denies any abdominal issues
Objective Data
-
Labs:
Laboratory Results
01/01/25
05:29
WBC 11.5 H
Hgb 7.3 L
Hct 22.8 L
Plt Count 56 L
Sodium 134 L
Potassium 3.4 L
Chloride 100
Carbon Dioxide 27
BUN 46 H
Creatinine 2.0 H
Glucose 96
Calcium 8.8
Total Bilirubin 2.3 H
AST 85 H
ALT 109 H
Alkaline Phosphatase 85
Vital Signs:
Vital Signs
Temp Pulse Resp BP Pulse Ox
98.3 F 94 14 125/65 97
01/01/25 13:02 01/01/25 13:00 01/01/25 09:00 01/01/25 12:11 01/01/25 06:08
I&O
12/31/24 01/01/25 01/02/25
06:59 06:59 05:59
Intake Total 612.5 / 612.5 780 / 780
Output Total 1050 / 1050 550 / 550 200 / 200
Balance -437.5 / -437.5 230 / 230 -200 / -200
Review of Systems
-
Respiratory: Reports No Symptoms
Cardiac: Reports No Symptoms
Abdomen/GI: Reports No Symptoms
Physical Exam
-
General: Comfortable
HEENT: Negative Oxygen
Respiratory: Clear to Auscultation
Cardiac: Regular Rhythm and S1/S2; Negative Murmur or Rub
GI: Soft, Nontender and Nondistended
Musculoskeletal: No Edema
Neuro: Awake, Alert, Oriented, No Motor Deficits and Nonfocal/Grossly Intact
Psych: Calm
[2025-01-01] MEDS: NOVOLOG FLEXPEN-LOW RESISTANCE 4 UNITS SC (16:53)
--- NOTE | 2025-01-01 17:08 | PTCARENOTE ---
Rec'd pt from IMU via a wheelchair. AAO. Language barrier noted. Language line in room. PT on monitor at 100% vpaced. Lungs diminished throughout. Abd softly distended with per BS. R arm with DL Picc. No c/o pain . Vss Soft Midodrine
scheduled. Will cont to monitor.
[2025-01-01 19:23] LABS: Glucose - Point of Care 329 mg/dl (70-99)
[2025-01-01 21:30] LABS: Glucose - Point of Care 242 mg/dl (70-99)
[2025-01-01] MEDS: LANTUS 0.3 UNITS SC (22:03)
[2025-01-02 03:16] VITALS: BP 94/56
[2025-01-02 05:01] VITALS: BMI 21.4
[2025-01-02 07:35] VITALS: BP 98/70
[2025-01-02 08:14] LABS: Blood Urea Nitrogen 38 mg/dl (9-20); Calcium 9.4 mg/dl (8.4-10.2); Carbon Dioxide 27 mmol/L (22-30); Chloride 101 mmol/L (98-107); Estimated Creatinine Clearance 31 ml/min; Glucose 111 mg/dl (70-99); Potassium 3.8 mmol/L (3.5-5.1); Sodium 132 mmol/L (135-145); eGFR 39.01
[2025-01-02 08:30] LABS: Glucose - Point of Care 127 mg/dl (70-99)
[2025-01-02] MEDS: NOVOLOG FLEXPEN-LOW RESISTANCE SC ×3 (08:36→17:11)
[2025-01-02] MEDS: NOVOLOG FLEXPEN 5 UNITS SC ×3 (08:44→17:11)
[2025-01-02] MEDS: FEOSOL 325 MG PO (08:45)
[2025-01-02] MEDS: VITAMIN D3 (cholecalciferol) 125 MCG PO (08:45)
[2025-01-02] MEDS: FLOMAX 0.4 MG PO (08:45)
[2025-01-02] MEDS: OSCAL 500 + D 500 MG PO (08:45)
[2025-01-02] MEDS: PLAVIX 75 MG PO (08:45)
[2025-01-02] MEDS: THERAGRAN 1 TABLET PO (08:45)
[2025-01-02] MEDS: DEMADEX 20 MG PO (08:45)
[2025-01-02] MEDS: PROTONIX 40 MG PO (08:45)
[2025-01-02] MEDS: ASPIR LOW (ENTERIC COATED) 81 MG PO (08:45)
[2025-01-02] MEDS: PROSCAR 5 MG PO (08:45)
--- NOTE | 2025-01-02 09:07 | PHA.VAN.FU ---
Vancomycin Assessment / Plan
- Assessment
Renal Function: SCR Decreasing
WBC's are: Trending Down
In the past 24 hrs, patient has been: Afebrile
- Assessment - Therapeutic Drug Monitoring
Random Level: 11
- Dosing Plan
Dosing by Level: Re-dose today (750MG)
- Monitoring Plan
Random Level: 11 IN AM
- Follow Up
Pharmacy will continue to follow.
Vancomycin Follow UP
- -
Patient Age: 74
Patient Sex: Male
Vancomycin Day #: 6
Indication: Bacteremia
Requesting Provider: Dr. Cordova / Dorene
Pertinent Antimicrobial Allergies:
NKDA
Height / Weight:
Height 5 ft 7 in
Actual Weight 61.83 kg
Pertinent Past Medical History: CKD 3 (~1.7), DM 2
- Vital Signs / Lab Results
Temp Pulse Resp BP Pulse Ox
98.2 F 100 12 98/70 97
01/02/25 07:35 01/02/25 07:35 01/02/25 07:35 01/02/25 07:35 01/02/25 07:35
Lab Results - Hematology
12/31/24 01/01/25
05:03 05:29
WBC 12.1 H 11.5 H
Lab Results - Chemistry
12/31/24 01/01/25 01/02/25
05:03 05:29 07:04
BUN 55 H 46 H 38 H
Creatinine 2.4 H 2.0 H 1.8 H
Estimated Creat Clear
Albumin 3.5 3.3 L
Microbiology Results
01/01/25 08:42 Blood Culture - Preliminary
Blood/Venous No Growth in 24 hours- Final report to follow
01/01/25 08:41 Blood Culture - Preliminary
Blood/Venous No Growth in 24 hours- Final report to follow
12/30/24 10:21 Blood Culture - Preliminary
Blood/Venous Enterococcus faecalis
Gram Stain - Preliminary
12/28/24 23:16 Blood Culture - Preliminary
Blood/Venous Enterococcus faecalis
Gram Stain - Preliminary
12/28/24 22:17 Blood Culture - Preliminary
Blood/Venous Enterococcus faecalis
Gram Stain - Preliminary
12/30/24 10:34 Blood Culture - Preliminary
Blood/Venous No Growth in 48 hours- Final report to follow
Therapeutic Drug Monitoring
Random Vancomycin 11.0 ug/ml 01/02/25 07:04
[2025-01-02 09:39] LABS: Hematocrit 27.1 % (39.0-52.0); Hemoglobin 9.0 g/dL (13.0-18.0); Mean Corp Hgb Conc. 33.2 g/dL (33.0-37.0); Mean Corpuscular Volume 96.8 fL (80.0-94.0); Platelet Count 55 10^3/uL (130-400); Red Cell Dist. Width 14.9 % (11.5-14.5)
[2025-01-02] MEDS: VANCOCIN 150 IV (10:03)
--- NOTE | 2025-01-02 10:44 | W.PN.NEPH.PH ---
Today's Communication / Plan
-
follow BMP
Assessment/Plan
-
Impression:
Decompensated HFrEF 30%
CKD 3B, baseline around 1.7
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
CAD/CABG
HTN
DM2
Hyponatremia, hyperkalemia
Hypotension
Plan:
Follow BMP
continue oral torsemide
Replete potassium prn
Continue high-dose midodrine
weights continue to decrease, though he is on his OP torsemide dose.
-
-
Date of Service: January 02, 2025
CC / HPI / ROS
-
Chief Complaint:
NOE
History of Present Illness:
NOE/creatinine lower at 1.8
sodium lower at 132
wt is down, wolf in place-mild retention, non oliguric
Hemoglobin low but stable 7.3
K low 3.4
Remains on high-dose midodrine for hypotension
Review of Systems:
no CP
no SOB
no n/v
Labs
-
Labs:
WBC 14.2 10^3/uL (4.8-10.8) H 01/02/25 07:04
RBC 2.80 10^6/uL (4.70-6.10) L 01/02/25 07:04
Hgb 9.0 g/dL (13.0-18.0) L D 01/02/25 07:04
Hct 27.1 % (39.0-52.0) L 01/02/25 07:04
Plt Count 55 10^3/uL (130-400) L 01/02/25 07:04
Sodium 132 mmol/L (135-145) L 01/02/25 07:04
Potassium 3.8 mmol/L (3.5-5.1) 01/02/25 07:04
Chloride 101 mmol/L (98-107) 01/02/25 07:04
Carbon Dioxide 27 mmol/L (22-30) 01/02/25 07:04
BUN 38 mg/dl (9-20) H 01/02/25 07:04
Creatinine 1.8 mg/dL (0.7-1.3) H 01/02/25 07:04
eGFR 39.01 01/02/25 07:04
Glucose 111 mg/dl (70-99) H 01/02/25 07:04
Calcium 9.4 mg/dl (8.4-10.2) 01/02/25 07:04
Phosphorus 3.1 mg/dl (2.5-4.5) 12/28/24 22:17
Lsw-C-Byqomuodeal Pept > 13733 pg/ml 12/28/24 12:58
Albumin 3.3 g/dl (3.5-5.0) L 01/01/25 05:29
Physical Exam
-
Vital Signs:
Vital Signs
Temp Pulse Resp BP Pulse Ox
98.2 F 100 12 98/70 97
01/02/25 07:35 01/02/25 07:35 01/02/25 07:35 01/02/25 07:35 01/02/25 07:35
Cardiovascular:: Regular rate and rhythm
Respiratory:: Bilateral: CTA
Lung Excursion:: Normal
Abdomen:: Nontender and Soft
Bowel Sounds:: Normal
Extremity Edema:: None: Bilateral:
[2025-01-02] MEDS: AMPICILLIN 108 MG IV ×2 (12:00→20:52)
--- NOTE | 2025-01-02 12:08 | W.PN.ID1 ---
Date of Service
Date of Service: January 02, 2025
Today's Communication
Continue antibiotics. Discontinue further vancomycin. Begin ampicillin.
Assessment / Plan
E. faecalis bacteremia
Clinical sepsis
NOE; improving
Leukocytosis
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
Elevated ESR and CRP
Coronary artery disease
HFpEF
Hypercholesterolemia
Seasonal allergies
Urinary retention
Insulin-dependent diabetes mellitus
GERD
Angina
CKD unknown stage
Recommendations:
Repeat blood cultures (12/30/2024) positive; (01/01/2025) pending
- TTE on 12/29 did not show vegetation and was unchanged from prior echo on 12/20.
CT abdomen/pelvis (01/01/2025) unrevealing
Enterococcus susceptible to ampicillin. Discontinue further vancomycin and change to ampicillin 2 gm IV q.8 hours
����������������������������������������������������������
Chief Complaint
-: Bacteremia
Subjective / Review of Systems
Patient seen and examined. Reports feeling well.
Review of Systems: No Fever and No Chills
Vital Signs / Physical Exam
Vital Signs
Vital Signs
Temp Pulse Resp BP Pulse Ox
98.2 F 100 12 98/70 97
01/02/25 07:35 01/02/25 07:35 01/02/25 07:35 01/02/25 07:35 01/02/25 07:35
Physical Exam
Constitutional: No Acute Distress, Comfortable, Non-toxic and Other (thin)
Head: Normocephalic
Eyes: Pupils Equal, No Conjunctival Hemorrhage and Sclera Anicteric
Oropharyngeal: Benign
Cardiovascular: Regular Rate and S1/S2; Negative S3/S4 or Murmur
Pulmonary: Clear and Non Labored; Negative Wheezes, Rales, Rhonchi or Coarse
Gastrointestinal: Soft, Non Tender, Non Distended and Normal Bowel Sounds
Extremities: Negative Edema, Clubbing or Cyanosis
Neurological: Awake and Alert
Psychological: Calm
Objective Data
Lab Data
Lab Results
01/02/25 07:04
01/02/25 07:04
ESR 42 mm/hour (0-20) H 01/01/25 05:29
PT 17.1 Sec (11.4-14.6) H 12/28/24 12:58
INR 1.36 12/28/24 12:58
APTT 42.4 Sec (23.4-35.0) H 12/28/24 12:58
Estimated Creat Clear 31 ml/min 01/02/25 07:04
Lactic Acid Cancelled 12/29/24 06:17
Total Bilirubin 2.3 mg/dl (0.2-1.3) H 01/01/25 05:29
AST 85 U/L (17-59) H 01/01/25 05:29
ALT 109 U/L (0-50) H 01/01/25 05:29
Alkaline Phosphatase 85 U/L (38-126) 01/01/25 05:29
C-Reactive Protein 39.30 mg/L (0.0-10.00) H 01/01/25 05:29
Most recent labs reviewed.
Micro Results:
12/30/24 10:34 Blood Culture - Preliminary
Blood/Venous No Growth in 72 hours- Final report to follow
01/01/25 08:42 Blood Culture - Preliminary
Blood/Venous No Growth in 24 hours- Final report to follow
01/01/25 08:41 Blood Culture - Preliminary
Blood/Venous No Growth in 24 hours- Final report to follow
12/30/24 10:21 Blood Culture - Preliminary
Blood/Venous Enterococcus faecalis
Gram Stain - Preliminary
12/28/24 23:16 Blood Culture - Preliminary
Blood/Venous Enterococcus faecalis
Gram Stain - Preliminary
12/28/24 22:17 Blood Culture - Preliminary
Blood/Venous Enterococcus faecalis
Gram Stain - Preliminary
12/28/24 22:17 Nasal Screen MRSA (PCR) - Final
Nose MRSA not detected - performed by PCR methodology.
12/28/24 17:46 Influenza Types A & B (FLACO) - Final
Nasal Swab Negative for Influenza A & B, NAAT
Negative results must be combined with clinical observations
and patient history.
Nucleic Acid Amplification test (NAAT)performed on the
[employer] platform.
Imaging:
12/31/2024 CXR (portable): overall improvement in bilateral interstitial markings, suggesting improvement in interstitial pulmonary edema pattern. A small focus of patchy parenchymal opacity within the left lower lung, new from recent exam,
possibly atelectasis versus pneumonia. Dual-lead PPM in place.
[2025-01-02 12:37] VITALS: BP 93/60
[2025-01-02 13:13] LABS: Glucose - Point of Care 116 mg/dl (70-99)
--- NOTE | 2025-01-02 13:16 | W.PN.HOSP.TC ---
Today's Communication/Plan
-
Follow-up blood culture report
Diuretics per nephrology
Follow-up renal function
PT OT as tolerated
Assessment / Plan
Assessment / Plan
Septic shock from multifocal pneumonia
associated with NOE/lactic acidosis
- Reported subjective fever at home. no productive cough.
- Chest x-ray showing possible multifocal pneumonia
- Total WBC count of 35K at admission has trended down
- Patient got 1 L of NS, did not provide full 30 mL/kg bolus as patient have systolic heart failure.
- ID help appreciated. Patient has been taken off of Zosyn
- Added midodrine to regimen. Blood pressure remains soft.
Enterococcus faecalis bacteremia
- Unable to get blood culture in ER as patient is hard stick. Delayed blood culture collected post PICC placement and abx.
- Vancomycin was initially discontinued, resumed
- Await further susceptibility
- Echocardiogram 12/29 did not show any valvular vegetation. May require RENAN if bacteremia persist.
- Repeat blood culture positive from 12/30. f/u repeat blood culture report from 01/01
- CT abdomen pelvis did not show any clear infectious source
- ID help appreciated.
NOE on CKD stage IIIb
Acute urinary retention
- creatinine up to 3.2 in ER, baseline cr 1.7-1.8 at discharge week back,
- Renal dysfunction likely combination from hypotension/cardiorenal syndrome and urinary retention
- Anders catheter to be removed and voiding trial to be done.
- Avoid nephrotoxic medication
- Creatinine continues trending down
Acute normocytic anemia
- Hemoglobin 9 after transfusion of 1 unit PRBC yesterday
- No luminal blood loss
Coronary disease status post with
Acute on Chronic systolic congestive heart failure
- proBNP greater than 27,000
- [facility] last admission showed blocked SVG graft to distal LAD, was planned to be manage medical
- Continue on Plavix statin
- Troponin 12 and has been trending down from elevated troponin max of 28 on 12/20
- Patient has been taken off of IV diuretic. Currently on oral torsemide.
Anion gap metabolic acidosis - Improved
- Combination of lactic acidosis and renal dysfunction related
- Provide sodium bicarb few doses
- Being treated for underlying infection
Hyperkalemia - Improved
Hypokalemia
- Hyperkalemia secondary to renal failure/acidosis related at admission
- Post diuresis patient is developing hypokalemia now, replace as needed
Type II DM
- maintain on Lower dose lantus and ISS
- Added Premeal NovoLog
- diabetic diet
- Hold metformin with renal dysfunction
Essential hypertension
- Hold blood pressure medication with ongoing shock
Hyponatremia - resolved
- Combination from hypervolemia and ADH excess with heart failure
- Urine Na 34 Uosm 257
- Further therapy if have worsening of hyponatremia
Acute transaminitis
- Possible due to hypotension related
- LFT trending down.
DVT prophylaxis -heparin subq
Full code
12/30 01/02 Patient's son updated over the phone
Anticipated Discharge: 24 - 48 hours
Subjective/Interval History
-
Date of Service: January 02, 2025
Sitting comfortably in bed
Chest pain/shortness of breath much improved
No other acute issues reported overnight
Objective Data
-
Labs:
Laboratory Results
01/02/25
07:04
WBC 14.2 H
Hgb 9.0 L D
Hct 27.1 L
Plt Count 55 L
Sodium 132 L
Potassium 3.8
Chloride 101
Carbon Dioxide 27
BUN 38 H
Creatinine 1.8 H
Glucose 111 H
Calcium 9.4
Vital Signs:
Vital Signs
Temp Pulse Resp BP Pulse Ox
98.4 F 92 16 93/60 98
01/02/25 12:37 01/02/25 12:37 01/02/25 12:37 01/02/25 12:37 01/02/25 12:37
I&O
01/01/25 01/02/25 01/03/25
06:59 05:59 06:59
Intake Total 780 / 780 550 / 550
Output Total 550 / 550 1510 / 1510 500 / 500
Balance 230 / 230 -960 / -960 -500 / -500
Review of Systems
-
Respiratory: Reports No Symptoms
Cardiac: Reports No Symptoms
Abdomen/GI: Reports No Symptoms
Physical Exam
-
General: Comfortable
HEENT: Negative Oxygen
Respiratory: Clear to Auscultation
Cardiac: Regular Rhythm and S1/S2; Negative Murmur or Rub
GI: Soft, Nontender and Nondistended
Musculoskeletal: No Edema
Neuro: Awake, Alert, Oriented, No Motor Deficits and Nonfocal/Grossly Intact
Psych: Calm
[2025-01-02 16:11] VITALS: BP 89/51
[2025-01-02 19:36] VITALS: BP 98/53
[2025-01-02] MEDS: FLUSH (NSS) 2 FLUSH IV (20:54)
[2025-01-02 21:57] LABS: Glucose - Point of Care 148 mg/dl (70-99)
[2025-01-02 21:57] LABS: Glucose - Point of Care 180 mg/dl (70-99)
[2025-01-02] MEDS: PEPCID 20 MG PO (21:59)
[2025-01-02] MEDS: LANTUS 0.3 UNITS SC (22:00)
[2025-01-02 23:35] VITALS: BP 94/55
[2025-01-03] VITALS (10 sets, daily range): BP systolic 90–131; BP diastolic 44–91; BMI 21.3
[2025-01-03] MEDS: FLUSH (NSS) 2 FLUSH IV (03:55)
[2025-01-03] MEDS: AMPICILLIN 108 MG IV ×4 (03:55→22:30)
[2025-01-03 05:45] LABS: Hematocrit 25.6 % (39.0-52.0); Hemoglobin 8.5 g/dL (13.0-18.0); Mean Corp Hgb Conc. 33.2 g/dL (33.0-37.0); Mean Corpuscular Volume 93.8 fL (80.0-94.0); Platelet Count 52 10^3/uL (130-400); Red Cell Dist. Width 15.2 % (11.5-14.5)
[2025-01-03 06:06] LABS: Blood Urea Nitrogen 32 mg/dl (9-20); Calcium 9.2 mg/dl (8.4-10.2); Carbon Dioxide 28 mmol/L (22-30); Chloride 100 mmol/L (98-107); Estimated Creatinine Clearance 33 ml/min; Glucose 78 mg/dl (70-99); Potassium 3.5 mmol/L (3.5-5.1); Sodium 132 mmol/L (135-145); eGFR 41.78
[2025-01-03 07:27] LABS: Glucose - Point of Care 117 mg/dl (70-99)
[2025-01-03] MEDS: NOVOLOG FLEXPEN-LOW RESISTANCE SC ×2 (07:57→12:55)
--- NOTE | 2025-01-03 08:45 | W.PN.ID1 ---
Addendum entered and electronically signed by Padmaja Catherine MD 01/03/25 12:39:
I saw and evaluated the patient. I reviewed the resident�s note and agree with findings and plan as documented in the resident�s note.
No events recorded overnight
Patient reports some chills before arrival, now resolved
some minor back pain
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
Physical Exam
General: thin, no acute distress
Respiratory: Clear; No Crackles
Cardiac: S1/S2 and Regular Rhythm; No splinter hemorrhages, osler nodes or janeway lesions
GI: Soft, Non Tender, Non Distended and Normal Bowel Sounds
Skin: Warm and Dry
Neuro: Awake, Alert, Oriented and AO x 3
Psych: Calm
DLOA: Pacemaker no erythema, warmth or tenderness
A&P
E faecalis bacteremia - persistent
Possible endocarditis
Leukocytosis
NOE
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
- bacteremia 12/28 and 12/30; 01/01 cultures are in progress
- continue ampicillin increased dose to 2gm q 6 hours given
- would proceed to RENAN to assess for vegetations
- PICC was placed while patient was bacteremic and is likely seeded, it will need to be removed and replaced
- follow clinically
Also
CHF
Original Note:
Date of Service
Date of Service: January 03, 2025
Today's Communication
Continue ampicillin 2 g IV every 8 hours
Assessment / Plan
Enterococcus faecalis bacteremia:
Septic shock secondary to Enterococcus faecalis bacteremia:
NOE:
Leukocytosis:
Blood cultures were not drawn in the emergency department and were collected post PICC placement and after antibiotics were administered -repeat blood cultures x 2 ordered
TTE on 12/29 did not show vegetation and was unchanged from prior echo on 12/20. Echo was limited and did not assess aortic and pulmonic valves -recommend repeat echo with those valves assessed
Consideration for CT of the abdomen and pelvis with oral contrast if abdominal source is suspected and once renal function near/at baseline
Elevated ESR and CRP
Unlikely a UTI considering the urine analysis was without pyuria
Respiratory symptoms with hypoxia likely secondary to CHF exacerbation -Zosyn discontinued
Patient likely has endocarditis based on Lange's criteria with 1 major and 3 minor criteria met
Vancomycin discontinued on 01/02/2025 and switched to ampicillin 2 g IV every 8 hours
Patient will need to be discharged on 6 weeks of IV ampicillin
Chief Complaint
-: Bacteremia
Subjective / Review of Systems
Met with patient at the bedside. Overall he is doing well and offers no complaints at the present time. He feels like he is able to breathe much easier since he arrived.
Vital Signs / Physical Exam
Vital Signs
Vital Signs
Temp Pulse Resp BP Pulse Ox
98.3 F 95 16 101/60 100
01/03/25 07:22 01/03/25 09:38 01/03/25 07:22 01/03/25 09:38 01/03/25 07:22
Physical Exam
Constitutional: No Acute Distress, Comfortable, Non-toxic and Other (thin)
Head: Normocephalic
Eyes: Pupils Equal, No Conjunctival Hemorrhage and Sclera Anicteric
Oropharyngeal: Benign
Cardiovascular: Regular Rate and S1/S2; Negative S3/S4 or Murmur
Pulmonary: Clear and Non Labored; Negative Wheezes, Rales, Rhonchi or Coarse
Gastrointestinal: Soft, Non Tender, Non Distended and Normal Bowel Sounds
Extremities: Negative Edema, Clubbing or Cyanosis
Neurological: Awake and Alert
Psychological: Calm
Objective Data
Lab Data
Lab Results
01/03/25 05:09
01/03/25 05:09
ESR 42 mm/hour (0-20) H 01/01/25 05:29
PT 17.1 Sec (11.4-14.6) H 12/28/24 12:58
INR 1.36 12/28/24 12:58
APTT 42.4 Sec (23.4-35.0) H 12/28/24 12:58
Estimated Creat Clear 33 ml/min 01/03/25 05:09
Lactic Acid Cancelled 12/29/24 06:17
Total Bilirubin 2.3 mg/dl (0.2-1.3) H 01/01/25 05:29
AST 85 U/L (17-59) H 01/01/25 05:29
ALT 109 U/L (0-50) H 01/01/25 05:29
Alkaline Phosphatase 85 U/L (38-126) 01/01/25 05:29
C-Reactive Protein 39.30 mg/L (0.0-10.00) H 01/01/25 05:29
Most recent labs reviewed.
Micro Results:
12/30/24 10:34 Blood Culture - Preliminary
Blood/Venous No Growth in 4 days- Final report to follow
01/01/25 08:41 Blood Culture - Preliminary
Blood/Venous No Growth in 48 hours- Final report to follow
01/01/25 08:42 Blood Culture - Preliminary
Blood/Venous No Growth in 48 hours- Final report to follow
12/30/24 10:21 Blood Culture - Preliminary
Blood/Venous Enterococcus faecalis
Gram Stain - Preliminary
12/28/24 23:16 Blood Culture - Preliminary
Blood/Venous Enterococcus faecalis
Gram Stain - Preliminary
12/28/24 22:17 Blood Culture - Preliminary
Blood/Venous Enterococcus faecalis
Gram Stain - Preliminary
12/28/24 22:17 Nasal Screen MRSA (PCR) - Final
Nose MRSA not detected - performed by PCR methodology.
12/28/24 17:46 Influenza Types A & B (FLACO) - Final
Nasal Swab Negative for Influenza A & B, NAAT
Negative results must be combined with clinical observations
and patient history.
Nucleic Acid Amplification test (NAAT)performed on the
[employer] platform.
Imaging:
12/31/2024 CXR (portable): overall improvement in bilateral interstitial markings, suggesting improvement in interstitial pulmonary edema pattern. A small focus of patchy parenchymal opacity within the left lower lung, new from recent exam,
possibly atelectasis versus pneumonia. Dual-lead PPM in place.
[2025-01-03] MEDS: VITAMIN D3 (cholecalciferol) 125 MCG PO (09:37)
[2025-01-03] MEDS: PROTONIX 40 MG PO (09:37)
[2025-01-03] MEDS: FEOSOL 325 MG PO (09:37)
[2025-01-03] MEDS: PLAVIX 75 MG PO (09:37)
[2025-01-03] MEDS: OSCAL 500 + D 500 MG PO (09:37)
[2025-01-03] MEDS: THERAGRAN 1 TABLET PO (09:37)
[2025-01-03] MEDS: FLOMAX 0.4 MG PO (09:37)
[2025-01-03] MEDS: ASPIR LOW (ENTERIC COATED) 81 MG PO (09:37)
[2025-01-03] MEDS: DEMADEX 20 MG PO (09:38)
[2025-01-03] MEDS: PROSCAR 5 MG PO (09:38)
[2025-01-03] MEDS: NOVOLOG FLEXPEN 5 UNITS SC ×3 (09:39→17:47)
--- NOTE | 2025-01-03 10:01 | CM ---
F/U: ONUR Gr saw that referral was made to [facility] so this will be the discharge plan if nothing changes. No indication on when patient is ready. PLAN: Home w/ [facility] when ready.
--- NOTE | 2025-01-03 10:52 | VNURNOTE ---
Chart reviewed. Per PM-VN tray line supervisor Mariluz, [facility] can accept pt. Spoke with pt's granddaughter Deepika. Inquired if she was ok with [facility] in leiu of . She was agreeable. Updated CM Simón. Simón will enter referral in
[facility].
[facility]
--- NOTE | 2025-01-03 11:16 | CM ---
F/U: Tracey from [facility] called to say that patient will now be with [facility] instead and the granddaughter is fine with the switch. ONUR Gr sent the referral to [facility] listing the following PCP.
Dr. Neel Clifton ([phone]) PLAN: Home w. [facility].
--- NOTE | 2025-01-03 11:35 | W.PN.HOSP.TC ---
Today's Communication/Plan
-
Continue IV antibiotic, pending repeat culture
Assessment / Plan
Assessment / Plan
Impression:
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
with new onset of shortness of breath and generalized weakness. Patient is Gujarati speaking. Patient was recently admitted and discharged 5 days prior to this admission, post discharge was doing fairly well although did not have much of energy.
Patient was prescribed torsemide at discharge last, although not able to fill as pharmacy did not have any supply. Patient finally was able to get the torsemide and was able to take a dose morning of admission. Patient developed a positive blood
culture and treated for septic shock with pressors, off pressors, started on midodrine for soft blood pressure.
Infectious disease recommending Echocardiogram which did not show any valvular vegetation. May require RENAN if bacteremia persist.
- Repeat blood culture positive from 12/30. but repeat blood culture report from 01/01 remains negative
- CT abdomen pelvis did not show any clear infectious source
Infectious disease recommending long-term IV antibiotics.
Assessment/plan:
Septic shock from multifocal pneumonia
associated with NOE/lactic acidosis
- Reported subjective fever at home. no productive cough.
- Chest x-ray showing possible multifocal pneumonia
- Total WBC count of 35K at admission has trended down
- Patient got 1 L of NS, did not provide full 30 mL/kg bolus as patient have systolic heart failure.
- ID help appreciated. Currently patient on IV ampicillin
- Added midodrine to regimen. Blood pressure remains soft.
Enterococcus faecalis bacteremia
- Unable to get blood culture in ER as patient is hard stick. Delayed blood culture collected post PICC placement and abx.
- Vancomycin was initially discontinued, resumed---> Currently patient on IV ampicillin
- Await further susceptibility
- Echocardiogram 12/29 did not show any valvular vegetation. May require RENAN if bacteremia persist.
- Repeat blood culture positive from 12/30. f/u repeat blood culture report from 01/01
- CT abdomen pelvis did not show any clear infectious source
- Infectious ease recommending 6 weeks of IV ampicillin
NOE on CKD stage IIIb
Acute urinary retention
- creatinine up to 3.2 in ER, baseline cr 1.7-1.8 at discharge week back,
- Renal dysfunction likely combination from hypotension/cardiorenal syndrome and urinary retention
- Anders catheter to be removed and voiding trial to be done.
- Avoid nephrotoxic medication
- Creatinine continues trending down
Acute normocytic anemia
- Hemoglobin 9 after transfusion of 1 unit PRBC yesterday
- No luminal blood loss
Coronary disease status post with
Acute on Chronic systolic congestive heart failure
- proBNP greater than 27,000
- [facility] last admission showed blocked SVG graft to distal LAD, was planned to be manage medical
- Continue on Plavix statin
- Troponin 12 and has been trending down from elevated troponin max of 28 on 12/20
- Patient has been taken off of IV diuretic. Currently on oral torsemide.
Anion gap metabolic acidosis - Improved
- Combination of lactic acidosis and renal dysfunction related
- Provide sodium bicarb few doses
- Being treated for underlying infection
Hyperkalemia - Improved
Hypokalemia
- Hyperkalemia secondary to renal failure/acidosis related at admission
- Post diuresis patient is developing hypokalemia now, replace as needed
Type II DM
- maintain on Lower dose lantus and ISS
- Added Premeal NovoLog
- diabetic diet
- Hold metformin with renal dysfunction
Essential hypertension
- Hold blood pressure medication with ongoing shock
Hyponatremia - resolved
- Combination from hypervolemia and ADH excess with heart failure
- Urine Na 34 Uosm 257
- Further therapy if have worsening of hyponatremia
Acute transaminitis
- Possible due to hypotension related
- LFT trending down.
CODE STATUS: Full code
DVT prophylaxis: Heparin
Diet: Diabetic diet
Family communication: Discussed with family at bedside
Physical therapy recommendations: Home health
Disposition: Continue IV antibiotic, pending repeat culture
Total time spent on today's encounter was 55 minutes which included time spent in counseling the patient/family regarding diagnosis and treatment plan as listed above, goals of care, and symptom management. Case was discussed with nursing staff,
specialists, and care coordinators/case management. All labs and imaging personally reviewed by me. Remainder the time spent in detailed review of previous records, lab data, imaging, and other medical provider documentation.
Anticipated Discharge: 24 - 48 hours
Subjective/Interval History
-
Date of Service: January 03, 2025
Patient seen and examined at bedside, family at bedside help with translation, denies any chest pain , shortness of breath Improved.
Objective Data
-
Labs:
Laboratory Results
01/03/25
05:09
WBC 14.0 H
Hgb 8.5 L
Hct 25.6 L
Plt Count 52 L
Sodium 132 L
Potassium 3.5
Chloride 100
Carbon Dioxide 28
BUN 32 H
Creatinine 1.7 H
Glucose 78
Calcium 9.2
Vital Signs:
Vital Signs
Temp Pulse Resp BP Pulse Ox
98.3 F 95 16 101/60 100
01/03/25 07:22 01/03/25 09:38 01/03/25 07:22 01/03/25 09:38 01/03/25 07:22
I&O
01/02/25 01/03/25 01/04/25
05:59 06:59 06:59
Intake Total 550 / 550 440 / 440
Output Total 1510 / 1510 2175 / 2175
Balance -960 / -960 -1735 / -1735
Physical Exam
-
General: Well Developed, Well Nourished, No Apparent Distress and Comfortable
HEENT: Normocephalic, Atraumatic, Moist Mucous Membranes, No Ptosis, PERRLA and Nose Appears Normal
Respiratory: Rales, Rhonchi, Crackles and Non Labored Respirations
Cardiac: Regular Rhythm and S1/S2
Breast: Deferred by me
GI: Soft, Nontender, Nondistended and Normal Bowel Sounds
Genito-urinary: No Costovertebral Tender
Musculoskeletal: No Clubbing, No Cyanosis and No Edema
Skin: Warm
Neuro: Awake, Alert, Oriented, AO x 3 and No Motor Deficits
Psych: Calm
[2025-01-03 12:53] LABS: Glucose - Point of Care 111 mg/dl (70-99)
--- NOTE | 2025-01-03 14:12 | VATNOTE ---
PICC line attempted on the L arm. Both brachial veins were able to be accessed, but the wire was only able to be threaded about fdc in each one. Physician notified by PCN and IR consult requested. Will continue to monitor.
--- NOTE | 2025-01-03 14:21 | W.PN.CARDCBS ---
Today's Communication / Plan
-
Stop aspirin given anemia, continue clopidogrel alone
Check proBNP in a.m.
Transesophageal echo, tentatively middle of the week as patient gets stronger
Impression / Plan
-
PCP: Israel Clifton MD
CDY: Orlando Langley MD
Impression:
Admitted with sepsis and NOE
Hypotension requiring pressor support consistent with shock (septic/cardiogenic)
Recent admission acute HFrEF and NSTEMI 12/20/2024 until 12/23/2024
(Trops trending down since peak of 17 on 12/20/24)
Recent ER visit at [facility] for chest pain and SOB 12/09/2024
Aortic valve stenosis moderate
Mitral regurgitation previously mild to moderate now moderate to severe in the setting of volume overload
Clinical sepsis
Possible multifocal PNA
Possible cardiogenic shock
NOE on CKD
Previously required transient HD 07/2024
Hyperkalemia
Elevated troponin, overall trending down from last admission
CAD
s/p CABG with GAFFNEY-LAD, VG-dLAD, VG-PLB 2007
s/p SVG to the distal LAD PCI at [facility] by Dr. Gavin 04/2024
Patent GAFFNEY to LAD, patent SVG to PLB with PDA filling via retrograde from the PLB, occlusion of the SVG to the distal LAD with 100% occlusion of previously placed stent 12/21/2024
s/p tissue AVR 2007
HLD
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
HTN
DM
Language barrier
Thrombocytopenia
Echo 08/2023: nml LV size, abnormal diastolic function with increased LVEDP, EF 60-65%, CLVH but no obvious regional abn. normally functioning bioprosthetic AV, PG/MG 32.5/18, ABEL 1.34cm2
Echo 12/20/2024: EF 35 to 40%, mild concentric LVH, mid to distal inferior, inferolateral, mid anteroseptal, mid anterior, apical hypokinesis, dense MAC, at least moderate to severe MR with anterior eccentric jet, mild to moderate TR, PAP 38 mmHg
Echocardiogram 12/29/2024: Ejection fraction 30 to 35%. Mid to distal inferior, inferolateral, mid anteroseptal and mid anterior hypokinesis with apical akinesis. Moderate to severe mitral regurgitation. Mild to moderate TR.
Echo 12/30/2024: Ejection fraction 30% by visual estimation. Segmental wall motion abnormalities noted. Moderate to severe mitral regurgitation similar to prior. Previously aortic valve was not assessed. Likely moderate aortic valve stenosis
Peak/mean gradients are 32/20mmHg. ABEL 0.8cm sq, using a LVOT of 1.6cm.Mild to moderate tricuspid regurgitation. Estimated pulmonary artery pressure of 33 mmHg
Plan:
He is slowly improving on many fronts, but he remains very tenuous and is extremely weak and deconditioned at the present time. He is not able to walk.
ID has ongoing concerns regarding endocarditis and requested transesophageal echo. I would like him to be a bit stronger, we can shoot for the middle of the week. Currently he gets short of breath just turning from [id number] in bed.
Non-ST segment elevation M related to loss of vein graft to distal LAD December 21 -no evidence of ongoing ischemia at this time.
Acute on chronic HFrEF is likely improved. Improved. Last proBNP was greater than 27,000, creatinine has dropped dramatically, suspect he is close to euvolemic though with underlying LV dysfunction. Recheck proBNP in AM. GDMT for heart failure
limited by hypotension currently requiring midodrine.
Will institute as blood pressure permits. We may be able to begin SGLT2 antagonist if creatinine remains stable or improved.
NOE continues to improve.
Anemia is stable but slowly drifting down again. He has received blood transfusions. DAPT was prescribed in order to keep stent in SVG to LDA open, but vein graft now occluded so we will stop aspirin.
Mitral regurgitation murmur is not prominent, perhaps has improved will consider repeat echo. Also has underlying aortic stenosis.
Patient is in need rehab.
HPI: Patient presented to the ER today with SMALL and is being admitted with possible sepsis and NOE and cardiology is being consulted for possible CHF and recent admission for NSTEMI. Patient has a history of remote CABG and AVR in 2007 at an
outside hospital. He had an admission to [facility] 04/2024 and he had PCI of the SVG to the distal LAD. Patient was then admitted to [facility] with NOE and was transiently on hemodialysis 07/2024. Most recently he has been following with "Alexus"Korin at [facility] and their office referred the patient to the [facility] ER on 12/09/2024 after he complained of chest pain during a visit in their office that day. The patient was discharged from the ER with a higher dose of
Lopressor and they added Imdur ER. There was apparently no consideration for acute HF at that time. Patient then came to the [facility] ER on 12/20/2024 with chest pain and the initial troponin was 2.22 and subsequent troponin was as high as 27.9.
Patient was admitted and eventually had cardiac cath 12/21/2024 that showed that the stent in the SVG to the LAD from April was 100% occluded and the GAFFNEY to LAD and SVG to PLV grafts were patent. There was also evidence of acute HFrEF during
that admission and EF was newly reduced at 35 to 40%, it had been 60 to 65% by an echo from his primary stoker mechanic 08/2023. PCWP was down to 18 which correlated with a weight of 141 lbs at time of cath on 12/21/2024. Cre was stable at 1.8 on the
day of discharge 12/23/2024. At the recommendation of nephrology the patient was discharged home on torsemide 20 mg daily. Patient's family reports that medications were not delivered in a timely fashion and so he was not taking any of his
medications since admission until they arrived yesterday. Patient has had increasing SMALL over the last 24 hours and came to the ER today. There is leukocytosis with a WBC count of 35 with a left shift. Lactic acid levels pending. There is
concern for sepsis possibly due to PNA and patient is being admitted to the ICU due to his need for pressor support with Levophed.
Progress Note - Multisensor Intelligence Officer
Subjective
Date of Service: January 03, 2025:
74-year-old man admitted with clinical sepsis, NOE and acute on chronic HFrEF following recent non-ST segment elevation CT. Following recent discharge on December 23, patient was unable to obtain medications for unclear reasons.
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
diabetes, thrombocytopenia
Current meds: Aspirin 81 mg a day, clopidogrel 75 mg a day, Pepcid, iron, Proscar, pantoprazole, Flomax, subcu heparin, Lantus, midodrine 10 mg 3 times daily, torsemide 20 mg a day, ampicillin IV
He is short of breath turning [id number] in the bed, has been up to chair, but too weak to walk, otherwise no complaints. Granddaughter served as certified medical aide.
101/60, pulse 95, respiratory rate 16, afebrile, weight is 61.5 kg, no acute distress, lungs are clear, regular rate and rhythm without obvious murmurs JVD okay, no edema
white count 14.0, hemoglobin 8.5, platelets 52, potassium 3.5, creatinine 1.7, BUN 32, peak creatinine was 3.2, slowly trending down
Objective
Labs:
01/03/25 05:09
01/03/25 05:09
Labs
Hgb 8.5 g/dL (13.0-18.0) L 01/03/25 05:09
Hct 25.6 % (39.0-52.0) L 01/03/25 05:09
Plt Count 52 10^3/uL (130-400) L 01/03/25 05:09
PT 17.1 Sec (11.4-14.6) H 12/28/24 12:58
INR 1.36 12/28/24 12:58
APTT 42.4 Sec (23.4-35.0) H 12/28/24 12:58
Sodium 132 mmol/L (135-145) L 01/03/25 05:09
Potassium 3.5 mmol/L (3.5-5.1) 01/03/25 05:09
BUN 32 mg/dl (9-20) H 01/03/25 05:09
Creatinine 1.7 mg/dL (0.7-1.3) H 01/03/25 05:09
Glucose 78 mg/dl (70-99) 01/03/25 05:09
Vital Signs and I&O:
Vital Signs
Temp Pulse Resp BP Pulse Ox
36.9 C 88 16 90/44 99
01/03/25 11:57 01/03/25 12:54 01/03/25 11:57 01/03/25 12:54 01/03/25 11:57
Vital Signs
Temp Pulse Resp BP Pulse Ox
36.9 C 88 16 90/44 99
01/03/25 11:57 01/03/25 12:54 01/03/25 11:57 01/03/25 12:54 01/03/25 11:57
Intake & Output
01/01/25 01/02/25 01/03/25 01/04/25
07:59 06:59 07:59 07:59
Intake Total 780 / 780 550 / 550 440 / 440
Output Total 550 / 550 1509 / 2174
Balance 230 / 230 -960 / -1460 -1735 / -1735
--- NOTE | 2025-01-03 14:45 | W.PN.NEPH.PH ---
Today's Communication / Plan
-
Continue torsemide
Assessment/Plan
-
Impression:
Decompensated HFrEF 30%
CKD 3B, baseline around 1.7
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
CAD/CABG
HTN
DM2
Hyponatremia, hyperkalemia
Hypotension
Plan:
Follow BMP
continue oral torsemide
Replete potassium prn
Continue high-dose midodrine
Creatinine at baseline 1 7
Weights are stable today but have been coming down nicely
Pending echo
-
-
Date of Service: January 03, 2025
CC / HPI / ROS
-
Chief Complaint:
NOE
History of Present Illness:
NOE/creatinine lower at 1.8
sodium lower at 132
wt is down, wolf in place-mild retention, non oliguric
Hemoglobin low but stable 7.3
K low 3.4
Remains on high-dose midodrine for hypotension
Review of Systems:
no CP
no SOB
no n/v
Labs
-
Labs:
WBC 14.0 10^3/uL (4.8-10.8) H 01/03/25 05:09
RBC 2.73 10^6/uL (4.70-6.10) L 01/03/25 05:09
Hgb 8.5 g/dL (13.0-18.0) L 01/03/25 05:09
Hct 25.6 % (39.0-52.0) L 01/03/25 05:09
Plt Count 52 10^3/uL (130-400) L 01/03/25 05:09
Sodium 132 mmol/L (135-145) L 01/03/25 05:09
Potassium 3.5 mmol/L (3.5-5.1) 01/03/25 05:09
Chloride 100 mmol/L (98-107) 01/03/25 05:09
Carbon Dioxide 28 mmol/L (22-30) 01/03/25 05:09
BUN 32 mg/dl (9-20) H 01/03/25 05:09
Creatinine 1.7 mg/dL (0.7-1.3) H 01/03/25 05:09
eGFR 41.78 01/03/25 05:09
Glucose 78 mg/dl (70-99) 01/03/25 05:09
Calcium 9.2 mg/dl (8.4-10.2) 01/03/25 05:09
Phosphorus 3.1 mg/dl (2.5-4.5) 12/28/24 22:17
Wql-X-Ikxcqzvfvqr Pept > 02274 pg/ml 12/28/24 12:58
Albumin 3.3 g/dl (3.5-5.0) L 01/01/25 05:29
Physical Exam
-
Vital Signs:
Vital Signs
Temp Pulse Resp BP Pulse Ox
98.4 F 88 16 90/44 99
01/03/25 11:57 01/03/25 12:54 01/03/25 11:57 01/03/25 12:54 01/03/25 11:57
Cardiovascular:: Regular rate and rhythm
Respiratory:: Bilateral: Coarse
Lung Excursion:: Normal
Abdomen:: Nontender and Soft
Bowel Sounds:: Normal
Extremity Edema:: None: Bilateral:
[2025-01-03 17:44] LABS: Glucose - Point of Care 212 mg/dl (70-99)
[2025-01-03] MEDS: NOVOLOG FLEXPEN-LOW RESISTANCE 2 UNITS SC (17:46)
[2025-01-03 21:39] LABS: Glucose - Point of Care 289 mg/dl (70-99)
[2025-01-03] MEDS: LANTUS 0.3 UNITS SC (22:30)
[2025-01-04] MEDS: TYLENOL 650 MG PO (01:18)
[2025-01-04 03:12] VITALS: BP 101/56
[2025-01-04] MEDS: AMPICILLIN 108 MG IV ×3 (04:07→23:22)
[2025-01-04 06:00] VITALS: BMI 21.4
[2025-01-04 07:03] LABS: Blood Urea Nitrogen 29 mg/dl (9-20); Calcium 8.8 mg/dl (8.4-10.2); Carbon Dioxide 26 mmol/L (22-30); Chloride 101 mmol/L (98-107); Estimated Creatinine Clearance 28 ml/min; Glucose 55 mg/dl (70-99); Potassium 3.4 mmol/L (3.5-5.1); Sodium 136 mmol/L (135-145); eGFR 34.38
[2025-01-04 07:14] LABS: Hematocrit 25.6 % (39.0-52.0); Hemoglobin 8.1 g/dL (13.0-18.0); Mean Corp Hgb Conc. 31.6 g/dL (33.0-37.0); Mean Corpuscular Volume 96.6 fL (80.0-94.0); Platelet Count 46 10^3/uL (130-400); Red Cell Dist. Width 15.4 % (11.5-14.5)
[2025-01-04 07:19] LABS: Glucose - Point of Care 94 mg/dl (70-99)
[2025-01-04 07:21] VITALS: BP 105/61
--- NOTE | 2025-01-04 09:39 | W.PN.ID1 ---
Date of Service
Date of Service: January 04, 2025
Today's Communication
- continue ampicillin dose adjusted back to 2 gm IV q8 hours for present
- await RENAN
Assessment / Plan
A&P
E faecalis bacteremia - persistent
Possible endocarditis
Leukocytosis - resolved
NOE
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
- bacteremia 12/28 and 12/30; 01/01 cultures are in progress
- continue ampicillin dose adjusted back to 2 gm IV q8 hours for present
- await RENAN
- PICC removed and will be replaced today
- follow clinically
Also
CHF
Chief Complaint
-: Bacteremia
Subjective / Review of Systems
afebrile
bp stable
colonized PICC line was removed, two attempts at replacement on the contralateral side not effective, will get replacement on the right side today
translation services was not available when I called twice today
Vital Signs / Physical Exam
Vital Signs
Vital Signs
Temp Pulse Resp BP Pulse Ox
97.8 F 85 16 105/61 100
01/04/25 07:21 01/04/25 07:21 01/04/25 07:21 01/04/25 07:21 01/04/25 07:21
Physical Exam
Constitutional: No Acute Distress
Cardiovascular: Regular Rate and S1/S2; Negative Murmur or Rub
Pulmonary: Clear and Symmetric; Negative Wheezes or Rales
Gastrointestinal: Soft, Non Tender, Non Distended and Normal Bowel Sounds
Skin: Warm and Dry; Negative Rash or Jaundice
Objective Data
Lab Data
Lab Results
01/04/25 05:29
01/04/25 05:29
ESR 42 mm/hour (0-20) H 01/01/25 05:29
PT 17.1 Sec (11.4-14.6) H 12/28/24 12:58
INR 1.36 12/28/24 12:58
APTT 42.4 Sec (23.4-35.0) H 12/28/24 12:58
Estimated Creat Clear 28 ml/min 01/04/25 05:29
Lactic Acid Cancelled 12/29/24 06:17
Total Bilirubin 2.3 mg/dl (0.2-1.3) H 01/01/25 05:29
AST 85 U/L (17-59) H 01/01/25 05:29
ALT 109 U/L (0-50) H 01/01/25 05:29
Alkaline Phosphatase 85 U/L (38-126) 01/01/25 05:29
C-Reactive Protein 39.30 mg/L (0.0-10.00) H 01/01/25 05:29
Most recent labs reviewed.
Micro Results:
01/01/25 08:42 Blood Culture - Preliminary
Blood/Venous No Growth in 72 hours- Final report to follow
01/01/25 08:41 Blood Culture - Preliminary
Blood/Venous No Growth in 72 hours- Final report to follow
12/28/24 23:16 Blood Culture - Final
Blood/Venous Enterococcus faecalis
Gram Stain - Final
12/28/24 22:17 Blood Culture - Final
Blood/Venous Enterococcus faecalis
Gram Stain - Final
12/30/24 10:34 Blood Culture - Preliminary
Blood/Venous No Growth in 4 days- Final report to follow
12/30/24 10:21 Blood Culture - Preliminary
Blood/Venous Enterococcus faecalis
Gram Stain - Preliminary
12/28/24 22:17 Nasal Screen MRSA (PCR) - Final
Nose MRSA not detected - performed by PCR methodology.
12/28/24 17:46 Influenza Types A & B (FLACO) - Final
Nasal Swab Negative for Influenza A & B, NAAT
Negative results must be combined with clinical observations
and patient history.
Nucleic Acid Amplification test (NAAT)performed on the
[id number] NOW platform.
Imaging:
12/31/2024 CXR (portable): overall improvement in bilateral interstitial markings, suggesting improvement in interstitial pulmonary edema pattern. A small focus of patchy parenchymal opacity within the left lower lung, new from recent exam,
possibly atelectasis versus pneumonia. Dual-lead PPM in place.
[2025-01-04] MEDS: NOVOLOG FLEXPEN-LOW RESISTANCE SC (09:47)
[2025-01-04] MEDS: NOVOLOG FLEXPEN 5 UNITS SC ×3 (09:48→17:40)
[2025-01-04] MEDS: ASPIR LOW (ENTERIC COATED) 81 MG PO (09:49)
[2025-01-04] MEDS: THERAGRAN 1 TABLET PO (09:49)
[2025-01-04] MEDS: KCL 20 MEQ PO (09:49)
[2025-01-04] MEDS: FLOMAX 0.4 MG PO (09:50)
[2025-01-04] MEDS: OSCAL 500 + D 500 MG PO (09:50)
[2025-01-04] MEDS: PROTONIX 40 MG PO (09:50)
[2025-01-04] MEDS: VITAMIN D3 (cholecalciferol) 125 MCG PO (09:50)
[2025-01-04] MEDS: FEOSOL 325 MG PO (09:50)
[2025-01-04] MEDS: PROSCAR 5 MG PO (09:53)
[2025-01-04] MEDS: DEMADEX 20 MG PO (09:53)
[2025-01-04] MEDS: PLAVIX 75 MG PO (09:53)
--- NOTE | 2025-01-04 10:53 | W.PN.CARDCBS ---
Today's Communication / Plan
-
Follow-up echo study in a.m.
Chest x-ray in a.m.
Consider ivabradine -currently not on formulary
Continue torsemide
Impression / Plan
-
PCP: Israel Clifton MD
CDY: Orlando Langley MD
Impression:
Admitted with sepsis and NOE
Hypotension requiring pressor support consistent with shock (septic/cardiogenic)
Recent admission acute HFrEF and NSTEMI 12/20/2024 until 12/23/2024
(Trops trending down since peak of 17 on 12/20/24)
Recent ER visit at [facility] for chest pain and SOB 12/09/2024
Aortic valve stenosis moderate
Mitral regurgitation previously mild to moderate now moderate to severe in the setting of volume overload
Clinical sepsis
Possible multifocal PNA
Possible cardiogenic shock
NOE on CKD
Previously required transient HD 07/2024
Hyperkalemia
Elevated troponin, overall trending down from last admission
CAD
s/p CABG with GAFFNEY-LAD, VG-dLAD, VG-PLB 2007
s/p SVG to the distal LAD PCI at [facility] by Dr. Gavin 04/2024
Patent GAFFNEY to LAD, patent SVG to PLB with PDA filling via retrograde from the PLB, occlusion of the SVG to the distal LAD with 100% occlusion of previously placed stent 12/21/2024
s/p tissue AVR 2007
HLD
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
HTN
DM
Language barrier
Thrombocytopenia
Echo 08/2023: nml LV size, abnormal diastolic function with increased LVEDP, EF 60-65%, CLVH but no obvious regional abn. normally functioning bioprosthetic AV, PG/MG 32.5/18, ABEL 1.34cm2
Echo 12/20/2024: EF 35 to 40%, mild concentric LVH, mid to distal inferior, inferolateral, mid anteroseptal, mid anterior, apical hypokinesis, dense MAC, at least moderate to severe MR with anterior eccentric jet, mild to moderate TR, PAP 38 mmHg
Echocardiogram 12/29/2024: Ejection fraction 30 to 35%. Mid to distal inferior, inferolateral, mid anteroseptal and mid anterior hypokinesis with apical akinesis. Moderate to severe mitral regurgitation. Mild to moderate TR.
Echo 12/30/2024: Ejection fraction 30% by visual estimation. Segmental wall motion abnormalities noted. Moderate to severe mitral regurgitation similar to prior. Previously aortic valve was not assessed. Likely moderate aortic valve stenosis
Peak/mean gradients are 32/20mmHg. ABEL 0.8cm sq, using a LVOT of 1.6cm.Mild to moderate tricuspid regurgitation. Estimated pulmonary artery pressure of 33 mmHg
Plan:
He has a resting sinus tachycardia with ongoing heart failure. He is very modestly improved but still extremely tenuous.
His proBNP is dramatically improved but still greater than 13,000.
Currently not on GDMT and requiring midodrine for blood pressure support.
.
Will look into ivabradine for treatment of his heart failure.
Reluctant to consider digoxin in the setting of ischemic cardiomyopathy at this time.
.
He has left-sided chest discomfort, which is tender to palpation will not pursue further at this moment.
.
Will recheck chest x-ray in a.m. and will check follow-up echo study.
.
Based on his current clinical status I remain reluctant to proceed with transesophageal echo in the a.m., would prefer to shoot for later in the week.
.
Torsemide per nephrology, creatinine is up to 2 today.
He was hypoglycemic, which is a concern.
Prognosis is guarded given his limited functional status LV dysfunction, CHF, ongoing bacteremia, . I have discussed with his son who is in [place] via WhatsApp.
HPI: Patient presented to the ER today with SMALL and is being admitted with possible sepsis and NOE and cardiology is being consulted for possible CHF and recent admission for NSTEMI. Patient has a history of remote CABG and AVR in 2007 at an
outside hospital. He had an admission to [facility] 04/2024 and he had PCI of the SVG to the distal LAD. Patient was then admitted to [facility] with NOE and was transiently on hemodialysis 07/2024. Most recently he has been following with "Alexus"Korin at [facility] and their office referred the patient to the [facility] ER on 12/09/2024 after he complained of chest pain during a visit in their office that day. The patient was discharged from the ER with a higher dose of
Lopressor and they added Imdur ER. There was apparently no consideration for acute HF at that time. Patient then came to the [facility] ER on 12/20/2024 with chest pain and the initial troponin was 2.22 and subsequent troponin was as high as 27.9.
Patient was admitted and eventually had cardiac cath 12/21/2024 that showed that the stent in the SVG to the LAD from April was 100% occluded and the GAFFNEY to LAD and SVG to PLV grafts were patent. There was also evidence of acute HFrEF during
that admission and EF was newly reduced at 35 to 40%, it had been 60 to 65% by an echo from his primary anthropology faculty member 08/2023. PCWP was down to 18 which correlated with a weight of 141 lbs at time of cath on 12/21/2024. Cre was stable at 1.8 on the
day of discharge 12/23/2024. At the recommendation of nephrology the patient was discharged home on torsemide 20 mg daily. Patient's family reports that medications were not delivered in a timely fashion and so he was not taking any of his
medications since admission until they arrived yesterday. Patient has had increasing SMALL over the last 24 hours and came to the ER today. There is leukocytosis with a WBC count of 35 with a left shift. Lactic acid levels pending. There is
concern for sepsis possibly due to PNA and patient is being admitted to the ICU due to his need for pressor support with Levophed.
Progress Note - Medical Education Manager
Subjective
Date of Service: January 04, 2025:
74-year-old man admitted with clinical sepsis, NOE and acute on chronic HFrEF following recent non-ST segment elevation NC. Following recent discharge on December 23, patient was unable to obtain medications for unclear reasons.
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
diabetes, thrombocytopenia
Current meds: clopidogrel 75 mg a day, Pepcid, iron, Proscar, pantoprazole, Flomax, subcu heparin, Lantus, midodrine 10 mg 3 times daily, torsemide 20 mg a day, ampicillin IV, Lantus
105/61, pulse 85, respiratory rate 16, afebrile, intake and output -1 L, weight is 6262.1 kg, if accurate up 0.5 kg, diminished breath sounds in bases, lungs otherwise clear, relatively tachycardic not a loud MR murmur, no edema, abdomen benign
Hemoglobin 8.1, was 8.5, potassium is 3.4, glucose 55, BUN and creatinine 29 and 2.0, creatinine had been 1.7, proBNP is 13,400, had been greater than 27,000
Objective
Labs:
01/04/25 05:29
01/04/25 05:29
Labs
Hgb 8.1 g/dL (13.0-18.0) L 01/04/25 05:29
Hct 25.6 % (39.0-52.0) L 01/04/25 05:29
Plt Count 46 10^3/uL (130-400) L 01/04/25 05:29
PT 17.1 Sec (11.4-14.6) H 12/28/24 12:58
INR 1.36 12/28/24 12:58
APTT 42.4 Sec (23.4-35.0) H 12/28/24 12:58
Sodium 136 mmol/L (135-145) 01/04/25 05:29
Potassium 3.4 mmol/L (3.5-5.1) L 01/04/25 05:29
BUN 29 mg/dl (9-20) H 01/04/25 05:29
Creatinine 2.0 mg/dL (0.7-1.3) H 01/04/25 05:29
Glucose 55 mg/dl (70-99) L* 01/04/25 05:29
Vital Signs and I&O:
Vital Signs
Temp Pulse Resp BP Pulse Ox
36.6 C 85 16 105/61 100
01/04/25 07:21 01/04/25 09:53 01/04/25 07:21 01/04/25 09:53 01/04/25 07:21
Vital Signs
Temp Pulse Resp BP Pulse Ox
36.6 C 85 16 105/61 100
01/04/25 07:21 01/04/25 09:53 01/04/25 07:21 01/04/25 09:53 01/04/25 07:21
Intake & Output
01/02/25 01/03/25 01/04/25 01/05/25
06:59 07:59 07:59 07:59
Intake Total 550 / 550 440 / 440 720 / 720
Output Total 1509 2175 / 2175 1750 / 1750
Balance -960 / -1460 -1735 / -1735 -1030 / -1030
Physical Exam
Physical Exam
See above
--- NOTE | 2025-01-04 11:41 | W.PN.HOSP.TC ---
Today's Communication/Plan
-
Continue IV antibiotic, pending RENAN.
Assessment / Plan
Assessment / Plan
Impression:
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
with new onset of shortness of breath and generalized weakness. Patient is Gujarati speaking. Patient was recently admitted and discharged 5 days prior to this admission, post discharge was doing fairly well although did not have much of energy.
Patient was prescribed torsemide at discharge last, although not able to fill as pharmacy did not have any supply. Patient finally was able to get the torsemide and was able to take a dose morning of admission. Patient developed a positive blood
culture and treated for septic shock with pressors, off pressors, started on midodrine for soft blood pressure.
Infectious disease recommending Echocardiogram which did not show any valvular vegetation. May require RENAN if bacteremia persist.
- Repeat blood culture positive from 12/30. but repeat blood culture report from 01/01 remains negative
- CT abdomen pelvis did not show any clear infectious source
Infectious disease recommending long-term IV antibiotics.
RENAN pending
Assessment/plan:
Septic shock from multifocal pneumonia
associated with NOE/lactic acidosis
- Reported subjective fever at home. no productive cough.
- Chest x-ray showing possible multifocal pneumonia
- Total WBC count of 35K at admission has trended down
- Patient got 1 L of NS, did not provide full 30 mL/kg bolus as patient have systolic heart failure.
- ID help appreciated. Currently patient on IV ampicillin
- Added midodrine to regimen. Blood pressure remains soft.
Enterococcus faecalis bacteremia
- Unable to get blood culture in ER as patient is hard stick. Delayed blood culture collected post PICC placement and abx.
- Vancomycin was initially discontinued, resumed---> Currently patient on IV ampicillin
- Await further susceptibility
- Echocardiogram 12/29 did not show any valvular vegetation. May require RENAN if bacteremia persist.
- Repeat blood culture positive from 12/30. f/u repeat blood culture report from 01/01
- CT abdomen pelvis did not show any clear infectious source
- Infectious ease recommending 6 weeks of IV ampicillin
01/04
RENAN pending
NOE on CKD stage IIIb
Acute urinary retention
- creatinine up to 3.2 in ER, baseline cr 1.7-1.8 at discharge week back,
- Renal dysfunction likely combination from hypotension/cardiorenal syndrome and urinary retention
- Anders catheter to be removed and voiding trial to be done.
- Avoid nephrotoxic medication
- Creatinine continues trending down
Acute normocytic anemia
- Hemoglobin 9 after transfusion of 1 unit PRBC yesterday
- No luminal blood loss
Coronary disease status post with
Acute on Chronic systolic congestive heart failure
- proBNP greater than 27,000
- [facility] last admission showed blocked SVG graft to distal LAD, was planned to be manage medical
- Continue on Plavix statin
- Troponin 12 and has been trending down from elevated troponin max of 28 on 12/20
- Patient has been taken off of IV diuretic. Currently on oral torsemide.
Anion gap metabolic acidosis - Improved
- Combination of lactic acidosis and renal dysfunction related
- Provide sodium bicarb few doses
- Being treated for underlying infection
Hyperkalemia - Improved
Hypokalemia
- Hyperkalemia secondary to renal failure/acidosis related at admission
- Post diuresis patient is developing hypokalemia now, replace as needed
Type II DM
- maintain on Lower dose lantus and ISS
- Added Premeal NovoLog
- diabetic diet
- Hold metformin with renal dysfunction
01/04
Blood sugar dropped to 55, Lantus dose adjusted to 20 units nightly
Essential hypertension
- Hold blood pressure medication with ongoing shock
Hyponatremia - resolved
- Combination from hypervolemia and ADH excess with heart failure
- Urine Na 34 Uosm 257
- Further therapy if have worsening of hyponatremia
Acute transaminitis
- Possible due to hypotension related
- LFT trending down.
CODE STATUS: Full code
DVT prophylaxis: Heparin
Diet: Diabetic diet
Family communication: Discussed with family at bedside
Physical therapy recommendations: Home health
Disposition: Continue IV antibiotic, pending RENAN.
Total time spent on today's encounter was 55 minutes which included time spent in counseling the patient/family regarding diagnosis and treatment plan as listed above, goals of care, and symptom management. Case was discussed with nursing staff,
specialists, and care coordinators/case management. All labs and imaging personally reviewed by me. Remainder the time spent in detailed review of previous records, lab data, imaging, and other medical provider documentation.
Anticipated Discharge: > 48 hours
Subjective/Interval History
-
Date of Service: January 04, 2025
Patient seen and examined at bedside, denies any chest pain, mild shortness of breath, blood sugar was low today, adjusted Lantus.
Objective Data
-
Labs:
Laboratory Results
01/04/25
05:29
WBC 10.8
Hgb 8.1 L
Hct 25.6 L
Plt Count 46 L
Sodium 136
Potassium 3.4 L
Chloride 101
Carbon Dioxide 26
BUN 29 H
Creatinine 2.0 H
Glucose 55 L*
Calcium 8.8
Vital Signs:
Vital Signs
Temp Pulse Resp BP Pulse Ox
97.8 F 85 16 105/61 100
01/04/25 07:21 01/04/25 09:53 01/04/25 07:21 01/04/25 09:53 01/04/25 07:21
I&O
01/03/25 01/04/25 01/05/25
06:59 06:59 06:59
Intake Total 440 / 440 720 / 720
Output Total 2175 / 2175 1750 / 1750
Balance -1735 / -1735 -1030 / -1030
Physical Exam
-
General: Well Developed, Well Nourished, No Apparent Distress and Comfortable
HEENT: Normocephalic, Atraumatic, Moist Mucous Membranes, No Ptosis, PERRLA and Nose Appears Normal
Respiratory: Rales, Rhonchi, Crackles and Non Labored Respirations
Cardiac: Regular Rhythm and S1/S2
Breast: Deferred by me
GI: Soft, Nontender, Nondistended and Normal Bowel Sounds
Genito-urinary: No Costovertebral Tender
Musculoskeletal: No Clubbing, No Cyanosis and No Edema
Skin: Warm
Neuro: Awake, Alert, Oriented, AO x 3 and No Motor Deficits
Psych: Calm
[2025-01-04 11:42] VITALS: BP 103/62
[2025-01-04 12:49] LABS: Glucose - Point of Care 208 mg/dl (70-99)
--- NOTE | 2025-01-04 13:09 | W.PN.NEPH.PH ---
Today's Communication / Plan
-
Change torsemide to Lasix
Assessment/Plan
-
Impression:
Decompensated HFrEF 30%
CKD 3B, baseline around 1.7
s/p [employer] CHANGE COORDINATOR-P 08/2023
CAD/CABG
HTN
DM2
Hyponatremia, hyperkalemia
Hypotension
Plan:
Follow BMP
Replete potassium prn
Continue high-dose midodrine
Creatinine at baseline 1 7
Pending echo> RENAN endocarditis> bacteremia Enterococcus
Complaining of shortness of breath currently is on torsemide
I will change to IV Lasix. Creatinine slightly up at 2.0 from baseline today
Discussed with medical nurse/cardiology and hospitalist
-
-
Date of Service: January 04, 2025
CC / HPI / ROS
-
Chief Complaint:
NOE
History of Present Illness:
NOE/creatinine lower at 1.8
sodium lower at 132
wt is down, wolf in place-mild retention, non oliguric
Hemoglobin low but stable 7.3
K low 3.4
Remains on high-dose midodrine for hypotension
Review of Systems:
no CP
Increase SOB
no n/v
Labs
-
Labs:
WBC 10.8 10^3/uL (4.8-10.8) 01/04/25 05:29
RBC 2.65 10^6/uL (4.70-6.10) L 01/04/25 05:29
Hgb 8.1 g/dL (13.0-18.0) L 01/04/25 05:29
Hct 25.6 % (39.0-52.0) L 01/04/25 05:29
Plt Count 46 10^3/uL (130-400) L 01/04/25 05:29
Sodium 136 mmol/L (135-145) 01/04/25 05:29
Potassium 3.4 mmol/L (3.5-5.1) L 01/04/25 05:29
Chloride 101 mmol/L (98-107) 01/04/25 05:29
Carbon Dioxide 26 mmol/L (22-30) 01/04/25 05:29
BUN 29 mg/dl (9-20) H 01/04/25 05:29
Creatinine 2.0 mg/dL (0.7-1.3) H 01/04/25 05:29
eGFR 34.38 01/04/25 05:29
Glucose 55 mg/dl (70-99) L* 01/04/25 05:29
Calcium 8.8 mg/dl (8.4-10.2) 01/04/25 05:29
Phosphorus 3.1 mg/dl (2.5-4.5) 12/28/24 22:17
Usc-F-Oflkjtntizl Pept 14463 pg/ml 01/04/25 05:29
Albumin 3.3 g/dl (3.5-5.0) L 01/01/25 05:29
Physical Exam
-
Vital Signs:
Vital Signs
Temp Pulse Resp BP Pulse Ox
98.2 F 96 16 103/62 100
01/04/25 11:42 01/04/25 11:42 01/04/25 11:42 01/04/25 11:42 01/04/25 11:42
Respiratory:: Bilateral: Coarse
Lung Excursion:: Normal
Abdomen:: Soft
Bowel Sounds:: Normal
Extremity Edema:: None: Bilateral:
[2025-01-04] MEDS: NOVOLOG FLEXPEN-LOW RESISTANCE 2 UNITS SC (13:31)
[2025-01-04] MEDS: LASIX 40 MG IV (14:24)
[2025-01-04 15:18] VITALS: BP 117/65; BP_SYST 99
[2025-01-04 17:32] LABS: Glucose - Point of Care 150 mg/dl (70-99)
[2025-01-04] MEDS: NOVOLOG FLEXPEN-LOW RESISTANCE 1 UNITS SC (17:40)
[2025-01-04 19:00] VITALS: BP 92/58
[2025-01-04 21:30] LABS: Glucose - Point of Care 130 mg/dl (70-99)
[2025-01-04 23:00] VITALS: BP 101/62
[2025-01-04] MEDS: LANTUS 0.2 UNITS SC (23:23)
[2025-01-04] MEDS: PEPCID 20 MG PO (23:27)
[2025-01-05 02:53] VITALS: BP 92/59
[2025-01-05 03:03] LABS: Glucose - Point of Care 194 mg/dl (70-99)
[2025-01-05] MEDS: AMPICILLIN 108 MG IV ×3 (04:40→20:14)
[2025-01-05 05:11] VITALS: BMI 21.6
[2025-01-05 06:40] LABS: Hematocrit 25.8 % (39.0-52.0); Hemoglobin 8.9 g/dL (13.0-18.0); Mean Corp Hgb Conc. 34.5 g/dL (33.0-37.0); Mean Corpuscular Volume 93.5 fL (80.0-94.0); Platelet Count 44 10^3/uL (130-400); Red Cell Dist. Width 15.2 % (11.5-14.5)
[2025-01-05 06:45] LABS: Troponin I 0.895 ng/ml
[2025-01-05 07:15] VITALS: BP 92/57
[2025-01-05 07:39] LABS: Glucose - Point of Care 116 mg/dl (70-99)
[2025-01-05] MEDS: NOVOLOG FLEXPEN-LOW RESISTANCE SC (08:18)
[2025-01-05] MEDS: NOVOLOG FLEXPEN 5 UNITS SC ×3 (08:55→18:22)
[2025-01-05] MEDS: THERAGRAN 1 TABLET PO (08:56)
[2025-01-05] MEDS: PROSCAR 5 MG PO (08:57)
[2025-01-05] MEDS: FLOMAX 0.4 MG PO (08:57)
[2025-01-05] MEDS: VITAMIN D3 (cholecalciferol) 125 MCG PO (08:57)
[2025-01-05] MEDS: PROTONIX 40 MG PO (08:57)
[2025-01-05] MEDS: PLAVIX 75 MG PO (08:57)
[2025-01-05] MEDS: ASPIR LOW (ENTERIC COATED) 81 MG PO (08:57)
[2025-01-05] MEDS: FEOSOL 325 MG PO (08:57)
[2025-01-05] MEDS: OSCAL 500 + D 500 MG PO (08:57)
[2025-01-05 09:07] LABS: Blood Urea Nitrogen 28 mg/dl (9-20); Calcium 9.0 mg/dl (8.4-10.2); Carbon Dioxide 27 mmol/L (22-30); Chloride 100 mmol/L (98-107); Estimated Creatinine Clearance 27 ml/min; Glucose 103 mg/dl (70-99); Potassium 3.8 mmol/L (3.5-5.1); Sodium 131 mmol/L (135-145); eGFR 32.42
--- NOTE | 2025-01-05 11:01 | W.PN.HOSP.TC ---
Today's Communication/Plan
-
Continue IV antibiotic, pending RENAN.
Assessment / Plan
Assessment / Plan
Impression:
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
with new onset of shortness of breath and generalized weakness. Patient is Gujar[place] speaking. Patient was recently admitted and discharged 5 days prior to this admission, post discharge was doing fairly well although did not have much of energy.
Patient was prescribed torsemide at discharge last, although not able to fill as pharmacy did not have any supply. Patient finally was able to get the torsemide and was able to take a dose morning of admission. Patient developed a positive blood
culture and treated for septic shock with pressors, off pressors, started on midodrine for soft blood pressure.
Infectious disease recommending Echocardiogram which did not show any valvular vegetation. May require RENAN if bacteremia persist.
- Repeat blood culture positive from 12/30. but repeat blood culture report from 01/01 remains negative
- CT abdomen pelvis did not show any clear infectious source
Infectious disease recommending long-term IV antibiotics.
RENAN pending
Assessment/plan:
Septic shock from multifocal pneumonia
associated with NOE/lactic acidosis
- Reported subjective fever at home. no productive cough.
- Chest x-ray showing possible multifocal pneumonia
- Total WBC count of 35K at admission has trended down
- Patient got 1 L of NS, did not provide full 30 mL/kg bolus as patient have systolic heart failure.
- ID help appreciated. Currently patient on IV ampicillin (needs long-term IV antibiotic)
- Added midodrine to regimen. Blood pressure remains soft.
Enterococcus faecalis bacteremia
- Unable to get blood culture in ER as patient is hard stick. Delayed blood culture collected post PICC placement and abx.
- Vancomycin was initially discontinued, resumed---> Currently patient on IV ampicillin
- Await further susceptibility
- Echocardiogram 12/29 did not show any valvular vegetation. May require RENAN if bacteremia persist.
- Repeat blood culture positive from 12/30. f/u repeat blood culture report from 01/01
- CT abdomen pelvis did not show any clear infectious source
- Infectious ease recommending 6 weeks of IV ampicillin
01/04
RENAN pending
NOE on CKD stage IIIb
Acute urinary retention
- creatinine up to 3.2 in ER, baseline cr 1.7-1.8 at discharge week back,
- Renal dysfunction likely combination from hypotension/cardiorenal syndrome and urinary retention
- Anders catheter to be removed and voiding trial to be done.
- Avoid nephrotoxic medication
- Creatinine continues trending down
Acute normocytic anemia
- Hemoglobin 9 after transfusion of 1 unit PRBC yesterday
- No luminal blood loss
Coronary disease status post with
Acute on Chronic systolic congestive heart failure
- proBNP greater than 27,000
- [facility] last admission showed blocked SVG graft to distal LAD, was planned to be manage medical
- Continue on Plavix statin
- Troponin 12 and has been trending down from elevated troponin max of 28 on 12/20
- Patient has been taken off of IV diuretic. Currently on oral torsemide.
Anion gap metabolic acidosis - Improved
- Combination of lactic acidosis and renal dysfunction related
- Provide sodium bicarb few doses
- Being treated for underlying infection
Hyperkalemia - Improved
Hypokalemia
- Hyperkalemia secondary to renal failure/acidosis related at admission
- Post diuresis patient is developing hypokalemia now, replace as needed
Type II DM
- maintain on Lower dose lantus and ISS
- Added Premeal NovoLog
- diabetic diet
- Hold metformin with renal dysfunction
01/04
Blood sugar dropped to 55, Lantus dose adjusted to 20 units nightly
Essential hypertension
- Hold blood pressure medication with ongoing shock
Hyponatremia - resolved
- Combination from hypervolemia and ADH excess with heart failure
- Urine Na 34 Uosm 257
- Further therapy if have worsening of hyponatremia
Acute transaminitis
- Possible due to hypotension related
- LFT trending down.
CODE STATUS: Full code
DVT prophylaxis: Heparin
Diet: Diabetic diet
Family communication: Discussed with family at bedside
Physical therapy recommendations: Home health
Translation service: ([id number])
Disposition: Continue IV antibiotic, pending RENAN.
Total time spent on today's encounter was 55 minutes which included time spent in counseling the patient/family regarding diagnosis and treatment plan as listed above, goals of care, and symptom management. Case was discussed with nursing staff,
specialists, and care coordinators/case management. All labs and imaging personally reviewed by me. Remainder the time spent in detailed review of previous records, lab data, imaging, and other medical provider documentation.
Anticipated Discharge: > 48 hours
Subjective/Interval History
-
Date of Service: January 05, 2025
Patient seen and examined at bedside, family at bedside, used translation service
Patient was complaining of some chest tightness with ambulation, also dyspnea exertion, denies dizziness or lightheadedness.
Objective Data
-
Labs:
Laboratory Results
01/05/25 01/05/25
06:00 08:21
WBC 11.1 H
Hgb 8.9 L
Hct 25.8 L
Plt Count 44 L
Sodium Cancelled 131 L
Potassium Cancelled 3.8
Chloride Cancelled 100
Carbon Dioxide Cancelled 27
BUN Cancelled 28 H
Creatinine Cancelled 2.1 H
Glucose Cancelled 103 H
Calcium Cancelled 9.0
Vital Signs:
Vital Signs
Temp Pulse Resp BP Pulse Ox
98.4 F 98 16 92/57 98
01/05/25 07:15 01/05/25 08:57 01/05/25 07:15 01/05/25 08:57 01/05/25 07:15
I&O
01/04/25 01/05/25 01/06/25
06:59 06:59 06:59
Intake Total 720 / 720 380 / 380
Output Total 1750 / 1750 700 / 700
Balance -1030 / -1030 -320 / -320
Physical Exam
-
General: Well Developed, Well Nourished, No Apparent Distress and Comfortable
HEENT: Normocephalic, Atraumatic, Moist Mucous Membranes, No Ptosis, PERRLA and Nose Appears Normal
Respiratory: Rales, Rhonchi, Crackles and Non Labored Respirations
Cardiac: Regular Rhythm and S1/S2
Breast: Deferred by me
GI: Soft, Nontender, Nondistended and Normal Bowel Sounds
Genito-urinary: No Costovertebral Tender
Musculoskeletal: No Clubbing, No Cyanosis and No Edema
Skin: Warm
Neuro: Awake, Alert, Oriented, AO x 3 and No Motor Deficits
Psych: Calm
--- NOTE | 2025-01-05 11:07 | W.PN.NEPH.PH ---
Today's Communication / Plan
-
follow BMP
Assessment/Plan
-
Impression:
Decompensated HFrEF 30%
CKD 3B, baseline around 1.7
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
CAD/CABG
HTN
DM2
Hyponatremia, hyperkalemia
Hypotension
Plan:
Follow BMP
hold diuretics today
given recent cath 12/21 he will probably be medical management of angina
follow weights
d/w family at bedside
-
-
Date of Service: January 05, 2025
CC / HPI / ROS
-
Chief Complaint:
NOE
History of Present Illness:
NOE/creatinine up to 2.1
sodium lower at [address]-retention, non oliguric
Hemoglobin up to 8.9
Remains on high-dose midodrine for hypotension
Review of Systems:
reports CP/SOB with little activity
no SOB at rest
no n/v
reports blood in mucus after coughing
Labs
-
Labs:
WBC 11.1 10^3/uL (4.8-10.8) H 01/05/25 06:00
RBC 2.76 10^6/uL (4.70-6.10) L 01/05/25 06:00
Hgb 8.9 g/dL (13.0-18.0) L 01/05/25 06:00
Hct 25.8 % (39.0-52.0) L 01/05/25 06:00
Plt Count 44 10^3/uL (130-400) L 01/05/25 06:00
Sodium 131 mmol/L (135-145) L 01/05/25 08:21
Potassium 3.8 mmol/L (3.5-5.1) 01/05/25 08:21
Chloride 100 mmol/L (98-107) 01/05/25 08:21
Carbon Dioxide 27 mmol/L (22-30) 01/05/25 08:21
BUN 28 mg/dl (9-20) H 01/05/25 08:21
Creatinine 2.1 mg/dL (0.7-1.3) H 01/05/25 08:21
eGFR 32.42 01/05/25 08:21
Glucose 103 mg/dl (70-99) H 01/05/25 08:21
Calcium 9.0 mg/dl (8.4-10.2) 01/05/25 08:21
Phosphorus 3.1 mg/dl (2.5-4.5) 12/28/24 22:17
Gte-L-Bilkriounmt Pept 40098 pg/ml 01/04/25 05:29
Albumin 3.3 g/dl (3.5-5.0) L 01/01/25 05:29
Physical Exam
-
Vital Signs:
Vital Signs
Temp Pulse Resp BP Pulse Ox
98.4 F 98 16 92/57 98
01/05/25 07:15 01/05/25 08:57 01/05/25 07:15 01/05/25 08:57 01/05/25 07:15
Cardiovascular:: Regular rate and rhythm
Respiratory:: Bilateral: Coarse
Lung Excursion:: Normal
Abdomen:: Nontender and Soft
Bowel Sounds:: Normal
Extremity Edema:: None: Bilateral:
[2025-01-05 11:29] VITALS: BP 95/55
[2025-01-05 11:35] LABS: Glucose - Point of Care 233 mg/dl (70-99)
[2025-01-05] MEDS: NOVOLOG FLEXPEN-LOW RESISTANCE 2 UNITS SC (12:39)
--- NOTE | 2025-01-05 13:28 | W.PN.CARDCBS ---
Addendum entered and electronically signed by Yoandy Loredo DO 01/05/25 15:30:
I saw and examined the patient.
The Vertical Punch Operator's note was reviewed and I agree with the note.
Comment:
Plan:
Hx: Patient with evidence of sepsis and NOE on admission that initially required ICU with Levophed for pressor support. Then found to have Enterococcus bacteremia, but improving with antibiotic treatment.
Cont IV abx for enterococcus bacteremia. BC are now without growth
Reviewed with ID, will plan for RENAN later this week as pt continues to get stronger, likely Jan 07.
IV lasix is on hold with rising cr, currently 2.1. Wt is down 10 lbs from admit. He never started diuretics after recent discharge as he did not get meds from the pharmacy.
Hypotension has limited GDMT and he requires midodrine for blood pressure support.
proBNP is improving
Consider Coreg as bp improves
Patient was not taking ALETHA/ARB/ARNI/aldosterone antagonist prior to admission due to NOE.
EF previously 60 to 65% in 2023 and now down to 35 to 40% by echo 12/20/2024. This is presumed to be ICM with evidence of occlusion of a previously placed stent in the vein graft to the distal LAD by cardiac cath 12/21/2024.
Oxygen requirements have improved and O2 has been weaned off.
Initial troponin 12.1 and then trending down to 11.4 overnight. Troponin is trending down from NSTEMI and peak troponin of 27.9 when he was admitted last week.
Patient with history of remote CABG and there was an attempt at PCI of the SVG to the distal LAD at [facility] 04/2024, but this stent was 100% occluded at the last cath 12/21/2024. GAFFNEY to LAD and SVG to PLB were both patent.
Outpatient doses of aspirin and Plavix have been continued. Thrombocytopenia is chronic.
[employer] RETORT CONDENSER ATTENDANT�P device check performed 12/29/24 and there was normal device and lead function, OptiVol was trending up, no atrial ventricular arrhythmia and there was 10 years of battery longevity.
Discussed with family at bedside
Original Note:
Today's Communication / Plan
-
Will try for RENAN on Friday
IV diuresis on hold due to NOE
Impression / Plan
-
PCP: Israel Clifton MD
CDY: Orlando Langley MD
Impression:
Admitted with sepsis and NOE 12/28/2024
Hypotension requiring pressor support consistent with shock (septic/cardiogenic)
Recent admission acute HFrEF and NSTEMI 12/20/2024 until 12/23/2024
Recent ER visit at [facility] for chest pain and SOB 12/09/2024
Moderate
Mitral regurgitation previously mild to moderate now moderate to severe in the setting of volume overload
Clinical sepsis
Enterococcus bacteremia
Possible multifocal PNA
Possible cardiogenic shock
NOE on CKD
Previously required transient HD 07/2024
Hyperkalemia
Elevated troponin, overall trending down from last admission
CAD
s/p CABG with GAFFNEY-LAD, VG-dLAD, VG-PLB 2007
s/p SVG to the distal LAD PCI at [facility] by Dr. Gavin 04/2024
Patent GAFFNEY to LAD, patent SVG to PLB with PDA filling via retrograde from the PLB, occlusion of the SVG to the distal LAD with 100% occlusion of previously placed stent 12/21/2024
s/p tissue AVR 2007
HLD
[employer] RETORT CONDENSER ATTENDANT�P (08/2023)
HTN
DM
Language barrier
Thrombocytopenia
Echo 08/2023: nml LV size, abnormal diastolic function with increased LVEDP, EF 60-65%, CLVH but no obvious regional abn. normally functioning bioprosthetic AV, PG/MG 32.5/18, ABEL 1.34cm2
Echo 12/20/2024: EF 35 to 40%, mild concentric LVH, mid to distal inferior, inferolateral, mid anteroseptal, mid anterior, apical hypokinesis, dense MAC, at least moderate to severe MR with anterior eccentric jet, mild to moderate TR, PAP 38 mmHg
Echocardiogram 12/29/2024: Ejection fraction 30 to 35%. Mid to distal inferior, inferolateral, mid anteroseptal and mid anterior hypokinesis with apical akinesis. Moderate to severe mitral regurgitation. Mild to moderate TR.
Echo 12/30/2024: Ejection fraction 30% by visual estimation. Segmental wall motion abnormalities noted. Moderate to severe mitral regurgitation similar to prior. Previously aortic valve was not assessed. Likely moderate aortic valve stenosis
Peak/mean gradients are 32/20mmHg. ABEL 0.8cm sq, using a LVOT of 1.6cm.Mild to moderate tricuspid regurgitation. Estimated pulmonary artery pressure of 33 mmHg
Plan:
-Patient with evidence of sepsis and NOE on admission that initially required ICU with Levophed for pressor support. Then found to have Enterococcus bacteremia, but improving with antibiotic treatment.
-Patient remains on ampicillin 2 g IV every 8 hours. Case reviewed with ID on 01/05/2025 and they continue to request RENAN in light of Enterococcus bacteremia. Patient is at increased, but not prohibitive risk for RENAN and is overall improved from
admission. Presumably results of RENAN will help determine duration of antibiotics, it is unlikely that patient would be a candidate for redo sternotomy and AVR even if vegetation is found due to his comorbidities.
-Cre as high as 3.2 on admission and then improved to 1.7 on 01/03/2025, by my review of labs. Cre is up a bit to 2.1 on 01/05/2025 in the setting of diuresis and Lasix 40 mg IV BID is now on hold.
-Weight is down 10 lbs from admission. Patient is now at his previous dry weight of 138 lbs that he had at last HF discharge on 12/23/2024. There was a transient attempt at diuresis with Lasix 40 mg IV BID, but this is not paused due to NOE.
Patient was ordered torsemide 20 mg PO daily prior to admission, but was not actually taking it because it was not delivered from his pharmacy and he did not know that it was something important that he had to take every day at the end of his last
admission.
-Oxygen requirements have improved and he is now stable on RA. CXR from 01/05/2025 was stable on my review.
-EF previously 60 to 65% in 2023 and now down to 35 to 40% by echo 12/20/2024. This is presumed to be ICM with evidence of occlusion of a previously placed stent in the vein graft to the distal LAD by cardiac cath 12/21/2024.
-GDMT limited by hypotension and he is new to midodrine 10 mg TID this admission.
-Outpatient dose of Lopressor is on hold due to hypotension, once BP improves we should start cardioselective beta-aline with either Coreg or Toprol-XL
-Patient was not taking ALETHA/ARB/ARNI/aldosterone antagonist prior to admission due to NOE.
-We should attempt to add SGLT2 inhibitor prior to discharge, but currently being treated for sepsis so we will hold off.
-Initial troponin 12.1 and then trending down to 11.4 overnight. Troponin is trending down from NSTEMI and peak troponin of 27.9 when he was admitted last week.
-Patient with history of remote CABG and there was an attempt at PCI of the SVG to the distal LAD at [facility] 04/2024, but this stent was 100% occluded at the last cath 12/21/2024. GAFFNEY to LAD and SVG to PLB were both patent.
-Outpatient doses of aspirin and Plavix have been continued. Thrombocytopenia is chronic.
-[employer] RETORT CONDENSER ATTENDANT�P device check performed 12/29/24 and there was normal device and lead function, OptiVol was trending up, no atrial ventricular arrhythmia and there was 10 years of battery longevity.
HPI: Patient presented to the ER today with SMALL and is being admitted with possible sepsis and NOE and cardiology is being consulted for possible CHF and recent admission for NSTEMI. Patient has a history of remote CABG and AVR in 2007 at an
outside hospital. He had an admission to [facility] 04/2024 and he had PCI of the SVG to the distal LAD. Patient was then admitted to [facility] with NOE and was transiently on hemodialysis 07/2024. Most recently he has been following with
Korin at [facility] and their office referred the patient to the [facility] ER on 12/09/2024 after he complained of chest pain during a visit in their office that day. The patient was discharged from the ER with a higher dose of
Lopressor and they added Imdur ER. There was apparently no consideration for acute HF at that time. Patient then came to the [facility] ER on 12/20/2024 with chest pain and the initial troponin was 2.22 and subsequent troponin was as high as 27.9.
Patient was admitted and eventually had cardiac cath 12/21/2024 that showed that the stent in the SVG to the LAD from April was 100% occluded and the GAFFNEY to LAD and SVG to PLV grafts were patent. There was also evidence of acute HFrEF during
that admission and EF was newly reduced at 35 to 40%, it had been 60 to 65% by an echo from his primary director of quality improvement 08/2023. PCWP was down to 18 which correlated with a weight of 141 lbs at time of cath on 12/21/2024. Cre was stable at 1.8 on the
day of discharge 12/23/2024. At the recommendation of nephrology the patient was discharged home on torsemide 20 mg daily. Patient's family reports that medications were not delivered in a timely fashion and so he was not taking any of his
medications since admission until they arrived yesterday. Patient has had increasing SMALL over the last 24 hours and came to the ER today. There is leukocytosis with a WBC count of 35 with a left shift. Lactic acid levels pending. There is
concern for sepsis possibly due to PNA and patient is being admitted to the ICU due to his need for pressor support with Levophed.
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
Subjective
Date of Service: January 05, 2025
He feels tired, no pain
Objective
Labs:
01/05/25 06:00
01/05/25 08:21
Labs
Hgb 8.9 g/dL (13.0-18.0) L 01/05/25 06:00
Hct 25.8 % (39.0-52.0) L 01/05/25 06:00
Plt Count 44 10^3/uL (130-400) L 01/05/25 06:00
PT 17.1 Sec (11.4-14.6) H 12/28/24 12:58
INR 1.36 12/28/24 12:58
APTT 42.4 Sec (23.4-35.0) H 12/28/24 12:58
Sodium 131 mmol/L (135-145) L 01/05/25 08:21
Potassium 3.8 mmol/L (3.5-5.1) 01/05/25 08:21
BUN 28 mg/dl (9-20) H 01/05/25 08:21
Creatinine 2.1 mg/dL (0.7-1.3) H 01/05/25 08:21
Glucose 103 mg/dl (70-99) H 01/05/25 08:21
Troponins
01/05/25
06:00
Troponin I 0.895 H*
Vital Signs and I&O:
Vital Signs
Temp Pulse Resp BP Pulse Ox
98.3 F 88 18 55 100
01/05/25 11:29 01/05/25 11:29 01/05/25 11:29 01/05/25 11:29 01/05/25 11:29
Vital Signs
Temp Pulse Resp BP Pulse Ox
98.3 F 88 18 55 100
01/05/25 11:29 01/05/25 11:29 01/05/25 11:29 01/05/25 11:29 01/05/25 11:29
Intake & Output
01/03/25 01/04/25 01/05/25 01/06/25
06:59 06:59 06:59 06:59
Intake Total 440 / 440 720 / 720 380 / 380
Output Total 2175 / 2175 1750 / 1750 700 / 700
Balance -1735 / -1735 -1030 / -1030 -320 / -320
Physical Exam
Physical Exam
GEN: NAD. AAOx3
LUNGS: RA. No audible wheeze
CV: A sensed V paced on tele. Reg, S1/S2, 1/6 syst LSB
EXT: No edema B/L LE
NEURO: Gross non-focal
SKIN: No rash
[2025-01-05 15:29] VITALS: BP 103/64
--- NOTE | 2025-01-05 16:10 | CM ---
CM following re: discharge planning.
Reviewed pt's chart.
PT and OT continue recommending Home PT/OT.
[facility] liaison following.
D/C plan: home with [facility] and family support.
--- NOTE | 2025-01-05 16:15 | W.PN.ID1 ---
Addendum entered and electronically signed by Padmaja Catherine MD 01/05/25 16:26:
I saw and evaluated the patient. I reviewed the resident�s note and agree with findings and plan as documented in the resident�s note with the following additions/corrections
S: afebrile
bp stable
new PICC line now in place
Physical Exam
Constitutional: No Acute Distress
Cardiovascular: Regular Rate and S1/S2; Negative Murmur or Rub
Pulmonary: Clear and Symmetric; Negative Wheezes or Rales
Gastrointestinal: Soft, Non Tender, Non Distended and Normal Bowel Sounds
Skin: Warm and Dry; Negative Rash or Jaundice
O:
01/01 blood cultures remain no growth to date
12/28 and 12/30 blood cultures: e faecalis
A&P
E faecalis bacteremia - persistent
Possible endocarditis
Leukocytosis - resolved
NOE
ONLINE EDUCATION MANAGER-P (2023) / bioprosthetic AVR (2007) in place
- bacteremia 12/28 and 12/30; 01/01 cultures are in progress no growth to date
- continue ampicillin dose adjusted back to 2 gm IV q8 hours for present
- await RENAN
- now with a clean picc line
- plan 6 weeks of IV ampicillin from clearance of blood cultures 01/01-02/11
- follow clinically
Also
CHF
Original Note:
Date of Service
Date of Service: January 05, 2025
Today's Communication
Continue ampicillin 2 g IV every 8 hours
Awaiting RENAN Friday
Assessment / Plan
Enterococcus faecalis bacteremia:
Septic shock secondary to Enterococcus faecalis bacteremia:
NOE:
Leukocytosis:
Blood cultures were not drawn in the emergency department and were collected post PICC placement and after antibiotics were administered -repeat blood cultures x 2 ordered
TTE on 12/29 did not show vegetation and was unchanged from prior echo on 12/20. Echo was limited and did not assess aortic and pulmonic valves -recommend repeat echo with those valves assessed
Consideration for CT of the abdomen and pelvis with oral contrast if abdominal source is suspected and once renal function near/at baseline
Elevated ESR and CRP
Unlikely a UTI considering the urine analysis was without pyuria
Respiratory symptoms with hypoxia likely secondary to CHF exacerbation -Zosyn discontinued
Patient likely has endocarditis based on Lange's criteria with 1 major and 3 minor criteria met
Continue ampicillin 2 g IV every 8 hours
PICC line placed on 01/04/2025
Patient will need to be discharged on 6 weeks of IV ampicillin
Awaiting RENAN Friday
Chief Complaint
-: Bacteremia
Subjective / Review of Systems
Met with patient at the bedside. Overall he states that he believes that he is nearing his baseline but continues to contend with shortness of breath and chest pain/tightness when he attempts to ambulate. The symptoms come on when he shifts from
the chair to the bed or when he goes for short walks even to the bathroom. He states that he is trying his best to participate with PT but feels these sensations while he is undergoing therapy.
Review of Systems: Chest Pain (Exertional), No Abdominal Pain, No Nausea, No Vomiting, No Diarrhea and No Dysuria
Vital Signs / Physical Exam
Vital Signs
Vital Signs
Temp Pulse Resp BP Pulse Ox
98.3 F 100 20 103/64 100
01/05/25 15:29 01/05/25 15:29 01/05/25 15:29 01/05/25 15:29 01/05/25 15:29
Physical Exam
Constitutional: No Acute Distress, Comfortable, Non-toxic and Other (thin)
Head: Normocephalic
Eyes: Pupils Equal, No Conjunctival Hemorrhage and Sclera Anicteric
Oropharyngeal: Benign
Cardiovascular: Regular Rate and S1/S2; Negative Murmur, Rub, Peripheral Edema or Gallop
Pulmonary: Clear and Non Labored; Negative Wheezes, Rales, Rhonchi or Coarse
Gastrointestinal: Soft, Non Tender, Non Distended and Normal Bowel Sounds
Extremities: Negative Edema, Clubbing or Cyanosis
Neurological: Awake and Alert
Psychological: Calm
Objective Data
Lab Data
Lab Results
01/05/25 06:00
01/05/25 08:21
ESR 42 mm/hour (0-20) H 01/01/25 05:29
PT 17.1 Sec (11.4-14.6) H 12/28/24 12:58
INR 1.36 12/28/24 12:58
APTT 42.4 Sec (23.4-35.0) H 12/28/24 12:58
Estimated Creat Clear 27 ml/min 01/05/25 08:21
Lactic Acid Cancelled 12/29/24 06:17
Total Bilirubin 2.3 mg/dl (0.2-1.3) H 01/01/25 05:29
AST 85 U/L (17-59) H 01/01/25 05:29
ALT 109 U/L (0-50) H 01/01/25 05:29
Alkaline Phosphatase 85 U/L (38-126) 01/01/25 05:29
C-Reactive Protein 39.30 mg/L (0.0-10.00) H 01/01/25 05:29
Most recent labs reviewed.
Micro Results:
01/01/25 08:42 Blood Culture - Preliminary
Blood/Venous No Growth in 4 days- Final report to follow
01/01/25 08:41 Blood Culture - Preliminary
Blood/Venous No Growth in 4 days- Final report to follow
12/30/24 10:34 Blood Culture - Final
Blood/Venous No Growth - Final Report
12/28/24 23:16 Blood Culture - Final
Blood/Venous Enterococcus faecalis
Gram Stain - Final
12/28/24 22:17 Blood Culture - Final
Blood/Venous Enterococcus faecalis
Gram Stain - Final
12/30/24 10:21 Blood Culture - Preliminary
Blood/Venous Enterococcus faecalis
Gram Stain - Preliminary
12/28/24 22:17 Nasal Screen MRSA (PCR) - Final
Nose MRSA not detected - performed by PCR methodology.
12/28/24 17:46 Influenza Types A & B (FLACO) - Final
Nasal Swab Negative for Influenza A & B, NAAT
Negative results must be combined with clinical observations
and patient history.
Nucleic Acid Amplification test (NAAT)performed on the
[employer] platform.
Imaging:
12/31/2024 CXR (portable): overall improvement in bilateral interstitial markings, suggesting improvement in interstitial pulmonary edema pattern. A small focus of patchy parenchymal opacity within the left lower lung, new from recent exam,
possibly atelectasis versus pneumonia. Dual-lead PPM in place.
[2025-01-05 18:09] LABS: Glucose - Point of Care 179 mg/dl (70-99)
[2025-01-05] MEDS: NOVOLOG FLEXPEN-LOW RESISTANCE 1 UNITS SC (18:22)
[2025-01-05 19:00] VITALS: BP 97/60
[2025-01-05 21:30] LABS: Glucose - Point of Care 170 mg/dl (70-99)
[2025-01-05] MEDS: LANTUS 0.2 UNITS SC (21:36)
[2025-01-05 23:00] VITALS: BP 90/53
[2025-01-06] VITALS (7 sets, daily range): BP systolic 88–103; BP diastolic 55–64; BMI 21.7
[2025-01-06] MEDS: AMPICILLIN 108 MG IV ×3 (03:25→20:26)
[2025-01-06 04:13] LABS: Hematocrit 23.6 % (39.0-52.0); Hemoglobin 7.7 g/dL (13.0-18.0); Mean Corp Hgb Conc. 32.6 g/dL (33.0-37.0); Mean Corpuscular Volume 94.8 fL (80.0-94.0); Platelet Count 41 10^3/uL (130-400); Red Cell Dist. Width 15.4 % (11.5-14.5)
[2025-01-06 04:24] LABS: Blood Urea Nitrogen 29 mg/dl (9-20); Calcium 9.0 mg/dl (8.4-10.2); Carbon Dioxide 24 mmol/L (22-30); Chloride 102 mmol/L (98-107); Estimated Creatinine Clearance 25 ml/min; Glucose 67 mg/dl (70-99); Potassium 3.7 mmol/L (3.5-5.1); Sodium 132 mmol/L (135-145); eGFR 29.07
[2025-01-06 05:30] LABS: Glucose - Point of Care 78 mg/dl (70-99)
[2025-01-06] MEDS: PROSCAR 5 MG PO (07:46)
[2025-01-06] MEDS: PLAVIX 75 MG PO (07:46)
[2025-01-06] MEDS: ASPIR LOW (ENTERIC COATED) 81 MG PO (07:46)
[2025-01-06] MEDS: PROTONIX 40 MG PO (07:46)
[2025-01-06] MEDS: THERAGRAN 1 TABLET PO (07:46)
[2025-01-06] MEDS: FEOSOL 325 MG PO (07:46)
[2025-01-06] MEDS: VITAMIN D3 (cholecalciferol) 125 MCG PO (07:46)
[2025-01-06] MEDS: OSCAL 500 + D 500 MG PO (07:46)
[2025-01-06] MEDS: FLOMAX 0.4 MG PO (07:46)
[2025-01-06 08:09] LABS: Glucose - Point of Care 110 mg/dl (70-99)
[2025-01-06] MEDS: NOVOLOG FLEXPEN-LOW RESISTANCE SC ×2 (08:42→16:59)
--- NOTE | 2025-01-06 08:50 | W.PN.CARDCBS ---
Today's Communication / Plan
-
He has had chest pain which has nearly resolved
He is difficult historian
Not ideal candidate for intervention given renal insufficiency and had attempted intervention in April 2024
Will check troponins to make sure they continue to go down
Will try to add low-dose Imdur if blood pressure tolerates
For RENAN on 01/07/2025 to exclude endocarditis if cardiac status remains stable
Impression / Plan
-
PCP: Israel Clifton MD
CDY: Orlando Langley MD
Impression:
Chest pain 01/06/2025
Admitted with sepsis and NOE 12/28/2024
Hypotension requiring pressor support consistent with shock (septic/cardiogenic)
Recent admission acute HFrEF and NSTEMI 12/20/2024 until 12/23/2024
Recent ER visit at [facility] for chest pain and SOB 12/09/2024
Moderate
Mitral regurgitation previously mild to moderate now moderate to severe in the setting of volume overload
Clinical sepsis
Enterococcus bacteremia
Possible multifocal PNA
Possible cardiogenic shock
NOE on CKD
Previously required transient HD 07/2024
Hyperkalemia
Elevated troponin, overall trending down from last admission
CAD
s/p CABG with GAFFNEY-LAD, VG-dLAD, VG-PLB 2007
s/p SVG to the distal LAD PCI at [facility] by Dr. Gavin 04/2024
Patent GAFFNEY to LAD, patent SVG to PLB with PDA filling via retrograde from the PLB, occlusion of the SVG to the distal LAD with 100% occlusion of previously placed stent 12/21/2024
s/p tissue AVR 2007
HLD
Medtronic COAT MAKER�P (08/2023)
HTN
DM
Language barrier
Thrombocytopenia
Echo 08/2023: nml LV size, abnormal diastolic function with increased LVEDP, EF 60-65%, CLVH but no obvious regional abn. normally functioning bioprosthetic AV, PG/MG 32.5/18, ABEL 1.34cm2
Echo 12/20/2024: EF 35 to 40%, mild concentric LVH, mid to distal inferior, inferolateral, mid anteroseptal, mid anterior, apical hypokinesis, dense MAC, at least moderate to severe MR with anterior eccentric jet, mild to moderate TR, PAP 38 mmHg
Echocardiogram 12/29/2024: Ejection fraction 30 to 35%. Mid to distal inferior, inferolateral, mid anteroseptal and mid anterior hypokinesis with apical akinesis. Moderate to severe mitral regurgitation. Mild to moderate TR.
Echo 12/30/2024: Ejection fraction 30% by visual estimation. Segmental wall motion abnormalities noted. Moderate to severe mitral regurgitation similar to prior. Previously aortic valve was not assessed. Likely moderate aortic valve stenosis
Peak/mean gradients are 32/20mmHg. ABEL 0.8cm sq, using a LVOT of 1.6cm.Mild to moderate tricuspid regurgitation. Estimated pulmonary artery pressure of 33 mmHg
Plan:
He had chest pain last night and this morning which is almost resolved.
History obtained with daughter by phone as an substance abuse technician. She reports he has chest pain at home as well.
Will check troponins which hopefully will continue to decrease.
Will try to add low-dose Imdur 30 mg daily if blood pressure tolerates
Not an ideal cardiac catheterization candidate with severe renal insufficiency.
There was an attempt at PCI of the SVG to the distal LAD at [facility] 04/2024, but this stent was 100% occluded at the last cath 12/21/2024. GAFFNEY to LAD and SVG to PLB were both patent.
Plan is for RENAN on 01/07 to exclude endocarditis.
Discussed with daughter by phone in detail who relayed information to patient.
Unable to get medications for cardiomyopathy given severe hypotension requiring midodrine.
-
Nephrology has been managing volume status and diuretics which remain on hold
Medtronic COAT MAKER�P device check performed 12/29/24 and there was normal device and lead function, OptiVol was trending up, no atrial ventricular arrhythmia and there was 10 years of battery longevity.
HPI: Patient presented to the ER today with SMALL and is being admitted with possible sepsis and NOE and cardiology is being consulted for possible CHF and recent admission for NSTEMI. Patient has a history of remote CABG and AVR in 2007 at an
outside hospital. He had an admission to [facility] 04/2024 and he had PCI of the SVG to the distal LAD. Patient was then admitted to [facility] with NOE and was transiently on hemodialysis 07/2024. Most recently he has been following with "Alexus"Korin at [facility] and their office referred the patient to the [facility] ER on 12/09/2024 after he complained of chest pain during a visit in their office that day. The patient was discharged from the ER with a higher dose of
Lopressor and they added Imdur ER. There was apparently no consideration for acute HF at that time. Patient then came to the [facility] ER on 12/20/2024 with chest pain and the initial troponin was 2.22 and subsequent troponin was as high as 27.9.
Patient was admitted and eventually had cardiac cath 12/21/2024 that showed that the stent in the SVG to the LAD from April was 100% occluded and the GAFFNEY to LAD and SVG to PLV grafts were patent. There was also evidence of acute HFrEF during
that admission and EF was newly reduced at 35 to 40%, it had been 60 to 65% by an echo from his primary national sales representative 08/2023. PCWP was down to 18 which correlated with a weight of 141 lbs at time of cath on 12/21/2024. Cre was stable at 1.8 on the
day of discharge 12/23/2024. At the recommendation of nephrology the patient was discharged home on torsemide 20 mg daily. Patient's family reports that medications were not delivered in a timely fashion and so he was not taking any of his
medications since admission until they arrived yesterday. Patient has had increasing SMALL over the last 24 hours and came to the ER today. There is leukocytosis with a WBC count of 35 with a left shift. Lactic acid levels pending. There is
concern for sepsis possibly due to PNA and patient is being admitted to the ICU due to his need for pressor support with Levophed.
Progress Note - Clinical Pharmacy Manager
Subjective
Date of Service: January 06, 2025
He had chest pain last night and this morning which is nearly gone away. His daughter reports that he has had chest pain at home in the past as well.
Objective
Labs:
01/06/25 03:36
01/06/25 03:36
Labs
Hgb 7.7 g/dL (13.0-18.0) L 01/06/25 03:36
Hct 23.6 % (39.0-52.0) L 01/06/25 03:36
Plt Count 41 10^3/uL (130-400) L 01/06/25 03:36
PT 17.1 Sec (11.4-14.6) H 12/28/24 12:58
INR 1.36 12/28/24 12:58
APTT 42.4 Sec (23.4-35.0) H 12/28/24 12:58
Sodium 132 mmol/L (135-145) L 01/06/25 03:36
Potassium 3.7 mmol/L (3.5-5.1) 01/06/25 03:36
BUN 29 mg/dl (9-20) H 01/06/25 03:36
Creatinine 2.3 mg/dL (0.7-1.3) H 01/06/25 03:36
Glucose 67 mg/dl (70-99) L 01/06/25 03:36
Troponins
01/05/25
06:00
Troponin I 0.895 H*
Vital Signs and I&O:
Vital Signs
Temp Pulse Resp BP Pulse Ox
99 F 97 18 103/62 98
01/06/25 03:00 01/06/25 07:48 01/06/25 03:00 01/06/25 07:48 01/06/25 03:00
Vital Signs
Temp Pulse Resp BP Pulse Ox
99 F 97 18 103/62 98
01/06/25 03:00 01/06/25 07:48 01/06/25 03:00 01/06/25 07:48 01/06/25 03:00
Intake & Output
01/04/25 01/05/25 01/06/25 01/07/25
06:59 06:59 06:59 06:59
Intake Total 720 / 720 380 / 380 1188 / 1188
Output Total 1750 / 1750 700 / 700 200 / 200
Balance -1030 / -1030 -320 / -320 988 / 988
Physical Exam
Physical Exam
General: Well developed, well nourished in NAD.
Neck: Supple, no JVD, HJR, carotids +2 B/L, no bruits bilaterally.
Heart: Non displaced PMI, RRR, no murmurs, No S3, S4, no rubs.
Lungs: Scattered rhonchi
Extremities: No clubbing, cyanosis or edema bilaterally.
Neuro: Grossly nonfocal, awake, alert and oriented x3.
[2025-01-06] MEDS: NOVOLOG FLEXPEN 5 UNITS SC ×3 (09:39→17:20)
[2025-01-06] MEDS: IMDUR (EXTENDED RELEASE) 30 MG PO (09:44)
--- NOTE | 2025-01-06 09:45 | W.PN.ID1 ---
Addendum entered and electronically signed by Padmaja Catherine MD 01/06/25 14:24:
I saw and evaluated the patient. I reviewed the resident�s note and agree with findings and plan as documented in the resident�s note with the following additions/corrections
Afebrile
Bp stable
complains of ongoing chest pain for the last hour and dyspnea;
Physical Exam
Constitutional: No Acute Distress
Cardiovascular: Regular Rate and S1/S2; Negative Murmur or Rub
Pulmonary: Clear and Symmetric; Negative Wheezes or Rales
Gastrointestinal: Soft, Non Tender, Non Distended and Normal Bowel Sounds
Skin: Warm and Dry; Negative Rash or Jaundice
DLOA: pacemaker: no erythema, warmth, tenderness or fluctuance
O:
01/01 blood cultures remain no growth to date
12/28 and 12/30 blood cultures: e faecalis
A&P
E faecalis bacteremia - persistent
Possible endocarditis
Leukocytosis - resolved
NOE
ROBOTICS ENGINEER-P (2023) / bioprosthetic AVR (2007) in place
- bacteremia 12/28 and 12/30; 01/01 cultures are in progress no growth to date
- continue ampicillin dose adjusted back to 2 gm IV q8 hours for present
- await RENAN
- PICC line in place
- plan 6 weeks of IV ampicillin from clearance of blood cultures 01/01-02/11
- follow clinically
Also
CHF
Original Note:
Date of Service
Date of Service: January 06, 2025
Today's Communication
Continue ampicillin 2 g IV every 8 hours
Upcoming RENAN on Friday
Assessment / Plan
Enterococcus faecalis bacteremia:
Septic shock secondary to Enterococcus faecalis bacteremia:
NOE:
Leukocytosis:
Blood cultures were not drawn in the emergency department and were collected post PICC placement and after antibiotics were administered -repeat blood cultures x 2 ordered
TTE on 12/29 did not show vegetation and was unchanged from prior echo on 12/20. Echo was limited and did not assess aortic and pulmonic valves -recommend repeat echo with those valves assessed
Consideration for CT of the abdomen and pelvis with oral contrast if abdominal source is suspected and once renal function near/at baseline
Elevated ESR and CRP
Unlikely a UTI considering the urine analysis was without pyuria
Respiratory symptoms with hypoxia likely secondary to CHF exacerbation -Zosyn discontinued
Patient likely has endocarditis based on Lange's criteria with 1 major and 3 minor criteria met
Continue ampicillin 2 g IV every 8 hours
PICC line placed on 01/04/2025
Patient will need to be discharged on 6 weeks of IV ampicillin
Awaiting RENAN Friday
Chief Complaint
-: Bacteremia
Subjective / Review of Systems
Met with patient at the bedside. His condition remains unchanged from yesterday. 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 Seen sitting comfortably in chair eating breakfast. Calm and pleasant in discussion. Patient is
aware of his upcoming RENAN tomorrow.
Review of Systems: No Fever, No Chills, No Headache, No Pharyngitis and Chest Pain (Overnight)
Vital Signs / Physical Exam
Vital Signs
Vital Signs
Temp Pulse Resp BP Pulse Ox
99 F 97 18 103/62 98
01/06/25 03:00 01/06/25 07:48 01/06/25 03:00 01/06/25 07:48 01/06/25 03:00
Physical Exam
Constitutional: No Acute Distress, Comfortable, Non-toxic and Other (thin)
Head: Normocephalic
Eyes: Pupils Equal, No Conjunctival Hemorrhage and Sclera Anicteric
Oropharyngeal: Benign
Cardiovascular: Regular Rate and S1/S2; Negative Murmur, Rub, Peripheral Edema or Gallop
Pulmonary: Clear and Non Labored; Negative Wheezes, Rales, Rhonchi or Coarse
Gastrointestinal: Soft, Non Tender, Non Distended and Normal Bowel Sounds
Extremities: Negative Edema, Clubbing or Cyanosis
Neurological: Awake and Alert
Psychological: Calm
Objective Data
Lab Data
Lab Results
01/06/25 03:36
01/06/25 03:36
ESR 42 mm/hour (0-20) H 01/01/25 05:29
PT 17.1 Sec (11.4-14.6) H 12/28/24 12:58
INR 1.36 12/28/24 12:58
APTT 42.4 Sec (23.4-35.0) H 12/28/24 12:58
Estimated Creat Clear 25 ml/min 01/06/25 03:36
Lactic Acid Cancelled 12/29/24 06:17
Total Bilirubin 2.3 mg/dl (0.2-1.3) H 01/01/25 05:29
AST 85 U/L (17-59) H 01/01/25 05:29
ALT 109 U/L (0-50) H 01/01/25 05:29
Alkaline Phosphatase 85 U/L (38-126) 01/01/25 05:29
C-Reactive Protein 39.30 mg/L (0.0-10.00) H 01/01/25 05:29
Most recent labs reviewed.
Micro Results:
01/01/25 08:41 Blood Culture - Final
Blood/Venous No Growth - Final Report
01/01/25 08:42 Blood Culture - Final
Blood/Venous No Growth - Final Report
12/30/24 10:21 Blood Culture - Final
Blood/Venous Enterococcus faecalis
Gram Stain - Final
12/30/24 10:34 Blood Culture - Final
Blood/Venous No Growth - Final Report
12/28/24 23:16 Blood Culture - Final
Blood/Venous Enterococcus faecalis
Gram Stain - Final
12/28/24 22:17 Blood Culture - Final
Blood/Venous Enterococcus faecalis
Gram Stain - Final
12/28/24 22:17 Nasal Screen MRSA (PCR) - Final
Nose MRSA not detected - performed by PCR methodology.
12/28/24 17:46 Influenza Types A & B (FLACO) - Final
Nasal Swab Negative for Influenza A & B, NAAT
Negative results must be combined with clinical observations
and patient history.
Nucleic Acid Amplification test (NAAT)performed on the
[employer] platform.
Imaging:
12/31/2024 CXR (portable): overall improvement in bilateral interstitial markings, suggesting improvement in interstitial pulmonary edema pattern. A small focus of patchy parenchymal opacity within the left lower lung, new from recent exam,
possibly atelectasis versus pneumonia. Dual-lead PPM in place.
--- NOTE | 2025-01-06 10:08 | W.PN.NEPH.PH ---
Today's Communication / Plan
-
follow BMP
Assessment/Plan
-
Impression:
Decompensated HFrEF 30%
CKD 3B, baseline around 1.7
s/p Medtronic COMMODITIES REQUIREMENTS ANALYST-P 08/2023
CAD/CABG
HTN
DM2
Hyponatremia, hyperkalemia
Hypotension
Plan:
Follow BMP
hold diuretics today still
given recent cath 12/21 he will probably be medical management of angina
he does not appear to be volume overloaded. I suspect sxs are CAD in nature, but he has no good interventional options.
follow hgb. may need transfusion if pain continues
-
-
Date of Service: January 06, 2025
CC / HPI / ROS
-
Chief Complaint:
NOE
History of Present Illness:
NOE/creatinine up to 2.3, lasix on hold
sodium up to [address]-retention, non oliguric
Hemoglobin down to 7.7
Remains on high-dose midodrine for hypotension
Review of Systems:
reports CP/SOB with little activity this morning again
no n/v
Labs
-
Labs:
WBC 11.8 10^3/uL (4.8-10.8) H 01/06/25 03:36
RBC 2.49 10^6/uL (4.70-6.10) L 01/06/25 03:36
Hgb 7.7 g/dL (13.0-18.0) L 01/06/25 03:36
Hct 23.6 % (39.0-52.0) L 01/06/25 03:36
Plt Count 41 10^3/uL (130-400) L 01/06/25 03:36
Sodium 132 mmol/L (135-145) L 01/06/25 03:36
Potassium 3.7 mmol/L (3.5-5.1) 01/06/25 03:36
Chloride 102 mmol/L (98-107) 01/06/25 03:36
Carbon Dioxide 24 mmol/L (22-30) 01/06/25 03:36
BUN 29 mg/dl (9-20) H 01/06/25 03:36
Creatinine 2.3 mg/dL (0.7-1.3) H 01/06/25 03:36
eGFR 29.07 01/06/25 03:36
Glucose 67 mg/dl (70-99) L 01/06/25 03:36
Calcium 9.0 mg/dl (8.4-10.2) 01/06/25 03:36
Phosphorus 3.1 mg/dl (2.5-4.5) 12/28/24 22:17
Lgs-Z-Kexfvrmgcpr Pept 29300 pg/ml 01/04/25 05:29
Albumin 3.3 g/dl (3.5-5.0) L 01/01/25 05:29
Physical Exam
-
Vital Signs:
Vital Signs
Temp Pulse Resp BP Pulse Ox
99 F 97 18 103/62 98
01/06/25 03:00 01/06/25 07:48 01/06/25 03:00 01/06/25 07:48 01/06/25 03:00
Cardiovascular:: Regular rate and rhythm
Respiratory:: Bilateral: Coarse
Lung Excursion:: Normal
Abdomen:: Nontender and Soft
Bowel Sounds:: Normal
Extremity Edema:: None: Bilateral:
[2025-01-06 10:24] LABS: Troponin I 0.528 ng/ml
--- NOTE | 2025-01-06 11:24 | W.PN.HOSP.TC ---
Today's Communication/Plan
-
Continue IV antibiotic, RENAN Sunday 01/07.
Lidocaine patches for chest
Assessment / Plan
Assessment / Plan
Impression:
Patient is a 74-year-old male with past medical history of chronic systolic congestive heart failure, history of CAD status post bypass, history of CKD stage IIIb, history of SIDING APPLICATOR-P, essential hypertension, hyperal apnea, type 2 diabetes came to ER
with new onset of shortness of breath and generalized weakness. Patient is Gujarati speaking. Patient was recently admitted and discharged 5 days prior to this admission, post discharge was doing fairly well although did not have much of energy.
Patient was prescribed torsemide at discharge last, although not able to fill as pharmacy did not have any supply. Patient finally was able to get the torsemide and was able to take a dose morning of admission. Patient developed a positive blood
culture and treated for septic shock with pressors, off pressors, started on midodrine for soft blood pressure.
Infectious disease recommending Echocardiogram which did not show any valvular vegetation. May require RENAN if bacteremia persist.
- Repeat blood culture positive from 12/30. but repeat blood culture report from 01/01 remains negative
- CT abdomen pelvis did not show any clear infectious source
Infectious disease recommending long-term IV antibiotics.
RENAN Sunday 01/07
Assessment/plan:
Septic shock from multifocal pneumonia
associated with NOE/lactic acidosis
- Reported subjective fever at home. no productive cough.
- Chest x-ray showing possible multifocal pneumonia
- Total WBC count of 35K at admission has trended down
- Patient got 1 L of NS, did not provide full 30 mL/kg bolus as patient have systolic heart failure.
- ID help appreciated. Currently patient on IV ampicillin (needs long-term IV antibiotic)
- Added midodrine to regimen. Blood pressure remains soft.
Enterococcus faecalis bacteremia
- Unable to get blood culture in ER as patient is hard stick. Delayed blood culture collected post PICC placement and abx.
- Vancomycin was initially discontinued, resumed---> Currently patient on IV ampicillin
- Await further susceptibility
- Echocardiogram 12/29 did not show any valvular vegetation. May require RENAN if bacteremia persist.
- Repeat blood culture positive from 12/30. f/u repeat blood culture report from 01/01
- CT abdomen pelvis did not show any clear infectious source
- Infectious ease recommending 6 weeks of IV ampicillin
01/04
RENAN Sunday 01/07
NOE on CKD stage IIIb
Acute urinary retention
- creatinine up to 3.2 in ER, baseline cr 1.7-1.8 at discharge week back,
- Renal dysfunction likely combination from hypotension/cardiorenal syndrome and urinary retention
- Anders catheter to be removed and voiding trial to be done.
- Avoid nephrotoxic medication
- Creatinine continues trending down
Acute normocytic anemia
- Hemoglobin 9 after transfusion of 1 unit PRBC yesterday
- No luminal blood loss
Coronary disease status post with
Acute on Chronic systolic congestive heart failure
- proBNP greater than 27,000
- [facility] last admission showed blocked SVG graft to distal LAD, was planned to be manage medical
- Continue on Plavix statin
- Troponin 12 and has been trending down from elevated troponin max of 28 on 12/20
- Patient has been taken off of IV diuretic. Currently on oral torsemide.
01/06
Patient getting chest pain with ambulation.
Tender on palpation.
Possible musculoskeletal.
Troponin trending down.
Will add lidocaine patches
Anion gap metabolic acidosis - Improved
- Combination of lactic acidosis and renal dysfunction related
- Provide sodium bicarb few doses
- Being treated for underlying infection
Hyperkalemia - Improved
Hypokalemia
- Hyperkalemia secondary to renal failure/acidosis related at admission
- Post diuresis patient is developing hypokalemia now, replace as needed
Type II DM
- maintain on Lower dose lantus and ISS
- Added Premeal NovoLog
- diabetic diet
- Hold metformin with renal dysfunction
01/04
Blood sugar dropped to 55, Lantus dose adjusted to 20 units nightly
Essential hypertension
- Hold blood pressure medication with ongoing shock
Hyponatremia - resolved
- Combination from hypervolemia and ADH excess with heart failure
- Urine Na 34 Uosm 257
- Further therapy if have worsening of hyponatremia
Acute transaminitis
- Possible due to hypotension related
- LFT trending down.
CODE STATUS: Full code
DVT prophylaxis: Heparin
Diet: Diabetic diet
Family communication: Discussed with family at bedside
Physical therapy recommendations: Home health
Translation service: ([id number])
Disposition: Continue IV antibiotic, RENAN Sunday 01/07.
Total time spent on today's encounter was 55 minutes which included time spent in counseling the patient/family regarding diagnosis and treatment plan as listed above, goals of care, and symptom management. Case was discussed with nursing staff,
specialists, and care coordinators/case management. All labs and imaging personally reviewed by me. Remainder the time spent in detailed review of previous records, lab data, imaging, and other medical provider documentation.
Anticipated Discharge: > 48 hours
Subjective/Interval History
-
Date of Service: January 06, 2025
Patient seen and examined at bedside, still complaining of chest pain which more with ambulation, tender on palpation, possible musculoskeletal, no abdominal pain, no nausea, no vomiting, no diarrhea or constipation.
Objective Data
-
Labs:
Laboratory Results
01/06/25
03:36
WBC 11.8 H
Hgb 7.7 L
Hct 23.6 L
Plt Count 41 L
Sodium 132 L
Potassium 3.7
Chloride 102
Carbon Dioxide 24
BUN 29 H
Creatinine 2.3 H
Glucose 67 L
Calcium 9.0
Vital Signs:
Vital Signs
Temp Pulse Resp BP Pulse Ox
98.0 F 102 18 100/61 98
01/06/25 11:10 01/06/25 11:10 01/06/25 11:10 01/06/25 11:10 01/06/25 11:10
I&O
01/05/25 01/06/25 01/07/25
06:59 06:59 06:59
Intake Total 380 / 380 1188 / 1188
Output Total 700 / 700 200 / 200
Balance -320 / -320 988 / 988
Physical Exam
-
General: Well Developed, Well Nourished, No Apparent Distress and Comfortable
HEENT: Normocephalic, Atraumatic, Moist Mucous Membranes, No Ptosis, PERRLA and Nose Appears Normal
Respiratory: Rales, Rhonchi, Crackles and Non Labored Respirations
Cardiac: Regular Rhythm and S1/S2
Breast: Deferred by me
GI: Soft, Nontender, Nondistended and Normal Bowel Sounds
Genito-urinary: No Costovertebral Tender
Musculoskeletal: No Clubbing, No Cyanosis and No Edema
Skin: Warm
Neuro: Awake, Alert, Oriented, AO x 3 and No Motor Deficits
Psych: Calm
[2025-01-06 12:27] LABS: Glucose - Point of Care 195 mg/dl (70-99)
[2025-01-06] MEDS: NOVOLOG FLEXPEN-LOW RESISTANCE 1 UNITS SC (13:06)
[2025-01-06 16:57] LABS: Glucose - Point of Care 111 mg/dl (70-99)
[2025-01-06 21:42] LABS: Glucose - Point of Care 184 mg/dl (70-99)
[2025-01-06] MEDS: PEPCID 20 MG PO (23:07)
[2025-01-06] MEDS: LANTUS 0.2 UNITS SC (23:13)
[2025-01-07] VITALS (26 sets, daily range): BP systolic 97–145; BP diastolic 60–105; BMI 22.0
[2025-01-07] MEDS: AMPICILLIN 108 MG IV ×3 (03:50→20:29)
[2025-01-07 06:22] LABS: Hematocrit 24.6 % (39.0-52.0); Hemoglobin 8.0 g/dL (13.0-18.0); Mean Corp Hgb Conc. 32.5 g/dL (33.0-37.0); Mean Corpuscular Volume 96.5 fL (80.0-94.0); Platelet Count 44 10^3/uL (130-400); Red Cell Dist. Width 15.6 % (11.5-14.5)
--- NOTE | 2025-01-07 06:34 | PTCARENOTE ---
Multiple episodes overnight of pt c/o SOB and/or Chest Pain. Pt with marked labored breathing, tachypnea and minor suprasternal retractions-VSS. Episodes lasting between 15-40 min. Patient feels relief of sx r/t SOB with O2. Pt at this time feels
more comfortable with O2, and requests to remain on 2L NC. LINE CREWMAN notified, lidocaine patches added onto daily medications per hospitalist note 01/06. RENAN scheduled today. Pt with no further complains at this time-continues to use 2L NC.
[2025-01-07 06:45] LABS: Blood Urea Nitrogen 29 mg/dl (9-20); Calcium 8.9 mg/dl (8.4-10.2); Carbon Dioxide 25 mmol/L (22-30); Chloride 102 mmol/L (98-107); Estimated Creatinine Clearance 27 ml/min; Glucose 112 mg/dl (70-99); Potassium 3.9 mmol/L (3.5-5.1); Sodium 132 mmol/L (135-145); eGFR 30.66
[2025-01-07] MEDS: NOVOLOG FLEXPEN SC ×2 (07:56→18:08)
[2025-01-07] MEDS: FLOMAX PO (07:56)
[2025-01-07] MEDS: FEOSOL PO (07:56)
[2025-01-07] MEDS: NOVOLOG FLEXPEN-LOW RESISTANCE SC ×2 (07:56→19:49)
[2025-01-07] MEDS: ASPIR LOW (ENTERIC COATED) PO (07:56)
[2025-01-07] MEDS: IMDUR (EXTENDED RELEASE) PO (07:57)
[2025-01-07] MEDS: OSCAL 500 + D PO (07:58)
[2025-01-07] MEDS: PLAVIX PO (07:58)
[2025-01-07] MEDS: THERAGRAN PO (07:58)
[2025-01-07] MEDS: PROTONIX PO (07:58)
[2025-01-07] MEDS: VITAMIN D3 (cholecalciferol) PO (07:58)
[2025-01-07] MEDS: PROSCAR PO (07:58)
--- NOTE | 2025-01-07 08:55 | VNURNOTE ---
Patient remains accepted by [facility]. See 01/03 note in [place]. ONUR [facility]gu[facility] updated.
--- NOTE | 2025-01-07 09:35 | W.PN.ID1 ---
Addendum entered and electronically signed by Padmaja Catherine MD 01/07/25 12:20:
I saw and evaluated the patient. I reviewed the resident�s note and agree with findings and plan as documented in the resident�s note.
Afebrile
BP stable
RENAN was completed today, awaiting formal report
Physical Exam
Constitutional: No Acute Distress
Cardiovascular: Regular Rate and S1/S2; Negative Murmur or Rub
Pulmonary: Clear and Symmetric; Negative Wheezes or Rales
Gastrointestinal: Soft, Non Tender, Non Distended and Normal Bowel Sounds
Skin: Warm and Dry; Negative Rash or Jaundice
O:
01/01 blood cultures remain no growth to date
12/28 and 12/30 blood cultures: e faecalis
A&P
E faecalis bacteremia - persistent
Possible endocarditis
Leukocytosis - resolved
NOE
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
- bacteremia 12/28 and 12/30; 01/01 cultures are finalized negative
- continue ampicillin 2 gm IV q8 hours
- await RENAN report
- now with a clean picc line
- plan 6 weeks of IV ampicillin from clearance of blood cultures 01/01-02/11 - script provided to mattress spring encaser
- stable for dc when home IV antibiotics arranaged
Also
CHF
Original Note:
Date of Service
Date of Service: January 07, 2025
Today's Communication
Patient will need Ampicillin 2 g IV every 8 hours for 6 weeks upon discharge to be completed by 02/11
Assessment / Plan
Enterococcus faecalis bacteremia:
Septic shock secondary to Enterococcus faecalis bacteremia:
NOE:
Leukocytosis:
Blood cultures were not drawn in the emergency department and were collected post PICC placement and after antibiotics were administered -repeat blood cultures x 2 ordered
TTE on 12/29 did not show vegetation and was unchanged from prior echo on 12/20. Echo was limited and did not assess aortic and pulmonic valves -recommend repeat echo with those valves assessed
Consideration for CT of the abdomen and pelvis with oral contrast if abdominal source is suspected and once renal function near/at baseline
Elevated ESR and CRP
Unlikely a UTI considering the urine analysis was without pyuria
Respiratory symptoms with hypoxia likely secondary to CHF exacerbation -Zosyn discontinued
Patient likely has endocarditis based on Lange's criteria with 1 major and 3 minor criteria met
Continue ampicillin 2 g IV every 8 hours
PICC line placed on 01/04/2025
RENAN preliminary read negative for vegetations
Patient will need Ampicillin 2 g IV every 8 hours for 6 weeks upon discharge to be completed by 02/11
Chief Complaint
-: Bacteremia
Subjective / Review of Systems
Met with patient at the bedside. Unfortunately he continues to feel shortness of breath and chest pain on minor activity and ambulation to the bathroom. He denies any nausea, vomiting or diarrhea. He is calm and pleasant in discussion.
Review of Systems: No Fever, No Chills, No Headache and Chest Pain
Vital Signs / Physical Exam
Vital Signs
Vital Signs
Temp Pulse Resp BP Pulse Ox
97.4 F 100 18 110/60 100
01/07/25 11:35 01/07/25 11:35 01/07/25 11:35 01/07/25 11:35 01/07/25 11:35
Physical Exam
Constitutional: No Acute Distress, Comfortable, Non-toxic and Other (thin)
Head: Normocephalic
Eyes: Pupils Equal, No Conjunctival Hemorrhage and Sclera Anicteric
Oropharyngeal: Benign
Cardiovascular: Regular Rate and S1/S2; Negative Murmur, Rub, Peripheral Edema or Gallop
Pulmonary: Clear and Non Labored; Negative Wheezes, Rales, Rhonchi or Coarse
Gastrointestinal: Soft, Non Tender, Non Distended and Normal Bowel Sounds
Extremities: Negative Edema, Clubbing or Cyanosis
Neurological: Awake and Alert
Psychological: Calm
Objective Data
Lab Data
Lab Results
01/07/25 05:09
01/07/25 05:09
ESR 42 mm/hour (0-20) H 01/01/25 05:29
PT 17.1 Sec (11.4-14.6) H 12/28/24 12:58
INR 1.36 12/28/24 12:58
APTT 42.4 Sec (23.4-35.0) H 12/28/24 12:58
Estimated Creat Clear 27 ml/min 01/07/25 05:09
Lactic Acid Cancelled 12/29/24 06:17
Total Bilirubin 2.3 mg/dl (0.2-1.3) H 01/01/25 05:29
AST 85 U/L (17-59) H 01/01/25 05:29
ALT 109 U/L (0-50) H 01/01/25 05:29
Alkaline Phosphatase 85 U/L (38-126) 01/01/25 05:29
C-Reactive Protein 39.30 mg/L (0.0-10.00) H 01/01/25 05:29
Most recent labs reviewed.
Micro Results:
01/01/25 08:41 Blood Culture - Final
Blood/Venous No Growth - Final Report
01/01/25 08:42 Blood Culture - Final
Blood/Venous No Growth - Final Report
12/30/24 10:21 Blood Culture - Final
Blood/Venous Enterococcus faecalis
Gram Stain - Final
12/30/24 10:34 Blood Culture - Final
Blood/Venous No Growth - Final Report
12/28/24 23:16 Blood Culture - Final
Blood/Venous Enterococcus faecalis
Gram Stain - Final
12/28/24 22:17 Blood Culture - Final
Blood/Venous Enterococcus faecalis
Gram Stain - Final
12/28/24 22:17 Nasal Screen MRSA (PCR) - Final
Nose MRSA not detected - performed by PCR methodology.
12/28/24 17:46 Influenza Types A & B (FLACO) - Final
Nasal Swab Negative for Influenza A & B, NAAT
Negative results must be combined with clinical observations
and patient history.
Nucleic Acid Amplification test (NAAT)performed on the
[employer] platform.
Imaging:
12/31/2024 CXR (portable): overall improvement in bilateral interstitial markings, suggesting improvement in interstitial pulmonary edema pattern. A small focus of patchy parenchymal opacity within the left lower lung, new from recent exam,
possibly atelectasis versus pneumonia. Dual-lead PPM in place.
[2025-01-07] MEDS: LIDOCAINE 4% PATCH TOPICAL (09:37)
[2025-01-07 11:01] LABS: Glucose - Point of Care 157 mg/dl (70-99)
[2025-01-07] MEDS: MORPHINE SULFATE 1 MG IV ×3 (11:18→20:29)
[2025-01-07] MEDS: ASPIR LOW (ENTERIC COATED) 81 MG PO (11:24)
[2025-01-07] MEDS: LIDOCAINE 4% PATCH 1 PATCH TOPICAL (11:24)
[2025-01-07] MEDS: IMDUR (EXTENDED RELEASE) 30 MG PO (11:24)
[2025-01-07] MEDS: PROSCAR 5 MG PO (11:25)
[2025-01-07] MEDS: PROTONIX 40 MG PO (11:25)
[2025-01-07] MEDS: THERAGRAN 1 TABLET PO (11:25)
[2025-01-07] MEDS: PLAVIX 75 MG PO (11:25)
[2025-01-07] MEDS: VITAMIN D3 (cholecalciferol) 125 MCG PO (11:25)
[2025-01-07] MEDS: FLOMAX 0.4 MG PO (11:25)
[2025-01-07] MEDS: FEOSOL 325 MG PO (11:25)
--- NOTE | 2025-01-07 11:57 | W.PN.HOSP.TC ---
Today's Communication/Plan
-
Await official RENAN report
Defer diuretics to nephrology
Repeat proBNP
Chest x-ray noted
Encouraged to increase p.o. intake
Trend hemoglobin/platelets
Assessment / Plan
Assessment / Plan
Impression:
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
with new onset of shortness of breath and generalized weakness. Patient is Gujarati speaking. Patient was recently admitted and discharged 5 days prior to this admission, post discharge was doing fairly well although did not have much of energy.
Patient was prescribed torsemide at discharge last, although not able to fill as pharmacy did not have any supply. Patient finally was able to get the torsemide and was able to take a dose morning of admission. Patient developed a positive blood
culture and treated for septic shock with pressors, off pressors, started on midodrine for soft blood pressure.
Infectious disease recommending Echocardiogram which did not show any valvular vegetation. May require RENAN if bacteremia persist.
- Repeat blood culture positive from 12/30. but repeat blood culture report from 01/01 remains negative
- CT abdomen pelvis did not show any clear infectious source
Infectious disease recommending long-term IV antibiotics.
RENAN Sunday 01/07
Assessment/plan:
Septic shock from multifocal pneumonia
associated with NOE/lactic acidosis
- Reported subjective fever at home. no productive cough.
- Total WBC count of 35K at admission has trended down
- Patient got 1 L of NS, did not provide full 30 mL/kg bolus as patient have systolic heart failure.
- ID help appreciated. Currently patient on IV ampicillin (needs long-term IV antibiotic)
- Added midodrine to regimen.
Shortness of breath possibly due to acute on chronic HFrEF/possible pulmonary edema
Coronary disease status post with
Acute on Chronic systolic congestive heart failure
- [facility] last admission showed blocked SVG graft to distal LAD, was planned to be manage medical
- Continue on Plavix statin
- Troponin 12 and has been trending down from elevated troponin max of 28 on 12/20
- Patient has been taken off of IV diuretic.
- Repeat proBNP
- Repeat chest x-ray with suspected pulmonary edema
- Currently on 2 L of oxygen. Sats remained stable
- Will defer diuretics to nephrology
Enterococcus faecalis bacteremia
- Unable to get blood culture in ER as patient is hard stick. Delayed blood culture collected post PICC placement and abx.
- Vancomycin was initially discontinued, resumed---> Currently patient on IV ampicillin
- Echocardiogram 12/29 did not show any valvular vegetation. May require RENAN if bacteremia persist.
- Repeat blood culture positive from 12/30. f/u repeat blood culture report from 01/01
- CT abdomen pelvis did not show any clear infectious source
- Infectious ease recommending 6 weeks of IV ampicillin
-Per RN report-no signs of vegetation. Awaiting official report.
NOE on CKD stage IIIb
Acute urinary retention
- creatinine up to 3.2 in ER, baseline cr 1.7-1.8 at discharge week back,
- Renal dysfunction likely combination from hypotension/cardiorenal syndrome and urinary retention
- Anders catheter to be removed and voiding trial to be done.
- Avoid nephrotoxic medication
- Creatinine at 2.2
Acute normocytic anemia
- Hemoglobin 9 after transfusion of 1 unit PRBC
- No luminal blood loss
Anion gap metabolic acidosis - Improved
- Combination of lactic acidosis and renal dysfunction related
- Provide sodium bicarb few doses
- Being treated for underlying infection
Hyperkalemia - Improved
Hypokalemia
- Hyperkalemia secondary to renal failure/acidosis related at admission
- Post diuresis patient is developing hypokalemia now, replace as needed
Type II DM
- maintain on Lower dose lantus and ISS
- Added Premeal NovoLog
- Hold metformin with renal dysfunction
Blood sugar dropped to 55, Lantus dose adjusted to 20 units nightly
Essential hypertension
- Hold blood pressure medication as now with soft bp at times
Hyponatremia - resolved
- Combination from hypervolemia and ADH excess with heart failure
- Urine Na 34 Uosm 257
- Further therapy if have worsening of hyponatremia
Acute transaminitis
- Possible due to hypotension related
- LFT trending down.
Chronic thrombocytopenia
-Platelets at 44k. monitor for now.
CODE STATUS: Full code
DVT prophylaxis: Heparin
Physical therapy recommendations: Home health
Discussed with patient spouse and [id number] at bedside
Anticipated Discharge: > 48 hours
Subjective/Interval History
-
Date of Service: January 07, 2025
Seen post RENAN
Patient been complaining of shortness of breath overnight
O2 sats have remained stable on 2 L of oxygen
Complaining of intermittent chest pain
With significantly decreased appetite
Objective Data
-
Labs:
Laboratory Results
01/07/25
05:09
WBC 12.1 H
Hgb 8.0 L
Hct 24.6 L
Plt Count 44 L
Sodium 132 L
Potassium 3.9
Chloride 102
Carbon Dioxide 25
BUN 29 H
Creatinine 2.2 H
Glucose 112 H
Calcium 8.9
Vital Signs:
Vital Signs
Temp Pulse Resp BP Pulse Ox
97.4 F 100 18 110/60 100
01/07/25 11:35 01/07/25 11:35 01/07/25 11:35 01/07/25 11:35 01/07/25 11:35
I&O
01/06/25 01/07/25 01/08/25
06:59 06:59 06:59
Intake Total 1188 / 1188 916 / 916
Output Total 200 / 200 550 / 550
Balance 988 / 988 366 / 366
Physical Exam
-
General: Well Developed, Well Nourished and Respiratory Distress
HEENT: Normocephalic, Atraumatic, Moist Mucous Membranes, No Ptosis, PERRLA and Nose Appears Normal
Respiratory: Rales, Rhonchi, Crackles and Non Labored Respirations
Cardiac: Regular Rhythm and S1/S2
Breast: Deferred by me
GI: Soft, Nontender, Nondistended and Normal Bowel Sounds
Genito-urinary: No Costovertebral Tender
Musculoskeletal: No Clubbing, No Cyanosis and No Edema
Skin: Warm
Neuro: Awake, Alert, Oriented, AO x 3 and No Motor Deficits
Psych: Anxious
Data Reviewed
-
Total Time Spent with Patient (in minutes): 55
[2025-01-07] MEDS: NOVOLOG FLEXPEN 5 UNITS SC (12:14)
[2025-01-07] MEDS: NOVOLOG FLEXPEN-LOW RESISTANCE 1 UNITS SC (12:15)
--- NOTE | 2025-01-07 13:23 | CM ---
CM following re: discharge planning.
Reviewed pt's chart.
PT and OT continue recommending Home PT/OT.
Per ID pt will need 6 weeks of IV antibiotic, Ampicillin 2gm Q8 end date 02/01/25. A referral sent to [facility]. Awaiting for confirmation.
D/C plan: home with [facility] and [facility].
[2025-01-07] MEDS: NITROSTAT (SUBLINGUAL) 0.4 MG SL ×6 (13:28→17:48)
[2025-01-07] MEDS: TYLENOL 650 MG PO (13:55)
--- NOTE | 2025-01-07 13:56 | W.PN.NEPH.PH ---
Today's Communication / Plan
-
Normal saline 250 cc bolus
Assessment/Plan
-
Impression:
Decompensated HFrEF 30%
CKD 3B, baseline around 1.7
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
CAD/CABG
HTN
DM2
Hyponatremia, hyperkalemia
Hypotension
Plan:
Follow BMP
hold diuretics today still
given recent cath 12/21 he will probably be medical management of angina
he does not appear to be volume overloaded. I suspect sxs are CAD in nature, but he has no good interventional options.
More tachycardic today with hypotension
I will give him 250 cc bolus of normal saline
Discussed with medical nurse and primary physician
-
-
Date of Service: January 07, 2025
CC / HPI / ROS
-
Chief Complaint:
NOE
History of Present Illness:
NOE/creatinine up to 2.3, lasix on hold
sodium up to [address]-retention, non oliguric
Hemoglobin down to 7.7�8
Remains on high-dose midodrine for hypotension
Review of Systems:
reports CP/SOB with little activity this morning again
no n/v
Labs
-
Labs:
WBC 12.1 10^3/uL (4.8-10.8) H 01/07/25 05:09
RBC 2.55 10^6/uL (4.70-6.10) L 01/07/25 05:09
Hgb 8.0 g/dL (13.0-18.0) L 01/07/25 05:09
Hct 24.6 % (39.0-52.0) L 01/07/25 05:09
Plt Count 44 10^3/uL (130-400) L 01/07/25 05:09
Sodium 132 mmol/L (135-145) L 01/07/25 05:09
Potassium 3.9 mmol/L (3.5-5.1) 01/07/25 05:09
Chloride 102 mmol/L (98-107) 01/07/25 05:09
Carbon Dioxide 25 mmol/L (22-30) 01/07/25 05:09
BUN 29 mg/dl (9-20) H 01/07/25 05:09
Creatinine 2.2 mg/dL (0.7-1.3) H 01/07/25 05:09
eGFR 30.66 01/07/25 05:09
Glucose 112 mg/dl (70-99) H 01/07/25 05:09
Calcium 8.9 mg/dl (8.4-10.2) 01/07/25 05:09
Phosphorus 3.1 mg/dl (2.5-4.5) 12/28/24 22:17
Znu-Z-Zexxjqzbbvl Pept 12832 pg/ml 01/07/25 05:09
Albumin 3.3 g/dl (3.5-5.0) L 01/01/25 05:29
Physical Exam
-
Vital Signs:
Vital Signs
Temp Pulse Resp BP Pulse Ox
97.3 F 121 16 91/65 99
01/07/25 13:31 01/07/25 13:31 01/07/25 13:31 01/07/25 13:33 01/07/25 13:31
Respiratory:: Bilateral: CTA
Lung Excursion:: Normal
Abdomen:: Soft
Bowel Sounds:: Normal
Extremity Edema:: None: Bilateral:
[2025-01-07] MEDS: NSS 250 IV (14:02)
--- NOTE | 2025-01-07 16:13 | W.PN.CARDCBS ---
Addendum entered and electronically signed by Blanco Davis MD 01/07/25 18:00:
I saw and examined the patient on afternoon rounds with Cynthia Canales PA-C.
The Preflight Inspector's note was reviewed and I agree with the note.
Comment: Briefly, 74-year-old gentleman with past medical history of ischemic cardiomyopathy, heart failure ejection fraction, moderate aortic stenosis and recent admission for acute heart failure and NSTEMI who presented on 12/28/2024 with acute
kidney injury diagnosed with sepsis. He required ICU admission for shock which was thought to be combined septic and cardiogenic in etiology. Patient improved clinically and was downgraded to telemetry floor.
Patient has been reporting chest discomfort this afternoon
There was concern for ischemia as a cause of his symptoms and he was given sublingual nitroglycerin
SL nitroglycerin did not improve his symptoms but potentiated hypotension
Unfortunately blood pressures been marginal and patient has been requiring midodrine which limits antianginal therapy
At the time of my evaluation patient had increased work of breathing and I am concerned for acute heart failure as a cause of his chest discomfort -by description ACS seems less likely and EKG does not show any acute ischemic changes
proBNP was elevated earlier today at 17,000 and chest x-ray showed bilateral infiltrates suggestive of acute pulmonary edema
Recommend IV Lasix to improve his respiratory status
May benefit from noninvasive positive pressure ventilation with increased work of breathing
With marginal blood pressure would recommend transfer to higher level of care
Discussed with family at bedside
Original Note:
Today's Communication / Plan
-
IV morphine
IV lasix
transfer to IMU
stop imdur
may require reinitiation of pressors
Impression / Plan
-
PCP: Israel Clifton MD
CDY: Orlando Langley MD
Impression:
Chest pain 01/06/2025
Admitted with sepsis and NOE 12/28/2024
Hypotension requiring pressor support consistent with shock (septic/cardiogenic)
Recent admission acute HFrEF and NSTEMI 12/20/2024 until 12/23/2024
Recent ER visit at [facility] for chest pain and SOB 12/09/2024
Moderate
Mitral regurgitation previously mild to moderate now moderate to severe in the setting of volume overload
Clinical sepsis
Enterococcus bacteremia
Possible multifocal PNA
Possible cardiogenic shock
NOE on CKD
Previously required transient HD 07/2024
Hyperkalemia
Elevated troponin, overall trending down from last admission
CAD
s/p CABG with GAFFNEY-LAD, VG-dLAD, VG-PLB 2007
s/p SVG to the distal LAD PCI at [facility] by Dr. Gavin 04/2024
Patent GAFFNEY to LAD, patent SVG to PLB with PDA filling via retrograde from the PLB, occlusion of the SVG to the distal LAD with 100% occlusion of previously placed stent 12/21/2024
s/p tissue AVR 2007
HLD
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
HTN
DM
Language barrier
Thrombocytopenia
Echo 08/2023: nml LV size, abnormal diastolic function with increased LVEDP, EF 60-65%, CLVH but no obvious regional abn. normally functioning bioprosthetic AV, PG/MG 32.5/18, ABEL 1.34cm2
Echo 12/20/2024: EF 35 to 40%, mild concentric LVH, mid to distal inferior, inferolateral, mid anteroseptal, mid anterior, apical hypokinesis, dense MAC, at least moderate to severe MR with anterior eccentric jet, mild to moderate TR, PAP 38 mmHg
Echocardiogram 12/29/2024: Ejection fraction 30 to 35%. Mid to distal inferior, inferolateral, mid anteroseptal and mid anterior hypokinesis with apical akinesis. Moderate to severe mitral regurgitation. Mild to moderate TR.
Echo 12/30/2024: Ejection fraction 30% by visual estimation. Segmental wall motion abnormalities noted. Moderate to severe mitral regurgitation similar to prior. Previously aortic valve was not assessed. Likely moderate aortic valve stenosis
Peak/mean gradients are 32/20mmHg. ABEL 0.8cm sq, using a LVOT of 1.6cm.Mild to moderate tricuspid regurgitation. Estimated pulmonary artery pressure of 33 mmHg
Plan:
- Discussed with patient and family at bedside with use of regroover
- Patient is very uncomfortable, complaining of chest discomfort with reproduction with palpation across his entire chest, as well as significant shortness of breath requiring use of abdominal and accessory muscles. He was not on supplemental
oxygen prior to admission
- Chest x-ray this a.m. with bilateral interstitial and alveolar pulmonary edema
- He was given sublingual nitro several times earlier this admission due to complaints of chest pain which did not help at all.
- His blood pressure then dropped and he was given 250 cc of fluid, now improved
- He is tachycardic and a sensed V paced rhythm on review of telemetry
- Will give IV morphine 1 mg now as well as 40 mg IV Lasix. Will place on 40 mg IV twice daily
- Follow creatinine with diuresis, nephrology following
- Stop Imdur given hypotension. Currently on midodrine 10 mg 3 times daily. Would consider placing back on pressor support if needed to enable diuresis
- Was admitted with sepsis. Antibiotics per primary service. RENAN today was without evidence of endocarditis
- Will transfer to IMU
- he had NSTEMI with admission 2 weeks ago - cath showed patent GAFFNEY to LAD, patent SVG to PLB with PDA filling via retrograde from the PLB, occlusion of the SVG to the distal LAD with 100% occlusion of previously placed stent 12/21/2024. plan for
medical therapy
-Medtronic MACHINE PIE MAKER�P device check performed 12/29/24 and there was normal device and lead function, OptiVol was trending up, no atrial ventricular arrhythmia and there was 10 years of battery longevity.
-critically ill
-I did reconfirm with patient that he wished to be full code
-d/w hospitalist
HPI: Patient presented to the ER today with SMALL and is being admitted with possible sepsis and NOE and cardiology is being consulted for possible CHF and recent admission for NSTEMI. Patient has a history of remote CABG and AVR in 2007 at an
outside hospital. He had an admission to [facility] 04/2024 and he had PCI of the SVG to the distal LAD. Patient was then admitted to [facility] with NOE and was transiently on hemodialysis 07/2024. Most recently he has been following with "Alexus"Korin at [facility] and their office referred the patient to the [facility] ER on 12/09/2024 after he complained of chest pain during a visit in their office that day. The patient was discharged from the ER with a higher dose of
Lopressor and they added Imdur ER. There was apparently no consideration for acute HF at that time. Patient then came to the [facility] ER on 12/20/2024 with chest pain and the initial troponin was 2.22 and subsequent troponin was as high as 27.9.
Patient was admitted and eventually had cardiac cath 12/21/2024 that showed that the stent in the SVG to the LAD from April was 100% occluded and the GAFFNEY to LAD and SVG to PLV grafts were patent. There was also evidence of acute HFrEF during
that admission and EF was newly reduced at 35 to 40%, it had been 60 to 65% by an echo from his primary media marketing coordinator 08/2023. PCWP was down to 18 which correlated with a weight of 141 lbs at time of cath on 12/21/2024. Cre was stable at 1.8 on the
day of discharge 12/23/2024. At the recommendation of nephrology the patient was discharged home on torsemide 20 mg daily. Patient's family reports that medications were not delivered in a timely fashion and so he was not taking any of his
medications since admission until they arrived yesterday. Patient has had increasing SMALL over the last 24 hours and came to the ER today. There is leukocytosis with a WBC count of 35 with a left shift. Lactic acid levels pending. There is
concern for sepsis possibly due to PNA and patient is being admitted to the ICU due to his need for pressor support with Levophed.
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
Subjective
Date of Service: January 07, 2025
patient uncomfortable appearing. c/o CP and SOB
Objective
Labs:
01/07/25 05:09
01/07/25 05:09
Labs
Hgb 8.0 g/dL (13.0-18.0) L 01/07/25 05:09
Hct 24.6 % (39.0-52.0) L 01/07/25 05:09
Plt Count 44 10^3/uL (130-400) L 01/07/25 05:09
PT 17.1 Sec (11.4-14.6) H 12/28/24 12:58
INR 1.36 12/28/24 12:58
APTT 42.4 Sec (23.4-35.0) H 12/28/24 12:58
Sodium 132 mmol/L (135-145) L 01/07/25 05:09
Potassium 3.9 mmol/L (3.5-5.1) 01/07/25 05:09
BUN 29 mg/dl (9-20) H 01/07/25 05:09
Creatinine 2.2 mg/dL (0.7-1.3) H 01/07/25 05:09
Glucose 112 mg/dl (70-99) H 01/07/25 05:09
Troponins
01/05/25 01/06/25 01/06/25
06:00 08:50 09:22
Troponin I 0.895 H* Cancelled 0.528 H*
01/06/25
17:00
Troponin I Cancelled
Vital Signs and I&O:
Vital Signs
Temp Pulse Resp BP Pulse Ox
97.5 F 114 30 98/72 98
01/07/25 14:35 01/07/25 14:35 01/07/25 14:35 01/07/25 15:00 01/07/25 14:35
Vital Signs
Temp Pulse Resp BP Pulse Ox
97.5 F 114 30 98/72 98
01/07/25 14:35 01/07/25 14:35 01/07/25 14:35 01/07/25 15:00 01/07/25 14:35
Intake & Output
01/05/25 01/06/25 01/07/25 01/08/25
07:59 07:59 07:59 07:59
Intake Total 380 / 380 1188 / 1188 916 / 916 358 / 358
Output Total 700 / 700 200 / 200 550 / 550
Balance -320 / -320 988 / 988 366 / 366 358 / 358
Physical Exam
Physical Exam
GEN: No distress, awake, alert, oriented x3. on supp O2. labored breathing with accessory muscle use. appears uncomfortable
HEENT: supple, anicteric, mmm, eomi
LUNGS: Crackles and wheezes B/L
CV: Reg, S1/S2, 1/6 syst LSB
ABD: soft, BS+, NT/ND
EXT: No cyanosis, clubbing, edema
NEURO: Gross non-focal
SKIN: Warm, pink, dry. No rash
[2025-01-07 16:38] LABS: Glucose - Point of Care 229 mg/dl (70-99)
[2025-01-07] MEDS: LASIX 40 MG IV (17:29)
--- NOTE | 2025-01-07 17:30 | PTCARENOTE ---
Patient transfer to ICU as ordered. vs documented. Report given to Nurse Venessa. Administered Lasix as ordered.
[2025-01-07 18:03] LABS: Glucose - Point of Care 251 mg/dl (70-99)
--- NOTE | 2025-01-07 18:40 | PTCARENOTE ---
17:40, Received patient from [facility] as IMU overflow in ICU for increased WOB/SOB and ongoing intermittent chest pain. Patient A&Ox3, Complained severe/crushing sternum chest pain, Left upper chest pacemaker, V paced, BP WNL, Tachypneic on 2L NC d/t
chest pain, can't speak complete sentences from out of breath, Regular diet, continent.
17:49, Patient had a 35s of narrowed QRS complex tachycardia and then back to V paced rhythm. Patient also received Nitro SL x2 and one time dose 1mg morphine IVP, Chest pain resolved.
18:39, Updated evaluation specialist director of managed care Dr. Lange on above medical situation, no new orders received.
[2025-01-07] MEDS: NOVOLOG FLEXPEN-LOW RESISTANCE 2 UNITS SC (19:51)
[2025-01-07 19:59] LABS: Glucose - Point of Care 226 mg/dl (70-99)
[2025-01-07] MEDS: REMOVE LIDOCAINE PATCH 1 PATCH REMOVE (20:30)
--- NOTE | 2025-01-07 21:37 | PTCARENOTE ---
Ox3, non-panamanian speaking, BURNETTE, rings appropriately, Vpaced, + pulses, diminished and coarse throughout, tachypneic, Sats 98% 2L, BSx4, daughter brought dinner BG 226 insulin given per MAR, voided 300ml yellow output, Skin per worklist, R PICC, pt
c/o 5/10 chest pain c increased WOB when attempting to void in bed, STUDENT RECRUITER notified and Morphine given per MAY, pt reports no CP after morphine, daughter and granddaughter @ bedside and updated, otherwise refer to documentation.
[2025-01-07] MEDS: LANTUS 0.2 UNITS SC (22:56)
[2025-01-07 23:06] LABS: Glucose - Point of Care 229 mg/dl (70-99)
[2025-01-08] VITALS (18 sets, daily range): BP systolic 108–132; BP diastolic 67–105; BMI 22.1
[2025-01-08] MEDS: AMPICILLIN 108 MG IV ×3 (03:32→21:14)
[2025-01-08 03:55] LABS: Hematocrit 24.2 % (39.0-52.0); Hemoglobin 7.9 g/dL (13.0-18.0); Mean Corp Hgb Conc. 32.6 g/dL (33.0-37.0); Mean Corpuscular Volume 98.0 fL (80.0-94.0); Platelet Count 37 10^3/uL (130-400); Red Cell Dist. Width 15.7 % (11.5-14.5)
[2025-01-08 04:05] LABS: Blood Urea Nitrogen 35 mg/dl (9-20); Calcium 9.0 mg/dl (8.4-10.2); Carbon Dioxide 24 mmol/L (22-30); Chloride 104 mmol/L (98-107); Estimated Creatinine Clearance 27 ml/min; Glucose 156 mg/dl (70-99); Potassium 4.6 mmol/L (3.5-5.1); Sodium 133 mmol/L (135-145); eGFR 30.66
[2025-01-08 07:24] LABS: Glucose - Point of Care 175 mg/dl (70-99)
[2025-01-08] MEDS: NOVOLOG FLEXPEN-LOW RESISTANCE 1 UNITS SC (07:31)
[2025-01-08] MEDS: LIDOCAINE 4% PATCH 1 PATCH TOPICAL (07:32)
[2025-01-08] MEDS: LASIX 40 MG IV ×2 (07:32→15:48)
[2025-01-08] MEDS: NOVOLOG FLEXPEN 5 UNITS SC (07:32)
[2025-01-08] MEDS: ASPIR LOW (ENTERIC COATED) 81 MG PO (07:35)
[2025-01-08] MEDS: PROSCAR 5 MG PO (07:35)
[2025-01-08] MEDS: THERAGRAN 1 TABLET PO (07:35)
[2025-01-08] MEDS: PLAVIX 75 MG PO (07:36)
[2025-01-08] MEDS: OSCAL 500 + D 500 MG PO (07:36)
[2025-01-08] MEDS: FLOMAX 0.4 MG PO (07:36)
[2025-01-08] MEDS: VITAMIN D3 (cholecalciferol) 125 MCG PO (07:36)
[2025-01-08] MEDS: PROTONIX 40 MG PO (07:36)
[2025-01-08] MEDS: FEOSOL 325 MG PO (07:36)
[2025-01-08] MEDS: MORPHINE SULFATE 1 MG IV ×2 (07:38→21:14)
--- NOTE | 2025-01-08 08:32 | W.PN.ID1 ---
Addendum entered and electronically signed by Gail Mac MD 01/09/25 07:57:
Correction:
Enterococcus faecalis bacteremia (3 sets):
Original Note:
Date of Service
Date of Service: January 08, 2025
Today's Communication
Continue Ampicillin IV
Assessment / Plan
Enterococcus faecalis bacteremia 93 sets):
s/p Septic shock secondary to Enterococcus faecalis bacteremia
Suspect endocarditis
NOE
Leukocytosis - resolved
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
01/01 Repeat blood cx's x2 neg
TTE on 12/29 did not show vegetation and was unchanged from prior echo on 12/20. Echo was limited and did not assess aortic and pulmonic valves -recommend repeat echo with those valves assessed
01/07/25 RENAN: no vegetation
CT of the abdomen and pelvis without source of bacteremia
Patient likely has endocarditis based on Lange's criteria with 1 major and 3 minor criteria met
Continue ampicillin 2 g IV every 8 hours
PICC line placed on 01/04/2025
Plan 6 weeks of IV ampicillin from clearance of blood cultures 01/01-02/11 - script provided to telephonic case manager by Dr. Catherine
Acute on chronic CHF exacerbation
Pulm edema with hemoptysis
- Continue with diuresis
-Cardiology and Hospitalist managing
Chief Complaint
-: Bacteremia
Subjective / Review of Systems
Events noted. Yesterday, pt developed chest discomfort, SOB transferred to IMU. CXR with pum edema.
at bedside. Pt c/o SOB with minimal exertion including speaking. Had hemoptysis - 2 teaspoons.
Vital Signs / Physical Exam
Vital Signs
Vital Signs
Temp Pulse Resp BP Pulse Ox
97.8 F 101 19 110/69 97
01/08/25 07:14 01/08/25 06:00 01/08/25 06:00 01/08/25 06:00 01/08/25 06:00
Physical Exam
Constitutional: Acutely Ill
Head: Normocephalic
Eyes: No Conjunctival Hemorrhage and Sclera Anicteric
Cardiovascular: Regular Rate and S1/S2; Negative Murmur, Rub, Peripheral Edema or Gallop
Pulmonary: Clear and Non Labored; Negative Wheezes, Rales, Rhonchi or Coarse
Gastrointestinal: Soft, Non Tender, Non Distended and Normal Bowel Sounds
Extremities: Negative Edema, Clubbing or Cyanosis
Neurological: Awake and Alert
Psychological: Calm
Objective Data
Lab Data
Lab Results
01/08/25 03:31
01/08/25 03:31
ESR 42 mm/hour (0-20) H 01/01/25 05:29
PT 17.1 Sec (11.4-14.6) H 12/28/24 12:58
INR 1.36 12/28/24 12:58
APTT 42.4 Sec (23.4-35.0) H 12/28/24 12:58
Estimated Creat Clear 27 ml/min 01/08/25 03:31
Lactic Acid Cancelled 12/29/24 06:17
Total Bilirubin 2.3 mg/dl (0.2-1.3) H 01/01/25 05:29
AST 85 U/L (17-59) H 01/01/25 05:29
ALT 109 U/L (0-50) H 01/01/25 05:29
Alkaline Phosphatase 85 U/L (38-126) 01/01/25 05:29
C-Reactive Protein 39.30 mg/L (0.0-10.00) H 01/01/25 05:29
Most recent labs reviewed.
Micro Results:
01/01/25 08:41 Blood Culture - Final
Blood/Venous No Growth - Final Report
01/01/25 08:42 Blood Culture - Final
Blood/Venous No Growth - Final Report
12/30/24 10:21 Blood Culture - Final
Blood/Venous Enterococcus faecalis
Gram Stain - Final
12/30/24 10:34 Blood Culture - Final
Blood/Venous No Growth - Final Report
12/28/24 23:16 Blood Culture - Final
Blood/Venous Enterococcus faecalis
Gram Stain - Final
12/28/24 22:17 Blood Culture - Final
Blood/Venous Enterococcus faecalis
Gram Stain - Final
12/28/24 22:17 Nasal Screen MRSA (PCR) - Final
Nose MRSA not detected - performed by PCR methodology.
12/28/24 17:46 Influenza Types A & B (FLACO) - Final
Nasal Swab Negative for Influenza A & B, NAAT
Negative results must be combined with clinical observations
and patient history.
Nucleic Acid Amplification test (NAAT)performed on the
[employer] platform.
Imaging:
01/07/25 CXR: Bilateral interstitial and alveolar pulmonary opacities, suspicious for pulmonary edema in the appropriate clinical setting.
12/31/2024 CXR (portable): overall improvement in bilateral interstitial markings, suggesting improvement in interstitial pulmonary edema pattern. A small focus of patchy parenchymal opacity within the left lower lung, new from recent exam,
possibly atelectasis versus pneumonia. Dual-lead PPM in place.
--- NOTE | 2025-01-08 08:36 | W.PN.CARDCBS ---
Today's Communication / Plan
-
He is with generalized discomfort and chest pain with movement. His chest symptoms do not appear ischemic in origin as he also did not respond to nitroglycerin during different times he complained of chest pain.
Continue IV diuresis. Elevated proBNP 16,900 and chest x-ray 01/07/2025 suggest pulmonary edema
Troponins continue to come down at 0.5 with a peak of December 20, 2024
I's and O's are negative, weight is flat, creatinine remains elevated but stable at 2.2
Appreciate nephrology input.
Continue supportive care, pulmonary toilet and antibiotics per primary service and infectious disease.
RENAN 01/07/2025 was negative for endocarditis
Hx NSTEMI with admission 2 weeks ago - cath showed patent GAFFNEY to LAD, patent SVG to PLB with PDA filling via retrograde from the PLB, occlusion of the SVG to the distal LAD with 100% occlusion of previously placed stent 12/21/2024. plan for medical
therapy
[employer] WEB CONSULTANT�P device check performed 12/29/24 and there was normal device and lead function, OptiVol was trending up, no atrial ventricular arrhythmia and there was 10 years of battery longevity.
Discussed with family at bedside and nursing
Family has confirmed full code with the patient over the last 24 hours. His prognosis appears poor
Also discussed with his daughter via telephone who translated for and to the patient
Impression / Plan
-
PCP: Israel Clifton MD
CDY: Orlando Langley MD
Impression:
Admitted with sepsis and NOE 12/28/2024
Hypotension requiring pressor support consistent with shock (septic/cardiogenic)
Acute on chronic HFrEF
Intermittent chest pain
Recent admission acute HFrEF and NSTEMI 12/20/2024 until 12/23/2024
Recent ER visit at [facility] for chest pain and SOB 12/09/2024
Moderate
Mitral regurgitation previously mild to moderate now moderate to severe in the setting of volume overload
Clinical sepsis
Enterococcus bacteremia
Possible multifocal PNA
NOE on CKD
Previously required transient HD 07/2024
Hyperkalemia
Elevated troponin, overall trending down from last admission
CAD
s/p CABG with GAFFNEY-LAD, VG-dLAD, VG-PLB 2007
s/p SVG to the distal LAD PCI at [facility] by Dr. Gavin 04/2024
Patent GAFFNEY to LAD, patent SVG to PLB with PDA filling via retrograde from the PLB, occlusion of the SVG to the distal LAD with 100% occlusion of previously placed stent 12/21/2024
s/p tissue AVR 2007
HLD
[employer] WEB CONSULTANT�P (08/2023)
HTN
DM
Language barrier
Thrombocytopenia
Echo 08/2023: nml LV size, abnormal diastolic function with increased LVEDP, EF 60-65%, CLVH but no obvious regional abn. normally functioning bioprosthetic AV, PG/MG 32.5/18, ABEL 1.34cm2
Echo 12/20/2024: EF 35 to 40%, mild concentric LVH, mid to distal inferior, inferolateral, mid anteroseptal, mid anterior, apical hypokinesis, dense MAC, at least moderate to severe MR with anterior eccentric jet, mild to moderate TR, PAP 38 mmHg
Echocardiogram 12/29/2024: Ejection fraction 30 to 35%. Mid to distal inferior, inferolateral, mid anteroseptal and mid anterior hypokinesis with apical akinesis. Moderate to severe mitral regurgitation. Mild to moderate TR.
Echo 12/30/2024: Ejection fraction 30% by visual estimation. Segmental wall motion abnormalities noted. Moderate to severe mitral regurgitation similar to prior. Previously aortic valve was not assessed. Likely moderate aortic valve stenosis
Peak/mean gradients are 32/20mmHg. ABEL 0.8cm sq, using a LVOT of 1.6cm.Mild to moderate tricuspid regurgitation. Estimated pulmonary artery pressure of 33 mmHg
RENAN 01/07/2025: Moderately reduced EF 30 to 35% with global hypokinesis, normal RV size and function, s/p bioprosthetic AVR with likely moderate stenosis no significant regurgitation. Mild to moderate mitral regurgitation. Moderate tricuspid
regurgitation. Compared to echocardiogram from December 30, 2024, mitral valve regurgitation appears mild to moderate, previously moderate to severe, TR is moderate, previously mild to moderate, there is no obvious vegetation seen. No obvious
vegetation.
Plan:
He is with generalized discomfort and chest pain with movement. His chest symptoms do not appear ischemic in origin as he also did not respond to nitroglycerin during different times he complained of chest pain.
Continue IV diuresis. Elevated proBNP 16,900 and chest x-ray 01/07/2025 suggest pulmonary edema
Troponins continue to come down at 0.5 with a peak of December 20, 2024
I's and O's are negative, weight is flat, creatinine remains elevated but stable at 2.2
Appreciate nephrology input.
Continue supportive care, pulmonary toilet and antibiotics per primary service and infectious disease.
RENAN 01/07/2025 was negative for endocarditis
Hx NSTEMI with admission 2 weeks ago - cath showed patent GAFFNEY to LAD, patent SVG to PLB with PDA filling via retrograde from the PLB, occlusion of the SVG to the distal LAD with 100% occlusion of previously placed stent 12/21/2024. plan for medical
therapy
[employer] WEB CONSULTANT�P device check performed 12/29/24 and there was normal device and lead function, OptiVol was trending up, no atrial ventricular arrhythmia and there was 10 years of battery longevity.
Discussed with family at bedside and nursing
Family has confirmed full code with the patient over the last 24 hours. His prognosis appears poor
Also discussed with his daughter via telephone who translated for and to the patient
CCT: 34 min
HPI: Patient presented to the ER today with SMALL and is being admitted with possible sepsis and NOE and cardiology is being consulted for possible CHF and recent admission for NSTEMI. Patient has a history of remote CABG and AVR in 2007 at an
outside hospital. He had an admission to [facility] 04/2024 and he had PCI of the SVG to the distal LAD. Patient was then admitted to [facility] with NOE and was transiently on hemodialysis 07/2024. Most recently he has been following with "Alexus"Korin at [facility] and their office referred the patient to the [facility] ER on 12/09/2024 after he complained of chest pain during a visit in their office that day. The patient was discharged from the ER with a higher dose of
Lopressor and they added Imdur ER. There was apparently no consideration for acute HF at that time. Patient then came to the [facility] ER on 12/20/2024 with chest pain and the initial troponin was 2.22 and subsequent troponin was as high as 27.9.
Patient was admitted and eventually had cardiac cath 12/21/2024 that showed that the stent in the SVG to the LAD from April was 100% occluded and the GAFFNEY to LAD and SVG to PLV grafts were patent. There was also evidence of acute HFrEF during
that admission and EF was newly reduced at 35 to 40%, it had been 60 to 65% by an echo from his primary jet handler 08/2023. PCWP was down to 18 which correlated with a weight of 141 lbs at time of cath on 12/21/2024. Cre was stable at 1.8 on the
day of discharge 12/23/2024. At the recommendation of nephrology the patient was discharged home on torsemide 20 mg daily. Patient's family reports that medications were not delivered in a timely fashion and so he was not taking any of his
medications since admission until they arrived yesterday. Patient has had increasing SMALL over the last 24 hours and came to the ER today. There is leukocytosis with a WBC count of 35 with a left shift. Lactic acid levels pending. There is
concern for sepsis possibly due to PNA and patient is being admitted to the ICU due to his need for pressor support with Levophed.
Progress Note - Compactor Driver
Subjective
Date of Service: January 08, 2025
Patient seen and examined. Complains of chest pain with movement and shortness of breath
Objective
Labs:
01/08/25 03:31
01/08/25 03:31
Labs
Hgb 7.9 g/dL (13.0-18.0) L 01/08/25 03:31
Hct 24.2 % (39.0-52.0) L 01/08/25 03:31
Plt Count 37 10^3/uL (130-400) L 01/08/25 03:31
PT 17.1 Sec (11.4-14.6) H 12/28/24 12:58
INR 1.36 12/28/24 12:58
APTT 42.4 Sec (23.4-35.0) H 12/28/24 12:58
Sodium 133 mmol/L (135-145) L 01/08/25 03:31
Potassium 4.6 mmol/L (3.5-5.1) 01/08/25 03:31
BUN 35 mg/dl (9-20) H 01/08/25 03:31
Creatinine 2.2 mg/dL (0.7-1.3) H 01/08/25 03:31
Glucose 156 mg/dl (70-99) H 01/08/25 03:31
Troponins
01/06/25 01/06/25 01/06/25
08:50 09:22 17:00
Troponin I Cancelled 0.528 H* Cancelled
Vital Signs and I&O:
Vital Signs
Temp Pulse Resp BP Pulse Ox
97.8 F 101 19 110/69 97
01/08/25 07:14 01/08/25 06:00 01/08/25 06:00 01/08/25 06:00 01/08/25 06:00
Vital Signs
Temp Pulse Resp BP Pulse Ox
97.8 F 101 19 110/69 97
01/08/25 07:14 01/08/25 06:00 01/08/25 06:00 01/08/25 06:00 01/08/25 06:00
Intake & Output
01/06/25 01/07/25 01/08/25 01/09/25
06:59 06:59 06:59 06:59
Intake Total 1188 / 1188 916 / 916 946 / 946
Output Total 200 / 200 550 / 550 1175 / 1175
Balance 988 / 988 366 / 366 -229 / -229
Physical Exam
Physical Exam
General: No acute distress, in mild distress
Neck: Negative JVD
Heart: Regular, Negative S3 positive S1/S2, Negative S4, No murmur
Lungs: CTA b/l, negative wheezes/rales/rhonchi
Abd: Positive BS, NT/ND, neg rebound/rigidity/guarding
Ext: Negative cyanosis/clubbing/edema
Neuro: nonfocal
--- NOTE | 2025-01-08 11:53 | W.PN.NEPH.PH ---
Today's Communication / Plan
-
IV diuretics
Assessment/Plan
-
Impression:
Decompensated HFrEF 30%
CKD 3B, baseline around 1.7
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
CAD/CABG
HTN
DM2
Hyponatremia, hyperkalemia
Hypotension
Plan:
Follow BMP
Status post left heart cath 12/21 = medical management per cardiology
he does not appear to be volume overloaded. I suspect sxs are CAD in nature, but he has no good interventional options.
He is back on IV diuretics with improvement in breathing comfortable family at bedside discussed case with them
Follow weights though despite stable weights he became significantly short of breath yesterday so we will need to watch closely.

ICU critical care complexity 33 minutes critical care time
-
-
Date of Service: January 08, 2025
CC / HPI / ROS
-
Chief Complaint:
NOE
History of Present Illness:
NOE/creatinine up to 2.3, lasix on hold
sodium up to [address]-retention, non oliguric
Hemoglobin down to 7.7�8
Remains on high-dose midodrine for hypotension
Review of Systems:
reports CP/SOB with little activity this morning again
no n/v
Labs
-
Labs:
WBC 9.9 10^3/uL (4.8-10.8) 01/08/25 03:31
RBC 2.47 10^6/uL (4.70-6.10) L 01/08/25 03:31
Hgb 7.9 g/dL (13.0-18.0) L 01/08/25 03:31
Hct 24.2 % (39.0-52.0) L 01/08/25 03:31
Plt Count 37 10^3/uL (130-400) L 01/08/25 03:31
Sodium 133 mmol/L (135-145) L 01/08/25 03:31
Potassium 4.6 mmol/L (3.5-5.1) 01/08/25 03:31
Chloride 104 mmol/L (98-107) 01/08/25 03:31
Carbon Dioxide 24 mmol/L (22-30) 01/08/25 03:31
BUN 35 mg/dl (9-20) H 01/08/25 03:31
Creatinine 2.2 mg/dL (0.7-1.3) H 01/08/25 03:31
eGFR 30.66 01/08/25 03:31
Glucose 156 mg/dl (70-99) H 01/08/25 03:31
Calcium 9.0 mg/dl (8.4-10.2) 01/08/25 03:31
Phosphorus 3.1 mg/dl (2.5-4.5) 12/28/24 22:17
Xug-P-Qafqzzdhehh Pept 15629 pg/ml 01/07/25 05:09
Albumin 3.3 g/dl (3.5-5.0) L 01/01/25 05:29
Physical Exam
-
Vital Signs:
Vital Signs
Temp Pulse Resp BP Pulse Ox
97.8 F 100 28 122/73 98
01/08/25 07:14 01/08/25 11:30 01/08/25 11:30 01/08/25 11:00 01/08/25 11:30
Respiratory:: Bilateral: Coarse
Lung Excursion:: Normal
Abdomen:: Soft
Bowel Sounds:: Normal
Extremity Edema:: None: Bilateral:
--- NOTE | 2025-01-08 12:46 | W.PN.HOSP.TC ---
Today's Communication/Plan
-
Continue with midodrine
Morphine seems to alleviate symptoms
Continue with aggressive diuresis
Cardiology input
Assessment / Plan
Assessment / Plan
Impression:
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
with new onset of shortness of breath and generalized weakness. Patient is Gujarati speaking. Patient was recently admitted and discharged 5 days prior to this admission, post discharge was doing fairly well although did not have much of energy.
Patient was prescribed torsemide at discharge last, although not able to fill as pharmacy did not have any supply. Patient finally was able to get the torsemide and was able to take a dose morning of admission. Patient developed a positive blood
culture and treated for septic shock with pressors, off pressors, started on midodrine for soft blood pressure.
Infectious disease recommending Echocardiogram which did not show any valvular vegetation. May require RENAN if bacteremia persist.
- Repeat blood culture positive from 12/30. but repeat blood culture report from 01/01 remains negative
- CT abdomen pelvis did not show any clear infectious source
Infectious disease recommending long-term IV antibiotics.
RENAN Sunday 01/07
Assessment/plan:
Septic shock from multifocal pneumonia
associated with NOE/lactic acidosis
- Reported subjective fever at home. no productive cough.
- Total WBC count of 35K at admission has trended down
- Patient got 1 L of NS, did not provide full 30 mL/kg bolus as patient have systolic heart failure.
- ID help appreciated. Currently patient on IV ampicillin (needs long-term IV antibiotic)
- Added midodrine to regimen.
Shortness of breath possibly due to acute on chronic HFrEF/possible pulmonary edema
Coronary disease status post with
Acute on Chronic systolic congestive heart failure
- [facility] last admission showed blocked SVG graft to distal LAD, was planned to be manage medical
- Continue on Plavix statin
- Troponin 12 and has been trending down from elevated troponin max of 28 on 12/20
- Repeat proBNP elevated and patient was started on 40 mg of IV Lasix. Blood pressure soft at times. May need to start pressors if required.
- Repeat chest x-ray with suspected pulmonary edema
- Currently on 2 L of oxygen. Sats remained stable
- Cardiology and nephrology following
Enterococcus faecalis bacteremia
- Unable to get blood culture in ER as patient is hard stick. Delayed blood culture collected post PICC placement and abx.
- Vancomycin was initially discontinued, resumed---> Currently patient on IV ampicillin
- Echocardiogram 12/29 did not show any valvular vegetation. May require RENAN if bacteremia persist.
- Repeat blood culture positive from 12/30. f/u repeat blood culture report from 01/01
- CT abdomen pelvis did not show any clear infectious source
- Infectious ease recommending 6 weeks of IV ampicillin
-Per RN report-no signs of vegetation. Awaiting official report.
NOE on CKD stage IIIb
Acute urinary retention
- creatinine up to 3.2 in ER, baseline cr 1.7-1.8 at discharge week back,
- Renal dysfunction likely combination from hypotension/cardiorenal syndrome and urinary retention
- Anders catheter to be removed and voiding trial to be done.
- Avoid nephrotoxic medication
- Creatinine at 2.2
Acute normocytic anemia
- Hemoglobin 7.9 after transfusion of 1 unit PRBC
- No luminal blood loss
Anion gap metabolic acidosis - Improved
- Combination of lactic acidosis and renal dysfunction related
- Provide sodium bicarb few doses
- Being treated for underlying infection
Hyperkalemia - Improved
Hypokalemia
- Hyperkalemia secondary to renal failure/acidosis related at admission
- Post diuresis patient is developing hypokalemia now, replace as needed
Type II DM
- maintain on Lower dose lantus and ISS
- Added Premeal NovoLog
- Hold metformin with renal dysfunction
Blood sugar dropped to 55, Lantus dose adjusted to 20 units nightly
Essential hypertension
- Hold blood pressure medication as now with soft bp at times
Hyponatremia - resolved
- Combination from hypervolemia and ADH excess with heart failure
- Urine Na 34 Uosm 257
- Further therapy if have worsening of hyponatremia
Acute transaminitis
- Possible due to hypotension related
- LFT trending down.
Chronic thrombocytopenia
-Platelets at 37K. Continue to monitor. May be due to sepsis related. If persistent drop may need to consider hematology input
CODE STATUS: Full code
DVT prophylaxis: Heparin
Physical therapy recommendations: Home health
Discussed with family member at bedside and also additional family ember over the phone in details
Anticipated Discharge: > 48 hours
Subjective/Interval History
-
Date of Service: January 08, 2025
States of improvement in chest pain with morphine
With increased urinary production
Remains with dyspnea
Objective Data
-
Labs:
Laboratory Results
01/08/25
03:31
WBC 9.9
Hgb 7.9 L
Hct 24.2 L
Plt Count 37 L
Sodium 133 L
Potassium 4.6
Chloride 104
Carbon Dioxide 24
BUN 35 H
Creatinine 2.2 H
Glucose 156 H
Calcium 9.0
Vital Signs:
Vital Signs
Temp Pulse Resp BP Pulse Ox
97.8 F 92 29 120/74 97
01/08/25 07:14 01/08/25 12:00 01/08/25 12:00 01/08/25 12:00 01/08/25 12:00
I&O
01/07/25 01/08/25 01/09/25
06:59 06:59 06:59
Intake Total 916 / 916 946 / 946 110 / 110
Output Total 550 / 550 1175 / 1175 400 / 400
Balance 366 / 366 -229 / -229 -290 / -290
[2025-01-08] MEDS: NOVOLOG FLEXPEN-LOW RESISTANCE SC ×2 (13:15→16:23)
[2025-01-08] MEDS: NOVOLOG FLEXPEN SC ×2 (13:16→16:25)
[2025-01-08 13:17] LABS: Glucose - Point of Care 148 mg/dl (70-99)
[2025-01-08 16:24] LABS: Glucose - Point of Care 143 mg/dl (70-99)
--- NOTE | 2025-01-08 16:30 | PTCARENOTE ---
Pt IMU LOC. AAOx3, able to make basic needs known, family at bedside and translates when needed. Monitor Vpaced/SR. Lungs sct coarse/rales post, pox 95-100% 2LNC. +SMALL, appears less SOB this afternoon than the morning. +BS, poor appetite, only
eating small amounts.
[2025-01-08] MEDS: REMOVE LIDOCAINE PATCH 1 PATCH REMOVE (21:14)
[2025-01-08] MEDS: PEPCID 20 MG PO (21:14)
[2025-01-08 21:27] LABS: Glucose - Point of Care 203 mg/dl (70-99)
[2025-01-08] MEDS: LANTUS 0.2 UNITS SC (21:35)
--- NOTE | 2025-01-08 21:51 | PTCARENOTE ---
Ox3, non-russian speaking, BURNETTE, rings appropriately, Vpaced c pvcs, + pulses, diminished throughout, tachypneic, Sats 98% 2L, BSx4, voided 250ml yellow output, R PICC, pt denies pain but says c activity it is 5/10 in his chest, Morphine given per
MAR for SOB after voiding, CHG bath, daughter @ bedside and updated, otherwise refer to documentation.
[2025-01-09] VITALS (12 sets, daily range): BP systolic 104–130; BP diastolic 53–103; BMI 22.0
[2025-01-09] MEDS: AMPICILLIN 108 MG IV ×3 (03:55→20:20)
[2025-01-09 04:31] LABS: Hematocrit 25.9 % (39.0-52.0); Hemoglobin 8.0 g/dL (13.0-18.0); Mean Corp Hgb Conc. 30.9 g/dL (33.0-37.0); Mean Corpuscular Volume 100.4 fL (80.0-94.0); Platelet Count 36 10^3/uL (130-400); Red Cell Dist. Width 15.8 % (11.5-14.5)
[2025-01-09 04:33] LABS: Blood Urea Nitrogen 37 mg/dl (9-20); Calcium 9.0 mg/dl (8.4-10.2); Carbon Dioxide 27 mmol/L (22-30); Chloride 102 mmol/L (98-107); Estimated Creatinine Clearance 28 ml/min; Glucose 131 mg/dl (70-99); Potassium 4.1 mmol/L (3.5-5.1); Sodium 136 mmol/L (135-145); eGFR 32.42
[2025-01-09] MEDS: MORPHINE SULFATE 1 MG IV ×2 (05:19→20:19)
--- NOTE | 2025-01-09 07:19 | W.PN.CARDCBS ---
Today's Communication / Plan
-
He is with generalized discomfort and chest pain with movement and coughing. This appears to be musculoskeletal. His chest symptoms do not appear ischemic in origin as he also did not respond to nitroglycerin during different times he complained
of chest pain.
Continue IV diuresis. Elevated proBNP 16,900 and chest x-ray 01/07/2025 suggest pulmonary edema
Reviewed with nephrology, would consider additional IV Lasix diuresis January 09.. Nephrology to order additional Lasix 80 mg IV January 09.
His weight remains flat. I's and O's are slightly negative.
Discussed with nephrology and primary service, consider right heart catheterization for better evaluation of his volume status.
Tentative for right heart catheterization January 10, 2025.
Impression / Plan
-
PCP: Israel Clifton MD
CDY: Orlando Langley MD
Impression:
Admitted with sepsis and NOE 12/28/2024
Hypotension requiring pressor support consistent with shock (septic/cardiogenic)
Acute on chronic HFrEF
Intermittent chest pain
Recent admission acute HFrEF and NSTEMI 12/20/2024 until 12/23/2024
Recent ER visit at [facility] for chest pain and SOB 12/09/2024
Moderate
Mitral regurgitation previously mild to moderate now moderate to severe in the setting of volume overload
Clinical sepsis
Enterococcus bacteremia
Possible multifocal PNA
NOE on CKD
Previously required transient HD 07/2024
Hyperkalemia
Elevated troponin, overall trending down from last admission
CAD
s/p CABG with GAFFNEY-LAD, VG-dLAD, VG-PLB 2007
s/p SVG to the distal LAD PCI at [facility] by Dr. Gavin 04/2024
Patent GAFFNEY to LAD, patent SVG to PLB with PDA filling via retrograde from the PLB, occlusion of the SVG to the distal LAD with 100% occlusion of previously placed stent 12/21/2024
s/p tissue AVR 2007
HLD
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
HTN
DM
Language barrier
Thrombocytopenia
Echo 08/2023: nml LV size, abnormal diastolic function with increased LVEDP, EF 60-65%, CLVH but no obvious regional abn. normally functioning bioprosthetic AV, PG/MG 32.5/18, ABEL 1.34cm2
Echo 12/20/2024: EF 35 to 40%, mild concentric LVH, mid to distal inferior, inferolateral, mid anteroseptal, mid anterior, apical hypokinesis, dense MAC, at least moderate to severe MR with anterior eccentric jet, mild to moderate TR, PAP 38 mmHg
Echocardiogram 12/29/2024: Ejection fraction 30 to 35%. Mid to distal inferior, inferolateral, mid anteroseptal and mid anterior hypokinesis with apical akinesis. Moderate to severe mitral regurgitation. Mild to moderate TR.
Echo 12/30/2024: Ejection fraction 30% by visual estimation. Segmental wall motion abnormalities noted. Moderate to severe mitral regurgitation similar to prior. Previously aortic valve was not assessed. Likely moderate aortic valve stenosis
Peak/mean gradients are 32/20mmHg. ABEL 0.8cm sq, using a LVOT of 1.6cm.Mild to moderate tricuspid regurgitation. Estimated pulmonary artery pressure of 33 mmHg
RENAN 01/07/2025: Moderately reduced EF 30 to 35% with global hypokinesis, normal RV size and function, s/p bioprosthetic AVR with likely moderate stenosis no significant regurgitation. Mild to moderate mitral regurgitation. Moderate tricuspid
regurgitation. Compared to echocardiogram from December 30, 2024, mitral valve regurgitation appears mild to moderate, previously moderate to severe, TR is moderate, previously mild to moderate, there is no obvious vegetation seen. No obvious
vegetation.
Plan:
He is with generalized discomfort and chest pain with movement and coughing. This appears to be musculoskeletal. His chest symptoms do not appear ischemic in origin as he also did not respond to nitroglycerin during different times he complained
of chest pain.
Continue IV diuresis. Elevated proBNP 16,900 and chest x-ray 01/07/2025 suggest pulmonary edema
Reviewed with nephrology, would consider additional IV Lasix diuresis January 09.. Nephrology to order additional Lasix 80 mg IV January 09.
His weight remains flat. I's and O's are slightly negative.
Discussed with nephrology and primary service, consider right heart catheterization for better evaluation of his volume status.
Tentative for right heart catheterization January 10, 2025.
Troponins continue to come down at 0.5 with a peak of December 20, 2024
Continue supportive care, pulmonary toilet and antibiotics per primary service and infectious disease.
RENAN 01/07/2025 was negative for endocarditis
Hx NSTEMI with admission 2 weeks ago - cath showed patent GAFFNEY to LAD, patent SVG to PLB with PDA filling via retrograde from the PLB, occlusion of the SVG to the distal LAD with 100% occlusion of previously placed stent 12/21/2024. plan for medical
therapy
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
Discussed with family at bedside and nursing, nephrology and primary service
CCT: 32 min
HPI: Patient presented to the ER today with SMALL and is being admitted with possible sepsis and NOE and cardiology is being consulted for possible CHF and recent admission for NSTEMI. Patient has a history of remote CABG and AVR in 2007 at an
outside hospital. He had an admission to [facility] 04/2024 and he had PCI of the SVG to the distal LAD. Patient was then admitted to [facility] with NOE and was transiently on hemodialysis 07/2024. Most recently he has been following with
Korin at [facility] and their office referred the patient to the [facility] ER on 12/09/2024 after he complained of chest pain during a visit in their office that day. The patient was discharged from the ER with a higher dose of
Lopressor and they added Imdur ER. There was apparently no consideration for acute HF at that time. Patient then came to the [facility] ER on 12/20/2024 with chest pain and the initial troponin was 2.22 and subsequent troponin was as high as 27.9.
Patient was admitted and eventually had cardiac cath 12/21/2024 that showed that the stent in the SVG to the LAD from April was 100% occluded and the GAFFNEY to LAD and SVG to PLV grafts were patent. There was also evidence of acute HFrEF during
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 PCWP was down to 18 which correlated with a weight of 141 lbs at time of cath on 12/21/2024. Cre was stable at 1.8 on the
day of discharge 12/23/2024. At the recommendation of nephrology the patient was discharged home on torsemide 20 mg daily. Patient's family reports that medications were not delivered in a timely fashion and so he was not taking any of his
medications since admission until they arrived yesterday. Patient has had increasing SMALL over the last 24 hours and came to the ER today. There is leukocytosis with a WBC count of 35 with a left shift. Lactic acid levels pending. There is
concern for sepsis possibly due to PNA and patient is being admitted to the ICU due to his need for pressor support with Levophed.
Progress Note - [employer] Developer
Subjective
Date of Service: January 09, 2025
Pt seen and examined. He complains of chest pain with coughing and some throat soreness with coughing.
Objective
Labs:
01/09/25 03:59
01/09/25 03:59
Labs
Hgb 8.0 g/dL (13.0-18.0) L 01/09/25 03:59
Hct 25.9 % (39.0-52.0) L 01/09/25 03:59
Plt Count 36 10^3/uL (130-400) L 01/09/25 03:59
PT 17.1 Sec (11.4-14.6) H 12/28/24 12:58
INR 1.36 10/28/25 12:58
APTT 42.4 Sec (23.4-35.0) H 12/28/24 12:58
Sodium 136 mmol/L (135-145) 01/09/25 03:59
Potassium 4.1 mmol/L (3.5-5.1) 01/09/25 03:59
BUN 37 mg/dl (9-20) H 01/09/25 03:59
Creatinine 2.1 mg/dL (0.7-1.3) H 01/09/25 03:59
Glucose 131 mg/dl (70-99) H 01/09/25 03:59
Troponins
01/06/25 01/06/25 01/06/25
08:50 09:22 17:00
Troponin I Cancelled 0.528 H* Cancelled
Vital Signs and I&O:
Vital Signs
Temp Pulse Resp BP Pulse Ox
98.6 F 106 16 104/57 98
01/09/25 03:00 01/09/25 05:00 01/09/25 05:00 01/09/25 04:00 01/09/25 05:00
Vital Signs
Temp Pulse Resp BP Pulse Ox
98.6 F 106 16 104/57 98
01/09/25 03:00 01/09/25 05:00 01/09/25 05:00 01/09/25 04:00 01/09/25 05:00
Intake & Output
01/07/25 01/08/25 01/09/25 01/10/25
06:59 06:59 06:59 06:59
Intake Total 916 / 916 946 / 946 470 / 470
Output Total 550 / 550 1175 / 1175 1250 / 1250
Balance 366 / 366 -229 / -229 -780 / -780
Physical Exam
Physical Exam
General: No acute distress, AAOX3
Neck: Negative JVD
Heart: Regular, Negative S3 positive S1/S2, Negative S4, No murmur
Lungs: CTA b/l, negative wheezes/rales/rhonchi
Abd: Positive BS, NT/ND, neg rebound/rigidity/guarding
Ext: Negative cyanosis/clubbing/edema
Neuro: nonfocal
[2025-01-09 07:56] LABS: Glucose - Point of Care 136 mg/dl (70-99)
[2025-01-09] MEDS: NOVOLOG FLEXPEN-LOW RESISTANCE SC ×3 (07:57→17:01)
[2025-01-09] MEDS: FEOSOL 325 MG PO (08:33)
[2025-01-09] MEDS: PROSCAR 5 MG PO (08:33)
[2025-01-09] MEDS: VITAMIN D3 (cholecalciferol) 125 MCG PO (08:33)
[2025-01-09] MEDS: LIDOCAINE 4% PATCH 1 PATCH TOPICAL (08:33)
[2025-01-09] MEDS: ASPIR LOW (ENTERIC COATED) 81 MG PO (08:33)
[2025-01-09] MEDS: LASIX 40 MG IV ×2 (08:33→16:58)
[2025-01-09] MEDS: PLAVIX 75 MG PO (08:33)
[2025-01-09] MEDS: OSCAL 500 + D 500 MG PO (08:33)
[2025-01-09] MEDS: THERAGRAN 1 TABLET PO (08:33)
[2025-01-09] MEDS: PROTONIX 40 MG PO (08:33)
[2025-01-09] MEDS: FLOMAX 0.4 MG PO (08:33)
[2025-01-09] MEDS: NOVOLOG FLEXPEN 5 UNITS SC (08:34)
[2025-01-09] MEDS: LASIX 80 MG IV (11:46)
--- NOTE | 2025-01-09 11:50 | W.PN.HOSP.TC ---
Today's Communication/Plan
-
IV lasix
RHC tentative tomm?
trend cbc/platelet
Assessment / Plan
Assessment / Plan
Impression:
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
with new onset of shortness of breath and generalized weakness. Patient is Gujarati speaking. Patient was recently admitted and discharged 5 days prior to this admission, post discharge was doing fairly well although did not have much of energy.
Patient was prescribed torsemide at discharge last, although not able to fill as pharmacy did not have any supply. Patient finally was able to get the torsemide and was able to take a dose morning of admission. Patient developed a positive blood
culture and treated for septic shock with pressors, off pressors, started on midodrine for soft blood pressure.
Infectious disease recommending Echocardiogram which did not show any valvular vegetation. May require RENAN if bacteremia persist.
- Repeat blood culture positive from 12/30. but repeat blood culture report from 01/01 remains negative
- CT abdomen pelvis did not show any clear infectious source
Infectious disease recommending long-term IV antibiotics.
RENAN Sunday 01/07
Assessment/plan:
Shortness of breath possibly due to acute on chronic HFrEF/possible pulmonary edema
Coronary disease status post with
Acute on Chronic systolic congestive heart failure
- [facility] last admission showed blocked SVG graft to distal LAD, was planned to be manage medical
- Continue on Plavix statin
- Troponin 12 and has been trending down from elevated troponin max of 28 on 12/20
- Repeat proBNP elevated and patient was started on 40 mg of IV Lasix. Blood pressure soft at times. May need to start pressors if required.
- Repeat chest x-ray with suspected pulmonary edema
- Currently on 2 L of oxygen. Sats remained stable
- Plan for tentative RHC in am per cards.
- Cardiology and nephrology following
Enterococcus faecalis bacteremia
- Delayed blood culture collected post PICC placement and abx.
- Vancomycin was initially discontinued, resumed---> Currently patient on IV ampicillin
- Echocardiogram 12/29 did not show any valvular vegetation. May require RENAN if bacteremia persist.
- Repeat blood culture positive from 12/30. f/u repeat blood culture report from 01/01 remains negative
- CT abdomen pelvis did not show any clear infectious source
- Infectious ease recommending 6 weeks of IV ampicillin
-RENAN negative for vegetation
NOE on CKD stage IIIb
Acute urinary retention
- creatinine up to 3.2 in ER, baseline cr 1.7-1.8 at discharge week back,
- Renal dysfunction likely combination from hypotension/cardiorenal syndrome and urinary retention
- Anders catheter to be removed and voiding trial to be done.
- Avoid nephrotoxic medication
- Creatinine at 2.1
Septic shock from multifocal pneumonia
associated with NOE/lactic acidosis
- Reported subjective fever at home. no productive cough.
- Total WBC count of 35K at admission has trended down
- Patient got 1 L of NS, did not provide full 30 mL/kg bolus as patient have systolic heart failure.
- ID help appreciated. Currently patient on IV ampicillin (needs long-term IV antibiotic)
- Added midodrine to regimen.
Acute normocytic anemia
- Hemoglobin 8 after transfusion of 1 unit PRBC
- No luminal blood loss
Anion gap metabolic acidosis - Improved
- Combination of lactic acidosis and renal dysfunction related
- Provide sodium bicarb few doses
- Being treated for underlying infection
Hyperkalemia - Improved
Hypokalemia
- Hyperkalemia secondary to renal failure/acidosis related at admission
- Post diuresis patient is developing hypokalemia now, replace as needed
Type II DM
- maintain on Lower dose lantus and ISS
- Added Premeal NovoLog
- Hold metformin with renal dysfunction
Blood sugar dropped to 55, Lantus dose adjusted to 20 units nightly
Essential hypertension
- Hold blood pressure medication as now with soft bp at times
Hyponatremia - resolved
- Combination from hypervolemia and ADH excess with heart failure
- Urine Na 34 Uosm 257
- Further therapy if have worsening of hyponatremia
Acute transaminitis
- Possible due to hypotension related
- LFT trending down.
Chronic thrombocytopenia
-Platelets at 36K. Continue to monitor. May be due to sepsis related. If persistent drop may need to consider hematology input
CODE STATUS: Full code
DVT prophylaxis: Heparin
Physical therapy recommendations: Home health
Discussed with spouse at bedside in details
d/w with cardiology
Anticipated Discharge: > 48 hours
Subjective/Interval History
-
Date of Service: January 09, 2025
in little bit of better spirit today
remains with sob at times
mild improvement in appetite
Objective Data
-
Labs:
Laboratory Results
01/09/25
03:59
WBC 13.4 H
Hgb 8.0 L
Hct 25.9 L
Plt Count 36 L
Sodium 136
Potassium 4.1
Chloride 102
Carbon Dioxide 27
BUN 37 H
Creatinine 2.1 H
Glucose 131 H
Calcium 9.0
Vital Signs:
Vital Signs
Temp Pulse Resp BP Pulse Ox
97.8 F 106 16 116/103 97
01/09/25 11:02 01/09/25 10:00 01/09/25 10:00 01/09/25 10:00 01/09/25 10:00
I&O
01/08/25 01/09/25 01/10/25
06:59 06:59 06:59
Intake Total 946 / 946 470 / 470
Output Total 1175 / 1175 1250 / 1250 300 / 300
Balance -229 / -229 -780 / -780 -300 / -300
Data Reviewed
-
Total Time Spent with Patient (in minutes): 55
--- NOTE | 2025-01-09 11:51 | W.PN.ID1 ---
Date of Service
Date of Service: January 09, 2025
Today's Communication
Continue IV ampicillin.
Assessment / Plan
Enterococcus faecalis bacteremia (3 sets):
s/p Septic shock secondary to Enterococcus faecalis bacteremia
Suspect endocarditis
NOE
Leukocytosis
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
01/01 Repeat blood cx's x2 neg
TTE on 12/29 did not show vegetation and was unchanged from prior echo on 12/20.
01/07/25 RENAN: no vegetation
CT of the abdomen and pelvis without source of bacteremia
Patient likely has endocarditis based on Lange's criteria with 1 major and 3 minor criteria met
Continue ampicillin 2 g IV every 8 hours
PICC line placed on 01/04/2025
Plan 6 weeks of IV ampicillin from clearance of blood cultures 01/01-02/11 - script provided to director case management by Dr. Catherine
Acute on chronic CHF exacerbation
Pulm edema with hemoptysis
- Management as per Cardiology and Hospitalist
Chief Complaint
-: Bacteremia
Subjective / Review of Systems
Still coughing up blood. + SOB.
Vital Signs / Physical Exam
Vital Signs
Vital Signs
Temp Pulse Resp BP Pulse Ox
97.8 F 106 16 116/103 97
01/09/25 11:02 01/09/25 10:00 01/09/25 10:00 01/09/25 10:00 01/09/25 10:00
Physical Exam
Constitutional: Acutely Ill
Eyes: No Conjunctival Hemorrhage and Sclera Anicteric
Cardiovascular: S1/S2 (tachycardic)
Pulmonary: Rales
Gastrointestinal: Soft, Non Tender, Non Distended and Normal Bowel Sounds
Extremities: Negative Edema
Neurological: AO x 3
Objective Data
Lab Data
Lab Results
01/09/25 03:59
01/09/25 03:59
ESR 42 mm/hour (0-20) H 01/01/25 05:29
PT 17.1 Sec (11.4-14.6) H 12/28/24 12:58
INR 1.36 12/28/24 12:58
APTT 42.4 Sec (23.4-35.0) H 12/28/24 12:58
Estimated Creat Clear 28 ml/min 01/09/25 03:59
Lactic Acid Cancelled 12/29/24 06:17
Total Bilirubin 2.3 mg/dl (0.2-1.3) H 01/01/25 05:29
AST 85 U/L (17-59) H 01/01/25 05:29
ALT 109 U/L (0-50) H 01/01/25 05:29
Alkaline Phosphatase 85 U/L (38-126) 01/01/25 05:29
C-Reactive Protein 39.30 mg/L (0.0-10.00) H 01/01/25 05:29
Most recent labs reviewed.
Micro Results:
01/01/25 08:41 Blood Culture - Final
Blood/Venous No Growth - Final Report
01/01/25 08:42 Blood Culture - Final
Blood/Venous No Growth - Final Report
12/30/24 10:21 Blood Culture - Final
Blood/Venous Enterococcus faecalis
Gram Stain - Final
12/30/24 10:34 Blood Culture - Final
Blood/Venous No Growth - Final Report
12/28/24 23:16 Blood Culture - Final
Blood/Venous Enterococcus faecalis
Gram Stain - Final
12/28/24 22:17 Blood Culture - Final
Blood/Venous Enterococcus faecalis
Gram Stain - Final
12/28/24 22:17 Nasal Screen MRSA (PCR) - Final
Nose MRSA not detected - performed by PCR methodology.
12/28/24 17:46 Influenza Types A & B (FLACO) - Final
Nasal Swab Negative for Influenza A & B, NAAT
Negative results must be combined with clinical observations
and patient history.
Nucleic Acid Amplification test (NAAT)performed on the
[employer] platform.
Imaging:
01/07/25 CXR: Bilateral interstitial and alveolar pulmonary opacities, suspicious for pulmonary edema in the appropriate clinical setting.
12/31/2024 CXR (portable): overall improvement in bilateral interstitial markings, suggesting improvement in interstitial pulmonary edema pattern. A small focus of patchy parenchymal opacity within the left lower lung, new from recent exam,
possibly atelectasis versus pneumonia. Dual-lead PPM in place.
[2025-01-09 12:44] LABS: Glucose - Point of Care 146 mg/dl (70-99)
[2025-01-09] MEDS: NOVOLOG FLEXPEN SC ×2 (12:47→17:01)
--- NOTE | 2025-01-09 14:15 | W.PN.NEPH.PH ---
Today's Communication / Plan
-
80 mg IV Lasix x 1
Assessment/Plan
-
Impression:
Decompensated HFrEF 30%
CKD 3B, baseline around 1.7
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
CAD/CABG
HTN
DM2
Hyponatremia, hyperkalemia
Hypotension
Plan:
Follow BMP
Status post left heart cath 12/21 = medical management per cardiology
he does not appear to be volume overloaded. I suspect sxs are CAD in nature, but he has no good interventional options.
He is back on IV diuretics w with some improvement in breathing
family at bedside discussed case with them
On Lasix 40 mg twice daily and clear lungs right heart cath as discussed with cardiology.
I will give 1 dose of 80 IV now and then we will proceed with catheterization if no improvement on the higher dose.

ICU critical care complexity 33 minutes critical care time
-
-
Date of Service: January 09, 2025
CC / HPI / ROS
-
Chief Complaint:
NOE
History of Present Illness:
NOE/creatinine up to 2.3, lasix on hold
sodium up to [address]-retention, non oliguric
Hemoglobin down to 7.7�8
Remains on high-dose midodrine for hypotension
Review of Systems:
reports CP/SOB with little activity this morning again
no n/v
Labs
-
Labs:
WBC 13.4 10^3/uL (4.8-10.8) H 01/09/25 03:59
RBC 2.58 10^6/uL (4.70-6.10) L 01/09/25 03:59
Hgb 8.0 g/dL (13.0-18.0) L 01/09/25 03:59
Hct 25.9 % (39.0-52.0) L 01/09/25 03:59
Plt Count 36 10^3/uL (130-400) L 01/09/25 03:59
Sodium 136 mmol/L (135-145) 01/09/25 03:59
Potassium 4.1 mmol/L (3.5-5.1) 01/09/25 03:59
Chloride 102 mmol/L (98-107) 01/09/25 03:59
Carbon Dioxide 27 mmol/L (22-30) 01/09/25 03:59
BUN 37 mg/dl (9-20) H 01/09/25 03:59
Creatinine 2.1 mg/dL (0.7-1.3) H 01/09/25 03:59
eGFR 32.42 01/09/25 03:59
Glucose 131 mg/dl (70-99) H 01/09/25 03:59
Calcium 9.0 mg/dl (8.4-10.2) 01/09/25 03:59
Phosphorus 3.1 mg/dl (2.5-4.5) 12/28/24 22:17
Fjk-U-Zrygugzfpbn Pept 01993 pg/ml 01/07/25 05:09
Albumin 3.3 g/dl (3.5-5.0) L 01/01/25 05:29
Physical Exam
-
Vital Signs:
Vital Signs
Temp Pulse Resp BP Pulse Ox
97.8 F 106 16 116/103 97
01/09/25 11:02 01/09/25 10:00 01/09/25 10:00 01/09/25 10:00 01/09/25 10:00
Respiratory:: Bilateral: CTA
Lung Excursion:: Normal
Abdomen:: Soft
Bowel Sounds:: Normal
Extremity Edema:: None: Bilateral:
[2025-01-09 17:01] LABS: Glucose - Point of Care 118 mg/dl (70-99)
--- NOTE | 2025-01-09 17:34 | PTCARENOTE ---
Pt IMU LOC. AAOx3, able to make needs known, family at bedside. Monitor SR/V-paced. Lungs sct bibasilar rales, pox 97% 3LNC. Additional dose 80mg IV Lasix given this afternoon. Vdg jared urine via urinal. Poor appetite, eats minimal amts at meals.
[2025-01-09] MEDS: REMOVE LIDOCAINE PATCH 1 PATCH REMOVE (20:20)
--- NOTE | 2025-01-09 20:20 | PTCARENOTE ---
Rec'd pt resting in bed w/ family at bedside to assist w/ interpretation, pt oriented, cooperative, follows commands, Vpaced, bp stable, weak distal pulses, skin warm/dry, o2 3 liters nc, sat 100, c/o SOB after using urinal. morphine 1 mg iv given
at 2020 w/ relief, + SMALL, + bowel sounds, no bm, abd soft, no n/v, poor appetite, uses urinal prn
[2025-01-09 21:34] LABS: Glucose - Point of Care 252 mg/dl (70-99)
[2025-01-09] MEDS: LANTUS 0.08 UNITS SC (22:15)
[2025-01-10] VITALS (33 sets, daily range): BP systolic 97–142; BP diastolic 40–97; BMI 22.3
--- NOTE | 2025-01-10 | PTCARENOTE ---
sys reviewed, CHG bath done,linens changed, NPO for cath in am
[2025-01-10] MEDS: AMPICILLIN 108 MG IV ×3 (03:46→19:05)
[2025-01-10 04:25] LABS: Hematocrit 22.9 % (39.0-52.0); Hemoglobin 7.4 g/dL (13.0-18.0); Mean Corp Hgb Conc. 32.3 g/dL (33.0-37.0); Mean Corpuscular Volume 95.8 fL (80.0-94.0); Platelet Count 40 10^3/uL (130-400); Red Cell Dist. Width 15.5 % (11.5-14.5)
[2025-01-10 04:34] LABS: Blood Urea Nitrogen 40 mg/dl (9-20); Calcium 8.8 mg/dl (8.4-10.2); Carbon Dioxide 26 mmol/L (22-30); Chloride 98 mmol/L (98-107); Estimated Creatinine Clearance 28 ml/min; Glucose 135 mg/dl (70-99); Potassium 3.4 mmol/L (3.5-5.1); Sodium 131 mmol/L (135-145); eGFR 32.42
[2025-01-10] MEDS: KCL 270 MEQ IV (04:56)
--- NOTE | 2025-01-10 04:58 | PTCARENOTE ---
40 kcl/250 hung over 4hr per order
[2025-01-10] MEDS: MORPHINE SULFATE 1 MG IV ×4 (05:28→22:12)
--- NOTE | 2025-01-10 05:30 | PTCARENOTE ---
1 mg morphine iv given for sob after using urinal
[2025-01-10 07:46] LABS: Glucose - Point of Care 164 mg/dl (70-99)
[2025-01-10] MEDS: NOVOLOG FLEXPEN-LOW RESISTANCE 1 UNITS SC ×3 (07:49→17:49)
[2025-01-10] MEDS: NOVOLOG FLEXPEN SC ×2 (07:49→11:56)
[2025-01-10] MEDS: ASPIR LOW (ENTERIC COATED) 81 MG PO (08:46)
[2025-01-10] MEDS: FLOMAX 0.4 MG PO (08:46)
[2025-01-10] MEDS: THERAGRAN 1 TABLET PO (08:46)
[2025-01-10] MEDS: PROSCAR 5 MG PO (08:46)
[2025-01-10] MEDS: PLAVIX 75 MG PO (08:46)
[2025-01-10] MEDS: OSCAL 500 + D 500 MG PO (08:46)
[2025-01-10] MEDS: VITAMIN D3 (cholecalciferol) 125 MCG PO (08:46)
[2025-01-10] MEDS: FEOSOL 325 MG PO (08:46)
[2025-01-10] MEDS: LIDOCAINE 4% PATCH 1 PATCH TOPICAL (08:46)
--- NOTE | 2025-01-10 08:47 | PTOTSP ---
Pt transferred to ICU and PT orders were not continued upon transfer. Will need updated orders for PT and OT when stable to resume therapy activity. Pt for cardiac cath today.
[2025-01-10] MEDS: PROTONIX 40 MG PO (08:55)
--- NOTE | 2025-01-10 09:00 | W.PN.ID1 ---
Date of Service
Date of Service: January 10, 2025
Today's Communication
continue ampicillin
Assessment / Plan
Enterococcus faecalis bacteremia (3 sets):
s/p Septic shock secondary to Enterococcus faecalis bacteremia
Suspect endocarditis
NOE
Leukocytosis
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
01/01 Repeat blood cx's x2 neg
TTE on 12/29 did not show vegetation and was unchanged from prior echo on 12/20.
01/07/25 RENAN: no vegetation
Patient likely has endocarditis based on Lange's criteria with 1 major and 3 minor criteria met
Continue ampicillin 2 g IV every 8 hours
PICC line placed on 01/04/2025
Plan 6 weeks of IV ampicillin from clearance of blood cultures 01/01-02/11 - script provided to disease case manager
Acute on chronic CHF exacerbation
Pulm edema with hemoptysis
- Management as per Cardiology and Hospitalist
Chief Complaint
-: Bacteremia
Subjective / Review of Systems
afebrile
bp stable
on 3L NC
possible RHC today
Vital Signs / Physical Exam
Vital Signs
Vital Signs
Temp Pulse Resp BP Pulse Ox
98.3 F 103 21 109/72 100
01/10/25 07:08 01/10/25 08:55 01/10/25 08:00 01/10/25 08:55 01/10/25 08:00
Physical Exam
Constitutional: No Acute Distress
Cardiovascular: Regular Rate and S1/S2; Negative Murmur or Rub
Pulmonary: Clear and Symmetric; Negative Wheezes or Rales
Gastrointestinal: Soft, Non Tender, Non Distended and Normal Bowel Sounds
Skin: Warm and Dry; Negative Rash or Jaundice
Lines: PICC (no erythema warmth or fluctuance)
Objective Data
Lab Data
Lab Results
01/10/25 03:44
01/10/25 03:44
ESR 42 mm/hour (0-20) H 01/01/25 05:29
PT 17.1 Sec (11.4-14.6) H 12/28/24 12:58
INR 1.36 12/28/24 12:58
APTT 42.4 Sec (23.4-35.0) H 12/28/24 12:58
Estimated Creat Clear 28 ml/min 01/10/25 03:44
Lactic Acid Cancelled 12/29/24 06:17
Total Bilirubin 2.3 mg/dl (0.2-1.3) H 01/01/25 05:29
AST 85 U/L (17-59) H 01/01/25 05:29
ALT 109 U/L (0-50) H 01/01/25 05:29
Alkaline Phosphatase 85 U/L (38-126) 01/01/25 05:29
C-Reactive Protein 39.30 mg/L (0.0-10.00) H 01/01/25 05:29
Most recent labs reviewed.
Micro Results:
01/01/25 08:41 Blood Culture - Final
Blood/Venous No Growth - Final Report
01/01/25 08:42 Blood Culture - Final
Blood/Venous No Growth - Final Report
12/30/24 10:21 Blood Culture - Final
Blood/Venous Enterococcus faecalis
Gram Stain - Final
12/30/24 10:34 Blood Culture - Final
Blood/Venous No Growth - Final Report
12/28/24 23:16 Blood Culture - Final
Blood/Venous Enterococcus faecalis
Gram Stain - Final
12/28/24 22:17 Blood Culture - Final
Blood/Venous Enterococcus faecalis
Gram Stain - Final
12/28/24 22:17 Nasal Screen MRSA (PCR) - Final
Nose MRSA not detected - performed by PCR methodology.
12/28/24 17:46 Influenza Types A & B (FLACO) - Final
Nasal Swab Negative for Influenza A & B, NAAT
Negative results must be combined with clinical observations
and patient history.
Nucleic Acid Amplification test (NAAT)performed on the
[employer] platform.
Imaging:
01/07/25 CXR: Bilateral interstitial and alveolar pulmonary opacities, suspicious for pulmonary edema in the appropriate clinical setting.
12/31/2024 CXR (portable): overall improvement in bilateral interstitial markings, suggesting improvement in interstitial pulmonary edema pattern. A small focus of patchy parenchymal opacity within the left lower lung, new from recent exam,
possibly atelectasis versus pneumonia. Dual-lead PPM in place.
[2025-01-10] MEDS: LASIX 40 MG IV ×2 (09:24→16:52)
--- NOTE | 2025-01-10 09:30 | PTCARENOTE ---
Rec'd care of patient at 0700. Patient alert and oriented. Anxious. Vpaced with pvcs, 100-110's. BP 100-110/70-80's. Pulse ox 98-100% on 3L nc. Tachypneic. Labored breathing. Very SMALL. Lung sounds diminished with fine crackles 1/2 up. Occasional
harsh cough. +BS. NPO for RHC. Voiding small amount via urinal. Discussed with vat house laborer; due to tenuous respiratory status, IV Lasix administered.
--- NOTE | 2025-01-10 11:15 | W.PN.NEPH.PH ---
Today's Communication / Plan
-
await RHC
Assessment/Plan
-
Impression:
Decompensated HFrEF 30%
CKD 3B, baseline around 1.7
s/p Medtronic FIRER LOCOMOTIVE CRANE-P 08/2023
CAD/CABG
HTN
DM2
Hyponatremia, hyperkalemia
Hypotension
Enterococcus bacteremia and suspected IE
Plan:
stable renal function and non oliguric
cont IV lasix 40 BID
for RHC today to determine vol status
he still with CP and sob on minimal exertion
h/o left heart cath 12/21 = medical management for CAD/angina per cardiology
he does not appear to be volume overloaded. I suspect sxs are CAD in nature, but he has no good interventional options.
BP stable with midodrine
mild hyponatremia from CHF , stay with FR
replace k
hb down to 7.4 likely not helping with heart disease symp too
IV abx per ID for Enterococcus bacteremia and suspected IE
d/w pt and family at bedside
-
-
Date of Service: January 10, 2025
CC / HPI / ROS
-
Chief Complaint:
NOE
History of Present Illness:
NOE/creatinine stable at 2.1,on IV lasix
sodium stable at 131, k low 3.4
Hemoglobin down to 7.4
Remains on high-dose midodrine for hypotension
Review of Systems:
reports CP/SOB with little activity
no n/v
has cough
Labs
-
Labs:
WBC 10.4 10^3/uL (4.8-10.8) 01/10/25 03:44
RBC 2.39 10^6/uL (4.70-6.10) L 01/10/25 03:44
Hgb 7.4 g/dL (13.0-18.0) L 01/10/25 03:44
Hct 22.9 % (39.0-52.0) L 01/10/25 03:44
Plt Count 40 10^3/uL (130-400) L 01/10/25 03:44
Sodium 131 mmol/L (135-145) L 01/10/25 03:44
Potassium 3.4 mmol/L (3.5-5.1) L 01/10/25 03:44
Chloride 98 mmol/L (98-107) 01/10/25 03:44
Carbon Dioxide 26 mmol/L (22-30) 01/10/25 03:44
BUN 40 mg/dl (9-20) H 01/10/25 03:44
Creatinine 2.1 mg/dL (0.7-1.3) H 01/10/25 03:44
eGFR 32.42 01/10/25 03:44
Glucose 135 mg/dl (70-99) H 01/10/25 03:44
Calcium 8.8 mg/dl (8.4-10.2) 01/10/25 03:44
Phosphorus 3.1 mg/dl (2.5-4.5) 12/28/24 22:17
Fco-X-Ekmedjnuobl Pept 64878 pg/ml 01/07/25 05:09
Albumin 3.3 g/dl (3.5-5.0) L 01/01/25 05:29
Physical Exam
-
Vital Signs:
Vital Signs
Temp Pulse Resp BP Pulse Ox
98.1 F 116 22 110/76 100
01/10/25 11:05 01/10/25 10:00 01/10/25 10:00 01/10/25 10:00 01/10/25 10:00
Cardiovascular:: Irregular rate and rhythm
Respiratory:: Bilateral: Rales (decreased BS bilat)
Lung Excursion:: Normal
Abdomen:: Nontender and Soft
Extremity Edema:: None: Bilateral:
Anders Catheter: No
--- NOTE | 2025-01-10 11:38 | W.PN.HOSP.TC ---
Addendum entered and electronically signed by Pacheco Fontaine MD 01/10/25 16:56:
Received text from interventional cardiology team Dr. Estrada that RHC will need to be postponed due to anemia. Cardiology recommending blood transfusion prior to cath. PRBC ordered. Cardiology to update patient and family.
Original Note:
Today's Communication/Plan
-
may need to consider PRBC
Await RHC results
Possibly CT chest
Assessment / Plan
Assessment / Plan
General: Well Developed, Well Nourished and Respiratory Distress
HEENT: Normocephalic, Atraumatic, Moist Mucous Membranes, No Ptosis, and Nose Appears Normal
Respiratory: Rhonchi, Crackles and Non Labored Respirations, on 2L NC
Cardiac: Regular Rhythm and S1/S2
Breast: Deferred by me
GI: Soft, Nontender, Nondistended and Normal Bowel Sounds
Genito-urinary: No Costovertebral Tender
Musculoskeletal: No Clubbing, No Cyanosis and No Edema
Skin: Warm
Neuro: Awake, Alert, Oriented, AO x 3 and No Motor Deficits
Psych: Anxious
Assessment/plan:
Shortness of breath possibly due to acute on chronic HFrEF/possible pulmonary edema
Chest pain likely 2/2 Coronary disease with microvascular disease process
Acute on Chronic systolic congestive heart failure
- [facility] last admission showed blocked SVG graft to distal LAD, was planned to be manage medical
- Continue on Plavix statin
- Troponin 12 and has been trending down from elevated troponin max of 28 on 12/20
- Repeat proBNP elevated and patient was started on 40 mg of IV Lasix. Blood pressure soft at times. May need to start pressors if required.
- Repeat chest x-ray with suspected pulmonary edema
- Currently on 2 L of oxygen. Sats remained stable
- Plan for RHC later today.
- Will plan to obtain CT chest post cath
- Cardiology and nephrology following
- Depending on RHC results if neg for overt volume overload may need to consider Pulm input if no improvement in SOB
Enterococcus faecalis bacteremia
- Delayed blood culture collected post PICC placement and abx.
- Vancomycin was initially discontinued, resumed---> Currently patient on IV ampicillin
- Echocardiogram 12/29 did not show any valvular vegetation. May require RENAN if bacteremia persist.
- Repeat blood culture positive from 12/30. f/u repeat blood culture report from 01/01 remains negative
- CT abdomen pelvis did not show any clear infectious source
- Infectious ease recommending 6 weeks of IV ampicillin
-RENAN negative for vegetation
NOE on CKD stage IIIb
Acute urinary retention
- creatinine up to 3.2 in ER, baseline cr 1.7-1.8 at discharge week back,
- Renal dysfunction likely combination from hypotension/cardiorenal syndrome and urinary retention
- Anders catheter to be removed and voiding trial to be done.
- Avoid nephrotoxic medication
- Creatinine at 2.2
Septic shock from multifocal pneumonia
associated with NOE/lactic acidosis
- Reported subjective fever at home. no productive cough.
- Total WBC count of 35K at admission has trended down
- Patient got 1 L of NS, did not provide full 30 mL/kg bolus as patient have systolic heart failure.
- ID help appreciated. Currently patient on IV ampicillin (needs long-term IV antibiotic)
- Added midodrine to regimen.
Acute normocytic anemia
- Hemoglobin 8 after transfusion of 1 unit PRBC
- No luminal blood loss
Anion gap metabolic acidosis - Improved
- Combination of lactic acidosis and renal dysfunction related
- Provide sodium bicarb few doses
- Being treated for underlying infection
Hyperkalemia - Improved
Hypokalemia
- Hyperkalemia secondary to renal failure/acidosis related at admission
- Post diuresis patient is developing hypokalemia now, replace as needed
Type II DM
- maintain on Lower dose lantus and ISS
- Added Premeal NovoLog
- Hold metformin with renal dysfunction
- Lantus dose decrased
Essential hypertension
- Hold blood pressure medication as now with soft bp at times
Hyponatremia - resolved
- Combination from hypervolemia and ADH excess with heart failure
- Urine Na 34 Uosm 257
- Further therapy if have worsening of hyponatremia
Acute transaminitis
- Possible due to hypotension related
- LFT trending down.
Chronic thrombocytopenia
-Platelets at 36K. Continue to monitor. May be due to sepsis related. If persistent drop may need to consider hematology input
Mild hyponatremia
-trend na for now
CODE STATUS: Full code
DVT prophylaxis: Heparin
Physical therapy recommendations: Home health
d/w with family member at bedside
Anticipated Discharge: > 48 hours
Subjective/Interval History
-
Date of Service: January 10, 2025
remains sob and states of cp worse afterwards
episode of bloody phelgm at times
Objective Data
-
Labs:
Laboratory Results
01/10/25
03:44
WBC 10.4
Hgb 7.4 L
Hct 22.9 L
Plt Count 40 L
Sodium 131 L
Potassium 3.4 L
Chloride 98
Carbon Dioxide 26
BUN 40 H
Creatinine 2.1 H
Glucose 135 H
Calcium 8.8
Vital Signs:
Vital Signs
Temp Pulse Resp BP Pulse Ox
98.1 F 116 22 110/76 100
01/10/25 11:05 01/10/25 10:00 01/10/25 10:00 01/10/25 10:00 01/10/25 10:00
I&O
01/09/25 01/10/25 01/11/25
06:59 06:59 06:59
Intake Total 470 / 470 317.5 / 385.0 202.5 / 202.5
Output Total 1250 / 1250 1675 / 1675 100 / 100
Balance -780 / -780 -1357.5 / -1290.0 102.5 / 102.5
Data Reviewed
-
Total Time Spent with Patient (in minutes): 55
[2025-01-10 12:04] LABS: Glucose - Point of Care 152 mg/dl (70-99)
--- NOTE | 2025-01-10 14:36 | CM ---
F/U: Veronica from [facility] called to check on the status, told Veronica that he had heart issues this weekend, so cardiology is seeing him, and that he is getting a NADER today. Veronica will reach back out Friday, but if close to ready
tomorrow, she should get a call. PLAN: Home w/ [facility].
--- NOTE | 2025-01-10 17:19 | W.PN.CARDCBS ---
Addendum entered and electronically signed by Tessy Estrada MD 01/11/25 09:04:
Late note entry given trouble with my login
Patient was then seen at bedside with family around 5 PM on January 10, 2025.
I saw and examined the patient.
The Carpet Installer's note was reviewed and I agree with the note.
Comment: Spoke to patient in his [place] language at bedside and he reports worsening of symptoms since RENAN. He reports chest pain with any positional movements of his torso, worse with laying down. His breathing is also significantly worse laying
down. He also reports throat discomfort especially with swallowing and therefore tells me that he has not been intrigued to take in a lot of p.o. and keeps requesting a liquid diet.
Tachycardic at bedside, normal blood pressure. Appears very uncomfortable, tachypneic, tachycardic in mild respiratory distress with increased work of breathing, normal S1 and S2, 2 out of 6 systolic ejection murmur, bibasilar Rales, elevated JVP,
abdomen is soft, nontender, nondistended with active bowel sounds, warm extremities without significant edema.
Recommendations:
1. On exam he does appear to be in possible acute decompensated heart failure in the setting of known ischemic cardiomyopathy: Creatinine noted but would still advocate for aggressive IV diuresis. Right heart catheterization had to be postponed
given patient not able to tolerate laying flat with worsening tachypnea and work of breathing with worsening anemia and thrombocytopenia of unclear etiology. Eventually could consider right heart catheterization when able to tolerate. Also would
consider checking ABG and overnight lactate.
2. Atypical chest pain: He reports positional chest pain which is not typical for underlying CAD and out of proportion to it. He certainly could have exertional chest discomfort related to underlying CAD with occluded stent in the saphenous vein
graft to distal LAD and we will continue to optimize medically for this but also recommend consideration to rule out noncardiac chest pain causes due to either GI versus pulmonary or inflammatory driven. Consider CT chest if able to tolerate for
possible barium swallow given a lot of his symptoms have been worse since RENAN.
3. Worsening anemia and thrombocytopenia: Unclear etiology. Multiple notes mention this to be chronic but then note that it may be due to sepsis which is not a chronic issue. Recommend hematology consult for workup of this to determine etiology
and most importantly rule out any underlying malignancies.
4. Management of recent Enterococcus bacteremia per primary team and ID.
Discussed all of the above with nursing at bedside as well as family.
.
Tessy Estrada MD, [facility], [facility]
Total time spent: 52-minutes
Original Note:
Today's Communication / Plan
-
RHC deferred in light of acute on chronic anemia and thrombocytopenia
Appreciate help of hospitalist attending and coordinating additional unit of PRBC for transfusion
Consider hematology evaluation
Impression / Plan
-
PCP: Israel Clifton MD
CDY: Orlando Langley MD
Impression:
Admitted with sepsis and NOE 12/28/2024
Hypotension requiring pressor support consistent with shock (septic/cardiogenic)
Acute on chronic HFrEF
Intermittent chest pain
Recent admission acute HFrEF and NSTEMI 12/20/2024 until 12/23/2024
Recent ER visit at [facility] for chest pain and SOB 12/09/2024
Moderate
Mitral regurgitation previously mild to moderate now moderate to severe in the setting of volume overload
Clinical sepsis
Enterococcus bacteremia
Possible multifocal PNA
NOE on CKD
Previously required transient HD 07/2024
Hyperkalemia
Elevated troponin, overall trending down from last admission
CAD
s/p CABG with GAFFNEY-LAD, VG-dLAD, VG-PLB 2007
s/p SVG to the distal LAD PCI at [facility] by Dr. Gavin 04/2024
Patent GAFFNEY to LAD, patent SVG to PLB with PDA filling via retrograde from the PLB, occlusion of the SVG to the distal LAD with 100% occlusion of previously placed stent 12/21/2024
s/p tissue AVR 2007
HLD
Medtronic BELT SPLICER�P (08/2023)
HTN
DM
Language barrier
Thrombocytopenia
Echo 08/2023: nml LV size, abnormal diastolic function with increased LVEDP, EF 60-65%, CLVH but no obvious regional abn. normally functioning bioprosthetic AV, PG/MG 32.5/18, ABEL 1.34cm2
Echo 12/20/2024: EF 35 to 40%, mild concentric LVH, mid to distal inferior, inferolateral, mid anteroseptal, mid anterior, apical hypokinesis, dense MAC, at least moderate to severe MR with anterior eccentric jet, mild to moderate TR, PAP 38 mmHg
Echocardiogram 12/29/2024: Ejection fraction 30 to 35%. Mid to distal inferior, inferolateral, mid anteroseptal and mid anterior hypokinesis with apical akinesis. Moderate to severe mitral regurgitation. Mild to moderate TR.
Echo 12/30/2024: Ejection fraction 30% by visual estimation. Segmental wall motion abnormalities noted. Moderate to severe mitral regurgitation similar to prior. Previously aortic valve was not assessed. Likely moderate aortic valve stenosis
Peak/mean gradients are 32/20mmHg. ABEL 0.8cm sq, using a LVOT of 1.6cm.Mild to moderate tricuspid regurgitation. Estimated pulmonary artery pressure of 33 mmHg
RENAN 01/07/2025: Moderately reduced EF 30 to 35% with global hypokinesis, normal RV size and function, s/p bioprosthetic AVR with likely moderate stenosis no significant regurgitation. Mild to moderate mitral regurgitation. Moderate tricuspid
regurgitation. Compared to echocardiogram from December 30, 2024, mitral valve regurgitation appears mild to moderate, previously moderate to severe, TR is moderate, previously mild to moderate, there is no obvious vegetation seen. No obvious
vegetation.
Plan:
-Patient with evidence of sepsis and NOE on admission that initially required ICU with Levophed for pressor support. Then found to have Enterococcus bacteremia and had RENAN 01/07/2025.
-Patient started with increase in generalized chest pain 01/08/2025 and there was concern for pulmonary edema on CXR and patient was being diuresed with 40 mg IV BID.
-Nephrology is following along and patient does not appear volume overloaded, but volume status is difficult to ascertain. Plan was for RHC on 01/10/2025, but deferring due to acute on chronic anemia and thrombocytopenia
-Patient noted to have anemia and thrombocytopenia on previous admission and no known workup, no record of hematology evaluation at [facility], but patient has received medical care also at [facility] and [facility] as well.
-TT communication with hospitalist attending to request additional 1 unit PRBC transfusion on 01/10/2025, last transfusion was 01/01/2025
-Weight as low as 135 lbs this admission, but has crept up to 141 lbs as of 01/10/2025
-Cre is stable at 2.1 on 01/10/2025
-Lasix 40 mg IV BID is ordered
-EF previously 60 to 65% in 2023 and now down to 35 to 40% by echo 12/20/2024. This is presumed to be ICM with evidence of occlusion of a previously placed stent in the vein graft to the distal LAD by cardiac cath 12/21/2024.
-GDMT limited by hypotension and he is relatively new to midodrine 10 mg TID
-Outpatient dose of Lopressor is on hold due to hypotension, once BP improves we should start cardioselective beta-aline with either Coreg or Toprol-XL
-Patient was not taking ALETHA/ARB/ARNI/aldosterone antagonist prior to admission due to NOE.
-We should attempt to add SGLT2 inhibitor prior to discharge, but currently being treated for sepsis so we will hold off.
-Initial troponin 12.1 and then trending down thereafter. Troponin is trending down from NSTEMI and peak troponin of 27.9 when he was admitted 2 weeks ago. No increase in troponin despite recurrent chest pain 01/08/2025
-Patient with history of remote CABG and there was an attempt at PCI of the SVG to the distal LAD at [facility] 04/2024, but this stent was 100% occluded at the last cath 12/21/2024. GAFFNEY to LAD and SVG to PLB were both patent.
-Outpatient doses of aspirin and Plavix have been continued. Thrombocytopenia is chronic.
-Medtronic BELT SPLICER�P device check performed 12/29/24 and there was normal device and lead function, OptiVol was trending up, no atrial ventricular arrhythmia and there was 10 years of battery longevity.
HPI: Patient presented to the ER today with SMALL and is being admitted with possible sepsis and NOE and cardiology is being consulted for possible CHF and recent admission for NSTEMI. Patient has a history of remote CABG and AVR in 2007 at an
outside hospital. He had an admission to [facility] 04/2024 and he had PCI of the SVG to the distal LAD. Patient was then admitted to [facility] with NOE and was transiently on hemodialysis 07/2024. Most recently he has been following with "Alexus"Korin at [facility] and their office referred the patient to the [facility] ER on 12/09/2024 after he complained of chest pain during a visit in their office that day. The patient was discharged from the ER with a higher dose of
Lopressor and they added Imdur ER. There was apparently no consideration for acute HF at that time. Patient then came to the [facility] ER on 12/20/2024 with chest pain and the initial troponin was 2.22 and subsequent troponin was as high as 27.9.
Patient was admitted and eventually had cardiac cath 12/21/2024 that showed that the stent in the SVG to the LAD from April was 100% occluded and the GAFFNEY to LAD and SVG to PLV grafts were patent. There was also evidence of acute HFrEF during
that admission and EF was newly reduced at 35 to 40%, it had been 60 to 65% by an echo from his primary [facility] sewer 08/2023. PCWP was down to 18 which correlated with a weight of 141 lbs at time of cath on 12/21/2024. Cre was stable at 1.8 on the
day of discharge 12/23/2024. At the recommendation of nephrology the patient was discharged home on torsemide 20 mg daily. Patient's family reports that medications were not delivered in a timely fashion and so he was not taking any of his
medications since admission until they arrived yesterday. Patient has had increasing SMALL over the last 24 hours and came to the ER today. There is leukocytosis with a WBC count of 35 with a left shift. Lactic acid levels pending. There is
concern for sepsis possibly due to PNA and patient is being admitted to the ICU due to his need for pressor support with Levophed.
Progress Note - Bobj Developer
Subjective
Date of Service: January 10, 2025
He is SOB and anxious
Objective
Labs:
01/10/25 03:44
01/10/25 03:44
Labs
Hgb 7.4 g/dL (13.0-18.0) L 01/10/25 03:44
Hct 22.9 % (39.0-52.0) L 01/10/25 03:44
Plt Count 40 10^3/uL (130-400) L 01/10/25 03:44
PT 17.1 Sec (11.4-14.6) H 12/28/24 12:58
INR 1.36 12/28/24 12:58
APTT 42.4 Sec (23.4-35.0) H 12/28/24 12:58
Sodium 131 mmol/L (135-145) L 01/10/25 03:44
Potassium 3.4 mmol/L (3.5-5.1) L 01/10/25 03:44
BUN 40 mg/dl (9-20) H 01/10/25 03:44
Creatinine 2.1 mg/dL (0.7-1.3) H 01/10/25 03:44
Glucose 135 mg/dl (70-99) H 01/10/25 03:44
Vital Signs and I&O:
Vital Signs
Temp Pulse Resp BP Pulse Ox
98.2 F 115 20 110/71 97
01/10/25 15:01 01/10/25 16:52 01/10/25 16:52 01/10/25 16:52 01/10/25 16:52
Vital Signs
Temp Pulse Resp BP Pulse Ox
98.2 F 115 20 110/71 97
01/10/25 15:01 01/10/25 16:52 01/10/25 16:52 01/10/25 16:52 01/10/25 16:52
Intake & Output
01/08/25 01/09/25 01/10/25 01/11/25
06:59 06:59 06:59 06:59
Intake Total 946 / 946 470 / 470 317.5 / 385.0 310.5 / 310.5
Output Total 1175 / 1175 1250 / 1250 1675 / 1675 375 / 375
Balance -229 / -229 -780 / -780 -1357.5 / -1290.0 -64.5 / -64.5
[2025-01-10] MEDS: NOVOLOG FLEXPEN 5 UNITS SC (17:49)
--- NOTE | 2025-01-10 17:53 | PTCARENOTE ---
RHC postponed. Leather Cutter at bedside to discuss with patient & family. Diet advanced. 1 unit PRBCs ordered. Type and screen sent. Urine output 375 cc's throughout shift. Bladder scan <200. Hospitalist aware. 1600 dose of Lasix administered as
ordered.
[2025-01-10 18:01] LABS: Glucose - Point of Care 159 mg/dl (70-99)
[2025-01-10] MEDS: REMOVE LIDOCAINE PATCH 1 PATCH REMOVE (19:06)
--- NOTE | 2025-01-10 19:30 | PTCARENOTE ---
rec'd pt resting in bed, fam at bedside - assists w/ language translation, pt cooperative, weak, follows commands, VPaced/ ST, weak distal pulses, skin warm/dry, 02 3 liters nc, lungs decr, sat 99, + SMALL, tachypneic, + bowel sounds, no bm, poor
appetite, no n/v, voids in urinal
[2025-01-10] MEDS: NITROSTAT (SUBLINGUAL) 0.4 MG SL ×3 (20:07→20:22)
--- NOTE | 2025-01-10 20:07 | PTCARENOTE ---
c/ o difficulty breathing & #7/10 chest pain after repos self in bed,, morphine 1mg iv given, ntg sl given x 3, ekg done, Guicho Lowery PRECISION AGRICULTURE TECHNICIAN at bedside at 2024
[2025-01-10 20:32] LABS: Glucose - Point of Care 216 mg/dl (70-99)
--- NOTE | 2025-01-10 20:32 | PTCARENOTE ---
pain now a 4/10, breathing improved
--- NOTE | 2025-01-10 20:38 | W.PN.UPDATE ---
Update Note
Progress Note Update
-Called at bed side to assess the patient as the patient has chest pain and sob. afebrile, hr 121, spo2 96% on 3 L bp 103/75 RR 21
-patient received nitrox3 and morphine x2.
-Coarse lung sound noted on exam.
-covid, chest x-ray,vbg, cbc, bmp, mag, troponin and pro bnp ordered
- albuterol neb ordered.
-Chest x-ray result shows most suggestive of pulmonary edema pattern, which appears increased, especially in the lung bases.
Small bilateral pleural effusions which have developed since recent radiographs.
-vbg unremarkable
-[place] [address] [address]. Troponin now 0.230 previously 0.528 on 01/06.
-Cr level is trending up, now is 2.4 previously 2.1
-hgb level 7.4 with no change from earlier, unit of blood ordered this afternoon and will start shortly.
-Patient still with chest pain 08/10
-Reviewed the case with Dr. Lange/software program manager account resolution specialist, Recommendations received to trend trop, Nitro drip for chest pain and aggressive with diuretics if bark spudder agree with the plan.
-Reviewed with dr. Ag/Educational Institution Curator account resolution specialist, recommended 80mg of IV lasix.
- ICU transfer for nitro titration/chest pain per protocol.
-Reviewed with swimming pool salesperson.
-Family at bedside.
[2025-01-10] MEDS: PROTONIX IV 40 MG IV (20:40)
[2025-01-10] MEDS: NSS (PRESERVATIVE FREE) 10 ML IV (20:40)
[2025-01-10] MEDS: VENTOLIN NEBULES 1.25 MG INH (20:49)
[2025-01-10 20:54] LABS: Venous Blood Gas B.E. -2.0 mmol/L (-4 to +4); Venous Blood Gas O2 Sat % 99.3 %
[2025-01-10 21:00] LABS: Hematocrit 22.8 % (39.0-52.0); Hemoglobin 7.4 g/dL (13.0-18.0); Mean Corp Hgb Conc. 32.5 g/dL (33.0-37.0); Mean Corpuscular Volume 96.2 fL (80.0-94.0); Platelet Count 40 10^3/uL (130-400); Red Cell Dist. Width 15.9 % (11.5-14.5)
--- NOTE | 2025-01-10 21:07 | PTCARENOTE ---
1 unit prbc hung , per instructed to notify nurse if any cp, sob, chills
[2025-01-10 21:11] LABS: Blood Urea Nitrogen 46 mg/dl (9-20); Calcium 8.8 mg/dl (8.4-10.2); Carbon Dioxide 21 mmol/L (22-30); Chloride 101 mmol/L (98-107); Estimated Creatinine Clearance 25 ml/min; Glucose 186 mg/dl (70-99); Magnesium 1.9 mg/dl (1.6-2.3); Potassium 4.1 mmol/L (3.5-5.1); Sodium 132 mmol/L (135-145); eGFR 27.62
[2025-01-10] MEDS: LANTUS 0.1 UNITS SC (21:19)
[2025-01-10] MEDS: PEPCID 20 MG PO (21:20)
[2025-01-10 21:28] LABS: Troponin I 0.230 ng/ml
[2025-01-10 21:38] LABS: COVID-19 Antigen Negative (Negative)
--- NOTE | 2025-01-10 22:10 | PTCARENOTE ---
c/o sob, cp, S Beverley GLASS INSERTER at bedside, morphine 1mg iv given, GLASS INSERTER has informed operations trainer all all events tonight
[2025-01-10] MEDS: LASIX 80 MG IV (22:25)
--- NOTE | 2025-01-10 22:25 | PTCARENOTE ---
pt upgraded to ICU, now w/ CP/ SOB, lasix 80 mg iv given, IV team here to insert more lines for ntg gtt and prns
[2025-01-10] MEDS: NITROGLYCERIN PREMIX 250 IV (22:55)
--- NOTE | 2025-01-10 22:55 | PTCARENOTE ---
IV team inserted R & L foot IV's, Ntg gtt hung at 2.5 ana per order, # 16 fr thermister wolf inserted under sterile technique- 30ml urine obtained
--- NOTE | 2025-01-10 23:05 | VATNOTE ---
PT WITH VERY LIMITED IV ACCESS OPTIONS. CURRENT PICC INSERTED BY IR AFTER MULTIPLE FAILED ATTMEPTS IN LUE FOR PICC INSERTION BY VAT AND IR. CONSULTED WITH PAINTER SKI EDGE RE CURRENT NEEDS. PT WOULD BENEFIT FROM A TLC INSERTED IN IR. WILL INSERT TWO ADDITIONAL IV
SITES NEEDED TONIGHT IN FEET MULTIPLE ATTEMPTS FAILED IN LUE.PCN WELL FAMILY AWARE OF PLAN OF CARE.
[2025-01-11] VITALS (28 sets, daily range): BP systolic 99–137; BP diastolic 60–109; BMI 22.5
[2025-01-11] MEDS: MORPHINE SULFATE 1 MG IV ×2 (00:08→15:43)
--- NOTE | 2025-01-11 00:13 | PTCARENOTE ---
Addendum entered by Rosario Trinidad RN 01/11/25 02:01:
npo for cath in am
Original Note:
sys reviewed, CHG bath done, onens changed, after movong in bed c/o sob, morphine 1mg iv given, pt had sm amt bloody sputum, K Maryann, development administrator aware of sputum and poor urine output
[2025-01-11 03:15] LABS: Hematocrit 28.1 % (39.0-52.0); Hemoglobin 9.1 g/dL (13.0-18.0); Mean Corp Hgb Conc. 32.4 g/dL (33.0-37.0); Mean Corpuscular Volume 94.0 fL (80.0-94.0); Platelet Count 38 10^3/uL (130-400); Red Cell Dist. Width 16.1 % (11.5-14.5)
[2025-01-11] MEDS: AMPICILLIN 108 MG IV ×3 (03:33→20:06)
[2025-01-11 03:34] LABS: Blood Urea Nitrogen 51 mg/dl (9-20); Calcium 8.9 mg/dl (8.4-10.2); Carbon Dioxide 24 mmol/L (22-30); Chloride 101 mmol/L (98-107); Estimated Creatinine Clearance 25 ml/min; Glucose 171 mg/dl (70-99); Magnesium 2.0 mg/dl (1.6-2.3); Potassium 4.3 mmol/L (3.5-5.1); Sodium 136 mmol/L (135-145); eGFR 27.62
[2025-01-11 03:48] LABS: Troponin I 0.406 ng/ml
[2025-01-11 03:50] LABS: Absolute Neutrophils -Man Diff 8.6 10^3/uL (1.4-6.5); Normal RBC Morphology Yes; Platelets Checked Yes
[2025-01-11 03:51] LABS: Total Cells Counted 100
--- NOTE | 2025-01-11 03:58 | PTCARENOTE ---
pt sleeping, assessment reviewed
--- NOTE | 2025-01-11 08:20 | W.PN.CARDCBS ---
Addendum entered and electronically signed by Blanco Davis MD 01/11/25 13:08:
I saw and examined the patient.
The Primary Grade Teacher's note was reviewed and I agree with the note.
Comment: Briefly, 74-year-old gentleman with past medical history of ischemic cardiomyopathy, heart failure with reduced ejection fraction, moderate aortic stenosis and recent admission for acute heart failure and NSTEMI who presented on 12/28/2024
with acute kidney injury diagnosed with sepsis. He required ICU admission for shock which was thought to be combined septic and cardiogenic in etiology.
Continues to report intermittent chest discomfort. No clear improvement with sublingual nitroglycerin or nitro drip.
Suspect that symptoms may be due to acute heart failure
Patient still requiring supplemental oxygen and proBNP is higher today at 20,000
Appreciate nephrology input, plan is to start Bumex drip
With rising creatinine right heart catheterization would be helpful to assess filling pressures and cardiac output. We will try to arrange for later today.
Unfortunately blood pressures been marginal and patient has been requiring midodrine which limits GDMT for CHF +/- antianginal therapy
Continue aspirin/Plavix for treatment of coronary disease.
Statin has been held. Would repeat LFTs and if they have normalized can resume home atorvastatin 80 mg daily.
Discussed with family at bedside
Original Note:
Today's Communication / Plan
-
Bumex gtt being ordered by nephrology
Patient will likely continue with planned RHC as well and pending outcome of hemodynamics could consider addition of inotropic therapy to help augment diuresis
Impression / Plan
-
PCP: Israel Clifton MD
CDY: Orlando Langley MD
Impression:
Admitted with sepsis and NOE 12/28/2024
Hypotension requiring pressor support consistent with shock (septic/cardiogenic)
Acute on chronic HFrEF
Intermittent chest pain
Recent admission acute HFrEF and NSTEMI 12/20/2024 until 12/23/2024
Recent ER visit at [facility] for chest pain and SOB 12/09/2024
Moderate
Mitral regurgitation previously mild to moderate now moderate to severe in the setting of volume overload
Clinical sepsis
Enterococcus bacteremia
Possible multifocal PNA
NOE on CKD
Previously required transient HD 07/2024
Hyperkalemia
Elevated troponin, overall trending down from last admission
CAD
s/p CABG with GAFFNEY-LAD, VG-dLAD, VG-PLB 2007
s/p SVG to the distal LAD PCI at [facility] by Dr. Gavin 04/2024
Patent GAFFNEY to LAD, patent SVG to PLB with PDA filling via retrograde from the PLB, occlusion of the SVG to the distal LAD with 100% occlusion of previously placed stent 12/21/2024
s/p tissue AVR 2007
HLD
Medtronic JACKHAMMER OPERATOR�P (08/2023)
HTN
DM
Language barrier
Thrombocytopenia
Echo 08/2023: nml LV size, abnormal diastolic function with increased LVEDP, EF 60-65%, CLVH but no obvious regional abn. normally functioning bioprosthetic AV, PG/MG 32.5/18, ABEL 1.34cm2
Echo 12/20/2024: EF 35 to 40%, mild concentric LVH, mid to distal inferior, inferolateral, mid anteroseptal, mid anterior, apical hypokinesis, dense MAC, at least moderate to severe MR with anterior eccentric jet, mild to moderate TR, PAP 38 mmHg
Echocardiogram 12/29/2024: Ejection fraction 30 to 35%. Mid to distal inferior, inferolateral, mid anteroseptal and mid anterior hypokinesis with apical akinesis. Moderate to severe mitral regurgitation. Mild to moderate TR.
Echo 12/30/2024: Ejection fraction 30% by visual estimation. Segmental wall motion abnormalities noted. Moderate to severe mitral regurgitation similar to prior. Previously aortic valve was not assessed. Likely moderate aortic valve stenosis
Peak/mean gradients are 32/20mmHg. ABEL 0.8cm sq, using a LVOT of 1.6cm.Mild to moderate tricuspid regurgitation. Estimated pulmonary artery pressure of 33 mmHg
RENAN 01/07/2025: Moderately reduced EF 30 to 35% with global hypokinesis, normal RV size and function, s/p bioprosthetic AVR with likely moderate stenosis no significant regurgitation. Mild to moderate mitral regurgitation. Moderate tricuspid
regurgitation. Compared to echocardiogram from December 30, 2024, mitral valve regurgitation appears mild to moderate, previously moderate to severe, TR is moderate, previously mild to moderate, there is no obvious vegetation seen. No obvious
vegetation.
Plan:
-Patient with evidence of sepsis and NOE on admission that initially required ICU with Levophed for pressor support. Then found to have Enterococcus bacteremia and had RENAN 01/07/2025.
-Patient started with increase in generalized chest pain following RENAN 01/07/2025 and there was concern for pulmonary edema on CXR and patient was being diuresed with 40 mg IV BID.
-Nephrology is following along, but volume status is difficult to ascertain. Plan was for RHC on 01/10/2025, but deferred due to acute on chronic anemia and thrombocytopenia
-Appreciate help of hospitalist attending for coordinating 1 unit PRBC and transfusion on 01/10/2025, Hgb improved from 7.4 up to 9.1 on 01/11/2025, labs reviewed by me.
-Patient continues with thrombocytopenia which has been chronic on all labs drawn here at [facility], there are times where platelet count is as high as 58,000 and other times dipping as low as 36,000 and these more acute numbers were thought to possibly
be due to sepsis, but a cause for his more chronic thrombocytopenia is not clear and no obvious previous workup.
-Weight as low as 135 lbs this admission, but has crept up to 143 lbs as of 01/11/2025
-Cre is 2.4 01/11/2025
-Lasix 40 mg IV BID is ordered and patient received dose on the morning of 01/11/2025. Will review with nephrology, there is consideration for initiation of an empiric Bumex gtt and then proceeding with RHC for hemodynamics with possible initiation
of inotropic therapy pending result.
-EF previously 60 to 65% in 2023 and now down to 35 to 40% by echo 12/20/2024. This is presumed to be ICM with evidence of occlusion of a previously placed stent in the vein graft to the distal LAD by cardiac cath 12/21/2024.
-GDMT limited by hypotension and he is relatively new to midodrine 10 mg TID
-Outpatient dose of Lopressor is on hold due to hypotension, once BP improves we should start cardioselective beta-aline with either Coreg or Toprol-XL
-Patient was not taking ALETHA/ARB/ARNI/aldosterone antagonist prior to admission due to NOE.
-We should attempt to add SGLT2 inhibitor prior to discharge, but currently being treated for sepsis so we will hold off.
-Initial troponin 12.1 and then trending down thereafter. Troponin is trending down from NSTEMI and peak troponin of 27.9 when he was admitted 2 weeks ago. No increase in troponin despite recurrent chest pain 01/08/2025
-Patient with history of remote CABG and there was an attempt at PCI of the SVG to the distal LAD at [facility] 04/2024, but this stent was 100% occluded at the last cath 12/21/2024. GAFFNEY to LAD and SVG to PLB were both patent.
-Outpatient doses of aspirin and Plavix have been continued. Thrombocytopenia is chronic.
-Medtronic JACKHAMMER OPERATOR�P device check performed 12/29/24 and there was normal device and lead function, OptiVol was trending up, no atrial ventricular arrhythmia and there was 10 years of battery longevity. Will check again on 01/11/2025, telemetry
reviewed by me looks like sinus tachycardia, but cannot rule out underlying atrial tachycardia/flutter
HPI: Patient presented to the ER today with SMALL and is being admitted with possible sepsis and NOE and cardiology is being consulted for possible CHF and recent admission for NSTEMI. Patient has a history of remote CABG and AVR in 2007 at an
outside hospital. He had an admission to [facility] 04/2024 and he had PCI of the SVG to the distal LAD. Patient was then admitted to [facility] with NOE and was transiently on hemodialysis 07/2024. Most recently he has been following with
Korin at [facility] and their office referred the patient to the [facility] ER on 12/09/2024 after he complained of chest pain during a visit in their office that day. The patient was discharged from the ER with a higher dose of
Lopressor and they added Imdur ER. There was apparently no consideration for acute HF at that time. Patient then came to the [facility] ER on 12/20/2024 with chest pain and the initial troponin was 2.22 and subsequent troponin was as high as 27.9.
Patient was admitted and eventually had cardiac cath 12/21/2024 that showed that the stent in the SVG to the LAD from April was 100% occluded and the GAFFNEY to LAD and SVG to PLV grafts were patent. There was also evidence of acute HFrEF during
that admission and EF was newly reduced at 35 to 40%, it had been 60 to 65% by an echo from his primary grain weigher 08/2023. PCWP was down to 18 which correlated with a weight of 141 lbs at time of cath on 12/21/2024. Cre was stable at 1.8 on the
day of discharge 12/23/2024. At the recommendation of nephrology the patient was discharged home on torsemide 20 mg daily. Patient's family reports that medications were not delivered in a timely fashion and so he was not taking any of his
medications since admission until they arrived yesterday. Patient has had increasing SMALL over the last 24 hours and came to the ER today. There is leukocytosis with a WBC count of 35 with a left shift. Lactic acid levels pending. There is
concern for sepsis possibly due to PNA and patient is being admitted to the ICU due to his need for pressor support with Levophed.
Progress Note - Ride Attendant
Subjective
Date of Service: January 11, 2025
He has a fairly constant chest pain
Objective
Labs:
01/11/25 03:03
01/11/25 03:03
Labs
Hgb 9.1 g/dL (13.0-18.0) L D 01/11/25 03:03
Hct 28.1 % (39.0-52.0) L 01/11/25 03:03
Plt Count 38 10^3/uL (130-400) L 01/11/25 03:03
PT 17.1 Sec (11.4-14.6) H 12/28/24 12:58
INR 1.36 12/28/24 12:58
APTT 42.4 Sec (23.4-35.0) H 12/28/24 12:58
Sodium 136 mmol/L (135-145) 01/11/25 03:03
Potassium 4.3 mmol/L (3.5-5.1) 01/11/25 03:03
BUN 51 mg/dl (9-20) H 01/11/25 03:03
Creatinine 2.4 mg/dL (0.7-1.3) H 01/11/25 03:03
Glucose 171 mg/dl (70-99) H 01/11/25 03:03
Troponins
01/10/25 01/11/25
20:45 03:03
Troponin I 0.230 H* 0.406 H* D
Vital Signs and I&O:
Vital Signs
Temp Pulse Resp BP Pulse Ox
99.1 F 96 14 119/87 98
01/11/25 03:57 01/11/25 06:00 01/11/25 06:00 01/11/25 06:00 01/11/25 06:00
Vital Signs
Temp Pulse Resp BP Pulse Ox
99.1 F 96 14 119/87 98
01/11/25 03:57 01/11/25 06:00 01/11/25 06:00 01/11/25 06:00 01/11/25 06:00
Intake & Output
01/09/25 01/10/25 01/11/25 01/12/25
06:59 06:59 06:59 06:59
Intake Total 470 / 470 317.5 / 385.0 1493.7 / 1493.7
Output Total 1250 / 1250 1675 / 1675 1110 / 1110
Balance -780 / -780 -1357.5 / -1290.0 383.7 / 383.7
Physical Exam
Physical Exam
GEN: NAD. AAOx3
LUNGS: 3 L NC. No audible wheeze
CV: A sensed V paced on tele. Reg, S1/S2, 03/08 syst LSB
EXT: No edema B/L LE
NEURO: Gross non-focal
SKIN: No rash
[2025-01-11] MEDS: NOVOLOG FLEXPEN SC (08:21)
[2025-01-11] MEDS: NOVOLOG FLEXPEN-LOW RESISTANCE 1 UNITS SC ×2 (08:21→14:29)
[2025-01-11] MEDS: PROSCAR 5 MG PO (08:23)
[2025-01-11] MEDS: PLAVIX 75 MG PO (08:23)
[2025-01-11] MEDS: PROTONIX 40 MG PO (08:23)
[2025-01-11] MEDS: LIDOCAINE 4% PATCH 1 PATCH TOPICAL (08:23)
[2025-01-11] MEDS: ASPIR LOW (ENTERIC COATED) 81 MG PO (08:23)
[2025-01-11] MEDS: FLOMAX 0.4 MG PO (08:23)
[2025-01-11] MEDS: LASIX 40 MG IV (08:24)
[2025-01-11] MEDS: VITAMIN D3 (cholecalciferol) PO (08:24)
[2025-01-11] MEDS: THERAGRAN PO (08:24)
[2025-01-11] MEDS: FEOSOL PO (08:24)
[2025-01-11] MEDS: OSCAL 500 + D PO (08:24)
[2025-01-11 08:32] LABS: Glucose - Point of Care 184 mg/dl (70-99)
--- NOTE | 2025-01-11 08:57 | PTOTSP ---
Pt transferred to ICU 01/10 and PT/OT orders were not continued upon transfer. Will need updated orders for PT and OT when stable to resume therapy activity
--- NOTE | 2025-01-11 09:01 | W.PN.ID1 ---
Date of Service
Date of Service: January 11, 2025
Today's Communication
Plan 6 weeks of IV ampicillin from clearance of blood cultures 01/01-02/11 - script provided to dependency case manager
Assessment / Plan
Enterococcus faecalis bacteremia (3 sets):
s/p Septic shock secondary to Enterococcus faecalis bacteremia
Suspect endocarditis
NOE
Leukocytosis
LEATHER BELT LOOP CUTTER-P (2023) / bioprosthetic AVR (2007)
01/01 Repeat blood cx's x2 neg
TTE on 12/29 did not show vegetation and was unchanged from prior echo on 12/20.
01/07/25 RENAN: no vegetation
Patient likely has endocarditis based on Lange's criteria with 1 major and 3 minor criteria met
Continue ampicillin 2 g IV every 8 hours
PICC line placed on 01/04/2025
Plan 6 weeks of IV ampicillin from clearance of blood cultures 01/01-02/11 - script provided to dependency case manager
Acute on chronic CHF exacerbation
Pulm edema with hemoptysis
- Management as per Cardiology and Hospitalist
Chief Complaint
-: Bacteremia
Subjective / Review of Systems
Tmax 100.4 on core T
transferred to ICU for nitro titration and trending troponins
Vital Signs / Physical Exam
Vital Signs
Vital Signs
Temp Pulse Resp BP Pulse Ox
98.8 F 93 14 116/82 99
01/11/25 08:00 01/11/25 08:00 01/11/25 08:00 01/11/25 08:00 01/11/25 08:00
Physical Exam
Constitutional: No Acute Distress
Cardiovascular: Regular Rate and S1/S2; Negative Murmur or Rub
Pulmonary: Clear and Symmetric; Negative Wheezes or Rales
Gastrointestinal: Soft, Non Tender, Non Distended and Normal Bowel Sounds
Skin: Warm and Dry; Negative Rash or Jaundice
Lines: Other (pacemaker no erythema, warmth, tenderness or drainage)
Objective Data
Lab Data
Lab Results
01/11/25 03:03
01/11/25 03:03
ESR 42 mm/hour (0-20) H 01/01/25 05:29
PT 17.1 Sec (11.4-14.6) H 12/28/24 12:58
INR 1.36 12/28/24 12:58
APTT 42.4 Sec (23.4-35.0) H 12/28/24 12:58
Estimated Creat Clear 25 ml/min 01/11/25 03:03
Lactic Acid Cancelled 12/29/24 06:17
Total Bilirubin 2.3 mg/dl (0.2-1.3) H 01/01/25 05:29
AST 85 U/L (17-59) H 01/01/25 05:29
ALT 109 U/L (0-50) H 01/01/25 05:29
Alkaline Phosphatase 85 U/L (38-126) 01/01/25 05:29
C-Reactive Protein 39.30 mg/L (0.0-10.00) H 01/01/25 05:29
Most recent labs reviewed.
Micro Results:
01/01/25 08:41 Blood Culture - Final
Blood/Venous No Growth - Final Report
01/01/25 08:42 Blood Culture - Final
Blood/Venous No Growth - Final Report
12/30/24 10:21 Blood Culture - Final
Blood/Venous Enterococcus faecalis
Gram Stain - Final
12/30/24 10:34 Blood Culture - Final
Blood/Venous No Growth - Final Report
12/28/24 23:16 Blood Culture - Final
Blood/Venous Enterococcus faecalis
Gram Stain - Final
12/28/24 22:17 Blood Culture - Final
Blood/Venous Enterococcus faecalis
Gram Stain - Final
12/28/24 22:17 Nasal Screen MRSA (PCR) - Final
Nose MRSA not detected - performed by PCR methodology.
12/28/24 17:46 Influenza Types A & B (FLACO) - Final
Nasal Swab Negative for Influenza A & B, NAAT
Negative results must be combined with clinical observations
and patient history.
Nucleic Acid Amplification test (NAAT)performed on the
[employer] platform.
Imaging:
01/07/25 CXR: Bilateral interstitial and alveolar pulmonary opacities, suspicious for pulmonary edema in the appropriate clinical setting.
12/31/2024 CXR (portable): overall improvement in bilateral interstitial markings, suggesting improvement in interstitial pulmonary edema pattern. A small focus of patchy parenchymal opacity within the left lower lung, new from recent exam,
possibly atelectasis versus pneumonia. Dual-lead PPM in place.
[2025-01-11] MEDS: CHLORASEPTIC/SORE THROAT SPRAY 1 SPRAY PO ×2 (09:15→20:06)
[2025-01-11] MEDS: NOVOLOG FLEXPEN 5 UNITS SC ×2 (10:24→17:22)
[2025-01-11 10:33] LABS: Troponin I 0.956 ng/ml
[2025-01-11 10:34] LABS: Glucose - Point of Care 166 mg/dl (70-99)
--- NOTE | 2025-01-11 10:39 | W.PN.NEPH.PH ---
Today's Communication / Plan
-
bumex gtt, labs later today
await RHC
Assessment/Plan
-
Impression:
Decompensated HFrEF 30%
CKD 3B, baseline around 1.7
s/p Medtronic PAINT SPRAYER SANDBLASTER-P 08/2023
CAD/CABG
HTN
DM2
Hyponatremia, hyperkalemia
Hypotension
Enterococcus bacteremia and suspected IE
Plan:
cr is up at 2.4 and non oliguric
but ongoing sob and cp, started nitro gtt
CXR noted pulm edema and high BNP
agree with bumex gtt
Await for RHC today to determine vol status
h/o left heart cath 12/21 = medical management for CAD/angina per cardiology
BP stable with midodrine
mild hyponatremia from CHF , stay with FR
anemia better post PRBC on 01/10, plt are also low
IV abx per ID for Enterococcus bacteremia and suspected IE
d/w pt and family at bedside
reviewed with pt that If he fails medical management and worsening renal function he is not good candidate for dialysis -which he agrees and reports that he lived his life so far fine and do not want dialysis at all
reviewed with ICU and nursing
high risk encounter
-
-
Date of Service: January 11, 2025
CC / HPI / ROS
-
Chief Complaint:
NOE
History of Present Illness:
NOE/creatinine up at 2.4
was sob last night and had extra dose lasix
RHC was not done yesterday and plan today
plt low no change at 38k
sodium stable at 136, k better at 4.3
Hemoglobin better at 9.1 post PRBC 01/10
Remains on high-dose midodrine for hypotension
Review of Systems:
reports CP/SOB with little activity, now on nitro gtt
no n/v
has cough, hemoptysis
Labs
-
Labs:
WBC 10.9 10^3/uL (4.8-10.8) H 01/11/25 03:03
RBC 2.99 10^6/uL (4.70-6.10) L 01/11/25 03:03
Hgb 9.1 g/dL (13.0-18.0) L D 01/11/25 03:03
Hct 28.1 % (39.0-52.0) L 01/11/25 03:03
Plt Count 38 10^3/uL (130-400) L 01/11/25 03:03
Sodium 136 mmol/L (135-145) 01/11/25 03:03
Potassium 4.3 mmol/L (3.5-5.1) 01/11/25 03:03
Chloride 101 mmol/L (98-107) 01/11/25 03:03
Carbon Dioxide 24 mmol/L (22-30) 01/11/25 03:03
BUN 51 mg/dl (9-20) H 01/11/25 03:03
Creatinine 2.4 mg/dL (0.7-1.3) H 01/11/25 03:03
eGFR 27.62 01/11/25 03:03
Glucose 171 mg/dl (70-99) H 01/11/25 03:03
Calcium 8.9 mg/dl (8.4-10.2) 01/11/25 03:03
Phosphorus 3.1 mg/dl (2.5-4.5) 12/28/24 22:17
Ovg-Z-Nwhqimukllm Pept 75600 pg/ml 01/10/25 20:45
Albumin 3.3 g/dl (3.5-5.0) L 01/01/25 05:29
Physical Exam
-
Vital Signs:
Vital Signs
Temp Pulse Resp BP Pulse Ox
98.8 F 93 14 116/82 99
01/11/25 08:00 01/11/25 08:00 01/11/25 08:00 01/11/25 08:00 01/11/25 08:00
Cardiovascular:: Irregular rate and rhythm
Respiratory:: Bilateral: Rales (decreased BS bilat)
Lung Excursion:: Normal
Abdomen:: Nontender and Soft
Extremity Edema:: None: Bilateral:
Anders Catheter: Yes
--- NOTE | 2025-01-11 10:47 | W.PN.INTV ---
Today's Communication / Plan
Recommendations
Bumex Drip
Wean Nitro drip as tolerated
Trend troponins to new peak
Stop multivitamins
Start scheduled senakot-s
Assessment
-
Assessment:
This is a 74 y/o male with pmhx of coronary artery disease s/p CABG x3, HFrEF, Heart block s/p [employer]NAGER pacer, essential hypertension, insulin-dependent diabetes mellitus and chronic kidney disease who presented to the ED on 12/28/2024 with worsened
shortness of breath over the last 5 days found to have progressive renal insufficiency, hyperkalemia, hypotension and chest x-ray with bilateral infiltrates found to have enterococcus faecalis who was re-admitted to the ICU after development of
chest pain requiring nitro drip for relief.
Plan:
Shortness of Breath
Intermittent Chest Pain
Acute on Chronic HFrEF
Elevated Troponin
Patient with recent admission for acute HFrEF and NSTEMI from 12/20-12/23, readmitted on 12/28 with sepsis/NOE requiring pressor support initially. He was sucessfully weaned off pressors and started on midodrine. He now returns to the ICU for
intermittent chest pain and shortness of breath for nitro drip. Notably, he has had several hospitalizations in recent history of heart failure exacerbations at [facility] and [place]
Echo 12/30/2024 and RENAN 01/07/2025: EF 30%-35% with global hypokinesis, no signs of vegetation on either exam
Initially planned for right heart catheterization on 01/10/2025, but this was deferred due to acute on chronic anemia and thrombocytopenia requiring transfusion with pRBCs
Chest X-ray 01/10: Suggestive of pulmonary edema, which appears increased
Troponin with recent NSTEMI peaked at 27.9 prior to this current admission. In the ED they were 12.1 and decreased down to 0.230 on 01/10, now increasing and currently 0.956
Previously has been receiving Lasix, now on Bumex drip per Nephrology recommendation
Continue to trend troponin to new peak
Unclear at this point if Nitro drip is providing any relief to his chest pain, as it is intermittent and very positional. Will plan to wean as able
Cardiology is following, will appreciate their insight
At this time would recommend a goals of care discussion to be held with patient and his family given his recent history of hospitalizations for acute HFrEF to help determine what is most important to him moving forward
Enterococcus Bacteremia of unknown origin
Blood culture collection initially delayed, positive for bacteremia for labs drawn on 12/28 and 12/30
He was initially treated for septic shock from multifocal pneumonia upon admission
Echo 12/30/2024 and RENAN 01/07/2025: EF 30%-35% with global hypokinesis, no signs of vegetation on either exam
CT scan abdomen/pelvis on 01/01 showed no obvious source of infection
WBC today 10.9 with peak of 35.3 on admission
Currently he is on IV ampicillin. Infectious disease is following and is recommending 6 weeks of IV ampicillin starting from 01/01 when blood cultures became negative for growth
Acute Normocytic Anemia
Chronic Thrombocytopenia
Patient has received 2 units of pRBCs thus far this admission
Hemoglobin today 9.1, platelets 38
No obvious source of bleed
Continue to monitor CBC
Acute on Chronic Kidney Disease
Acute Urinary Retention
History of transient dialysis requirement back in 07/2024
Creatinine of 3.2 in the ED compared to 1.7-1.8 at prior hospitalization, now 2.4
Nephrology is following. Reviewed his case with them today, he is not a good candidate for dialysis and is not interested in it even if he was.
Anders catheter in place, he only produced around 90mL urine after administration of Lasix earlier this AM
Continue tamsulosin
Stop multivitamins today
Constipation
By reviewed staff reports, patient has not had bowel movement recently
Start scheduled senakot-s today
Consider further bowel regimen as needed if constipation persists
History of Coronary Artery Disease
S/p CABG in 2007, LAD stent in 04/2024
Per 12/21/2024 Heart Catheterization: Acute coronary syndrome secondary to occlusion of SVG-distal LAD while the GAFFNEY graft to the mid LAD is widely patent. [place] LAD is very heavily calcified and a rather small caliber vessel.
Subjective Dataa
Subjective Data
Date of Service:
Date of Service: January 11, 2025
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
Subjective:
Patient returned to the ICU due to chest pain requiring nitro drip. He was seen by myself alongside his hospitalist Dr. Fontaine, who was providing translation. Family was not at the bedside at this time. He continues to have difficulty with laying
flat as well as some sore throat following his RENAN. By staff report, he is not interested in aggressive measures such as dialysis, stating 'I lived a good life.' Staff reports that at rest he will only intermittently experience chest pain, but if
they attempt to move him at all he will develop chest pain and shortness of breath without any decrease in his oxygen saturation.
Review of Systems
HEENT: Oral/Throat Pain
Cardiopulmonary: Chest Pain
Objective Data
Data Reviewed
Vital Signs / I&O / Oxygen:
Vital Signs
Temp Pulse Resp BP Pulse Ox
98.8 F 93 14 116/82 99
01/11/25 08:00 01/11/25 08:00 01/11/25 08:00 01/11/25 08:00 01/11/25 08:00
Intake and Output
01/10/25 01/11/25 01/12/25
06:59 06:59 06:59
Intake Total 317.5 / 385.0 1493.7 / 1494.5 123.2 / 123.2
Output Total 1675 / 1675 1110 / 1110 250 / 250
Balance -1357.5 / -1290.0 383.7 / 384.5 -126.8 / -126.8
SaO2 99
Nasal Cannula flow liters per 3
minute
Physical Exam
General: Comfortable
HEENT: Normocephalic and Anicteric
Cardiovascular: S1-S2 and Regular Rhythm
Respiratory: Crackles (Bilateral), Non-Labored Respirations and Other (Supplemental O2, 2L)
Neurology: Awake and Alert
Skin: Good Color
Labs/Micro/Reports
Lab Data
01/11/25 03:03
01/11/25 03:03
--- NOTE | 2025-01-11 12:01 | W.PN.HOSP.TC ---
Today's Communication/Plan
-
CT chest
Bumex gtt
Iv abx
trend cbc
monitor UOP
Wean nitro gtt if possible
Assessment / Plan
Assessment / Plan
General: Well Developed, Well Nourished and Respiratory Distress
HEENT: Normocephalic, Atraumatic, Moist Mucous Membranes, No Ptosis, and Nose Appears Normal
Respiratory: Rhonchi, Crackles and Non Labored Respirations, on 2L NC
Cardiac: Regular Rhythm and S1/S2
Breast: Deferred by me
GI: Soft, Nontender, Nondistended and Normal Bowel Sounds
Genito-urinary: No Costovertebral Tender
Musculoskeletal: No Clubbing, No Cyanosis and No Edema
Skin: Warm
Neuro: Awake, Alert, Oriented, AO x 3 and No Motor Deficits
Psych: Anxious
Assessment/plan:
Shortness of breath possibly due to acute on chronic HFrEF/possible pulmonary edema
Chest pain likely 2/2 Coronary disease with microvascular disease process
Acute on Chronic systolic congestive heart failure
- [facility] last admission showed blocked SVG graft to distal LAD, was planned to be manage medical
- Continue on Plavix statin
- Troponin 12 and has been trending down from elevated troponin max of 28 on 12/20
- Blood pressure soft at times. May need to start pressors if required.
- Repeat chest x-ray with pulmonary edema with worsening probnp
- Currently on 2 L of oxygen. Sats remained stable
- Will plan to obtain CT chest w/o contrast.
- Cardiology and nephrology following
- RHC was cancelled. Bumex gtt started.
- Persistent chest pain-overnight started on IV nitro gtt
thrombocytopenia -unclear chronicity
-Platelets Persistently low. No prior records. Not much improvement in platelets if it was related to infection. Will ask for hematology evaluation.
Enterococcus faecalis bacteremia
- Delayed blood culture collected post PICC placement and abx.
- Vancomycin was initially discontinued, resumed---> Currently patient on IV ampicillin
- Echocardiogram 12/29 did not show any valvular vegetation. May require RENAN if bacteremia persist.
- Repeat blood culture positive from 12/30. f/u repeat blood culture report from 01/01 remains negative
- CT abdomen pelvis did not show any clear infectious source
- Infectious ease recommending 6 weeks of IV ampicillin
-RENAN negative for vegetation
NOE on CKD stage IIIb
Acute urinary retention
- creatinine up to 3.2 in ER, baseline cr 1.7-1.8 at discharge week back,
- Renal dysfunction likely combination from hypotension/cardiorenal syndrome and urinary retention
- Anders catheter to be removed and voiding trial to be done.
- Avoid nephrotoxic medication
- Creatinine at 2.4
Septic shock from multifocal pneumonia
associated with NOE/lactic acidosis
- Reported subjective fever at home. no productive cough.
- Total WBC count of 35K at admission has trended down
- Patient got 1 L of NS, did not provide full 30 mL/kg bolus as patient have systolic heart failure.
- ID help appreciated. Currently patient on IV ampicillin (needs long-term IV antibiotic)
- Added midodrine to regimen.
Acute normocytic anemia
- Hemoglobin 9.1 s/p 2u of PRBC
- No luminal blood loss
Anion gap metabolic acidosis - Improved
- Combination of lactic acidosis and renal dysfunction related
- Provide sodium bicarb few doses
- Being treated for underlying infection
Hyperkalemia - Improved
Hypokalemia
- Hyperkalemia secondary to renal failure/acidosis related at admission
- Post diuresis patient is developing hypokalemia now, replace as needed
Type II DM
- maintain on Lower dose lantus and ISS
- Added Premeal NovoLog
- Hold metformin with renal dysfunction
- Lantus held for now
Essential hypertension
- Hold blood pressure medication as now with soft bp at times
Hyponatremia - resolved
- Combination from hypervolemia and ADH excess with heart failure
- Urine Na 34 Uosm 257
- Further therapy if have worsening of hyponatremia
Acute transaminitis
- Possible due to hypotension related
- LFT trending down.
Mild hyponatremia
-trend na for now
CODE STATUS: Full code
DVT prophylaxis: scds
d/w with lacquer machine feeder
Obtain records from his [place] hospitalization
Total Critical Care Time_ 45 minutes. I was immediately available to the patient and staff. I personally examined, reviewed labs, diagnostic images/reports, interpretations, treatment plans, discussed patient care with other providers and family
or caregivers (if patient is unable to make decisions), entered orders as appropriate and documented the medical record.
Anticipated Discharge: > 48 hours
Subjective/Interval History
-
Date of Service: January 11, 2025
states of dry throat
states cp improved after nitro gtt
Objective Data
-
Labs:
Laboratory Results
01/11/25
03:03
WBC 10.9 H
Hgb 9.1 L D
Hct 28.1 L
Plt Count 38 L
Sodium 136
Potassium 4.3
Chloride 101
Carbon Dioxide 24
BUN 51 H
Creatinine 2.4 H
Glucose 171 H
Calcium 8.9
Vital Signs:
Vital Signs
Temp Pulse Resp BP Pulse Ox
99.3 F 93 14 116/82 99
01/11/25 11:41 01/11/25 08:00 01/11/25 08:00 01/11/25 08:00 01/11/25 08:00
I&O
01/10/25 01/11/25 01/12/25
06:59 06:59 06:59
Intake Total 317.5 / 385.0 1493.7 / 1494.5 364.8 / 364.8
Output Total 1675 / 1675 1110 / 1110 350 / 350
Balance -1357.5 / -1290.0 383.7 / 384.5 14.8 / 14.8
[2025-01-11] MEDS: BUMEX 100 IV ×2 (12:27→23:58)
[2025-01-11] MEDS: SENOKOT-S 1 TABLET PO ×2 (12:28→19:55)
--- NOTE | 2025-01-11 13:00 | PTCARENOTE ---
Pt reported increased SOB and chest pain after laying at 10-15 degrees for a couple minutes. Nitro gtt titrated up for chest pain. SpO2 94% on 3L increased to 96% on 4L. Encouraged pt to remain 30 degrees or higher. Discussed with CT scan. Pt
will not tolerate being flat for scan at this point. Bumex gtt started per order. Will reassess and attempt CT later today.
AAOx3. V-paced with frequent PVCs. 4L NC. Crackles noted bilaterally. Poor appetite. Anders draining clear yellow. All other assessments unchanged.
[2025-01-11 13:48] LABS: ALT (SGPT) 28 U/L (0-50); AST (SGOT) 37 U/L (17-59); Albumin 3.6 g/dl (3.5-5.0); Alkaline Phosphatase 102 U/L (38-126); Total Protein 6.5 g/dl (6.3-8.2)
--- NOTE | 2025-01-11 14:21 | CM ---
Requested updated PT/OT orders from attending. Per therapy, needs new orders since transfer to ICU. Bumex drip. Will need IV/AB x 6 weeks. Discharge POC: [facility] and [facility] PT/OT, RN. referrals previously placed.
--- NOTE | 2025-01-11 14:29 | CM ---
Requested updated PT/OT orders from attending. Per therapy, needs new orders since transfer to ICU. Bumex drip. Will need IV/AB x 6 weeks. Discharge POC: [facility] and [facility] for PT/OT, RN Referrals previously forwarded.
[2025-01-11 14:39] LABS: Glucose - Point of Care 191 mg/dl (70-99)
--- NOTE | 2025-01-11 14:39 | CON.ONC ---
Consultation
-
Date Consultation Requested: 01/11/25
Date Consultation Performed: 01/11/25
Requesting Provider: Pacheco Fontaine MD
Performing Provider: Loreto Carroll MD
Reason for Consultation: thrombocytopenia
Impression
Impression
thrombocytopenia (40-50), stable since admission
slight leukocytosis w/ monocytosis
anemia
Plan
Plan
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 CMML is often indolent and often managed with surveillance alone.
Would not pursue further work-up at this time, but if he improves from a cardiac and renal standpoint, would consider outpatient heme f/u for further w/u.
Will sign off, please call with any questions.
Patient History
History of Present Illness
Asked to see this patient re: low platelet count.
He was admitted 12/20/24 with decompensated HFrEF and chest pain, dyspnea, which has been difficult to manage medically. He's also had worsening NOE, and has expressed reluctance to accept dialysis if offered.
His platelet count has been in the high 30s to low 50s for the entire admission; no prior CBCs to review. WBC is slightly elevated, with monocytosis (17%). He's had chronic normo/macrocytic anemia as well.
It seems that hospice and comfort measures are being considered
Family at bedside speak some Swedish.
Past-Medical/Surgical History
Chronic HFpEF
EF 60-65% by echo 08/2023
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
Unknown level of CKD
CAD
s/p CABG with GAFFNEY-LAD, VG-dLAD, VG-PLB 2007
s/p LAD PCI at [facility] [place] 04/2024s/p tissue AVR 2007
s/p tissue AVR 2007
HLD
HTN
DM
Language barrier
Past Medical History
Past Medical History: Other (in HPI)
Past Surgical History: Appendectomy and Cardiac (CABG tissue AVR 2007, and [employer] LACEWORKER-P 08/26/23)
Social History
Tobacco: Non-Smoker
Alcohol: None
Drug: None
Patient Medication
�Medication �Instructions �Recorded �Confirmed �Last Taken �Type
finasteride 5 mg tablet 5 mg PO DAILY Urinary Issue 08/26/23 12/28/24 08/26/23 08:00 History
tamsulosin 0.4 mg capsule 0.4 mg PO DAILY Urinary Issue 08/26/23 12/28/24 08/26/23 08:00 History
acetaminophen 650 mg 650 mg PO Q6HPRN PRN mild pain 12/20/24 12/28/24 Unknown History
tablet,extended release
aspirin 81 mg tablet,delayed 81 mg PO DAILY Blood Clot 12/20/24 12/28/24 Unknown History
release Prevention/Tx
atorvastatin 80 mg tablet (Lipitor) 80 mg PO HS High Cholesterol 12/20/24 12/28/24 Unknown History
calcium 600 mg (as 1 tab PO DAILY Supplement 12/20/24 12/28/24 Unknown History
carbonate)-vitamin D3 10 mcg (400
unit) tablet (Calcium 600 + D(3))
cetirizine 10 mg tablet 10 mg PO DAILY PRN allergies 12/20/24 12/28/24 Unknown History
cholecalciferol (vitamin D3) 125 125 mcg PO DAILY Supplement 12/20/24 12/28/24 Unknown History
mcg (5,000 unit) tablet (Vitamin
D3)
clopidogrel 75 mg tablet 75 mg PO DAILY Blood Clot 12/20/24 12/28/24 Unknown History
Prevention/Tx
famotidine 40 mg tablet 40 mg PO HS Gastrointestinal Issue 12/20/24 12/28/24 Unknown History
ferrous sulfate 325 mg (65 mg 325 mg PO DAILY Anemia 12/20/24 12/28/24 Unknown History
iron) tablet
insulin glargine 100 unit/mL (3 30 unit SC DAILY Diabetes ##0 12/20/24 12/28/24 Unknown History
mL) subcutaneous pen (Basaglar
KwikPen U-100 Insulin)
ipratropium bromide 21 mcg (0.03 2 spray intranasal BID Allergies 12/20/24 12/28/24 Unknown History
%) nasal spray
metformin 500 mg tablet 500 mg PO BID Diabetes 12/20/24 12/28/24 Unknown History
Held on 12/23/24.
Instructions: This medication
should be held due to his
chronic kidney disease, will
need close follow-up with his
primary care physician for
alternative diabetic
medications as needed
metoprolol tartrate 25 mg tablet 25 mg PO BID Heart Failure 12/20/24 12/28/24 Unknown History
multivitamin 1 tab PO DAILY Supplement 12/20/24 12/28/24 Unknown History
nitroglycerin 0.4 mg sublingual 0.4 mg sublingual Q5-15M PRN chest 12/20/24 12/28/24 Unknown History
tablet pain
pantoprazole 40 mg tablet,delayed 40 mg PO DAILY 30 days #30 tabs 12/23/24 12/28/24 Unknown Rx
release
torsemide 20 mg tablet 20 mg PO DAILY 30 days #30 tabs 12/23/24 12/28/24 Unknown Rx
Active Medications
Generic Name Dose Route Start Last Admin
Trade Name Freq PRN Reason Stop Dose Admin
Acetaminophen 650 mg 12/28/24 17:23 01/07/25 13:55
Acetaminophen 325 Mg Tablet PO 01/25/25 17:22 650 mg
Q6HPRN PRN Administration
mild pain
Aspirin 81 mg 12/29/24 08:00 01/11/25 08:23
Aspirin 81 Mg (Enteric Coated) Tablet PO 01/26/25 07:59 81 mg
DAILY MIKAL Administration
Cholecalciferol 125 mcg 12/29/24 08:00 01/11/25 08:24
Cholecalciferol (Vitamin D3) 125 Mcg Tablet (5,000 Units) PO 01/26/25 07:59 Not Given
DAILY MIKAL
Clopidogrel Bisulfate 75 mg 12/29/24 08:00 01/11/25 08:23
Clopidogrel 75 Mg Tablet PO 01/26/25 07:59 75 mg
DAILY MIKAL Administration
Dextrose 12.5 grams 12/28/24 16:33
Dextrose 50% (0.5 Grams/Ml) 50 Ml Syringe IV 01/25/25 16:32
[id number] PRN
hypoglycemia
Protocol
Famotidine 20 mg 12/29/24 22:00 01/10/25 21:20
Famotidine 20 Mg Tablet PO 01/26/25 21:59 20 mg
Q48H MIKAL Administration
Ferrous Sulfate 325 mg 12/29/24 08:00 01/11/25 08:24
Ferrous Sulfate 325 Mg Tablet PO 01/26/25 07:59 Not Given
DAILY MIKAL
Finasteride 5 mg 12/29/24 08:00 01/11/25 08:23
Finasteride 5 Mg Tablet PO 01/26/25 07:59 5 mg
DAILY MIKAL Administration
Glucagon 1 mg 12/28/24 16:33
Glucagon 1 Mg Vial IM 01/25/25 16:32
PRN PRN
hypoglycemia
Protocol
Insulin Glargine 20 units/ 0.2 mls @ 0 mls/hr 01/04/25 22:00 01/08/25 21:35
Device SC 01/25/25 21:59 0.2 mls
On Hold: 01/09/25 21:16 HS MIKAL Administration
Resume: 01/11/25 22:00 As Directed
Ampicillin Sodium 2,000 mg/ 108 mls @ 108 mls/hr 01/04/25 12:00 01/11/25 12:28
Sodium Chloride IV 108 mls
Q8H MIKAL Administration
Nitroglycerin/Dextrose 100 mg in 250 mls @ 0 mls/hr 01/10/25 22:15 01/10/25 22:55
Nitroglycerin Premix IV 250 mls
PER PROTOCOL MIKAL Administration
Protocol
Per Protocol
Bumetanide 25 mg in 100 mls @ 4 mls/hr 01/11/25 11:00 01/11/25 12:27
Bumex IV 100 mls
ORDERED RATE MIKAL Administration
1 MG/HR
Insulin Aspart 0 units 12/28/24 16:33 01/11/25 14:29
Insulin Aspart Low Resistance 300 Units/3 Ml Pen.Injctr SC 01/25/25 16:32 1 units
AC MIKAL Administration
Protocol
Insulin Aspart 5 units 12/30/24 16:30 01/11/25 10:24
Insulin Aspart (Novolog) 100 Units/Ml 3 Ml Flexpen SC 01/27/25 16:29 5 units
AC MIKAL Administration
Lidocaine 1 patch 01/07/25 08:00 01/11/25 08:23
Lidocaine 4% Topical Patch TOPICAL 02/04/25 07:59 1 patch
DAILY MIKAL Administration
Protocol
Midodrine 10 mg 12/30/24 13:00 01/11/25 14:25
Midodrine 5 Mg Tablet PO 01/27/25 12:59 Not Given
TID@0800,1300,1800 MIKAL
Morphine Sulfate 1 mg 01/08/25 12:45 01/11/25 00:08
Morphine 2 Mg/Ml Syringe IV 01/22/25 12:44 1 mg
Q4HPRN PRN Administration
chest pain/dyspnea
Pantoprazole Sodium 40 mg 12/29/24 08:00 01/11/25 08:23
Pantoprazole 40 Mg Delayed Release Tablet PO 01/26/25 07:59 40 mg
DAILY MIKAL Administration
Patch Removal 0 patch 01/07/25 20:00 01/10/25 19:06
Remove Lidocaine Patch REMOVE 02/04/25 19:59 1 patch
DAILY@2000 MIKAL Administration
Phenol 0 spray 12/29/24 09:02 01/11/25 09:15
Chloraseptic (1.4% Phenol) Throat [place] PO 01/26/25 09:01 1 spray
Q2HPRN PRN Administration
sore throat
Senna/Docusate Sodium 1 tablet 01/11/25 20:00
Docusate W/Senna (Renata-Colace) Tablet PO 02/08/25 19:59
BID MIKAL
Sodium Chloride 0 flush 12/28/24 17:00 01/03/25 03:55
Sodium Chloride 0.9% (Flush) Syringe IV 01/25/25 16:59 2 flush
PER PROTOCOL MIKAL Administration
Tamsulosin HCl 0.4 mg 12/29/24 08:00 01/11/25 08:23
Tamsulosin 0.4 Mg Capsule PO 01/26/25 07:59 0.4 mg
DAILY MIKAL Administration
Physical Exam
Labs
Lab Results
WBC 10.9 10^3/uL (4.8-10.8) H 01/11/25 03:03
RBC 2.99 10^6/uL (4.70-6.10) L 01/11/25 03:03
Hgb 9.1 g/dL (13.0-18.0) L D 01/11/25 03:03
Hct 28.1 % (39.0-52.0) L 01/11/25 03:03
MCV 94.0 fL (80.0-94.0) 01/11/25 03:03
MCH 30.4 pg (27.0-31.0) 01/11/25 03:03
MCHC 32.4 g/dL (33.0-37.0) L 01/11/25 03:03
RDW 16.1 % (11.5-14.5) H 01/11/25 03:03
Plt Count 38 10^3/uL (130-400) L 01/11/25 03:03
MPV 12.0 fL (7.4-10.4) H 01/11/25 03:03
Abs Immat Gran (auto) 1.0 10^3/uL (0-0.05) H 12/28/24 12:58
Absolute Neuts (auto) 29.8 10^3/uL (1.4-6.5) H 12/28/24 12:58
Absolute Lymphs (auto) 0.6 10^3/uL (1.2-3.4) L 12/28/24 12:58
Absolute Monos (auto) 3.9 10^3/uL (0.1-0.6) H 12/28/24 12:58
Absolute Eos (auto) 0.0 10^3/uL (0-0.7) 12/28/24 12:58
Absolute Basos (auto) 0.1 10^3/uL (0-0.2) 12/28/24 12:58
Immature Gran % 2.8 % (0-0.5) H 12/28/24 12:58
Neutrophils % 84.3 % (42.2-75.2) H 12/28/24 12:58
Lymphocytes % 1.6 % (20.5-51.1) L 12/28/24 12:58
Monocytes % 11.1 % (1.7-9.3) H 12/28/24 12:58
Eosinophils % 0.0 % (0-6) 12/28/24 12:58
Basophils % 0.2 % (0-2) 12/28/24 12:58
Creatinine 2.4 mg/dL (0.7-1.3) H 01/11/25 03:03
Vital Signs
Vital Signs
Temp Pulse Resp BP Pulse Ox
99.3 F 93 14 116/82 99
01/11/25 11:41 01/11/25 08:00 01/11/25 08:00 01/11/25 08:00 01/11/25 08:00
--- NOTE | 2025-01-11 16:00 | PTCARENOTE ---
Increased SOB. Pursed lip breathing and accessory muscle use. MD called to bedside. PRN Morphine given. Bumex gtt increased per order. Pt reported having something stuck in throat then coughed up a large blood clot. MD made aware.
All other assessments unchanged.
--- NOTE | 2025-01-11 16:36 | W.PN.UPDATE ---
Update Note
Progress Note Update
Back in to see patient and update additional family at the bedside. Family was able to pull up patient's granddaughter, jamaal, on the phone to help us with parts interpreter services. Since our visit this morning patient was started on Bumex gtt and has
had mild increase in urine output. Patient continues to feel SOB and has relief with morphine. We talked about continuing aggressive care including RHC once he is able to be supine in [facility] and that pending hemodynamics he could be started on
inotrope therapy. I wrote terms out on the whiteboard in his room so that they could do their own research. Another option would be to make the patient more comfortable and pursuing hospice. Patient told nephrology earlier today that even if
hospice was an option he was not interested and was feeling tired and felt he had already lived a good life. Family would like to consider other options, we did discuss that if inotropic therapy is used but overall this would be a poor prognostic
indicator for his overall heart failure status. Biggest issue is pain in his neck from persistent coughing. Patient expectorated dark red blood this morning, sounds like this is most likely related to persistent cough. I reviewed with pharmacy
staff and we are going to try Tessalon Perles overnight and if no response we will try promethazine with codeine tomorrow. I also increased morphine to 2 mg IV every 4 hours as needed. 31 minutes critical care time [id number] and [id number]
with the patient and family explaining goals of care which are critical decision making points to his current hospitalization.
[2025-01-11 16:39] LABS: Glucose - Point of Care 202 mg/dl (70-99)
[2025-01-11 17:10] LABS: Troponin I 0.907 ng/ml
[2025-01-11] MEDS: MORPHINE SULFATE 2 MG IV ×2 (17:17→21:39)
[2025-01-11] MEDS: LIPITOR 80 MG PO (17:17)
[2025-01-11] MEDS: NOVOLOG FLEXPEN-LOW RESISTANCE 2 UNITS SC (17:21)
--- NOTE | 2025-01-11 18:07 | PTCARENOTE ---
Worsening SOB. Unable to turn pt without severe SOB and chest pain. Some improvement with PRN Morphine. Slightly improved urine output after increase in bumex gtt.
[2025-01-11] MEDS: TESSALON PERLES 200 MG PO (19:55)
[2025-01-11] MEDS: TYLENOL 650 MG PO (19:55)
[2025-01-11] MEDS: REMOVE LIDOCAINE PATCH 1 PATCH REMOVE (19:56)
--- NOTE | 2025-01-11 20:00 | PTCARENOTE ---
Rec'd pt resting in bed,family at bedside & interprets for pt, pt oriented, cooperative, tyleonol 650mg po given for throat ache, pt refuses to be turned due to resp status, aware of importance of turning to prevent pressure injuries; family at this
time are discussing all care options as pt garcía not want to have HD, granddtr said that they will make their decision by tomorrow, VPaced, PVCs, bp stable, ntg gtt at 20 ana, bumex gtt at 2 mg, weak distal pulses, skin warm/dry, O2 4 liters nc, sat
99, lungs w/ fine crackles, decr, tessalon pearls given as requested, + bowel sounds, no bm, abd soft, no n/v, poor appetite, thermister wolf drainng jared urine
[2025-01-11] MEDS: MELATONIN 5 MG PO (21:38)
--- NOTE | 2025-01-11 21:45 | PTCARENOTE ---
morphine 2mg iv given for sob, CHG bath done, pt cont to refuse to be turned in bed, family at bedside
[2025-01-11 21:54] LABS: Glucose - Point of Care 248 mg/dl (70-99)
[2025-01-11] MEDS: LANTUS 0.2 UNITS SC (22:01)
[2025-01-12] VITALS (37 sets, daily range): BP systolic 90–147; BP diastolic 58–115; BMI 22.6
--- NOTE | 2025-01-12 | PTCARENOTE ---
pt sleeping,no changes in assessment
[2025-01-12] MEDS: AMPICILLIN 108 MG IV ×3 (03:08→21:23)
[2025-01-12 03:21] LABS: Hematocrit 25.9 % (39.0-52.0); Hemoglobin 8.4 g/dL (13.0-18.0); Mean Corp Hgb Conc. 32.4 g/dL (33.0-37.0); Mean Corpuscular Volume 98.1 fL (80.0-94.0); Platelet Count 36 10^3/uL (130-400); Red Cell Dist. Width 16.5 % (11.5-14.5)
--- NOTE | 2025-01-12 03:50 | PTCARENOTE ---
sys reviewed, pt cont to refuse to be turned
[2025-01-12 03:53] LABS: Blood Urea Nitrogen 55 mg/dl (9-20); Calcium 8.8 mg/dl (8.4-10.2); Carbon Dioxide 27 mmol/L (22-30); Chloride 98 mmol/L (98-107); Estimated Creatinine Clearance 26 ml/min; Glucose 162 mg/dl (70-99); Magnesium 1.9 mg/dl (1.6-2.3); Potassium 3.5 mmol/L (3.5-5.1); Sodium 134 mmol/L (135-145); eGFR 29.07
[2025-01-12] MEDS: CHLORASEPTIC/SORE THROAT SPRAY 1 SPRAY PO ×2 (04:28→19:57)
[2025-01-12 04:44] LABS: Total Cells Counted 100
[2025-01-12 05:52] LABS: Absolute Neutrophils -Man Diff 9.2 10^3/uL (1.4-6.5); Normal RBC Morphology Yes; Platelets Checked Yes
[2025-01-12] MEDS: TESSALON PERLES 200 MG PO (06:01)
--- NOTE | 2025-01-12 06:02 | PTCARENOTE ---
tessalon pearls 200mg po given for cough
[2025-01-12 07:33] LABS: Glucose - Point of Care 176 mg/dl (70-99)
[2025-01-12] MEDS: MORPHINE SULFATE 2 MG IV ×2 (08:06→23:17)
--- NOTE | 2025-01-12 08:27 | W.PN.INTV ---
Today's Communication / Plan
Recommendations
Replete K
Bumux increase from 2 to 3
Goals of care discussions
Assessment
-
Assessment:
This is a 74 y/o male with pmhx of coronary artery disease s/p CABG x3, HFrEF, Heart block s/p MOISTURE METER OPERATOR pacer, essential hypertension, insulin-dependent diabetes mellitus and chronic kidney disease who presented to the ED on 12/28/2024 with worsened
shortness of breath over the last 5 days found to have progressive renal insufficiency, hyperkalemia, hypotension and chest x-ray with bilateral infiltrates found to have enterococcus faecalis who was re-admitted to the ICU after development of
chest pain requiring nitro drip for relief.
Plan:
Shortness of Breath
Intermittent Chest Pain
Acute on Chronic HFrEF
Elevated Troponin
Patient with recent admission for acute HFrEF and NSTEMI from 12/20-12/23, readmitted on 12/28 with sepsis/NOE requiring pressor support initially. He was successfully weaned off pressors and started on midodrine. He now returns to the ICU for
intermittent chest pain and shortness of breath for nitro drip. Notably, he has had several hospitalizations in recent history of heart failure exacerbations at [place] and [facility]
Echo 12/30/2024 and RENAN 01/07/2025: EF 30%-35% with global hypokinesis, no signs of vegetation on either exam
Initially planned for right heart catheterization on 01/10/2025, but this was deferred due to acute on chronic anemia and thrombocytopenia requiring transfusion with pRBCs, now being deferred as patient cannot tolerate lying flat without extreme
pain and shortness of breath.
Chest X-ray 01/10: Suggestive of pulmonary edema, which appears increased
Troponin with recent NSTEMI peaked at 27.9 prior to this current admission. In the ED they were 12.1 and decreased down to 0.230 on 01/10, reached their peak yesterday at 0.956
Previously has been receiving Lasix, now on Bumex drip per Nephrology recommendation. Will increase dose today to from 2 to 3
Recheck labs this afternoon
Unclear at this point if Nitro drip is providing any relief to his chest pain, as it is intermittent, positional, and very much present despite drip. Will plan to wean as able
Cardiology is following, will appreciate their insight
Discussed goals with patient. I spent time counselling his family that various parts of his body are very sick, and that further potential interventions such as RHC and CT scan are limited by his inability to lay flat. At this point he still wishes
to pursue medical treatment aside from dialysis. Will continue discussions over the course of the day.
Prognosis remains poor
Hypokalemia
Replete today, will limit dose due to renal function
Enterococcus Bacteremia of unknown origin
Blood culture collection initially delayed, positive for bacteremia for labs drawn on 12/28 and 12/30
He was initially treated for septic shock from multifocal pneumonia upon admission
Echo 12/30/2024 and RENAN 01/07/2025: EF 30%-35% with global hypokinesis, no signs of vegetation on either exam
CT scan abdomen/pelvis on 01/01 showed no obvious source of infection
WBC today 13 with peak of 35.3 on admission
Currently he is on IV ampicillin. Infectious disease is following and is recommending 6 weeks of IV ampicillin starting from 01/01 when blood cultures became negative for growth
Acute Normocytic Anemia
Chronic Thrombocytopenia
Patient has received 2 units of pRBCs thus far this admission
Hemoglobin today 8.4, platelets 36
No obvious source of bleed
Continue to monitor CBC
Hematology was consulted by primary team, further workup deferred until cardiac and renal function improves
Acute on Chronic Kidney Disease
Acute Urinary Retention
History of transient dialysis requirement back in 07/2024
Creatinine of 3.2 in the ED compared to 1.7-1.8 at prior hospitalization, now 2.3
Nephrology is following. Reviewed his case with them today, he is not a good candidate for dialysis and is not interested in it even if he was.
Anders catheter in place, producing more urine today with Bumex drip than yesterday
Continue tamsulosin
Constipation
By reviewed staff reports, patient has not had bowel movement recently
Continue scheduled senakot-s
Consider further bowel regimen as needed if constipation persists
History of Coronary Artery Disease
S/p CABG in 2007, LAD stent in 04/2024
Per 12/21/2024 Heart Catheterization: Acute coronary syndrome secondary to occlusion of SVG-distal LAD while the GAFFNEY graft to the mid LAD is widely patent. The [place] LAD is very heavily calcified and a rather small caliber vessel.
Subjective Dataa
Subjective Data
Date of Service:
Date of Service: January 12, 2025
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
Subjective:
Patient is present today with his daughter at bedside. [employer] Advisor services were used with [facility] ([id number]) providing medical translation.
Today, patient continues to experience chest pain and shortness of breath. His daughter showed me a cup that he had coughed up a glob of approximately 1 tablespoon of thick, red mucus with white streaks. This productive cough has been ongoing for
some time. He states that he is concerned because he has been in bed for a long time, and feels very weak and wants to try walking. He understands however that physical movement is limited by his chest pain and shortness of breath. During our
conversation even just mild conversation with me caused him to develop significant shortness of breath to the point where he could not continue speaking for some time. He also has pain in both of his legs, which feel very stiff.
Review of Systems
General: Pain
HEENT: Oral/Throat Pain
Cardiopulmonary: Dyspnea, Dyspnea on Exertion, Cough, Chest Pain, Lower Extremity Pain and Hemoptysis
Neuro: Weakness
Objective Data
Data Reviewed
Vital Signs / I&O / Oxygen:
Vital Signs
Temp Pulse Resp BP Pulse Ox
98 F 103 15 122/78 98
01/12/25 07:07 01/12/25 08:00 01/12/25 08:00 01/12/25 08:00 01/12/25 08:00
Intake and Output
01/11/25 01/12/25 01/13/25
06:59 06:59 06:59
Intake Total 1493.7 / 1494.5 1549.6 / 1560.6
Output Total 1110 / 1110 1785 / 1785
Balance 383.7 / 384.5 -235.4 / -224.4
SaO2 98
Nasal Cannula flow liters per 4
minute
Physical Exam
General: Pain (Initially comfortable, then became uncomfortable during our conversation)
HEENT: Normocephalic and Anicteric
Cardiovascular: S1-S2, Regular Rhythm and Other (Tachycardic)
Respiratory: Clear (Lungs clear with anterior dexter, exam limited by patient's shortness of breath. No decrease in oxygen saturation during his shortness of breath.) and Other (Supplemental O2)
Neurology: Awake, Alert and Oriented
Skin: Warm, Dry, Good Color and Other (No edema of the lower extremities, but reported pain with even mild palpation, L>R)
Labs/Micro/Reports
Lab Data
01/12/25 03:05
01/12/25 03:05
[2025-01-12] MEDS: NOVOLOG FLEXPEN-LOW RESISTANCE 1 UNITS SC ×2 (08:49→14:28)
[2025-01-12] MEDS: NOVOLOG FLEXPEN 5 UNITS SC ×2 (08:49→14:28)
[2025-01-12] MEDS: LIDOCAINE 4% PATCH 1 PATCH TOPICAL (08:50)
[2025-01-12] MEDS: FLOMAX 0.4 MG PO (08:50)
[2025-01-12] MEDS: FEOSOL 325 MG PO (08:50)
[2025-01-12] MEDS: PLAVIX 75 MG PO (08:50)
[2025-01-12] MEDS: ASPIR LOW (ENTERIC COATED) 81 MG PO (08:50)
[2025-01-12] MEDS: PROTONIX 40 MG PO (08:50)
[2025-01-12] MEDS: PROSCAR 5 MG PO (08:50)
[2025-01-12] MEDS: SENOKOT-S 1 TABLET PO ×2 (08:50→21:23)
[2025-01-12] MEDS: VITAMIN D3 (cholecalciferol) PO (09:30)
[2025-01-12] MEDS: BUMEX 100 IV ×2 (10:39→19:58)
--- NOTE | 2025-01-12 10:39 | W.PN.ID1 ---
Date of Service
Date of Service: January 12, 2025
Today's Communication
continue ampicillin
Assessment / Plan
Enterococcus faecalis bacteremia (3 sets):
s/p Septic shock secondary to Enterococcus faecalis bacteremia
Suspect endocarditis
NOE
Leukocytosis
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
01/01 Repeat blood cx's x2 neg
TTE on 12/29 did not show vegetation and was unchanged from prior echo on 12/20.
01/07/25 RENAN: no vegetation
Patient likely has endocarditis based on Lange's criteria with 1 major and 3 minor criteria met
Continue ampicillin 2 g IV every 8 hours
PICC line placed on 01/04/2025
Plan 6 weeks of IV ampicillin from clearance of blood cultures 01/01-02/11 - script provided to case maker
Acute on chronic CHF exacerbation
Pulm edema with hemoptysis
- Management as per Cardiology and Hospitalist
Chief Complaint
-: Bacteremia
Subjective / Review of Systems
tmax 100.4 overnight, no further elevated Ts recorded
BP overall stable
overnight unable to be turned without shortness of breath and chest pain
started on bumex and morphine
cardiology considering RHC and inotropes; hospice was also discussed and patient/family refused
having some hemoptysis
Vital Signs / Physical Exam
Vital Signs
Vital Signs
Temp Pulse Resp BP Pulse Ox
98 F 103 15 122/78 98
01/12/25 07:07 01/12/25 08:00 01/12/25 08:00 01/12/25 08:00 01/12/25 08:00
Physical Exam
Constitutional: No Acute Distress
Cardiovascular: Regular Rate and S1/S2; Negative Murmur or Rub
Pulmonary: Clear and Symmetric; Negative Wheezes or Rales
Gastrointestinal: Soft, Non Tender, Non Distended and Normal Bowel Sounds
Skin: Warm and Dry; Negative Rash or Jaundice
Lines: PICC and Other (pacemaker)
Objective Data
Lab Data
Lab Results
01/12/25 03:05
ESR 42 mm/hour (0-20) H 01/01/25 05:29
PT 17.1 Sec (11.4-14.6) H 12/28/24 12:58
INR 1.36 12/28/24 12:58
APTT 42.4 Sec (23.4-35.0) H 12/28/24 12:58
Estimated Creat Clear 26 ml/min 01/12/25 03:05
Lactic Acid 1.1 mmol/L (0.7-2.0) 01/12/25 09:48
Total Bilirubin 3.1 mg/dl (0.2-1.3) H 01/11/25 03:03
AST 37 U/L (17-59) 01/11/25 03:03
ALT 28 U/L (0-50) 01/11/25 03:03
Alkaline Phosphatase 102 U/L (38-126) 01/11/25 03:03
C-Reactive Protein 39.30 mg/L (0.0-10.00) H 01/01/25 05:29
Most recent labs reviewed.
Micro Results:
01/01/25 08:41 Blood Culture - Final
Blood/Venous No Growth - Final Report
01/01/25 08:42 Blood Culture - Final
Blood/Venous No Growth - Final Report
12/30/24 10:21 Blood Culture - Final
Blood/Venous Enterococcus faecalis
Gram Stain - Final
12/30/24 10:34 Blood Culture - Final
Blood/Venous No Growth - Final Report
12/28/24 23:16 Blood Culture - Final
Blood/Venous Enterococcus faecalis
Gram Stain - Final
12/28/24 22:17 Blood Culture - Final
Blood/Venous Enterococcus faecalis
Gram Stain - Final
12/28/24 22:17 Nasal Screen MRSA (PCR) - Final
Nose MRSA not detected - performed by PCR methodology.
12/28/24 17:46 Influenza Types A & B (FLACO) - Final
Nasal Swab Negative for Influenza A & B, NAAT
Negative results must be combined with clinical observations
and patient history.
Nucleic Acid Amplification test (NAAT)performed on the
[employer] platform.
Imaging:
01/07/25 CXR: Bilateral interstitial and alveolar pulmonary opacities, suspicious for pulmonary edema in the appropriate clinical setting.
12/31/2024 CXR (portable): overall improvement in bilateral interstitial markings, suggesting improvement in interstitial pulmonary edema pattern. A small focus of patchy parenchymal opacity within the left lower lung, new from recent exam,
possibly atelectasis versus pneumonia. Dual-lead PPM in place.
--- NOTE | 2025-01-12 11:20 | W.PN.NEPH.PH ---
Today's Communication / Plan
-
Agree with increasing Bumex drip rate
Assessment/Plan
-
Impression:
Decompensated HFrEF 30%
CKD 3B, baseline around 1.7
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
CAD/CABG
HTN
DM2
Hyponatremia, hyperkalemia
Hypotension
Enterococcus bacteremia and suspected IE
Plan:
cr is up at 2.4 and non oliguric
but ongoing sob and cp, started nitro gtt
CXR noted pulm edema and high BNP
Await for RHC today to determine vol status
h/o left heart cath 12/21 = medical management for CAD/angina per cardiology
BP stable with midodrine
anemia better post PRBC on 01/10, plt are also low
IV abx per ID for Enterococcus bacteremia and suspected IE
d/w pt and family at bedside
Dr. Ag reviewed with pt 01/11 that If he fails medical management and worsening renal function he is not good candidate for dialysis -which he agrees and reports that he lived his life so far fine and do not want dialysis at all
Agree with increasing Bumex drip
reviewed with ICU and nursing
high risk encounter

33 minutes.
-
-
Date of Service: January 12, 2025
CC / HPI / ROS
-
Chief Complaint:
NOE
History of Present Illness:
NOE/creatinine up at 2.4
was sob last night and had extra dose lasix
RHC was not done yesterday and plan today
plt low no change at 38k
sodium stable at 136, k better at 4.3
Hemoglobin better at 9.1 post PRBC 01/10
Remains on high-dose midodrine for hypotension
Review of Systems:
reports CP/SOB with little activity, now on nitro gtt
no n/v
has cough, hemoptysis
Labs
-
Labs:
WBC 13.0 10^3/uL (4.8-10.8) H 01/12/25 03:05
RBC 2.64 10^6/uL (4.70-6.10) L 01/12/25 03:05
Hgb 8.4 g/dL (13.0-18.0) L 01/12/25 03:05
Hct 25.9 % (39.0-52.0) L 01/12/25 03:05
Plt Count 36 10^3/uL (130-400) L 01/12/25 03:05
eGFR 29.07 01/12/25 03:05
Phosphorus 3.1 mg/dl (2.5-4.5) 12/28/24 22:17
Ryb-L-[id number] Pept 31362 pg/ml 01/10/25 20:45
Albumin 3.6 g/dl (3.5-5.0) 01/11/25 03:03
Physical Exam
-
Vital Signs:
Vital Signs
Temp Pulse Resp BP Pulse Ox
98 F 103 15 122/78 98
01/12/25 07:07 01/12/25 08:00 01/12/25 08:00 01/12/25 08:00 01/12/25 08:00
--- NOTE | 2025-01-12 12:00 | PTCARENOTE ---
Bumex and Nitro gtt continue. Improved urine output. All other assessments unchanged.
--- NOTE | 2025-01-12 12:13 | W.PN.UPDATE ---
Update Note
Progress Note Update
Discussion held with the patient and additional family members at bedside. He continues to have chest pain. Also very short of breath with activity which then worsens the chest pain. Ideally we would like to obtain further imaging with a CT
chest/neck and possibly a barium swallow if these are not revealing of an etiology of his symptoms. I mentioned that if his symptoms got worse and he needs to be on a breathing machine, would this be something he is okay with and he said that he
would not want this. I also asked that if his heart were to stop and he needed us to panel his chest with CPR to help get his heart back what he want this, and he said no. Surgical Aides Teacher with mental health aides teacher number: [id number] was used for this conversation.
I will give him pain medications with fentanyl + Versed to see if he can lay flat and then hopefully can go down for CT chest/neck which will give us some answers as to what is causing his symptoms. Bedside RN made aware. The resident,
Milan, was present with me during this conversation.
[2025-01-12] MEDS: SUBLIMAZE 25 MCG IV (12:20)
[2025-01-12] MEDS: KLOR-CON 20 MEQ PO (12:20)
[2025-01-12] MEDS: VERSED 1 MG IV (12:21)
--- NOTE | 2025-01-12 13:15 | W.PN.HOSP.TC ---
Today's Communication/Plan
-
Monitor vitals
See plan
Intensive discussed with the patient, CODE STATUS changed to DNR
Continue with Bumex drip
Continue antibiotic
Nitro
Wean oxygen as tolerated
CT chest, neck
Assessment / Plan
Assessment / Plan
General: Well Developed, Well Nourished and Respiratory Distress
HEENT: Normocephalic, Atraumatic, Moist Mucous Membranes, No Ptosis, and Nose Appears Normal
Respiratory: Rhonchi, Crackles and Non Labored Respirations, on 2L NC
Cardiac: Regular Rhythm and S1/S2
Breast: Deferred by me
GI: Soft, Nontender, Nondistended and Normal Bowel Sounds
Genito-urinary: No Costovertebral Tender
Musculoskeletal: No Edema
Neuro: Awake, Alert, Oriented, AO x 3 and No Motor Deficits
Psych: Anxious
Assessment/plan:
Shortness of breath possibly due to acute on chronic HFrEF/possible pulmonary edema
Chest pain likely 2/2 Coronary disease with microvascular disease process
Acute on Chronic systolic congestive heart failure
- [facility] last admission showed blocked SVG graft to distal LAD, was planned to be manage medical
- Continue on Plavix statin
- Troponin 12 and has been trending down from elevated troponin max of 28 on 12/20
- Blood pressure soft at times. May need to start pressors if required.
- Repeat chest x-ray with pulmonary edema with worsening probnp
- Currently on 4 L of oxygen. Sats remained stable
- Cardiology and nephrology following
- RHC was cancelled. Bumex gtt started.
- Persistent chest pain-started on IV nitro gtt
CT Chest neck pending if patient can lay flat
thrombocytopenia -unclear chronicity
-Platelets Persistently low. No prior records. Not much improvement in platelets if it was related to infection. Seen by hematology, thinking findings could be CMML and would need to require bone marrow biopsy to confirm. Hematology currently
signed off however wants patient to follow-up with them outpatient once he is stable
Enterococcus faecalis bacteremia
- Delayed blood culture collected post PICC placement and abx.
- Vancomycin was initially discontinued, resumed---> Currently patient on IV ampicillin
- Echocardiogram 12/29 did not show any valvular vegetation. May require RENAN if bacteremia persist.
- Repeat blood culture positive from 12/30. f/u repeat blood culture report from 01/01 remains negative
- CT abdomen pelvis did not show any clear infectious source
- Infectious ease recommending 6 weeks of IV ampicillin
-RENAN negative for vegetation
NOE on CKD stage IIIb
Acute urinary retention
- creatinine up to 3.2 in ER, baseline cr 1.7-1.8 at discharge week back,
- Renal dysfunction likely combination from hypotension/cardiorenal syndrome and urinary retention
- Anders catheter to be removed and voiding trial to be done.
- Avoid nephrotoxic medication
- Creatinine at 2.3
Per patient he would not want dialysis
Septic shock from multifocal pneumonia
associated with NOE/lactic acidosis
- Reported subjective fever at home. no productive cough.
- Total WBC count of 35K at admission has trended down
- Patient got 1 L of NS, did not provide full 30 mL/kg bolus as patient have systolic heart failure.
- ID help appreciated. Currently patient on IV ampicillin (needs long-term IV antibiotic)
- Added midodrine to regimen.
Acute normocytic anemia
- Hemoglobin 8.4 s/p 2u of PRBC
- No luminal blood loss
Anion gap metabolic acidosis - Improved
- Combination of lactic acidosis and renal dysfunction related
- Provide sodium bicarb few doses
- Being treated for underlying infection
Hyperkalemia - Improved
Hypokalemia
- Hyperkalemia secondary to renal failure/acidosis related at admission
- Post diuresis patient is developing hypokalemia now, replace as needed
Type II DM
- maintain on Lower dose lantus and ISS
- Added Premeal NovoLog
- Hold metformin with renal dysfunction
- Lantus held for now
Essential hypertension
- Hold blood pressure medication as now with soft bp at times
Hyponatremia - resolved
- Combination from hypervolemia and ADH excess with heart failure
- Urine Na 34 Uosm 257
- Further therapy if have worsening of hyponatremia
Acute transaminitis
- Possible due to hypotension related
- LFT trending down.
Mild hyponatremia
-trend na for now
CODE STATUS: DNR
DVT prophylaxis: scds
d/w with mutual fund sales agent
Obtain records from his [facility]
Total Critical Care Time_ 43 minutes. I was immediately available to the patient and staff. I personally examined, reviewed labs, diagnostic images/reports, interpretations, treatment plans, discussed patient care with other providers and family
or caregivers (if patient is unable to make decisions), entered orders as appropriate and documented the medical record.
Anticipated Discharge: > 48 hours
Subjective/Interval History
-
Date of Service: January 12, 2025
Complains of chest pain and shortness of breath at times
Objective Data
-
Labs:
Laboratory Results
01/12/25 01/12/25
03:05 14:00
WBC 13.0 H
Hgb 8.4 L
Hct 25.9 L
Plt Count 36 L
Sodium 134 L Pending
Potassium 3.5 Pending
Chloride 98 Pending
Carbon Dioxide 27 Pending
BUN 55 H Pending
Creatinine 2.3 H Pending
Glucose 162 H Pending
Calcium 8.8 Pending
Vital Signs:
Vital Signs
Temp Pulse Resp BP Pulse Ox
98.5 F 103 15 122/78 98
01/12/25 11:29 01/12/25 08:00 01/12/25 08:00 01/12/25 08:00 01/12/25 08:00
I&O
01/11/25 01/12/25 01/13/25
06:59 06:59 06:59
Intake Total 1493.7 / 1494.5 1549.6 / 1560.6 546 / 546
Output Total 1110 / 1110 1785 / 1905 755 / 755
Balance 383.7 / 384.5 -235.4 / -344.4 -209 / -209
--- NOTE | 2025-01-12 14:09 | CM ---
GOC discussed, IV/Bumex/AB, increased SOB for several days, Renal insufficiency, patient does not want HD. Discharge POC: TBD.
[2025-01-12 14:18] LABS: Glucose - Point of Care 153 mg/dl (70-99)
[2025-01-12 14:45] LABS: Blood Urea Nitrogen 54 mg/dl (9-20); Calcium 8.7 mg/dl (8.4-10.2); Carbon Dioxide 28 mmol/L (22-30); Chloride 97 mmol/L (98-107); Estimated Creatinine Clearance 26 ml/min; Glucose 106 mg/dl (70-99); Potassium 3.1 mmol/L (3.5-5.1); Sodium 131 mmol/L (135-145); eGFR 29.07
[2025-01-12 14:48] LABS: C-Reactive Protein 85.90 mg/L (0.0-10.00)
--- NOTE | 2025-01-12 14:53 | W.PN.CARDCBS ---
Addendum entered and electronically signed by Tessy Estrada MD 01/12/25 21:57:
I saw and examined the patient.
The Sheet Metal Worker Supervisor's note was reviewed and I agree with the note.
Comment: Ongoing orthopnea, Tachypnea, CP with any positional changes.
Family at bedside. Bumex drip ongoing, respodning to this.
Tachycardic, normal blood pressure on nitro drip. Appears very uncomfortable, tachypneic, tachycardic in mild respiratory distress with increased work of breathing, normal S1 and S2, 2 out of 6 systolic ejection murmur, bibasilar Rales, elevated
JVP, abdomen is soft, nontender, nondistended with active bowel sounds, warm extremities without significant edema.
Recommendations:
1. On exam he does appear to be in acute decompensated heart failure in the setting of known ischemic cardiomyopathy: Creatinine noted but would still advocate for ongoing aggressive IV diuresis. Lactate thankfully normal. RHC when able to lay
flat.
2. Atypical chest pain: He reports positional chest pain which is not typical for underlying CAD and out of proportion to it. We will continue to optimize medically for this but also discussed extensively with Dr. Emre Ayers from
ICU--recommend consideration to rule out noncardiac chest pain causes due to either GI versus pulmonary or inflammatory driven. Consider CT chest/neck if able to tolerate or possible barium swallow given a lot of his symptoms have been worse since
RENAN. ICU with discuss plan with family with possible need for mechanical vent support if need be.
3. Ongoing anemia and thrombocytopenia: Unclear etiology. Cont to monitor. Procedurally higher risk as discussed with family for potential complications.
4. Management of recent Enterococcus bacteremia per primary team and ID.
Discussed all of the above with family at bedside and patient in [facility].
Tessy Estrada MD, [facility], [facility]
Total time spent: 52mins
+25 modifier
Addendum: Noted CT Chest and neck results and proceeded with RHC under moderate sedation with results noted separately. Plan for ongoing aggressive IV diuretics.
Original Note:
Today's Communication / Plan
-
CT head neck without obvious esophageal perforation or retropharyngeal damage and suggests moderate size B/L pleural effusions and pulmonary edema versus aspiration pneumonitis
Urine output has increased with Bumex gtt increasing up to 3 mg
Consider RHC versus empiric initiation of inotropic therapy
Impression / Plan
-
PCP: Israel Clifton MD
CDY: Orlando Langley MD
Impression:
Admitted with sepsis and NOE 12/28/2024
Hypotension requiring pressor support consistent with shock (septic/cardiogenic)
Acute on chronic HFrEF
Intermittent chest pain
Recent admission acute HFrEF and NSTEMI 12/20/2024 until 12/23/2024
Recent ER visit at [facility] for chest pain and SOB 12/09/2024
Moderate
Mitral regurgitation previously mild to moderate now moderate to severe in the setting of volume overload
Clinical sepsis
Enterococcus bacteremia
Possible multifocal PNA
NOE on CKD
Previously required transient HD 07/2024
Hyperkalemia
Elevated troponin, overall trending down from last admission
CAD
s/p CABG with GAFFNEY-LAD, VG-dLAD, VG-PLB 2007
s/p SVG to the distal LAD PCI at [facility] by Dr. Gavin 04/2024
Patent GAFFNEY to LAD, patent SVG to PLB with PDA filling via retrograde from the PLB, occlusion of the SVG to the distal LAD with 100% occlusion of previously placed stent 12/21/2024
s/p tissue AVR 2007
HLD
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
HTN
DM
Language barrier
Thrombocytopenia
Echo 08/2023: nml LV size, abnormal diastolic function with increased LVEDP, EF 60-65%, CLVH but no obvious regional abn. normally functioning bioprosthetic AV, PG/MG 32.5/18, ABEL 1.34cm2
Echo 12/20/2024: EF 35 to 40%, mild concentric LVH, mid to distal inferior, inferolateral, mid anteroseptal, mid anterior, apical hypokinesis, dense MAC, at least moderate to severe MR with anterior eccentric jet, mild to moderate TR, PAP 38 mmHg
Echocardiogram 12/29/2024: Ejection fraction 30 to 35%. Mid to distal inferior, inferolateral, mid anteroseptal and mid anterior hypokinesis with apical akinesis. Moderate to severe mitral regurgitation. Mild to moderate TR.
Echo 12/30/2024: Ejection fraction 30% by visual estimation. Segmental wall motion abnormalities noted. Moderate to severe mitral regurgitation similar to prior. Previously aortic valve was not assessed. Likely moderate aortic valve stenosis
Peak/mean gradients are 32/20mmHg. ABEL 0.8cm sq, using a LVOT of 1.6cm.Mild to moderate tricuspid regurgitation. Estimated pulmonary artery pressure of 33 mmHg
RENAN 01/07/2025: Moderately reduced EF 30 to 35% with global hypokinesis, normal RV size and function, s/p bioprosthetic AVR with likely moderate stenosis no significant regurgitation. Mild to moderate mitral regurgitation. Moderate tricuspid
regurgitation. Compared to echocardiogram from December 30, 2024, mitral valve regurgitation appears mild to moderate, previously moderate to severe, TR is moderate, previously mild to moderate, there is no obvious vegetation seen. No obvious
vegetation.
Plan:
-Patient with evidence of sepsis and NOE on admission that initially required ICU with Levophed for pressor support. Then found to have Enterococcus bacteremia and had RENAN 01/07/2025.
-Patient started with increase in generalized chest pain following RENAN 01/07/2025 and there was concern for pulmonary edema on CXR and patient was being diuresed with 40 mg IV BID. Troponin has continued to trend down despite ongoing chest pain.
Chest pain improved with morphine, no real improvement with NTG SL. Case reviewed with box truck owner operator and plan is for CT of the chest and neck, patient tolerated CT. Nothing to suggest esophageal perforation, no retropharyngeal soft tissue swelling,
moderate B/L pleural effusions and evidence of pulmonary edema versus aspiration pneumonitis.
-Bumex gtt increased to 3 mg and urine output increasing in the last 24 hours. Patient negative by I&O in the last 24 hours for the first time in days.
-Ongoing consideration for RHC versus empiric initiation of inotropic therapy
-Lactic acid level 1.1, ordered and reviewed by me 01/12/2025
-Weight as low as 135 lbs this admission, but has crept up to 144 lbs as of 01/12/2025
-Cre is 2.3 01/12/2025
-EF previously 60 to 65% in 2023 and now down to 35 to 40% by echo 12/20/2024. This is presumed to be ICM with evidence of occlusion of a previously placed stent in the vein graft to the distal LAD by cardiac cath 12/21/2024.
-GDMT limited by hypotension. Midodrine started earlier this admission
-Outpatient dose of Lopressor is on hold due to hypotension, once BP improves we should start cardioselective beta-aline with either Coreg or Toprol-XL
-Patient was not taking ALETHA/ARB/ARNI/aldosterone antagonist prior to admission due to NOE.
-We should attempt to add SGLT2 inhibitor prior to discharge, but currently being treated for sepsis so we will hold off.
-Patient has received 2 units PRBC and transfusion this admission. Hgb is trending down again to 8.4 on 01/12/2025. Platelet count also trending down to 36,000 on 01/12/2025. Anemia and thrombocytopenia have been chronic on all labs since initial
admission last month, but a cause is not clear and no obvious previous workup.
-Initial troponin 12.1 and then trending down thereafter. Troponin is trending down from NSTEMI and peak troponin of 27.9 when he was admitted 2 weeks ago. No increase in troponin despite recurrent chest pain since 01/07/2025
-Patient with history of remote CABG and there was an attempt at PCI of the SVG to the distal LAD at [facility] 04/2024, but this stent was 100% occluded at the last cath 12/21/2024. GAFFNEY to LAD and SVG to PLB were both patent.
-Outpatient doses of aspirin and Plavix have been continued. Thrombocytopenia is chronic.
-Med[employer] DRYING ROOM ATTENDANT�P device checked 12/29/2024 and again 01/11/2025, OptiVol trending up since the beginning of January, looks like underlying sinus tachycardia, no obvious atrial or ventricular arrhythmia on my review
HPI: Patient presented to the ER today with SMALL and is being admitted with possible sepsis and NOE and cardiology is being consulted for possible CHF and recent admission for NSTEMI. Patient has a history of remote CABG and AVR in 2007 at an
outside hospital. He had an admission to [facility] 04/2024 and he had PCI of the SVG to the distal LAD. Patient was then admitted to [facility] with NOE and was transiently on hemodialysis 07/2024. Most recently he has been following with "Alexus"Korin at [facility] and their office referred the patient to the [facility] ER on 12/09/2024 after he complained of chest pain during a visit in their office that day. The patient was discharged from the ER with a higher dose of
Lopressor and they added Imdur ER. There was apparently no consideration for acute HF at that time. Patient then came to the [facility] ER on 12/20/2024 with chest pain and the initial troponin was 2.22 and subsequent troponin was as high as 27.9.
Patient was admitted and eventually had cardiac cath 12/21/2024 that showed that the stent in the SVG to the LAD from April was 100% occluded and the GAFFNEY to LAD and SVG to PLV grafts were patent. There was also evidence of acute HFrEF during
that admission and EF was newly reduced at 35 to 40%, it had been 60 to 65% by an echo from his primary java enterprise architect 08/2023. PCWP was down to 18 which correlated with a weight of 141 lbs at time of cath on 12/21/2024. Cre was stable at 1.8 on the
day of discharge 12/23/2024. At the recommendation of nephrology the patient was discharged home on torsemide 20 mg daily. Patient's family reports that medications were not delivered in a timely fashion and so he was not taking any of his
medications since admission until they arrived yesterday. Patient has had increasing SMALL over the last 24 hours and came to the ER today. There is leukocytosis with a WBC count of 35 with a left shift. Lactic acid levels pending. There is
concern for sepsis possibly due to PNA and patient is being admitted to the ICU due to his need for pressor support with Levophed.
Progress Note - [employer]
Subjective
Date of Service: January 12, 2025
Patient is resting following fentanyl and Versed for CT neck and chest
Objective
Labs:
01/12/25 03:05
01/12/25 14:02
Labs
Hgb 8.4 g/dL (13.0-18.0) L 01/12/25 03:05
Hct 25.9 % (39.0-52.0) L 01/12/25 03:05
Plt Count 36 10^3/uL (130-400) L 01/12/25 03:05
PT 17.1 Sec (11.4-14.6) H 12/28/24 12:58
INR 1.36 12/28/24 12:58
APTT 42.4 Sec (23.4-35.0) H 12/28/24 12:58
Sodium 131 mmol/L (135-145) L 01/12/25 14:02
Potassium 3.1 mmol/L (3.5-5.1) L 01/12/25 14:02
BUN 54 mg/dl (9-20) H 01/12/25 14:02
Creatinine 2.3 mg/dL (0.7-1.3) H 01/12/25 14:02
Glucose 106 mg/dl (70-99) H 01/12/25 14:02
Troponins
01/10/25 01/11/25 01/11/25
20:45 03:03 09:41
Troponin I 0.230 H* 0.406 H* D 0.956 H* D
01/11/25
16:26
Troponin I 0.907 H*
Vital Signs and I&O:
Vital Signs
Temp Pulse Resp BP Pulse Ox
98.5 F 103 15 122/78 98
01/12/25 11:29 01/12/25 08:00 01/12/25 08:00 01/12/25 08:00 01/12/25 08:00
Vital Signs
Temp Pulse Resp BP Pulse Ox
98.5 F 103 15 122/78 98
01/12/25 11:29 01/12/25 08:00 01/12/25 08:00 01/12/25 08:00 01/12/25 08:00
Intake & Output
01/10/25 01/11/25 01/12/25 01/13/25
06:59 06:59 06:59 06:59
Intake Total 317.5 / 385.0 1493.7 / 1494.5 1549.6 / 1560.6 818 / 818
Output Total 1675 / 1675 1110 / 1110 1785 / 1905 940 / 940
Balance -1357.5 / -1290.0 383.7 / 384.5 -235.4 / -344.4 -122 / -122
Physical Exam
Physical Exam
GEN: NAD. AAOx3
LUNGS: 4 L NC. No audible wheeze
CV: A sensed V paced on tele.
--- NOTE | 2025-01-12 16:00 | PTCARENOTE ---
Pt tolerated CT scan after receiving one time dose of fentanyl and versed as ordered. Able to turn and CHG pt after scan. Pt resting comfortably. Slept through lunch. BS recheck 97. Transferred to laboratory technologist by laboratory technologist staff. All other
assessments unchanged.
[2025-01-12] MEDS: KCL 100 IV (16:25)
[2025-01-12 16:40] LABS: Glucose - Point of Care 97 mg/dl (70-99)
[2025-01-12] MEDS: NOVOLOG FLEXPEN-LOW RESISTANCE SC (16:58)
--- NOTE | 2025-01-12 17:29 | ITS.CL.CATH ---
Deburring Machine Operator - Catheterization
Cardiac Catheterization
Procedure Report:
RIGHT HEART CATHETERIZATION
Date of Procedure: January 13, 2020
Referring: Blanco Davis MD
INDICATION: Assess invasive hemodynamic
PROCEDURES:
1. Right heart catheterization.
2. Moderate sedation
ACCESS: Right common femoral vein, 7 Prydeinig sheath, under ultrasound guidance using a micropuncture kit
Hemodynamics (mmHg):
RA (m) : 12
RV (s/d,m) : 66/3, 16
PA (s/d, m) : 60/32, 43
PCWP (m) : 36, V waves up to 45 mmHg
PA saturation: 48.8% on 2 L of oxygen via nasal cannula
AO saturation: 94.0% on 2 L of oxygen via nasal cannula
RA saturation: 52.7% on 2 L of oxygen via nasal cannula
Cardiac Output : 4.31 L/min by Marissa calculation
Cardiac Index : 2.45 L/min/m-2 by Marissa calculation
Cardiac Output : 4.33 L/min by thermodilution
Cardiac Index : 2.4 L/min/m-2 by thermodilution
Systemic vascular resistance: 1504 dsc^(-5)
Pulmonary vascular resistance: 1.63 peters unit
RADIATION SUMMARY: Fluoro Time (min): 1.4, Dose (mGy): 17.98, DAP (Gy.cm2) : 2.6
CONCLUSION:
1. Significantly elevated right and left-sided filling pressures with normal cardiac output and mildly elevated systemic vascular resistance with severe pulmonary hypertension
Tessy Estrada MD, FAC, [facility]
[2025-01-12] MEDS: LIPITOR PO (18:19)
[2025-01-12] MEDS: NOVOLOG FLEXPEN SC (18:19)
[2025-01-12] MEDS: NITROGLYCERIN PREMIX 250 IV (18:36)
--- NOTE | 2025-01-12 19:45 | PTCARENOTE ---
community support specialist, awake/some language barrier, able to make simple needs known/family at bedside helping with additional communication. PROBLEM MANAGER HR low 100-120. RUE SL PICC with Bumex/Ntg gtt infusing per work list. RLE pulse/site checks WNL s/p clinical laboratory service teacher.
Sat 94% on 2LNC, SMALL. Anders draining adequate amt urine. family at bedside, care ongoing.
[2025-01-12] MEDS: REMOVE LIDOCAINE PATCH 1 PATCH REMOVE (21:23)
[2025-01-12] MEDS: PEPCID 20 MG PO (21:23)
[2025-01-12] MEDS: LANTUS 0.2 UNITS SC (21:24)
[2025-01-12 21:50] LABS: Glucose - Point of Care 141 mg/dl (70-99)
[2025-01-12] MEDS: MELATONIN 5 MG PO (21:53)
[2025-01-12 21:54] LABS: Potassium 3.5 mmol/L (3.5-5.1)
[2025-01-13] VITALS (29 sets, daily range): BP systolic 85–130; BP diastolic 52–112; BMI 22.3
--- NOTE | 2025-01-13 | PTCARENOTE ---
SBP occasionally in 90s, discussed parameters w/BDoughertyNP as pt on ntg gtt for CP - no changes as pt maintaining MAPs at this time per SOLUTION DESIGNER. no further changes in assessment.
[2025-01-13] MEDS: BUMEX 100 IV ×3 (04:11→19:22)
[2025-01-13] MEDS: AMPICILLIN 108 MG IV ×3 (04:11→19:49)
[2025-01-13] MEDS: MORPHINE SULFATE 2 MG IV ×2 (04:24→08:17)
[2025-01-13 05:00] LABS: Blood Urea Nitrogen 56 mg/dl (9-20); Calcium 8.7 mg/dl (8.4-10.2); Carbon Dioxide 26 mmol/L (22-30); Chloride 99 mmol/L (98-107); Estimated Creatinine Clearance 27 ml/min; Glucose 116 mg/dl (70-99); Potassium 3.4 mmol/L (3.5-5.1); Sodium 137 mmol/L (135-145); eGFR 30.66
[2025-01-13] MEDS: KCL 270 MEQ IV (06:01)
[2025-01-13 06:34] LABS: Hematocrit 25.9 % (39.0-52.0); Hemoglobin 8.3 g/dL (13.0-18.0); Mean Corp Hgb Conc. 32.0 g/dL (33.0-37.0); Mean Corpuscular Volume 97.0 fL (80.0-94.0)
[2025-01-13 06:35] LABS: Platelet Count 36 10^3/uL (130-400); Red Cell Dist. Width 16.8 % (11.5-14.5)
[2025-01-13 06:37] LABS: Absolute Neutrophils -Man Diff 10.2 10^3/uL (1.4-6.5); Normal RBC Morphology Yes; Platelets Checked Yes; Total Cells Counted 100
[2025-01-13 07:40] LABS: Glucose - Point of Care 139 mg/dl (70-99)
--- NOTE | 2025-01-13 08:17 | W.PN.INTV ---
Today's Communication / Plan
Recommendations
Bumex drip
Start Zaroxolyn
Strict I/O
Daily weight
Pain control
Start prednisone; trend inflammatory markers
Guarded prognosis; DNR/DNI s/p GOC discussion on 01/12/2025 using pediatric nurse
Continue ICU level of care
Assessment
-
Impression:
#Acute HFrEF exacerbation
#Anterior chest pain
#Severe NOE on CKD likely due to cardiorenal syndrome
#Acute cardiogenic pulmonary edema
#Elevated troponin
#History of Enterococcus faecalis bacteremia
#History of Medtronic PRESS CLEANER�PE (August 2023)
#CAD s/p CABG
#DM type II
#Hypertension
Plan:
- It appears that this patient's chest discomfort + SOB mainly started after his RENAN performed on 01/07/2025, which may just be coincidental
- Continue with Bumex drip however given my concern for continued volume overload, I raised bumex gtt to 3 mg/h; add metolazone as well today (after discussing case with nephrology)
- Will continue trending strict I/O and daily weight; Anders is in place
- Dialysis discussed with the patient and he declined this intervention
- Patient has difficulty laying flat mainly because of pain which then exacerbates his shortness of breath
- The patient had pain medications and anxiolytics yesterday, and he was able to lay flat and obtain a CT neck + chest that showing: evidence of volume overload with bilateral pleural effusions with bibasilar consolidation and air bronchograms.
Unable to rule out volume overload in addition to aspiration, pneumonia or atelectasis (or mixture of these diagnoses). There was no evidence of esophageal perforation.
- RHC performed yesterday (01/12/2025): Showed significant left-sided heart failure with PCWP 36 with V waves up to 45, TP, with preserved cardiac output + cardiac index with elevated SVR and preserved PVR at 1.63 Wood units - -> continue
aggressive diuresis with Bumex drip and start Zaroxolyn (as stated above)
- Goals of care discussion held with the patient on 01/12/2025, and this was performed while using a regulatory law specialist, and the patient would not want to be intubated if he needed this to save his life, nor would he want CPR if his heart stopped,
saying that he has lived a long life. He is now DNR/DNI.
-Patient's inflammatory markers are elevated with the ESR from 01/12/2025 being 81, and CRP was 85.9. There may be an inflammatory etiology to his chest discomfort - start prednisone
- If patient's chest pain persists, then can consider barium swallow to assess the esophagus although have very low suspicion at this point for esophageal perforation
- Wean down nitro gtt to off as tolerated
- Troponin peaked at 0.956 on 01/11/2025 � no longer need to continue trending at this time; of note, prior to 01/05/2025, his troponin peaked at 12.1 on 12/28/2024 but then downtrended after that
- Cardiology on board and recommendations appreciated
- Nephrology consulted who continues to agree with Bumex drip as well as recommended adding metolazone; recommendations appreciated. As stated above, dialysis discussed and the patient says that he has lived his life and does not want dialysis at
all
- Renally dose all medications
- Ok to eat although not a very good appetite; need to assure that we are taking aspiration precautions seriously as he has a risk of aspiration, hence he should only eat upright and only if his SpO2 is >90-92%
- Continue bowel regimen with senokot-S
- Goal BG 140-180mg/dL; HbA1c: 5.6 on 12/21/2024
- Transfuse if needed to maintain Hb >7-8 g/dL, plt>20k
- Guarded prognosis
- Patient remains critically ill
Critical care statement: A total of 41 minutes of critical care time was provided for this patient today. This includes management of unstable vital signs, evaluation of the patient at bedside, reviewing the patient�s pertinent medical records
including radiographs, microbiology, laboratory evaluations, and��discussion with primary team, consultants, pharmacy, nutrition, physical therapy, case management, charge nurse, critical care nursing, and respiratory therapy.
Subjective Dataa
Subjective Data
Date of Service:
Date of Service: January 13, 2025
Chief Complaint: Direct Mail Clerk Follow Up
Subjective:
Patient seen and evaluated this morning. Currently on Bumex at 3 mg/hr. Still has not had a bowel movement since 01/05. He continues to be very short of breath and has chest pain. Nitro drip overnight was lowered to 15 mcg/min, but now is back at
20 mcg/min. Underwent right heart catheterization yesterday showing evidence of severe left-sided heart failure. Currently V paced with heart rate 110, BP 100/67, and saturating 96% on 3 L minute. He says that his chest pain is okay although that
his cough is still bothersome.
Review of Systems
General: Other (Negative unless mentioned above)
Objective Data
Data Reviewed
Vital Signs / I&O / Oxygen:
Vital Signs
Temp Pulse Resp BP Pulse Ox
99.2 F 113 29 102/72 96
01/13/25 14:52 01/13/25 17:00 01/13/25 17:00 01/13/25 17:00 01/13/25 16:00
Intake and Output
01/12/25 01/13/25 01/14/25
06:59 06:59 06:59
Intake Total 1549.6 / 1560.6 2454.0 / 2468.3 522.4 / 522.4
Output Total 1785 / 1905 2565 / 2610 465 / 465
Balance -235.4 / -344.4 -111.0 / -141.7 57.4 / 57.4
SaO2 96
Nasal Cannula flow liters per 3
minute
Physical Exam
General: Respiratory Distress (negative at rest), Comfortable and Pain (Initially comfortable, then became uncomfortable during our conversation)
HEENT: Normocephalic and Anicteric
Cardiovascular: Other (Tachycardic; V-paced)
Respiratory: Wheeze (Mora bilaterally upon expiration), Crackles (bilateral), Rhonchi (negative), Non-Labored Respirations and Stridor (negative)
GI: Soft, Non Distended, Non Tender and Normal Bowel Sounds
Neurology: Awake, Alert and Tremors (negative)
Skin: Warm, Dry, Cyanosis (negative) and Jaundice (negative)
Labs/Micro/Reports
Lab Data
01/13/25 04:12
[2025-01-13] MEDS: PROTONIX 40 MG PO (08:22)
[2025-01-13] MEDS: LIDOCAINE 4% PATCH 1 PATCH TOPICAL (08:23)
[2025-01-13] MEDS: FLOMAX 0.4 MG PO (08:23)
[2025-01-13] MEDS: VITAMIN D3 (cholecalciferol) 125 MCG PO (08:23)
[2025-01-13] MEDS: PLAVIX 75 MG PO (08:23)
[2025-01-13] MEDS: FEOSOL 325 MG PO (08:23)
[2025-01-13] MEDS: SENOKOT-S 1 TABLET PO ×2 (08:23→19:48)
[2025-01-13] MEDS: ASPIR LOW (ENTERIC COATED) 81 MG PO (08:23)
[2025-01-13] MEDS: PROSCAR 5 MG PO (08:23)
[2025-01-13] MEDS: NOVOLOG FLEXPEN-LOW RESISTANCE SC ×2 (08:34→12:51)
--- NOTE | 2025-01-13 08:43 | PTOTSP ---
Pt transferred to ICU 01/10 and PT/OT orders were not continued upon transfer. Will need updated orders for PT and OT when stable to resume therapy activity.
[2025-01-13] MEDS: TYLENOL 650 MG PO (09:06)
--- NOTE | 2025-01-13 09:19 | PTCARENOTE ---
at bedside. Both are Gujarati speaking. Hatchery Worker utilized twice ID # [id number]. Patient extremely SOB at rest, able to speak short phrases/ sentences. Takes several minutes to catch breath or say a few words. A/O x3. 3L NC in place. Sp02 91-94%.
Reports chest pain 8/10, unable to describe the pain; nitro titrated. Morphine IV given for Dyspnea/pain. V-paced on tele. BP soft. Tylenol provided for back/hip and bottom pain/burning. Education provided on the importance of repositioning in bed
to prevent bed sores and skin breakdown. Pt stated he is not straight in the bed. Pt and made aware this is necessary to tilt off your bottom and relief the pressure points. Foam on sacrum for protection, skin intact. Breakfast ordered. Call
abdul within reach.
[2025-01-13] MEDS: NOVOLOG FLEXPEN 5 UNITS SC ×2 (09:40→18:22)
--- NOTE | 2025-01-13 10:06 | W.PN.ID1 ---
Date of Service
Date of Service: January 13, 2025
Today's Communication
continue ampicillin
Assessment / Plan
Enterococcus faecalis bacteremia (3 sets):
s/p Septic shock secondary to Enterococcus faecalis bacteremia
Suspect endocarditis
NOE
Leukocytosis
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
01/01 Repeat blood cx's x2 neg
TTE on 12/29 did not show vegetation and was unchanged from prior echo on 12/20.
01/07/25 RENAN: no vegetation
Patient likely has endocarditis based on Lange's criteria with 1 major and 3 minor criteria met
Continue ampicillin 2 g IV every 8 hours
PICC line placed on 01/04/2025
Plan 6 weeks of IV ampicillin from clearance of blood cultures 01/01-02/11 - script provided to oil field caser
Acute on chronic CHF exacerbation
Pulm edema with hemoptysis
Pulmonary HTN
- CT chest with most likely atelectasis and bibasilar effusions
- ongoing mild leukocytosis remains in the same range as previously
- Management as per Cardiology and Hospitalist
Chief Complaint
-: Bacteremia
Subjective / Review of Systems
afebrile
bp stable
had right heart cath yesterday
shortness of breath ongoing
scant hemoptysis ongoing, shortness of breath and atypical chest pains noted
Vital Signs / Physical Exam
Vital Signs
Vital Signs
Temp Pulse Resp BP Pulse Ox
99.6 F 120 22 109/75 92
01/13/25 07:37 01/13/25 09:00 01/13/25 09:00 01/13/25 09:00 01/13/25 09:43
Physical Exam
Constitutional: No Acute Distress and Chronically Ill
Cardiovascular: Regular Rate and S1/S2; Negative Murmur or Rub
Pulmonary: Clear and Symmetric; Negative Wheezes or Rales
Gastrointestinal: Soft, Non Tender, Non Distended and Normal Bowel Sounds
Skin: Warm and Dry; Negative Rash or Jaundice
Objective Data
Lab Data
Lab Results
01/13/25 04:12
01/13/25 04:12
ESR 81 mm/hour (0-20) H 01/12/25 14:02
PT 17.1 Sec (11.4-14.6) H 12/28/24 12:58
INR 1.36 12/28/24 12:58
APTT 42.4 Sec (23.4-35.0) H 12/28/24 12:58
Estimated Creat Clear 27 ml/min 01/13/25 04:12
Lactic Acid 1.1 mmol/L (0.7-2.0) 01/12/25 09:48
Total Bilirubin 3.1 mg/dl (0.2-1.3) H 01/11/25 03:03
AST 37 U/L (17-59) 01/11/25 03:03
ALT 28 U/L (0-50) 01/11/25 03:03
Alkaline Phosphatase 102 U/L (38-126) 01/11/25 03:03
C-Reactive Protein 85.90 mg/L (0.0-10.00) H 01/12/25 14:02
Most recent labs reviewed.
Micro Results:
01/01/25 08:41 Blood Culture - Final
Blood/Venous No Growth - Final Report
01/01/25 08:42 Blood Culture - Final
Blood/Venous No Growth - Final Report
12/30/24 10:21 Blood Culture - Final
Blood/Venous Enterococcus faecalis
Gram Stain - Final
12/30/24 10:34 Blood Culture - Final
Blood/Venous No Growth - Final Report
12/28/24 23:16 Blood Culture - Final
Blood/Venous Enterococcus faecalis
Gram Stain - Final
12/28/24 22:17 Blood Culture - Final
Blood/Venous Enterococcus faecalis
Gram Stain - Final
12/28/24 22:17 Nasal Screen MRSA (PCR) - Final
Nose MRSA not detected - performed by PCR methodology.
12/28/24 17:46 Influenza Types A & B (FLACO) - Final
Nasal Swab Negative for Influenza A & B, NAAT
Negative results must be combined with clinical observations
and patient history.
Nucleic Acid Amplification test (NAAT)performed on the
[employer] platform.
Imaging:
01/07/25 CXR: Bilateral interstitial and alveolar pulmonary opacities, suspicious for pulmonary edema in the appropriate clinical setting.
12/31/2024 CXR (portable): overall improvement in bilateral interstitial markings, suggesting improvement in interstitial pulmonary edema pattern. A small focus of patchy parenchymal opacity within the left lower lung, new from recent exam,
possibly atelectasis versus pneumonia. Dual-lead PPM in place.
CT Scan: Image Reviewed (bibasilar effusions with infiltrates with air bronchograms) and Report Reviewed
--- NOTE | 2025-01-13 11:02 | W.PN.NEPH.PH ---
Today's Communication / Plan
-
Add metolazone continue Bumex drip
Assessment/Plan
-
Impression:
Decompensated HFrEF 30%
CKD 3B, baseline around 1.7
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
CAD/CABG
HTN
DM2
Hyponatremia, hyperkalemia
Hypotension
Enterococcus bacteremia and suspected IE
Plan:
cr is up at 2.4 and non oliguric
but ongoing sob and cp, started nitro gtt
CXR noted pulm edema and high BNP
RHC January 12 Significantly elevated right and left-sided filling pressures with normal cardiac output and mildly elevated systemic vascular resistance with severe pulmonary hypertension
h/o left heart cath 12/21 = medical management for CAD/angina per cardiology
midodrine
IV abx per ID for Enterococcus bacteremia
d/w pt and family at bedside
Dr. Ag reviewed with pt 01/11 that If he fails medical management and worsening renal function he is not good candidate for dialysis -which he agrees and reports that he lived his life so far fine and do not want dialysis at all
Continue Bumex drip though not as much output is expected with the increased dose discussed with critical care team agreed to start metolazone
reviewed with ICU and nursing
high risk encounter

33 minutes.
-
-
Date of Service: January 13, 2025
CC / HPI / ROS
-
Chief Complaint:
NOE
History of Present Illness:
NOE/creatinine up at 2.4
was sob last night and had extra dose lasix
RHC was not done yesterday and plan today
plt low no change at 38k
sodium stable at 136, k better at 4.3
Hemoglobin better at 9.1 post PRBC 01/10
Remains on high-dose midodrine for hypotension
Review of Systems:
Continues to have difficulty moving air at rest with shortness of breath
no n/v
has cough, hemoptysis
Labs
-
Labs:
WBC 13.8 10^3/uL (4.8-10.8) H 01/13/25 04:12
RBC 2.67 10^6/uL (4.70-6.10) L 01/13/25 04:12
Hgb 8.3 g/dL (13.0-18.0) L 01/13/25 04:12
Hct 25.9 % (39.0-52.0) L 01/13/25 04:12
Plt Count 36 10^3/uL (130-400) L 01/13/25 04:12
eGFR 30.66 01/13/25 04:12
Phosphorus 3.1 mg/dl (2.5-4.5) 12/28/24 22:17
Moi-B-Xgvaqwhhxry Pept 95884 pg/ml 01/10/25 20:45
Albumin 3.6 g/dl (3.5-5.0) 01/11/25 03:03
Physical Exam
-
Vital Signs:
Vital Signs
Temp Pulse Resp BP Pulse Ox
99.6 F 120 22 109/75 92
01/13/25 07:37 01/13/25 09:00 01/13/25 09:00 01/13/25 09:00 01/13/25 09:43
[2025-01-13] MEDS: DELTASONE 40 MG PO (11:45)
[2025-01-13] MEDS: KLOR-CON 40 MEQ PO (11:46)
[2025-01-13] MEDS: ZAROXOLYN 5 MG PO (11:46)
[2025-01-13] MEDS: MIRALAX 17 GRAMS PO (11:46)
--- NOTE | 2025-01-13 11:58 | PTCARENOTE ---
Systems reviewed. Pt drowsy and fatigued. No result with tap water enema- lots of gas. Family to bring low salt food from home since pt not eating hospital food; ok with Dr. Kaminski. BP soft. UO decreased. IR can take pt possibly later for PICC
exchange but will need to pre-medicate. Update provided to Dr. Ness & Dr. Yates. Pt reports chest pain is down to 4 to 5/10. and [id number] at bedside.
[2025-01-13 12:00] LABS: Glucose - Point of Care 129 mg/dl (70-99)
--- NOTE | 2025-01-13 12:02 | W.PN.CARDCBS ---
Today's Communication / Plan
-
Recommendations:
1. Status post right heart catheterization with significantly elevated right and left-sided filling pressures with elevated SVR and normal cardiac output. Continue with aggressive IV diuresis with close monitoring of renal function. Agree with
ongoing Bumex drip and addition of metolazone with overall goal for net negative close to 1 L every day. Replete electrolytes to keep potassium over 4 and magnesium over 2 in the setting of ischemic cardiomyopathy. Daily upright weights.
Low-sodium diet.
2. Would recommend discontinuing midodrine given stable blood pressures, off-and-on needing IV nitroglycerin for angina when SVR is 1500. Discussed this with nephrology as well as ICU doctors who agree.
3. Avoiding nephrotoxins in the setting of NOE on CKD. Eventually will need to consider role of these medications if renal function allows given ischemic cardiomyopathy.
4. Continue medical therapy for now with aspirin, clopidogrel, high intensity statin. Home beta-aline is on hold for now.
5. Given kidney function will not allow for typical cardiomyopathy meds, will trial low-dose hydralazine at 10 mg 3 times daily with hold parameters to hold for systolic blood pressures less than 95 mmHg. If he tolerates well with this, would
consider addition of Imdur and weaning off nitroglycerin as tolerated.
6. Overall continues to be critically ill with acute decompensated systolic and diastolic heart failure, recent NSTEMI, ischemic cardiomyopathy, NOE on CKD. Discussed all of this with family and patient at bedside.
Tessy Estrada MD, [facility], [facility]
Total time spent: 52mins
Impression / Plan
-
PCP: Israel Clifton MD
CDY: Orlando Langley MD
Impression:
Admitted with sepsis and NOE 12/28/2024
Hypotension requiring pressor support consistent with shock (septic/cardiogenic)
Acute on chronic HFrEF
Intermittent chest pain
Recent admission acute HFrEF and NSTEMI 12/20/2024 until 12/23/2024
Recent ER visit at [facility] for chest pain and SOB 12/09/2024
Moderate
Mitral regurgitation previously mild to moderate now moderate to severe in the setting of volume overload
Clinical sepsis
Enterococcus bacteremia
Possible multifocal PNA
NOE on CKD
Previously required transient HD 07/2024
Hyperkalemia
Elevated troponin, overall trending down from last admission
CAD
s/p CABG with GAFFNEY-LAD, VG-dLAD, VG-PLB 2007
s/p SVG to the distal LAD PCI at [facility] by Dr. Gavin 04/2024
Patent GAFFNEY to LAD, patent SVG to PLB with PDA filling via retrograde from the PLB, occlusion of the SVG to the distal LAD with 100% occlusion of previously placed stent 12/21/2024
s/p tissue AVR 2007
HLD
Medtronic LANDCARE FACILITATOR�P (08/2023)
HTN
DM
Language barrier
Thrombocytopenia
Echo 08/2023: nml LV size, abnormal diastolic function with increased LVEDP, EF 60-65%, CLVH but no obvious regional abn. normally functioning bioprosthetic AV, PG/MG 32.5/18, ABEL 1.34cm2
Echo 12/20/2024: EF 35 to 40%, mild concentric LVH, mid to distal inferior, inferolateral, mid anteroseptal, mid anterior, apical hypokinesis, dense MAC, at least moderate to severe MR with anterior eccentric jet, mild to moderate TR, PAP 38 mmHg
Echocardiogram 12/29/2024: Ejection fraction 30 to 35%. Mid to distal inferior, inferolateral, mid anteroseptal and mid anterior hypokinesis with apical akinesis. Moderate to severe mitral regurgitation. Mild to moderate TR.
Echo 12/30/2024: Ejection fraction 30% by visual estimation. Segmental wall motion abnormalities noted. Moderate to severe mitral regurgitation similar to prior. Previously aortic valve was not assessed. Likely moderate aortic valve stenosis
Peak/mean gradients are 32/20mmHg. ABEL 0.8cm sq, using a LVOT of 1.6cm.Mild to moderate tricuspid regurgitation. Estimated pulmonary artery pressure of 33 mmHg
RENAN 01/07/2025: Moderately reduced EF 30 to 35% with global hypokinesis, normal RV size and function, s/p bioprosthetic AVR with likely moderate stenosis no significant regurgitation. Mild to moderate mitral regurgitation. Moderate tricuspid
regurgitation. Compared to echocardiogram from December 30, 2024, mitral valve regurgitation appears mild to moderate, previously moderate to severe, TR is moderate, previously mild to moderate, there is no obvious vegetation seen. No obvious
vegetation.
Hospital Course:
-Patient with evidence of sepsis and NOE on admission that initially required ICU with Levophed for pressor support. Then found to have Enterococcus bacteremia and had RENAN 01/07/2025.
-Patient started with increase in generalized chest pain following RENAN 01/07/2025 and there was concern for pulmonary edema on CXR and patient was being diuresed with 40 mg IV BID. Troponin has continued to trend down despite ongoing chest pain.
Chest pain improved with morphine, no real improvement with NTG SL. Case reviewed with solidworks designer and plan is for CT of the chest and neck, patient tolerated CT. Nothing to suggest esophageal perforation, no retropharyngeal soft tissue swelling,
moderate B/L pleural effusions and evidence of pulmonary edema versus aspiration pneumonitis.
-Bumex gtt increased to 3 mg and urine output increasing in the last 24 hours. Patient negative by I&O in the last 24 hours for the first time in days.
-Ongoing consideration for RHC versus empiric initiation of inotropic therapy
-Lactic acid level 1.1, ordered and reviewed by me 01/12/2025
-Weight as low as 135 lbs this admission, but has crept up to 144 lbs as of 01/12/2025
-Cre is 2.3 01/12/2025
-EF previously 60 to 65% in 2023 and now down to 35 to 40% by echo 12/20/2024. This is presumed to be ICM with evidence of occlusion of a previously placed stent in the vein graft to the distal LAD by cardiac cath 12/21/2024.
-GDMT limited by hypotension. Midodrine started earlier this admission
-Outpatient dose of Lopressor is on hold due to hypotension, once BP improves we should start cardioselective beta-aline with either Coreg or Toprol-XL
-Patient was not taking ALETHA/ARB/ARNI/aldosterone antagonist prior to admission due to NOE.
-We should attempt to add SGLT2 inhibitor prior to discharge, but currently being treated for sepsis so we will hold off.
-Patient has received 2 units PRBC and transfusion this admission. Hgb is trending down again to 8.4 on 01/12/2025. Platelet count also trending down to 36,000 on 01/12/2025. Anemia and thrombocytopenia have been chronic on all labs since initial
admission last month, but a cause is not clear and no obvious previous workup.
-Initial troponin 12.1 and then trending down thereafter. Troponin is trending down from NSTEMI and peak troponin of 27.9 when he was admitted 2 weeks ago. No increase in troponin despite recurrent chest pain since 01/07/2025
-Patient with history of remote CABG and there was an attempt at PCI of the SVG to the distal LAD at [facility] 04/2024, but this stent was 100% occluded at the last cath 12/21/2024. GAFFNEY to LAD and SVG to PLB were both patent.
-Outpatient doses of aspirin and Plavix have been continued. Thrombocytopenia is chronic.
-Medtronic LANDCARE FACILITATOR�P device checked 12/29/2024 and again 01/11/2025, OptiVol trending up since the beginning of January, looks like underlying sinus tachycardia, no obvious atrial or ventricular arrhythmia on my review
HPI: Patient presented to the ER today with SMALL and is being admitted with possible sepsis and NOE and cardiology is being consulted for possible CHF and recent admission for NSTEMI. Patient has a history of remote CABG and AVR in 2007 at an
outside hospital. He had an admission to [facility] 04/2024 and he had PCI of the SVG to the distal LAD. Patient was then admitted to [facility] with NOE and was transiently on hemodialysis 07/2024. Most recently he has been following with
Korin at [facility] and their office referred the patient to the [facility] ER on 12/09/2024 after he complained of chest pain during a visit in their office that day. The patient was discharged from the ER with a higher dose of
Lopressor and they added Imdur ER. There was apparently no consideration for acute HF at that time. Patient then came to the [facility] ER on 12/20/2024 with chest pain and the initial troponin was 2.22 and subsequent troponin was as high as 27.9.
Patient was admitted and eventually had cardiac cath 12/21/2024 that showed that the stent in the SVG to the LAD from April was 100% occluded and the GAFFNEY to LAD and SVG to PLV grafts were patent. There was also evidence of acute HFrEF during
that admission and EF was newly reduced at 35 to 40%, it had been 60 to 65% by an echo from his primary cemetery vault installer 08/2023. PCWP was down to 18 which correlated with a weight of 141 lbs at time of cath on 12/21/2024. Cre was stable at 1.8 on the
day of discharge 12/23/2024. At the recommendation of nephrology the patient was discharged home on torsemide 20 mg daily. Patient's family reports that medications were not delivered in a timely fashion and so he was not taking any of his
medications since admission until they arrived yesterday. Patient has had increasing SMALL over the last 24 hours and came to the ER today. There is leukocytosis with a WBC count of 35 with a left shift. Lactic acid levels pending. There is
concern for sepsis possibly due to PNA and patient is being admitted to the ICU due to his need for pressor support with Levophed.
Progress Note - Heddle Machine Operator
Subjective
Date of Service: January 13, 2025
Objective
Labs:
01/13/25 04:12
Labs
Hgb 8.3 g/dL (13.0-18.0) L 01/13/25 04:12
Hct 25.9 % (39.0-52.0) L 01/13/25 04:12
Plt Count 36 10^3/uL (130-400) L 01/13/25 04:12
PT 17.1 Sec (11.4-14.6) H 12/28/24 12:58
INR 1.36 12/28/24 12:58
APTT 42.4 Sec (23.4-35.0) H 12/28/24 12:58
Sodium 137 mmol/L (135-145) 01/13/25 04:12
Potassium 3.4 mmol/L (3.5-5.1) L 01/13/25 04:12
BUN 56 mg/dl (9-20) H 01/13/25 04:12
Creatinine 2.2 mg/dL (0.7-1.3) H 01/13/25 04:12
Glucose 116 mg/dl (70-99) H 01/13/25 04:12
Troponins
01/10/25 01/11/25 01/11/25
20:45 03:03 09:41
Troponin I 0.230 H* 0.406 H* D 0.956 H* D
01/11/25
16:26
Troponin I 0.907 H*
Vital Signs and I&O:
Vital Signs
Temp Pulse Resp BP Pulse Ox
99.3 F 111 18 10061 96
01/13/25 11:51 01/13/25 11:46 01/13/25 11:39 01/13/25 11:46 01/13/25 11:39
Vital Signs
Temp Pulse Resp BP Pulse Ox
99.3 F 111 18 10061 96
01/13/25 11:51 01/13/25 11:46 01/13/25 11:39 01/13/25 11:46 01/13/25 11:39
Intake & Output
01/11/25 01/12/25 01/13/25 01/14/25
06:59 06:59 06:59 06:59
Intake Total 1493.7 / 1494.5 1549.6 / 1560.6 2454.0 / 2468.3 422.3 / 422.3
Output Total 1110 / 1110 1785 / 1905 2565 / 2610 170 / 170
Balance 383.7 / 384.5 -235.4 / -344.4 -111.0 / -141.7 252.3 / 252.3
[2025-01-13] MEDS: SUBLIMAZE 25 MCG IV (13:20)
[2025-01-13] MEDS: VERSED 1 MG IV (13:21)
[2025-01-13] MEDS: NOVOLOG FLEXPEN SC (13:30)
--- NOTE | 2025-01-13 13:40 | PTCARENOTE ---
Patient transported to IR for PICC exchange. Family and patient updated.
--- NOTE | 2025-01-13 13:48 | W.PN.HOSP.TC ---
Today's Communication/Plan
-
Monitor vitals
See plan
Monitor renal function
Continue with antibiotic
Discussed with patient and family, need more diuresis. Continue with Bumex drip. Added metolazone
Started on prednisone
Assessment / Plan
Assessment / Plan
General: Well Developed, Well Nourished and Respiratory Distress
HEENT: Normocephalic, Atraumatic, Moist Mucous Membranes, No Ptosis, and Nose Appears Normal
Respiratory: Rhonchi, Crackles and Non Labored Respirations, on 2L NC
Cardiac: Regular Rhythm and S1/S2
GI: Soft, Nontender, Nondistended and Normal Bowel Sounds
Genito-urinary: No Costovertebral Tender
Musculoskeletal: No Edema
Neuro: Awake, Alert, Oriented, AO x 3 and No Motor Deficits
Psych: Anxious
Assessment/plan:
Shortness of breath possibly due to acute on chronic HFrEF/possible pulmonary edema
Chest pain likely 2/2 Coronary disease with microvascular disease process
Acute on Chronic systolic congestive heart failure
- [facility] last admission showed blocked SVG graft to distal LAD, was planned to be manage medical
- Continue on Plavix statin
- Troponin 12 and has been trending down from elevated troponin max of 28 on 12/20
- Blood pressure soft at times. May need to start pressors if required.
- Repeat chest x-ray with pulmonary edema with worsening probnp
- Currently on 4 L of oxygen. Sats remained stable
- Cardiology and nephrology following
Status post right heart cath 01/12 with elevated filling pressure. Concern for pulmonary hypertension. cw Bumex gtt. Added metolazone
- Persistent chest pain-started on IV nitro gtt
CT chest with most likely atelectasis and bibasilar effusion.
thrombocytopenia -unclear chronicity
-Platelets Persistently low. No prior records. Not much improvement in platelets if it was related to infection. Seen by hematology, thinking findings could be CMML and would need to require bone marrow biopsy to confirm. Hematology currently
signed off however wants patient to follow-up with them outpatient once he is stable
Enterococcus faecalis bacteremia
- Delayed blood culture collected post PICC placement and abx.
- Vancomycin was initially discontinued, resumed---> Currently patient on IV ampicillin
- Echocardiogram 12/29 did not show any valvular vegetation. May require RENAN if bacteremia persist.
- Repeat blood culture positive from 12/30. f/u repeat blood culture report from 01/01 remains negative
- CT abdomen pelvis did not show any clear infectious source
- Infectious ease recommending 6 weeks of IV ampicillin
-RENAN negative for vegetation
NOE on CKD stage IIIb
Acute urinary retention
- creatinine up to 3.2 in ER, baseline cr 1.7-1.8 at discharge week back,
- Renal dysfunction likely combination from hypotension/cardiorenal syndrome and urinary retention
- Anders catheter
- Avoid nephrotoxic medication
- Creatinine now 2.2
Per patient he would not want dialysis
Septic shock from multifocal pneumonia
E faecalis bacteremia
associated with NOE/lactic acidosis
- Reported subjective fever at home. no productive cough.
- Total WBC count of 35K at admission has trended down
- ID help appreciated. Currently patient on IV ampicillin (needs long-term IV antibiotic)
- Added midodrine to regimen.
Acute normocytic anemia
- Hemoglobin 8.4 s/p 2u of PRBC
- No luminal blood loss
Anion gap metabolic acidosis - Improved
- Combination of lactic acidosis and renal dysfunction related
- Provide sodium bicarb few doses
- Being treated for underlying infection
Hyperkalemia - Improved
Hypokalemia
- Hyperkalemia secondary to renal failure/acidosis related at admission
- Post diuresis patient is developing hypokalemia now, replace as needed
Type II DM
- maintain on Lower dose lantus and ISS
- Added Premeal NovoLog
- Hold metformin with renal dysfunction
- Lantus held for now
Essential hypertension
- Hold blood pressure medication as now with soft bp at times
Hyponatremia - resolved
- Combination from hypervolemia and ADH excess with heart failure
- Urine Na 34 Uosm 257
- Further therapy if have worsening of hyponatremia
Acute transaminitis
- Possible due to hypotension related
resolved
Mild hyponatremia
-trend na for now
CODE STATUS: DNR
DVT prophylaxis: scds
Obtain records from his [facility]
Total Critical Care Time_ 42 minutes. I was immediately available to the patient and staff. I personally examined, reviewed labs, diagnostic images/reports, interpretations, treatment plans, discussed patient care with other providers and family
or caregivers (if patient is unable to make decisions), entered orders as appropriate and documented the medical record.
Anticipated Discharge: > 48 hours
Subjective/Interval History
-
Date of Service: January 13, 2025
Still feeling short of breath, chest pain at times
Objective Data
-
Labs:
Laboratory Results
01/13/25 01/13/25
04:12 20:00
WBC 13.8 H
Hgb 8.3 L
Hct 25.9 L
Plt Count 36 L
Sodium 137 Pending
Potassium 3.4 L Pending
Chloride 99 Pending
Carbon Dioxide 26 Pending
BUN 56 H Pending
Creatinine 2.2 H Pending
Glucose 116 H Pending
Calcium 8.7 Pending
Vital Signs:
Vital Signs
Temp Pulse Resp BP Pulse Ox
99.3 F 109 20 100/67 95
01/13/25 11:51 01/13/25 12:00 01/13/25 12:00 01/13/25 12:00 01/13/25 12:00
I&O
01/12/25 01/13/25 01/14/25
06:59 06:59 06:59
Intake Total 1549.6 / 1560.6 2454.0 / 2468.3 450.9 / 450.9
Output Total 1785 / 1905 2565 / 2610 265 / 265
Balance -235.4 / -344.4 -111.0 / -141.7 185.9 / 185.9
--- NOTE | 2025-01-13 14:03 | CM ---
R heart cardiac cath on 01/12/25. Plan 6 weeks of IV ampicillin 01/01-02/11. [facility] infusion accepted. [facility] for PT/OT. IV/Ampicillin,
IV/Bumex. Discharge POC: Family prefers home. Anticipate home with infusion and HH services. Await therapy recommendations.
--- NOTE | 2025-01-13 14:09 | PN.IRAD.UPD ---
Update Note - IRAD
- -
Right FOOD BAGGING MACHINE OPERATOR exchanged over a wire for a DLP. 37cm TCL, 1 cm ECL. Report dictated by .
--- NOTE | 2025-01-13 14:46 | PTCARENOTE ---
Patient back into room 3359. and [id number] at bedside and updated. All IV lines changed. All linens changed. Pt does not want to eat at this moment. V-paced on tele. 4L Sp02 95%. Call abdul within reach.
[2025-01-13] MEDS: TESSALON PERLES 200 MG PO ×2 (16:01→23:03)
[2025-01-13] MEDS: APRESOLINE 10 MG PO ×2 (16:02→21:12)
[2025-01-13 18:06] LABS: Glucose - Point of Care 241 mg/dl (70-99)
[2025-01-13] MEDS: LIPITOR 80 MG PO (18:23)
[2025-01-13] MEDS: NOVOLOG FLEXPEN-LOW RESISTANCE 2 UNITS SC (18:23)
[2025-01-13] MEDS: REMOVE LIDOCAINE PATCH 1 PATCH REMOVE (19:49)
--- NOTE | 2025-01-13 20:00 | PTCARENOTE ---
Assumed care at 1900. V paced on the monitor. On nitro and bumex gtt. Family at bedside. Patient refusing CHG bath, wolf wipes, and mouthcare at this time.
[2025-01-13 20:34] LABS: Blood Urea Nitrogen 67 mg/dl (9-20); Calcium 9.0 mg/dl (8.4-10.2); Carbon Dioxide 21 mmol/L (22-30); Chloride 97 mmol/L (98-107); Estimated Creatinine Clearance 23 ml/min; Glucose 218 mg/dl (70-99); Magnesium 2.1 mg/dl (1.6-2.3); Potassium 4.8 mmol/L (3.5-5.1); Sodium 131 mmol/L (135-145); eGFR 25.09
[2025-01-13] MEDS: MELATONIN 5 MG PO (21:12)
[2025-01-13] MEDS: LANTUS 0.2 UNITS SC (21:13)
[2025-01-13 21:23] LABS: Glucose - Point of Care 217 mg/dl (70-99)
[2025-01-13] MEDS: DILAUDID 0.5 MG IV (23:04)
[2025-01-14] VITALS (43 sets, daily range): BP systolic 88–167; BP diastolic 47–136; PULSE 107–112; O2SAT 94; BMI 22.3
--- NOTE | 2025-01-14 | PTCARENOTE ---
No change from previous assessment. V paced on the monitor. PRN dilaudid given for neck/throat pain. Patient complaining of a 'cough he cant get out.' PRN Tessalon administered.
[2025-01-14] MEDS: BUMEX 100 IV ×3 (03:02→22:21)
[2025-01-14 03:36] LABS: Blood Urea Nitrogen 71 mg/dl (9-20); Calcium 8.8 mg/dl (8.4-10.2); Carbon Dioxide 25 mmol/L (22-30); Chloride 98 mmol/L (98-107); Estimated Creatinine Clearance 22 ml/min; Glucose 183 mg/dl (70-99); Magnesium 2.1 mg/dl (1.6-2.3); Potassium 4.1 mmol/L (3.5-5.1); Sodium 135 mmol/L (135-145); eGFR 23.98
[2025-01-14 03:56] LABS: C-Reactive Protein 128.40 mg/L (0.0-10.00); Hematocrit 25.6 % (39.0-52.0); Hemoglobin 8.0 g/dL (13.0-18.0); Mean Corp Hgb Conc. 31.3 g/dL (33.0-37.0); Mean Corpuscular Volume 97.0 fL (80.0-94.0); Platelet Count 37 10^3/uL (130-400); Red Cell Dist. Width 17.0 % (11.5-14.5)
[2025-01-14] MEDS: AMPICILLIN 108 MG IV ×2 (04:04→18:37)
--- NOTE | 2025-01-14 04:19 | PTCARENOTE ---
No change from previous assessment. Patient agreeable to CHG + wolf care. Dyspneic on exertion with care.
[2025-01-14] MEDS: DILAUDID 0.5 MG IV ×3 (06:40→20:30)
[2025-01-14 08:10] LABS: Glucose - Point of Care 260 mg/dl (70-99)
--- NOTE | 2025-01-14 08:19 | W.PN.INTV ---
Today's Communication / Plan
Recommendations
Bumex drip
Raise Zaroxolyn dose
Trial of HD
Strict I/O
Daily weights
Encourage PO intake due to failure to thrive with poor appetite/inadequate nutritional intake
Pain control
Continue prednisone; trend inflammatory markers
Guarded prognosis; DNR/DNI s/p GOC discussion on 01/12/2025 using hybrid tester
Continue ICU level of care
Assessment
-
Impression:
#Acute HFrEF exacerbation
#Anterior chest pain - possibly multifactorial from his acute coronary occlusion of his SVG-distal GAFFNEY (seen on [facility] from 12/21/2024), although may be costochondritis vs inflammatory/MSK
#Severe NOE on CKD likely due to cardiorenal syndrome
#Acute cardiogenic pulmonary edema
#Elevated troponin
#History of Enterococcus faecalis bacteremia
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
#CAD s/p CABG
#DM type II
#Hypertension
Plan:
- It appears that this patient's chest discomfort + SOB mainly started after his RENAN performed on 01/07/2025, which may just be coincidental
- Continue with Bumex drip however given my concern for continued volume overload, I raised bumex gtt to 3 mg/h on 01/12/2025; start metolazone on 01/13, which I will raise to 5mg BID from once daily.
- Will continue trending strict I/O and daily weight; Anders is in place
- Dialysis discussed with the patient and he had declined this intervention, however given that we are almost out of additional therapies to offer, Nephro discussed HD with him again today and he has agreed to a trial of HD
- IR to place HD catheter today
- Renally dose all medications
- Patient has difficulty laying flat mainly because of pain which then exacerbates his shortness of breath - -> he has been better last 2-3 days with laying flat, jackie if he gets fentanyl + versed
- CT neck + chest performed on 01/12, showing evidence of volume overload with bilateral pleural effusions with bibasilar consolidation and air bronchograms. Unable to rule out aspiration, pneumonia or atelectasis (or mixture of these diagnoses).
There was no evidence of esophageal perforation.
- RHC performed on 01/12/2025: Showed significant left-sided heart failure with PCWP 36 with V waves up to 45, TP, with preserved cardiac output + cardiac index with elevated SVR and preserved PVR at 1.63 Wood units - -> continue aggressive
diuresis with Bumex drip and Zaroxolyn (as stated above)
- Stop midodrine as this could be increasing afterload and unclear if he is benefiting from this
- Goals of care discussion held with the patient on 01/12/2025, and this was performed while using a educational sign language interpreter, and the patient would not want to be intubated if he needed this to save his life, nor would he want CPR if his heart stopped,
saying that he has lived a long life already. He is now DNR/DNI.
- Patient's inflammatory markers are elevated with the ESR from 01/12/2025 being 81 & CRP was 85.9. There may be an inflammatory etiology to his chest discomfort- started prednisone on 01/13
- ESR today is now at 63, low CRP has worsened to now 128.4. - continue to occasionally trend
- If patient's chest pain persists, then can consider barium swallow to assess the esophagus although have very low suspicion at this point for esophageal perforation
- Wean down nitro gtt to off as tolerated
- Troponin peaked at 0.956 on 01/11/2025 � no longer need to continue trending at this time; of note, prior to 01/05/2025, his troponin peaked at 12.1 on 12/28/2024 but then downtrended after that
- Cardiology on board and recommendations appreciated --> I discussed the case with them today and we will start a low-dose inotrope with dobutamine to see if this improves his diuresis
- Ok to eat although not a very good appetite; need to assure that we are taking aspiration precautions seriously as he has a risk of aspiration, hence he should only eat upright and only if his SpO2 is >90-92%
- Continue bowel regimen with senokot-S and miralax -- -> AXR shows increased stool burden without obstruction
- Goal BG 140-180mg/dL; HbA1c: 5.6 on 12/21/2024; may need additional coverage as his BG today is >180
- Transfuse if needed to maintain Hb >7-8 g/dL, plt>20k
- Guarded prognosis
- Patient remains critically ill
Critical care statement: A total of 38 minutes of critical care time was provided for this patient today. This includes management of unstable vital signs, evaluation of the patient at bedside, reviewing the patient�s pertinent medical records
including radiographs, microbiology, laboratory evaluations, and��discussion with primary team, consultants, pharmacy, nutrition, physical therapy, case management, charge nurse, critical care nursing, and respiratory therapy.
Subjective Dataa
Subjective Data
Date of Service:
Date of Service: January 14, 2025
Chief Complaint: Lobby Porter Follow Up
Subjective:
Pt seen this AM. Coughing all night. No sputum produced. Current heart rate 100, BP 127 and 92 he is saturating 93% on 4 L/min. Net negative 435 cc last 24 hrs. remains on Bumex drip currently at 3 mg/h as well as nitroglycerin drip at 15 mcg/min.
Review of Systems
General: Other (Negative unless mentioned above)
Objective Data
Data Reviewed
Vital Signs / I&O / Oxygen:
Vital Signs
Temp Pulse Resp BP Pulse Ox
97.0 F 112 18 146/71 97
01/14/25 08:00 01/14/25 08:00 01/14/25 08:00 01/14/25 08:00 01/14/25 09:55
Intake and Output
01/13/25 01/14/25 01/15/25
06:59 06:59 06:59
Intake Total 2454.0 / 2468.3 910.0 / 924.3 297.2 / 297.2
Output Total 2565 / 2610 1385 / 1415 150 / 150
Balance -111.0 / -141.7 -475.0 / -490.7 147.2 / 147.2
SaO2 97
Nasal Cannula flow liters per 4
minute
Physical Exam
General: Respiratory Distress (negative at rest), Comfortable and Pain (Anterior chest )
HEENT: Normocephalic and Anicteric
Cardiovascular: Other (Tachycardic; V-paced)
Respiratory: Wheeze ([place] bilaterally upon expiration), Crackles (bilateral), Rhonchi (negative), Non-Labored Respirations and Stridor (negative)
GI: Soft, Non Distended, Non Tender and Normal Bowel Sounds
Neurology: Awake, Alert and Tremors (negative)
Skin: Warm, Dry, Cyanosis (negative) and Jaundice (negative)
Labs/Micro/Reports
Lab Data
01/14/25 03:08
[2025-01-14] MEDS: DILAUDID 0.25 MG IV (08:21)
[2025-01-14] MEDS: NOVOLOG FLEXPEN-LOW RESISTANCE 3 UNITS SC (08:24)
[2025-01-14] MEDS: NOVOLOG FLEXPEN 5 UNITS SC ×3 (08:24→19:55)
[2025-01-14] MEDS: DELTASONE 40 MG PO (08:38)
[2025-01-14] MEDS: ASPIR LOW (ENTERIC COATED) 81 MG PO (08:40)
[2025-01-14] MEDS: VITAMIN D3 (cholecalciferol) 125 MCG PO (08:41)
[2025-01-14] MEDS: PROTONIX 40 MG PO (08:41)
[2025-01-14] MEDS: TESSALON PERLES 200 MG PO (08:41)
[2025-01-14] MEDS: MIRALAX 17 GRAMS PO ×2 (08:41→19:56)
[2025-01-14] MEDS: SENOKOT-S 1 TABLET PO (08:41)
[2025-01-14] MEDS: PLAVIX 75 MG PO (08:41)
[2025-01-14] MEDS: APRESOLINE 10 MG PO ×2 (08:41→19:52)
[2025-01-14] MEDS: FLOMAX 0.4 MG PO (08:41)
[2025-01-14] MEDS: FEOSOL 325 MG PO (08:41)
[2025-01-14] MEDS: ZAROXOLYN 5 MG PO ×2 (08:41→19:56)
[2025-01-14] MEDS: PROSCAR 5 MG PO (08:41)
[2025-01-14] MEDS: KLOR-CON 40 MEQ PO (08:41)
[2025-01-14] MEDS: LIDOCAINE 4% PATCH 1 PATCH TOPICAL (08:42)
--- NOTE | 2025-01-14 10:31 | W.PN.ID1 ---
Date of Service
Date of Service: January 14, 2025
Today's Communication
continue ampicillin
Assessment / Plan
Enterococcus faecalis bacteremia (3 sets):
s/p Septic shock secondary to Enterococcus faecalis bacteremia
Suspect endocarditis
NOE - starting HD
Leukopenic
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
01/01 Repeat blood cx's x2 neg
TTE on 12/29 did not show vegetation and was unchanged from prior echo on 12/20.
01/07/25 RENAN: no vegetation
Patient likely has endocarditis based on Lange's criteria with 1 major and 3 minor criteria met
Continue ampicillin dose adjusted to 2 g IV every 12 hours
PICC line placed on 01/04/2025
Plan 6 weeks of IV ampicillin from clearance of blood cultures 01/01-02/11 - script provided to rifle case repairer
Acute on chronic CHF exacerbation
Pulm edema with hemoptysis
Pulmonary HTN
- CT chest with most likely atelectasis and bibasilar effusions
- Management as per Cardiology and Hospitalist
Chief Complaint
-: Bacteremia
Subjective / Review of Systems
afebrile
bp stable
picc changed over to double lumen picc line
coarse breath sounds
having difficulty breathing
Vital Signs / Physical Exam
Vital Signs
Vital Signs
Temp Pulse Resp BP Pulse Ox
97.0 F 112 18 146/71 97
01/14/25 08:00 01/14/25 08:00 01/14/25 08:00 01/14/25 08:00 01/14/25 09:55
Physical Exam
Constitutional: No Acute Distress
Cardiovascular: Regular Rate and S1/S2; Negative Murmur or Rub
Pulmonary: Symmetric and Rales; Negative Wheezes
Gastrointestinal: Soft, Non Tender, Non Distended and Normal Bowel Sounds
Skin: Warm and Dry; Negative Rash or Jaundice
Objective Data
Lab Data
Lab Results
01/14/25 03:08
ESR 63 mm/hour (0-20) H 01/14/25 03:08
PT 17.1 Sec (11.4-14.6) H 12/28/24 12:58
INR 1.36 12/28/24 12:58
APTT 42.4 Sec (23.4-35.0) H 12/28/24 12:58
Estimated Creat Clear Cancelled 01/14/25 08:00
Lactic Acid 1.1 mmol/L (0.7-2.0) 01/12/25 09:48
Total Bilirubin 3.1 mg/dl (0.2-1.3) H 01/11/25 03:03
AST 37 U/L (17-59) 01/11/25 03:03
ALT 28 U/L (0-50) 01/11/25 03:03
Alkaline Phosphatase 102 U/L (38-126) 01/11/25 03:03
C-Reactive Protein 128.40 mg/L (0.0-10.00) H 01/14/25 03:08
Most recent labs reviewed.
pro bnp >[id number]
Micro Results:
01/01/25 08:41 Blood Culture - Final
Blood/Venous No Growth - Final Report
01/01/25 08:42 Blood Culture - Final
Blood/Venous No Growth - Final Report
12/30/24 10:21 Blood Culture - Final
Blood/Venous Enterococcus faecalis
Gram Stain - Final
12/30/24 10:34 Blood Culture - Final
Blood/Venous No Growth - Final Report
12/28/24 23:16 Blood Culture - Final
Blood/Venous Enterococcus faecalis
Gram Stain - Final
12/28/24 22:17 Blood Culture - Final
Blood/Venous Enterococcus faecalis
Gram Stain - Final
12/28/24 22:17 Nasal Screen MRSA (PCR) - Final
Nose MRSA not detected - performed by PCR methodology.
12/28/24 17:46 Influenza Types A & B (FLACO) - Final
Nasal Swab Negative for Influenza A & B, NAAT
Negative results must be combined with clinical observations
and patient history.
Nucleic Acid Amplification test (NAAT)performed on the
[employer] platform.
Imaging:
01/07/25 CXR: Bilateral interstitial and alveolar pulmonary opacities, suspicious for pulmonary edema in the appropriate clinical setting.
12/31/2024 CXR (portable): overall improvement in bilateral interstitial markings, suggesting improvement in interstitial pulmonary edema pattern. A small focus of patchy parenchymal opacity within the left lower lung, new from recent exam,
possibly atelectasis versus pneumonia. Dual-lead PPM in place.
--- NOTE | 2025-01-14 11:29 | CM ---
F/U: ONUR Gr spoke to Hospitalist who said that patient might have to consider short term HD. RN stated that patient has a lot of fluid on him and his creatine level is rising. ONUR Gr updated [facility] Rep- Veronica. PLAN: Anticipate
[facility] vs. TBD.
[2025-01-14] MEDS: NOVOLOG FLEXPEN-MODERATE RESISTANCE 5 UNITS SC (11:47)
[2025-01-14 11:49] LABS: Glucose - Point of Care 286 mg/dl (70-99)
--- NOTE | 2025-01-14 11:53 | W.PN.NEPH.PH ---
Today's Communication / Plan
-
see plan
Assessment/Plan
-
Impression:
Decompensated HFrEF 30%
CKD 3B, baseline around 1.7
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
CAD/CABG
HTN
DM2
Hyponatremia, hyperkalemia
Hypotension
Enterococcus bacteremia and suspected IE
Plan:
cr is up at 2.7 and non oliguric
but ongoing sob and cp, remains on nitro gtt
remains on high dose bumex gtt and metolazone
RHC January 12 Significantly elevated right and left-sided filling pressures with normal cardiac output and mildly elevated systemic vascular resistance with severe pulmonary hypertension
h/o left heart cath 12/21 = medical management for CAD/angina per cardiology
BP stable with out midodrine on low dose hydralazine and isodril
pred started per pulm
IV abx per ID for Enterococcus bacteremia
long d/w pt and family son Nick (DEBBY) on phone and daughter at bedside. Reviewed options that he is currently failing medical therapy and only option left is dialysis however given his CAD and low EF not sure his tolerability of dialysis
Either way prognosis is very poor
Family and pt willing to try dialysis understanding that there is risk of worsening clinical status and if that is the case they will move with comfort care
d/w ICU, cards and nursing
will plan to place temp HD catheter, ICU will speak with IR specially with low plt. there is ocncern if he can lay supine, I am ok with femoral line if it is easy to place
CC time spent 45min
-
-
Date of Service: January 14, 2025
CC / HPI / ROS
-
Chief Complaint:
NOE
History of Present Illness:
NOE/creatinine up at 2.7
RHC PCWP 36 on 01/12, CI 2.4
plt low no change at 37k
sodium stable at 135, k stable at 4.1
Hemoglobin low 8 post PRBC 01/10
bp stable off middrine
wt no change
Review of Systems:
Continues to resp distress with very minimal exertion
c/o cp on exertion
has cough, hemoptysis
on 4lit of O2
Labs
-
Labs:
WBC 4.6 10^3/uL (4.8-10.8) L 01/14/25 03:08
RBC 2.64 10^6/uL (4.70-6.10) L 01/14/25 03:08
Hgb 8.0 g/dL (13.0-18.0) L 01/14/25 03:08
Hct 25.6 % (39.0-52.0) L 01/14/25 03:08
Plt Count 37 10^3/uL (130-400) L 01/14/25 03:08
eGFR Cancelled 01/14/25 08:00
Phosphorus 5.6 mg/dl (2.5-4.5) H 01/14/25 03:08
Lgk-B-Zmpibqabgmd Pept > 03906 pg/ml 01/14/25 03:08
Albumin 3.6 g/dl (3.5-5.0) 01/11/25 03:03
Physical Exam
-
Vital Signs:
Vital Signs
Temp Pulse Resp BP Pulse Ox
98.0 F 112 18 146/71 97
01/14/25 11:47 01/14/25 08:00 01/14/25 08:00 01/14/25 08:00 01/14/25 09:55
Cardiovascular:: Regular rate and rhythm (tachy)
Respiratory:: Bilateral: Rales
Lung Excursion:: Abnormal
Abdomen:: Nontender and Soft
Extremity Edema:: None: Bilateral:
Anders Catheter: Yes
--- NOTE | 2025-01-14 12:28 | W.PN.HOSP.TC ---
Today's Communication/Plan
-
Monitor vital signs see plan
Monitor renal function
Discussed with cardiology, nephrology, copper flotation operator likely will require temporary dialysis if patient agrees
Monitor platelets
Prognosis appears guarded
Continue with Bumex drip, metolazone
Assessment / Plan
Assessment / Plan
General: Well Developed, Well Nourished and Respiratory Distress
HEENT: Normocephalic, Atraumatic, Moist Mucous Membranes, No Ptosis, and Nose Appears Normal
Respiratory: Rhonchi, Crackles and Non Labored Respirations, on 4L NC
Cardiac: Regular Rhythm and S1/S2
GI: Soft, Nontender, Nondistended and Normal Bowel Sounds
Genito-urinary: No Costovertebral Tender
Musculoskeletal: No Edema
Neuro: Awake, Alert, Oriented, AO x 3 and No Motor Deficits
Psych: Anxious
Assessment/plan:
Shortness of breath possibly due to acute on chronic HFrEF/possible pulmonary edema
Chest pain likely 2/2 Coronary disease with microvascular disease process
Acute on Chronic systolic congestive heart failure
- [facility] last admission showed blocked SVG graft to distal LAD, was planned to be manage medical
- Continue on Plavix statin
- Troponin 12 and has been trending down from elevated troponin max of 28 on 12/20
- Blood pressure soft at times. May need to start pressors if required.
- Repeat chest x-ray with pulmonary edema with worsening probnp
- Currently on 4 L of oxygen. Sats remained stable
- Cardiology and nephrology following
Status post right heart cath 01/12 with elevated filling pressure. Concern for pulmonary hypertension. cw Bumex gtt. Added metolazone. Renal function still not improving. Discussed with cardiology, nephrology, copper flotation operator. Nephrology to speak to
patient and family regarding temporary dialysis.
- Persistent chest pain-started on IV nitro gtt
CT chest with most likely atelectasis and bibasilar effusion.
thrombocytopenia -unclear chronicity
-Platelets Persistently low. No prior records. Not much improvement in platelets if it was related to infection. Seen by hematology, thinking findings could be CMML and would need to require bone marrow biopsy to confirm. Hematology currently
signed off however wants patient to follow-up with them outpatient once he is stable
Enterococcus faecalis bacteremia
- Delayed blood culture collected post PICC placement and abx.
- Vancomycin was initially discontinued, resumed---> Currently patient on IV ampicillin
- Echocardiogram 12/29 did not show any valvular vegetation.
- Repeat blood culture positive from 12/30. f/u repeat blood culture report from 01/01 remains negative
- CT abdomen pelvis did not show any clear infectious source
- Infectious ease recommending 6 weeks of IV ampicillin
-RENAN negative for vegetation
NOE on CKD stage IIIb
Acute urinary retention
- creatinine up to 3.2 in ER, baseline cr 1.7-1.8 at discharge week back,
- Renal dysfunction likely combination from hypotension/cardiorenal syndrome and urinary retention
- Anders catheter
- Avoid nephrotoxic medication
- Creatinine now 2.7
Per patient he would not want dialysis
Septic shock from multifocal pneumonia
E faecalis bacteremia
associated with NOE/lactic acidosis
- Reported subjective fever at home. no productive cough.
- Total WBC count of 35K at admission has trended down
- ID help appreciated. Currently patient on IV ampicillin (needs long-term IV antibiotic)
Acute normocytic anemia
- Hemoglobin 8 today; s/p 2u of PRBC
- No luminal blood loss
Anion gap metabolic acidosis - Improved
- Combination of lactic acidosis and renal dysfunction related
- Being treated for underlying infection
Hyperkalemia - Improved
Hypokalemia
- Hyperkalemia secondary to renal failure/acidosis related at admission
- Post diuresis patient is developing hypokalemia now, replace as needed
Type II DM
- maintain on Lower dose lantus and ISS
-Premeal NovoLog
- Hold metformin with renal dysfunction
Essential hypertension
- Hold blood pressure medication as now with soft bp at times
Hyponatremia - resolved
- Combination from hypervolemia and ADH excess with heart failure
- Urine Na 34 Uosm 257
- Further therapy if have worsening of hyponatremia
Acute transaminitis
- Possible due to hypotension related
resolved
Mild hyponatremia
-trend na for now
CODE STATUS: DNR
DVT prophylaxis: scds
Obtain records from his [facility]
Total Critical Care Time_ 43 minutes. I was immediately available to the patient and staff. I personally examined, reviewed labs, diagnostic images/reports, interpretations, treatment plans, discussed patient care with other providers and family
or caregivers (if patient is unable to make decisions), entered orders as appropriate and documented the medical record.
Anticipated Discharge: > 48 hours
Subjective/Interval History
-
Date of Service: January 14, 2025
continues to feel sob
Objective Data
-
Labs:
Laboratory Results
01/14/25 01/14/25
03:08 08:00
WBC 4.6 L
Hgb 8.0 L
Hct 25.6 L
Plt Count 37 L
Sodium 135 Cancelled
Potassium 4.1 Cancelled
Chloride 98 Cancelled
Carbon Dioxide 25 Cancelled
BUN 71 H Cancelled
Creatinine 2.7 H Cancelled
Glucose 183 H Cancelled
Calcium 8.8 Cancelled
Vital Signs:
Vital Signs
Temp Pulse Resp BP Pulse Ox
98.0 F 103 20 112/81 94
01/14/25 11:47 01/14/25 12:00 01/14/25 12:00 01/14/25 12:00 01/14/25 12:00
I&O
01/13/25 01/14/25 01/15/25
06:59 06:59 06:59
Intake Total 2454.0 / 2468.3 910.0 / 924.3 325.8 / 325.8
Output Total 2565 / 2610 1385 / 1415 190 / 190
Balance -111.0 / -141.7 -475.0 / -490.7 135.8 / 135.8
--- NOTE | 2025-01-14 12:41 | PTCARENOTE ---
Dr. Ayers made aware of critical lactate 5.1
No need to trend per MD.
[2025-01-14] MEDS: SENOKOT 8.6 MG PO (12:53)
[2025-01-14] MEDS: VERSED 1 MG IV (14:31)
[2025-01-14] MEDS: SUBLIMAZE 25 MCG IV (14:31)
--- NOTE | 2025-01-14 14:33 | W.PN.CARDCBS ---
Today's Communication / Plan
-
Multidisciplinary discussion regarding plan with air force pilot, hospitalist, and nephrology.
Patient is now agreeable to trial of dialysis
Overall prognosis poor
Impression / Plan
-
PCP: Israel Clifton MD
CDY: Orlando Langley MD
Impression:
Admitted with sepsis and NOE 12/28/2024
Hypotension requiring pressor support consistent with shock (septic/cardiogenic)
Acute on chronic HFrEF
Intermittent chest pain
Recent admission acute HFrEF and NSTEMI 12/20/2024 until 12/23/2024
Recent ER visit at [facility] for chest pain and SOB 12/09/2024
Moderate
Mitral regurgitation previously mild to moderate now moderate to severe in the setting of volume overload
Clinical sepsis
Enterococcus bacteremia
Possible multifocal PNA
NOE on CKD
Previously required transient HD 07/2024
Hyperkalemia
Elevated troponin, overall trending down from last admission
CAD
s/p CABG with GAFFNEY-LAD, VG-dLAD, VG-PLB 2007
s/p SVG to the distal LAD PCI at [facility] by Dr. Gavin 04/2024
Patent GAFFNEY to LAD, patent SVG to PLB with PDA filling via retrograde from the PLB, occlusion of the SVG to the distal LAD with 100% occlusion of previously placed stent 12/21/2024
s/p tissue AVR 2007
HLD
Medtronic CONSUMER RECRUITER�P (08/2023)
HTN
DM
Language barrier
Thrombocytopenia
Echo 08/2023: nml LV size, abnormal diastolic function with increased LVEDP, EF 60-65%, CLVH but no obvious regional abn. normally functioning bioprosthetic AV, PG/MG 32.5/18, ABEL 1.34cm2
Echo 12/20/2024: EF 35 to 40%, mild concentric LVH, mid to distal inferior, inferolateral, mid anteroseptal, mid anterior, apical hypokinesis, dense MAC, at least moderate to severe MR with anterior eccentric jet, mild to moderate TR, PAP 38 mmHg
Echocardiogram 12/29/2024: Ejection fraction 30 to 35%. Mid to distal inferior, inferolateral, mid anteroseptal and mid anterior hypokinesis with apical akinesis. Moderate to severe mitral regurgitation. Mild to moderate TR.
Echo 12/30/2024: Ejection fraction 30% by visual estimation. Segmental wall motion abnormalities noted. Moderate to severe mitral regurgitation similar to prior. Previously aortic valve was not assessed. Likely moderate aortic valve stenosis
Peak/mean gradients are 32/20mmHg. ABEL 0.8cm sq, using a LVOT of 1.6cm.Mild to moderate tricuspid regurgitation. Estimated pulmonary artery pressure of 33 mmHg
RENAN 01/07/2025: Moderately reduced EF 30 to 35% with global hypokinesis, normal RV size and function, s/p bioprosthetic AVR with likely moderate stenosis no significant regurgitation. Mild to moderate mitral regurgitation. Moderate tricuspid
regurgitation. Compared to echocardiogram from December 30, 2024, mitral valve regurgitation appears mild to moderate, previously moderate to severe, TR is moderate, previously mild to moderate, there is no obvious vegetation seen. No obvious
vegetation.
Plan:
Critically ill, medically complex 74-year-old gentleman on day 17 of this hospitalization. He was recently admitted to [facility] in December with acute heart failure with reduced ejection fraction in the setting of a non-STEMI with new
ischemic cardiomyopathy, EF 30-35% and moderate to severe mitral regurgitation. Patient with known multivessel coronary artery disease and prior CABG with prior tissue AVR in 2007 and a Medtronic CONSUMER RECRUITER�PE in August 2023 whose prior ejection fraction in
August 2023 was 60-65%. Patient was readmitted with hypotension and acute renal insufficiency found to have Enterococcus faecalis bacteremia. He has been followed by ID with blood cultures negative since January 01 and plan for IV ampicillin for 6
weeks. RENAN this admission negative for vegetation.
Ongoing heart failure with reduced ejection fraction/cardiorenal syndrome with hyponatremia and transaminitis
- He is failing attempts for fluid optimization despite IV Bumex at 3 mg/h and oral metolazone
- Right heart catheterization 01/12/2025 with significantly elevated right and left-sided filling pressures with normal cardiac output and elevated SVR with severe pulmonary hypertension. Pulmonary capillary wedge pressure was 36 with V waves up to
45 mmHg. PA pressures 60/32 with a mean of 43. RA pressure 12. Cardiac output/cardiac index 4.3/2.45. SVR 1504; PVR 1.63 Curtis
-Patent GAFFNEY to LAD, patent SVG to PLB with PDA filling via retrograde from the PLB, occlusion of the SVG to the distal LAD with 100% occlusion of previously placed stent 12/21/2024 -no target for revascularization. Had attempt at PCI of the SVG to
the distal LAD at [facility] 04/2024-continue aspirin/Plavix
- Creatinine up to 2.7, baseline 1.7.
- Add Isordil 10 mg 3 times daily and wean IV nitroglycerin drip off
-Check lactic acid
- Initially declined dialysis. After multidisciplinary discussion with air force pilot, hospitalist and nephrology patient was again offered trial of dialysis and is now agreeable
- Plan for temporary dialysis catheter [ongoing discussions regarding catheter placement in the setting of low platelets]
-Hold off adding trial of inotropes at this time given plan for dialysis and previous right heart cath showing adequate cardiac index
-Medtronic CONSUMER RECRUITER�P device checked 12/29/2024 and again 01/11/2025, OptiVol trending up since the beginning of January, looks like underlying sinus tachycardia, no obvious atrial or ventricular arrhythmia
- Will monitor response
Septic shock from multifactorial pneumonia and Enterococcus faecalis bacteremia
- ID previously consulted
- Blood cultures cleared since January 01 with plan for 6 weeks of IV ampicillin
- RENAN this admission negative for vegetation
Anemia with profound thrombocytopenia
- Hematology previously consulted and signed off
- May need platelet transfusion for procedures; defer to hospitalist and or recall hematology
Poor oral intake/no bowel movement for at least 8 days
-Abdominal imaging ordered
DNR/DNI�overall prognosis is poor.
HPI: Patient presented to the ER today with SMALL and is being admitted with possible sepsis and NOE and cardiology is being consulted for possible CHF and recent admission for NSTEMI. Patient has a history of remote CABG and AVR in 2007 at an
outside hospital. He had an admission to [facility] 04/2024 and he had PCI of the SVG to the distal LAD. Patient was then admitted to [facility] with NOE and was transiently on hemodialysis 07/2024. Most recently he has been following with "Alexus"Korin at [facility] and their office referred the patient to the [facility] ER on 12/09/2024 after he complained of chest pain during a visit in their office that day. The patient was discharged from the ER with a higher dose of
Lopressor and they added Imdur ER. There was apparently no consideration for acute HF at that time. Patient then came to [facility] ER on 12/20/2024 with chest pain and the initial troponin was 2.22 and subsequent troponin was as high as 27.9.
Patient was admitted and eventually had cardiac cath 12/21/2024 that showed that the stent in the SVG to the LAD from April was 100% occluded and the GAFFNEY to LAD and SVG to PLV grafts were patent. There was also evidence of acute HFrEF during
that admission and EF was newly reduced at 35 to 40%, it had been 60 to 65% by an echo from his primary seconds grader 08/2023. PCWP was down to 18 which correlated with a weight of 141 lbs at time of cath on 12/21/2024. Cre was stable at 1.8 on the
day of discharge 12/23/2024. At the recommendation of nephrology the patient was discharged home on torsemide 20 mg daily. Patient's family reports that medications were not delivered in a timely fashion and so he was not taking any of his
medications since admission until they arrived yesterday. Patient has had increasing SMALL over the last 24 hours and came to the ER today. There is leukocytosis with a WBC count of 35 with a left shift. Lactic acid levels pending. There is
concern for sepsis possibly due to PNA and patient is being admitted to the ICU due to his need for pressor support with Levophed.
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
Subjective
Date of Service: January 14, 2025
Seen and examined with his [id number] at bedside. Used metallurgy laboratory technician to communicate. Nursing also at bedside. Patient reports generalized full body pain and shortness of breath
Objective
Labs:
01/14/25 03:08
Labs
Hgb 8.0 g/dL (13.0-18.0) L 01/14/25 03:08
Hct 25.6 % (39.0-52.0) L 01/14/25 03:08
Plt Count 37 10^3/uL (130-400) L 01/14/25 03:08
PT 17.1 Sec (11.4-14.6) H 12/28/24 12:58
INR 1.36 12/28/24 12:58
APTT 42.4 Sec (23.4-35.0) H 12/28/24 12:58
Sodium Cancelled 01/14/25 08:00
Potassium Cancelled 01/14/25 08:00
BUN Cancelled 01/14/25 08:00
Creatinine Cancelled 01/14/25 08:00
Glucose Cancelled 01/14/25 08:00
Troponins
01/11/25
16:26
Troponin I 0.907 H*
Vital Signs and I&O:
Vital Signs
Temp Pulse Resp BP Pulse Ox
98.0 F 103 20 112/81 94
01/14/25 11:47 01/14/25 12:00 01/14/25 12:00 01/14/25 12:00 01/14/25 12:00
Vital Signs
Temp Pulse Resp BP Pulse Ox
98.0 F 103 20 112/81 94
01/14/25 11:47 01/14/25 12:00 01/14/25 12:00 01/14/25 12:00 01/14/25 12:00
Intake & Output
01/12/25 01/13/25 01/14/25 01/15/25
06:59 06:59 06:59 06:59
Intake Total 1549.6 / 1560.6 2454.0 / 2468.3 910.0 / 924.3 325.8 / 325.8
Output Total 1785 / 1905 2565 / 2610 1385 / 1415 190 / 190
Balance -235.4 / -344.4 -111.0 / -141.7 -475.0 / -490.7 135.8 / 135.8
Physical Exam
Physical Exam
General: Frail, cachectic 74-year-old [place] male on 4 L nasal cannula sitting straight up with conversational dyspnea
Neck: Positive JVP
Heart: Tachycardic. Positive S1-S2. 2 out of 6 systolic murmur. Device present.
Lungs: Coarse bronchial breath sounds bilaterally with bilateral crackles and end expiratory wheezes. Poor air movement.
Abd: Distended, mild tenderness. Decreased bowel sounds.
Ext: +1 lower extremity edema.
Neuro: nonfocal
[2025-01-14 14:35] LABS: Hepatitis B Surface Antigen Negative (Negative)
--- NOTE | 2025-01-14 14:45 | PTCARENOTE ---
Patient taken down to IR for HD cath placement. Pre medicated with Fentanyl & versed. Family updated.
[2025-01-14] MEDS: NOVOLIN N vial 0.15 UNITS SC (15:39)
[2025-01-14 15:48] LABS: Glucose - Point of Care 230 mg/dl (70-99)
--- NOTE | 2025-01-14 15:49 | PTCARENOTE ---
Patient back from IR. Right HD cath with gauze & tegaderm dressing; gauze with bloody drainage. Anders bag noted to have tear in it and leaking; tape place. Plan for HD this afternoon. Raw Products Director Armen updated.
[2025-01-14] MEDS: MANNITOL 25% 12.5 GRAMS IV ×2 (16:48→17:48)
[2025-01-14] MEDS: FLEXBUMIN 25% FOR HEMODIALYSIS 12.5 GRAMS IV ×2 (16:48→17:49)
[2025-01-14] MEDS: RETACRIT 8000 UNITS IV (16:49)
--- NOTE | 2025-01-14 16:52 | PTCARENOTE ---
HD started by HD Nurse. 1 unit platelets infusing via DL PICC. Bumex & Nitro gtt placed on hold while pt receiving HD. Email Marketing Manager updated.
--- NOTE | 2025-01-14 18:09 | W.PN.NEPH.HD ---
Assessment
-
pt seen during HD
vitals stable, mildly tachy
UF as tolerates
HD again tomorrow
temp catheter functions fine
d/w family and pt
ok to stop IV bumex gtt, likely have bumex push on non HD days
Progress Note - Hemodialysis
-
Date of Service: January 14, 2025
Duration: 2 hours
Potassium Bath: 3
Calcium Bath: 2.5
Opti-Dialyzer: 160
Ultrafiltration: Other (1-1.5kg)
Blood Flow: 250
Dialysate Flow: 600
Heparin: no
EPO: 8000
[2025-01-14 18:27] LABS: Glucose - Point of Care 128 mg/dl (70-99)
[2025-01-14] MEDS: NOVOLOG FLEXPEN-MODERATE RESISTANCE SC (18:35)
--- NOTE | 2025-01-14 19:28 | PTCARENOTE ---
Patient tolerated HD. Meds late d/t HD. , sister- in-law and daughter at bedside, updated. Right IJ dressing changed by HD Nurse Dalila. Patient awake, dinner tray given with ensure. 4L NC in place. V-paced on tele. Plan to restart Bumex gtt at
3mg/hr, keep nitro gtt off, and start Dobutamine gtt at 5mcg/kg/min as BP allows. Plan for HD tomorrow at 12 noon.
[2025-01-14] MEDS: ISORDIL 5 MG PO (19:52)
[2025-01-14] MEDS: LIPITOR 80 MG PO (19:52)
[2025-01-14] MEDS: SENOKOT-S 2 TABLET PO (19:56)
[2025-01-14] MEDS: DOBUTREX 250 IV (19:57)
--- NOTE | 2025-01-14 20:00 | PTCARENOTE ---
Received pt. at 1900. Pt. finished HD session shortly after. 1.5 kg of fluid taken off per HD RN. Pt. is awake, alert, and oriented. PRN medication for pain, see MAR. Afebrile. Heart rhythm paced. Blood pressure normotensive. Currently on nasal
cannula. SOB/dyspneic with activity. Lungs sound diminished. Pt. has PO diet ordered, but has a poor appetite. Abdomen round, non-tender. Anders catheter in place. No output since HD session. Bumex gtt is infusing via PICC line. Skin as documented.
Discussed plan of care with patient and his family at bedside. Vital signs stable at this time.
[2025-01-14 20:33] LABS: Blood Urea Nitrogen 51 mg/dl (9-20); Calcium 9.0 mg/dl (8.4-10.2); Carbon Dioxide 23 mmol/L (22-30); Chloride 99 mmol/L (98-107); Estimated Creatinine Clearance 31 ml/min; Glucose 152 mg/dl (70-99); Magnesium 2.1 mg/dl (1.6-2.3); Potassium 4.6 mmol/L (3.5-5.1); Sodium 135 mmol/L (135-145); eGFR 36.56
[2025-01-14] MEDS: REMOVE LIDOCAINE PATCH 1 PATCH REMOVE (20:47)
[2025-01-14] MEDS: MELATONIN 5 MG PO (21:21)
[2025-01-14] MEDS: PEPCID 20 MG PO (21:21)
[2025-01-14] MEDS: APRESOLINE PO (21:24)
[2025-01-14] MEDS: ISORDIL PO (21:25)
[2025-01-14 22:04] LABS: Glucose - Point of Care 131 mg/dl (70-99)
[2025-01-15] VITALS (9 sets, daily range): BP systolic 59–154; BP diastolic 12–115; BMI 22.0
--- NOTE | 2025-01-15 | PTCARENOTE ---
Pt. assessment unchanged. Family remains at bedside. Continuing to manage pain with PRN medication, see MAR. Vital signs stable at this time.
[2025-01-15] MEDS: DILAUDID 0.5 MG IV ×2 (00:30→04:33)
[2025-01-15] MEDS: DILAUDID 0.25 MG IV (01:44)
[2025-01-15 03:36] LABS: Hematocrit 23.8 % (39.0-52.0); Hemoglobin 7.5 g/dL (13.0-18.0); Mean Corp Hgb Conc. 31.5 g/dL (33.0-37.0); Mean Corpuscular Volume 99.2 fL (80.0-94.0); Platelet Count 53 10^3/uL (130-400); Red Cell Dist. Width 17.5 % (11.5-14.5)
--- NOTE | 2025-01-15 04:00 | PTCARENOTE ---
Pt. assessment remains unchanged. AM labs drawn. Vital signs stable at this time.
[2025-01-15 04:01] LABS: ALT (SGPT) 54 U/L (0-50); AST (SGOT) 76 U/L (17-59); Albumin 4.0 g/dl (3.5-5.0); Alkaline Phosphatase 171 U/L (38-126); Blood Urea Nitrogen 62 mg/dl (9-20); Calcium 9.1 mg/dl (8.4-10.2); Carbon Dioxide 22 mmol/L (22-30); Chloride 98 mmol/L (98-107); Estimated Creatinine Clearance 25 ml/min; Glucose 105 mg/dl (70-99); Magnesium 2.2 mg/dl (1.6-2.3); Potassium 4.4 mmol/L (3.5-5.1); Sodium 132 mmol/L (135-145); Total Protein 6.9 g/dl (6.3-8.2); eGFR 27.62
[2025-01-15] MEDS: AMPICILLIN 108 MG IV (05:03)
[2025-01-15] MEDS: BUMEX 100 IV (06:16)
--- NOTE | 2025-01-15 08:13 | PTCARENOTE ---
Pt's family rang call abdul that pt unresponsive. Noted pt stop breathing. Notified family that patient was passing. Pt DNR at the time. Pt's daughter and sister in law called family then asked to code pt and place him on ventilator. CPR started
and Code [address] Rod and Dr Ford arrived at bedside and spoke with family. Pt once again made DNR and CPR stopped.
--- NOTE | 2025-01-15 08:15 | W.PN.UPDATE ---
Update Note
Progress Note Update
Responded to code 9 as cross cover.
Upon arrival, patient is nonresponsive, hypotensive.
Appreciate cardiology input, Dr. Rod states that the patient's body is actively dying, there is no hope for meaningful recovery.
Patient is a DNR, explained to patient's family that doing CPR or putting him on a breathing machine would be harmful to his body when there is no hope for meaningful recovery.
Family reports understanding, and agrees to keeping patient DNR.
Primary attending updated.
Critical care time 31 minutes
--- NOTE | 2025-01-15 08:18 | W.PN.UPDATE ---
Update Note
Progress Note Update
Mr. Cordova had a code 9 his morning after he became increasingly short of breath and then stop breathing, as per nursing. Family then discussed amongst themselves and additional fan members on the phone said to code him. ACLS/CPR started and then
additional discussions were held with the members and then it was decided to stop resuscitation efforts and to let him pass peacefully. Emotional support provided. Of note, when the code 9 was called, he was already DNR/DNI per the patient's
decision (see my prior update note), hence this was reversed by the family.
--- NOTE | 2025-01-15 08:33 | W.PN.UPDATE ---
Update Note
Progress Note Update
Mr. Cordova's device is a LIMEHOUSE WORKER-pacer. This is confirmed by CXR and the lead/generator serial numbers. The conclusion of my 2023 procedure report was scribed in error and should read LIMEHOUSE WORKER-P or BIVPPM implant.
--- NOTE | 2025-01-15 08:39 | W.PN.UPDATE ---
Update Note
Progress Note Update
Was made aware by nursing staff and cross cover that Mr. Cordova had
Family updated at bedside
ToD:
808
COD:
Septic shock from multifocal pneumonia
Acute on chronic HFrEF
Enterococcus faecalis bacteremia
NOE on CKD stage IIIb
== END 2025-01-15 08:09 | disposition expired | DRG 871 ==
LOC: ICU 15:55
PROVIDERS: General Practice; Hospitalist; Internal Medicine; Internal Medicine Cardiovascular Disease; Internal Medicine Critical Care Medicine; Internal Medicine Infectious Disease; Internal Medicine Interventional Cardiology; Nurse Practitioner Family; Nurse Practitioner Primary Care; Physician Assistant Medical; Radiology Diagnostic Radiology; Radiology Vascular & Interventional Radiology; Registered Nurse; Student in an Organized Health Care Education/Training Program; ADMITTING PHYSICIAN Hospitalist; ATTENDING PHYSICIAN Hospitalist; CONSULT PHYSICIAN Internal Medicine Cardiovascular Disease; CONSULT PHYSICIAN Internal Medicine Critical Care Medicine; CONSULT PHYSICIAN Specialist; EMERGENCY PHYSICIAN Emergency Medicine; FAMILY PHYSICIAN Internal Medicine; OTHER PHYSICIAN Internal Medicine Hematology & Oncology; OTHER PHYSICIAN Student in an Organized Health Care Education/Training Program
PROC: 02HV33Z Insertion of Infusion Device into Superior Vena Cava, Percutaneous Approach (ICD-10-PCS; 2024-12-28)
PROC: 4B02XSZ Measurement of Cardiac Pacemaker, External Approach (ICD-10-PCS; 2024-12-31)
PROC: B5171ZA Fluoroscopy of Left Subclavian Vein using Low Osmolar Contrast, Guidance (ICD-10-PCS; 2025-01-03)
PROC: 05H633Z Insertion of Infusion Device into Left Subclavian Vein, Percutaneous Approach (ICD-10-PCS; 2025-01-03)
PROC: B5181ZA Fluoroscopy of Superior Vena Cava using Low Osmolar Contrast, Guidance (ICD-10-PCS; 2025-01-04)
PROC: 30243N1 Transfusion of Nonautologous Red Blood Cells into Central Vein, Percutaneous Approach (ICD-10-PCS; 2025-01-10)
PROC: 4A023N6 Measurement of Cardiac Sampling and Pressure, Right Heart, Percutaneous Approach (ICD-10-PCS; 2025-01-12)
PROC: 5A1D70Z Performance of Urinary Filtration, Intermittent, Less than 6 Hours Per Day (ICD-10-PCS; 2025-01-14)
PROC: 30233R1 Transfusion of Nonautologous Platelets into Peripheral Vein, Percutaneous Approach (ICD-10-PCS; 2025-01-14)
DX: A41.81 Sepsis due to Enterococcus (principal); I21.4 Non-ST elevation (NSTEMI) myocardial infarction; J18.9 Pneumonia, unspecified organism; R65.21 Severe sepsis with septic shock; I50.23 Acute on chronic systolic (congestive) heart failure; I13.0 Hypertensive heart and chronic kidney disease with heart failure and stage 1 through stage 4 chronic kidney disease, or unspecified chronic kidney disease; N17.9 Acute kidney failure, unspecified; E87.1 Hypo-osmolality and hyponatremia; I25.810 Atherosclerosis of coronary artery bypass graft(s) without angina pectoris; E87.20 Acidosis, unspecified; R04.2 Hemoptysis; N40.1 Benign prostatic hyperplasia with lower urinary tract symptoms; R33.8 Other retention of urine; I25.10 Atherosclerotic heart disease of native coronary artery without angina pectoris; N18.32 Chronic kidney disease, stage 3b; D69.6 Thrombocytopenia, unspecified; I25.5 Ischemic cardiomyopathy; R74.01 Elevation of levels of liver transaminase levels; I35.0 Nonrheumatic aortic (valve) stenosis; R57.0 Cardiogenic shock; E11.22 Type 2 diabetes mellitus with diabetic chronic kidney disease; E87.5 Hyperkalemia; I34.0 Nonrheumatic mitral (valve) insufficiency; D63.1 Anemia in chronic kidney disease; K21.9 Gastro-esophageal reflux disease without esophagitis; E78.00 Pure hypercholesterolemia, unspecified; D72.821 Monocytosis (symptomatic); I27.20 Pulmonary hypertension, unspecified; T50.1X6A Underdosing of loop [high-ceiling] diuretics, initial encounter; Y92.9 Unspecified place or not applicable; R06.89 Other abnormalities of breathing; E87.6 Hypokalemia; R62.7 Adult failure to thrive; Z68.22 Body mass index [BMI] 22.0-22.9, adult; Z66 Do not resuscitate; Z60.3 Acculturation difficulty; Z79.02 Long term (current) use of antithrombotics/antiplatelets; Z79.82 Long term (current) use of aspirin; Z79.4 Long term (current) use of insulin; Z86.73 Personal history of transient ischemic attack (TIA), and cerebral infarction without residual deficits; Z95.3 Presence of xenogenic heart valve; Z95.0 Presence of cardiac pacemaker; Z87.891 Personal history of nicotine dependence; Z95.5 Presence of coronary angioplasty implant and graft; Z79.899 Other long term (current) drug therapy; Z79.84 Long term (current) use of oral hypoglycemic drugs; Z91.148 Patient's other noncompliance with medication regimen for other reason; Z11.52 Encounter for screening for COVID-19; Z95.1 Presence of aortocoronary bypass graft; Z82.49 Family history of ischemic heart disease and other diseases of the circulatory system; Z90.49 Acquired absence of other specified parts of digestive tract
CPT/HCPCS: 36556; 36573; 36584; 70490; 71045; 71046; 71250; 74018; 74176; 76937; 77001; 80048; 80053; 80202; 81003; 81015; 82248; 82805; 82962; 83605; 83735; 83880; 83935; 84100; 84132; 84300; 84484; 85025; 85027; 85610; 85652; 85730; 86140; 86706; 86850; 86900; 86901; 86920; 87040; 87077; 87154; 87186; 87205; 87340; 87502; 87641; 87811; 92526; 92610; 93005; 93308; 93312; 93320; 93321; 93325; 93451; 94640; 96365; 96366; 96367; 96375; 97163; 97164; 97167; 97168; 97530; 97535; 99291; C1751; C1752; C1769; C1894; J1250; J1939; P9016; P9047; P9073; Q5106